=== PATIENT | female | born 1940 | race Caucasian/White ===

== ENCOUNTER 2019-09-20 17:46 | Inpatient (IN) | payer MEDICARE ==
[2019-09-20] MEDS ORDERED: SODIUM CHLORIDE 0.9% 1,000 ML IV STA ×3 (17:56→18:17)
[2019-09-20] MEDS ORDERED: SODIUM CHLORIDE 0.9% 500 ML 500 ML IV STA (18:17)
--- NOTE | 2019-09-20 18:18 | ED ---
Recheck HPI - General Chief Complaint: Fall Stated Complaint: Abn labs Time Seen by Provider: 09/20/19 17:49 Source: EMS, RN notes reviewed, old records reviewed Mode of arrival: EMS Limitations: no limitations - History of Present Illness Initial Comments: This is a 79-year-old female here today she presents as transfer, patient is accepted in transfer from outside early for abnormal lab tests elevated calcium weakness and they're concerned for possible metastatic disease or underlying CA undiagnosed. Patient herself is here in the ER with no active complaints. Denying any recent change or new medications patient is relatively poor historian. History obtained from EMS as well as patient's chart, prior hospital record ER visit MD Complaint: abnormal lab (Elevated calcium) -: unknown Returns Today for: Called Because of Abnormal Lab/Test (Sent ER for evaluation secondary to higher level of care) Symptoms Since Prior Visit: no new symptoms Associated Symptoms: none - Related Data Home Medications Medication Instructions Recorded Confirmed Calcium Carbonate/Vitamin D3 1 tab PO DAILY 09/20/19 09/20/19 [Calcium 600-Vit D3 200 Tablet] Cholecalciferol [Vitamin D3 (25 2,000 unit PO DAILY 09/20/19 09/20/19 Mcg = 1000 Iu)] Cyclobenzaprine [Flexeril] 10 mg PO DAILY PRN 09/20/19 09/20/19 Fluticasone Propion/Salmeterol 1 - 2 inhalation PO RT-DAILY 09/20/19 09/20/19 [Wixela 250-50 Inhub] Hydrochlorothiazide 25 mg PO DAILY 09/20/19 09/20/19 Lidocaine 5% Patch [Lidoderm] 1 patch TOPICAL DAILY PRN 09/20/19 09/20/19 Magnesium Oxide [[place]] 500 mg PO DAILY 09/20/19 09/20/19 Potassium Chloride ER [K-Dur 20] 20 meq PO DAILY 09/20/19 09/20/19 Sennosides [Senna] 8.6 mg PO HS PRN 09/20/19 09/20/19 Tiotropium [place] [Spiriva] 1 cap INHALATION RT-DAILY 09/20/19 09/20/19 amLODIPine [Norvasc] 10 mg PO DAILY 09/20/19 09/20/19 Allergies Allergy/AdvReac Type Severity Reaction Status Date / Time latex Allergy Rash/Hives Verified 09/20/19 19:02 morphine Allergy Rash/Hives Verified 09/20/19 19:02 Review of Systems ROS Statement: Those systems with pertinent positive or pertinent negative responses have been documented in the HPI. ROS Other: All systems not noted in ROS Statement are negative. Past Medical History Past Medical History: Asthma, COPD Additional Past Medical History / Comment(s): both ankles fractured Smoking Status: Never smoker Past Alcohol Use History: None Reported Past Drug Use History: None Reported General Exam Limitations: no limitations General appearance: alert, in no apparent distress Head exam: Present: atraumatic, normocephalic, normal inspection Eye exam: Present: normal appearance, PERRL, EOMI. Absent: scleral icterus, conjunctival injection, periorbital swelling ENT exam: Present: normal exam, mucous membranes moist Neck exam: Present: normal inspection. Absent: tenderness, meningismus, lymphadenopathy Respiratory exam: Present: normal lung sounds bilaterally. Absent: respiratory distress, wheezes, rales, rhonchi, stridor Cardiovascular Exam: Present: regular rate, normal rhythm, normal heart sounds. Absent: systolic murmur, diastolic murmur, rubs, gallop, clicks GI/Abdominal exam: Present: soft, normal bowel sounds. Absent: distended, tenderness, guarding, rebound, rigid Extremities exam: Present: normal inspection, full ROM, normal capillary refill. Absent: tenderness, pedal edema, joint swelling, calf tenderness Back exam: Present: normal inspection Neurological exam: Present: alert, oriented X3, CN II-XII intact Psychiatric exam: Present: normal affect, normal mood Skin exam: Present: warm, dry, intact, normal color. Absent: rash Course Vital Signs 09/20/19 17:57 Temperature 97.9 F Pulse Rate 71 Respiratory 20 Rate Blood Pressure 184/91 O2 Sat by Pulse 95 Oximetry - Reevaluation(s) Reevaluation #1: 09/20/19 19:58 Transfer paperwork is reviewed does show calcium of 13 Reevaluation #2: 09/20/19 19:58 Patient is feeling better with hydration here in the ER - Consultations Consultation #1: spoke w [facility] Dr [place]osa ok for admission Medical Decision Making - Medical Decision Making 79 female ER accepted in transfer for elevated calcium level likely dehydration related, patient given adequate fluid boluses here in the ER will admit for monitoring of electrolytes, further symptom management - EKG Data -: EKG Interpreted by Me (EKG shows sinus rhythm of 82, SC 140, QRS 78, QTC 436) Disposition Clinical Impression: Hypercalcemia Disposition: ADMITTED IP TO THIS HOSP Condition: Good Is patient prescribed a controlled substance at d/c from ED?: No Referrals: Nonstaff,Physician [Primary Care Provider] - 1-2 days
--- NOTE | 2019-09-20 22:08 | P.HPIM ---
History of Present Illness H&P Date: 09/20/19 Chief Complaint: Weakness fall hypercalcemia The patient is a 78 year old female with a past medical history of essential hypertension, COPD, former smoker 4 weeks in remission, osteoporosis who presents to the ER after being transferred here from [place]. The patient reports that she fell late last night around midnight after attempted to get up out of bed, she reports a slip and fall and was unable to get up. The patient reported that a neighbor found her at approximately 10:30 this morning and called EMS. The patient denied any head trauma and denies any significant pain at this time, she does report some bruising on her chest. She reports a intimately productive cough since yesterday, but denies any fevers or chills, she reports occasional wheezes. The patient reports that baseline she is able to ambulate with a walker and is able to get up and transfer but has been unable to do so, the patient reports a unintentional weight loss of approximately 30 pounds in the last 6 months. At [facility] EKG showed normal sinus rhythm . CBC was normal. Serum sodium was 138, potassium 2.9, serum calcium 13, , albumin 3.5 and magnesium 1.7. CPK 430, on chest x-ray the patient has had noted to have of increased density is in the left mid lung field posterolaterally similar to the CT representing old healed fractures, small areas of pleural calcifications in the lung apices old rib fractures seen on the right, noted compression fractures nothing acute, 40 meq potassium and 20 mg of IV Lasix Review of Systems (Positive as per HPI all other review of systems otherwise negative Past Medical History Past Medical History: Asthma, COPD Additional Past Medical History / Comment(s): both ankles fractured Smoking Status: Never smoker Past Alcohol Use History: None Reported Past Drug Use History: None Reported - Past Family History Mother Family Medical History: CVA/TIA Father Family Medical History: CVA/TIA Medications and Allergies Home Medications Medication Instructions Recorded Confirmed Type Calcium Carbonate/Vitamin D3 1 tab PO DAILY 09/20/19 09/20/19 History [Calcium 600-Vit D3 200 Tablet] Cholecalciferol [Vitamin D3 (25 2,000 unit PO DAILY 09/20/19 09/20/19 History Mcg = 1000 Iu)] Cyclobenzaprine [Flexeril] 10 mg PO DAILY PRN 09/20/19 09/20/19 History Fluticasone Propion/Salmeterol 1 - 2 inhalation PO RT-DAILY 09/20/19 09/20/19 History [Wixela 250-50 Inhub] Hydrochlorothiazide 25 mg PO DAILY 09/20/19 09/20/19 History Lidocaine 5% Patch [Lidoderm] 1 patch TOPICAL DAILY PRN 09/20/19 09/20/19 History Magnesium Oxide [[place]] 500 mg PO DAILY 09/20/19 09/20/19 History Potassium Chloride ER [K-Dur 20] 20 meq PO DAILY 09/20/19 09/20/19 History Sennosides [Senna] 8.6 mg PO HS PRN 09/20/19 09/20/19 History Tiotropium [place] [Spiriva] 1 cap INHALATION RT-DAILY 09/20/19 09/20/19 History amLODIPine [Norvasc] 10 mg PO DAILY 09/20/19 09/20/19 History Allergies Allergy/AdvReac Type Severity Reaction Status Date / Time latex Allergy Rash/Hives Verified 09/20/19 19:02 morphine Allergy Rash/Hives Verified 09/20/19 19:02 Physical Exam Vitals: Vital Signs Temp Pulse Resp BP Pulse Ox 09/20/19 17:57 97.9 F 71 20 184/91 95 Intake and Output 09/20/19 09/20/19 09/20/19 06:59 14:59 22:59 Other: Weight 43.545 kg Constitutional: No acute distress, conversant, pleasant Eyes: Anicteric sclerae, moist conjunctiva, no lid-lag, PERRLA ENMT: NC/AT,Oropharynx clear, no erythema, exudates Neck:Supple, FROM, no masses, or JVD, No carotid bruits; No thyromegaly Lungs: Clear to auscultation, Clear to percussion, Normal respiratory effort, no accessory muscle use, barrel chest Cardiovascular: Heart regular in rate and rhythm, No murmurs, gallops, or rubs no peripheral edema Abdominal: Soft Nontender, nom distended, no guarding, no rebound or rigidity, Normoactive bowel sounds No hepatomegaly, No splenomegaly, No palpable mass No abdominal wall hernia noted Skin: Normal temperature, tone, texture, turgor, No induration No subcutaneous nodules, No rash, lesions, No ulcers Extremities:No digital cyanosis No clubbing, Pedal pulses intact and symmetrical Radial pulses intact and symmetrical, No calf tenderness Psychiatric: Alert and oriented to person, place and time, Appropriate affect Intact judgement Neuro: Muscles Strength 5/5 in all 4 extremities, Sensation to light touch grossly present throughout, Cranial nerves II-XII grossly intact. No focal sensory deficits Assessment and Plan Assessment: Fall Weakness Dehydration Hypercalcemia Hypokalemia Acute bronchitis Essential hypertension COPD Plan: The patient is admitted anticipated greater than 2 midnight stay with fall and inability to get up due to weakness. Patient found to have hypecalcemia with serum calcium of 13, the patient was given Lasix, continue workup with checking ionized calcium, PTH and vitamin D level. Continue treatment with IV fluids patient was given a couple liters continue on an as the 100 mL an hour. We'll plan to hold her HCTZ as this can precipitate or worsen hypercalcemia. We'll resume her other home medications, initiate Z-Desmond for acute bronchitis. Continue to follow her clinical course/ also consult PTOT CODE STATUS: DO NOT RESUSCITATE Discussed plan of care with: Patient son and [id number] Anticipated discharge place: Home
[2019-09-21] MEDS ORDERED: CYCLOBENZAPRINE 10 MG TAB PO PRN (00:19)
[2019-09-21] MEDS ORDERED: SENNOSIDES 8.6 MG TAB PO PRN (00:19)
[2019-09-21] MEDS ORDERED: AZITHROMYCIN 500 MG TAB PO STA (00:24)
[2019-09-21] MEDS ORDERED: POTASSIUM CHLORIDE ER 20 MEQ TAB.ER PO STA (01:01)
[2019-09-21] MEDS: IPRATROPIUM 0.5 MG/2.5 ML NEBU INHALATION SCH ×4 (07:08→20:10)
[2019-09-21] MEDS: SYMBICORT 80-4.5 MCG INHALER INHALATION SCH ×2 (07:08→20:10)
[2019-09-21] MEDS: MAGNESIUM OXIDE 400 MG TAB PO SCH ×2 (07:55→07:56)
[2019-09-21] MEDS: POTASSIUM CHLORIDE ER 20 MEQ TAB.ER PO SCH (07:55)
[2019-09-21] MEDS: AZITHROMYCIN 250 MG TAB PO SCH (07:56)
[2019-09-21 08:00] LABS: Basophils # (A) 0.1 k/uL (0-0.2); Basophils % (A) 1 %; Calcium 10.9 mg/dL (8.4-10.2); Eosinophils # (A) 0.6 k/uL (0-0.7); Eosinophils % (A) 8 %; HCT 38.3 % (34.0-46.0); HGB 11.7 gm/dL (11.4-16.0); Hypochromasia Moderate; Lymphocytes % (A) 13 %; MCH 28.3 pg (25.0-35.0); MCHC 30.6 g/dL (31.0-37.0); MCV 92.6 fL (80.0-100.0); Mean Platelet Volume 8.7; Monocytes # (A) 0.4 k/uL (0-1.0); Monocytes % (A) 6 %; Neutrophils # (A) 5.6 k/uL (1.3-7.7); Neutrophils % (A) 71 %; Platelet Count 293 k/uL (150-450); Potassium 2.9 mmol/L (3.5-5.1); RBC 4.14 m/uL (3.80-5.40); RDW 13.5 % (11.5-15.5); Total Bilirubin 0.7 mg/dL (0.2-1.3); Total Protein 5.9 g/dL (6.3-8.2); WBC 7.8 k/uL (3.8-10.6)
[2019-09-21 08:42] LABS: Ionized Calcium 6.1 mg/dL (4.5-5.3)
--- NOTE | 2019-09-21 09:58 | XR ---
EXAMINATION TYPE: XR chest 1V DATE OF EXAM: 09/21/2019 HISTORY: hypercalcemia. REFERENCE: NONE. FINDINGS: There is bibasilar airspace disease. I suspect small effusions. The heart is mildly enlarge d. Metallic density projects over the right chest. IMPRESSION: 1. BIBASILAR AIRSPACE DISEASE. 2. MILD CARDIOMEGALY. 3. SMALL, BILATERAL EFFUSIONS.
[2019-09-21] MEDS: amLODIPine 10 MG TAB PO SCH (10:44)
[2019-09-21] MEDS: IPRATROPIUM-ALBUTEROL 3 ML NEB INHALATION PRN (11:33)
[2019-09-21] MEDS: POTASSIUM CHLORIDE 10 MEQ in WATER FOR INJECTION 1 100ML.BAG IVPB SCH ×4 (11:41→18:05)
--- NOTE | 2019-09-21 12:27 | P.PN ---
Subjective Progress Note Date: 09/21/19 Principal diagnosis: follow up for electrolyte abnormalities, recent fall. patient seen and examined, she reports walking with assistance to the bathroom, no associated SOB. denies fever, chills, or hemoptysis . she reports chronic cough. and quitting smoking 5 weeks ago . poor appetite , no nausea or vomiting. denies GI bleeding patient lives alone, and her sister brings her food Objective - Vital Signs Vital signs: Vital Signs Temp 98.8 F 09/21/19 05:44 Pulse 76 09/21/19 07:22 Resp 20 09/21/19 05:44 BP 155/75 09/21/19 05:44 Pulse Ox 95 09/20/19 20:07 Intake & Output 09/20/19 09/21/19 09/21/19 18:59 06:59 18:59 Intake Total 590 Balance 590 Weight 43.545 kg 43.545 kg Intake: Oral 590 Other: Voiding Method Bedside Commode # Voids 3 # Bowel Movements 2 - Exam Constitutional: vital signs stable, Not in acute distress, pleasant, conversant Lungs: decrease breath sounds throughout , prolonge expiratory phase, no wheezing , normal respiratory effort no use of accessory muscles Cardiovascular: Regular rate and rhythm, mild systolic murmurs, no gallops, no rubs, no peripheral edema Gastrointestinal: Soft, no tenderness to palpation, no palpable hepatosplenomegally, bowel sounds positive, no abdominal wall hernias Extremities: No digital cyanosis or clubbing, peripheral pulses palpable and equal over bilateral radial arteries and dorsalis pedis artery, no calf muscle tenderness Psych: Alert, oriented to place, person , appropriate affect, intact judgment Neuro: Cranial nerves II-XII grossly intact, no focal sensory deficits to touch bruising over anterior mid chest and left anterior chest - Labs CBC & Chem 7: 09/21/19 07:16 09/21/19 07:16 Labs: Abnormal Lab Results - Last 24 Hours (Table) 09/21/19 09/21/19 09/21/19 Range/Units 07:16 07:16 07:16 MCHC 30.6 L (31.0-37.0) g/dL Potassium 2.9 L (3.5-5.1) mmol/L Carbon Dioxide 32 H (22-30) mmol/L BUN 22 H (7-17) mg/dL Calcium 10.9 H (8.4-10.2) mg/dL Ionized Calcium Danna 6.1 H* (4.5-5.3) mg/dL Magnesium 1.5 L (1.6-2.3) mg/dL AST 43 H (14-36) U/L Total Protein 5.9 L (6.3-8.2) g/dL Albumin 3.0 L (3.5-5.0) g/dL Assessment and Plan Assessment: The patient reports that she fell late last night around midnight after attemp filiberto to get up out of bed, she reports a slip and fall and was unable to get up. The patient reported that a neighbor found her at approximately 10:30 this morning and called EMS. The patient reports that baseline she is able to ambulate with a walker and is able to get up and transfer but has been unable to do so, the patient reports a unintentional weight loss of approximately 30 pounds in the last 6 months. At [facility] EKG showed normal sinus rhythm . she was found to have hypercalcemia and was transferred to our facility , on chest x-ray the patient has had noted to have of increased density is in the left mid lung field posterolaterally similar to the CT representing old healed fractures, small areas of pleural calcifications in the lung apices old rib fractures seen on the right, noted compression fractures nothing acute 09/21 patient still having generalized weakness, along with electrolytes imbalance, today plan to correct Mg and K IV route, and follow up levels closely PT /OT fall risk Plan: Fall, with bruising over anterior chest generalized Weakness electroyltes imbalance, with hypercalcemia, hypokalemia and hypomagnesemia, this could be in part due to poor nutrition and HCTZ side effect, I also have unde rlying cancer in the differential significant weight loss, poor PO intake , can not rule out underlying cancer dehydration severe protein calorie malnutrition plan PT/OT eval fall precautions replace electrolytes as needed, K and Mg Ca level trending down CXR negative for lung mass. , no acute fractures identified add ensure with meals reassess over all condition and ambulation after correction of electrolytes PTH low normal Vit D hydroxy , pending chronic conditions Essential hypertension, controlled COPD, continue home inhalers tobacco smoking abuse, quit 5 weeks ago DVT PPX, heparin sc tid discharge planning pending PT evaluation , patient is weak with risk of falling
[2019-09-21] MEDS: MAGNESIUM SULFATE-D5W PMX 1 GM in DEXTROSE/WATER 1 100ML.BAG IVPB SCH ×2 (14:38→15:48)
[2019-09-21] MEDS: SODIUM CHLORIDE 0.9% 1,000 ML IV SCH ×2 (17:05→23:53)
[2019-09-21] MEDS: HEPARIN SODIUM,PORCINE 5,000 UNIT/ML 1 ML VIAL SQ SCH ×2 (17:20→23:52)
[2019-09-22] MEDS: IPRATROPIUM 0.5 MG/2.5 ML NEBU INHALATION SCH ×4 (07:25→19:01)
[2019-09-22] MEDS: SYMBICORT 80-4.5 MCG INHALER INHALATION SCH ×2 (07:25→19:01)
[2019-09-22 07:38] LABS: Basophils # (A) 0.1 k/uL (0-0.2); Basophils % (A) 2 %; Eosinophils # (A) 0.8 k/uL (0-0.7); Eosinophils % (A) 11 %; HCT 35.4 % (34.0-46.0); Hypochromasia Slight; Lymphocytes % (A) 14 %; MCH 28.5 pg (25.0-35.0); MCHC 31.2 g/dL (31.0-37.0); MCV 91.3 fL (80.0-100.0); Mean Platelet Volume 8.9; Monocytes # (A) 0.5 k/uL (0-1.0); Monocytes % (A) 7 %; Neutrophils # (A) 4.6 k/uL (1.3-7.7); Neutrophils % (A) 65 %; Platelet Count 233 k/uL (150-450); RBC 3.87 m/uL (3.80-5.40); RDW 13.7 % (11.5-15.5); WBC 7.2 k/uL (3.8-10.6)
[2019-09-22] MEDS: HEPARIN SODIUM,PORCINE 5,000 UNIT/ML 1 ML VIAL SQ SCH ×3 (07:41→23:28)
[2019-09-22] MEDS: AZITHROMYCIN 250 MG TAB PO SCH (07:41)
[2019-09-22] MEDS: POTASSIUM CHLORIDE ER 20 MEQ TAB.ER PO SCH (07:41)
[2019-09-22] MEDS: amLODIPine 10 MG TAB PO SCH (07:41)
[2019-09-22 08:26] LABS: Albumin 2.5 g/dL (3.5-5.0); Calcium 9.5 mg/dL (8.4-10.2); Magnesium 1.7 mg/dL (1.6-2.3); Total Bilirubin 0.5 mg/dL (0.2-1.3); Total Protein 5.1 g/dL (6.3-8.2)
--- NOTE | 2019-09-22 11:49 | P.PN ---
Subjective Progress Note Date: 09/22/19 Principal diagnosis: follow up for electrolyte abnormalities, recent fall. patient seen and examined, she reports walking with assistance to the bathroom twice today and tolerated well, no associated SOB. denies fever, chills, or hemoptysis . she feels better compared to since admission , she is hoping for placement at [facility] [place] , patient lives alone tolerating PO intake, tolerated ensure. no nausea or vomiting. denies GI bleeding Objective - Vital Signs Vital signs: Vital Signs Temp 98.2 F 09/22/19 05:00 Pulse 74 09/22/19 07:46 Resp 16 09/22/19 07:46 BP 138/74 09/22/19 05:00 Pulse Ox 96 09/22/19 05:00 Intake & Output 09/21/19 09/22/19 09/22/19 18:59 06:59 18:59 Intake Total 600 1470 Output Total 800 Balance -200 1470 Weight 43.545 kg Intake: Intake, IV Titration 880 Amount Sodium Chloride 0.9% 1, 880 000 ml @ 80 mls/hr IV . [id number] [facility] Rx#:[id number] Oral 600 590 Output: Urine 800 Other: Voiding Method Bedside Commode Bedside Commode Bedside Commode # Voids 4 1 - Exam Constitutional: vital signs stable, Not in acute distress, pleasant, conversant Lungs: breath sounds better( in sitting position today )compared to yesterday still overall diminished , no wheezing , normal respiratory effort no use of accessory muscles Cardiovascular: Regular rate and rhythm, mild systolic murmurs, no gallops, no rubs, no peripheral edema Gastrointestinal: Soft, no tenderness to palpation, no palpable hepatosplenomegally, bowel sounds positive, no abdominal wall hernias Extremities: No digital cyanosis or clubbing, peripheral pulses palpable and equal over bilateral radial arteries and dorsalis pedis artery, no calf muscle tenderness Psych: Alert, oriented to place, person , appropriate affect, intact judgment bruising over anterior mid chest and left anterior chest unchanged - Labs CBC & Chem 7: 09/22/19 07:02 09/22/19 07:02 Labs: Abnormal Lab Results - Last 24 Hours (Table) 09/22/19 09/22/19 Range/Units 07:02 07:02 Hgb 11.0 L (11.4-16.0) gm/dL Eosinophils # 0.8 H (0-0.7) k/uL Potassium 3.0 L (3.5-5.1) mmol/L Carbon Dioxide 33 H (22-30) mmol/L BUN 19 H (7-17) mg/dL Total Protein 5.1 L (6.3-8.2) g/dL Albumin 2.5 L (3.5-5.0) g/dL Assessment and Plan Assessment: The patient reports that she fell late last night around midnight after attempted to get up out of bed, she reports a slip and fall and was unable to get up. The patient reported that a neighbor found her at approximately 10:30 this morning and called EMS. The patient reports that baseline she is able to ambulate with a walker and is able to get up and transfer but has been unable to do so, the patient reports a unintentional weight loss of approximately 30 pounds in the last 6 months. At [facility] EKG showed normal sinus rhythm . she was found to have hypercalcemia and was transferred to our facility , on chest x-ray the patient has had noted to have of increased density is in the left mid lung field posterolaterally similar to the CT representing old healed fractures, small areas of pleural calcifications in the lung apices old rib fractures seen on the right, noted compression fractures nothing acute 09/21 patient still having generalized weakness, along with electrolytes imbalance, today plan to correct Mg and K IV route, and follow up levels closely PT /OT fall risk 09/22 she feels better still overall weak, but she is willing to participate with PT and walk around to get stronger, she lives alone and hopes for [facility] placement upon discharge. electrolyte imbalance improving , continue to hold HCTZ. i think her electrolyte abnormality were due to HCTZ and Poor PO intake consider OP follow up with PCP for age appropriate cancer screening replace K today and Mg and follow up levels Plan: electroyltes imbalance, with hypercalcemia, hypokalemia and hypomagnesemia, this could be in part due to poor nutrition and HCTZ side effect, I also have underlying cancer in the differential Fall, with bruising over anterior chest generalized Weakness significant weight loss, poor PO intake , can not rule out underlying cancer dehydration severe protein calorie malnutrition plan replace K and Mg again today and closely follow up levels hold HCTZ and discontinue HCTZ upon discharge PT/OT fall precautions Ca level normalizdd CXR negative for lung mass. , no acute fractures identified tolerating ensure with meals weakness improving with PT and replacing electrolytes chronic conditions Essential hypertension, controlled COPD, continue home inhalers tobacco smoking abuse, quit 5 weeks ago DVT PPX, heparin sc tid discharge planning [facility] 09/23 patient is weak with risk of falling , lives alone
[2019-09-22] MEDS: POTASSIUM CHLORIDE 10 MEQ in WATER FOR INJECTION 1 100ML.BAG IVPB SCH ×4 (12:18→16:39)
[2019-09-22] MEDS: SODIUM CHLORIDE 0.9% 1,000 ML IV SCH (12:22)
[2019-09-22] MEDS: MAGNESIUM SULFATE-D5W PMX 1 GM in DEXTROSE/WATER 1 100ML.BAG IVPB SCH ×2 (16:40→18:01)
[2019-09-22] MEDS: IPRATROPIUM-ALBUTEROL 3 ML NEB INHALATION PRN (19:01)
[2019-09-23] MEDS: SODIUM CHLORIDE 0.9% 1,000 ML IV SCH ×2 (05:31→14:13)
[2019-09-23] MEDS: SYMBICORT 80-4.5 MCG INHALER INHALATION SCH ×2 (07:29→21:33)
[2019-09-23] MEDS: IPRATROPIUM 0.5 MG/2.5 ML NEBU INHALATION SCH ×4 (07:29→21:25)
[2019-09-23 07:53] LABS: African American GFR (CKD) >90 (>60 ml/min/1.73 sqM); Anion Gap 3 mmol/L; Blood Urea Nitrogen 15 mg/dL (7-17); Calcium 8.7 mg/dL (8.4-10.2); Carbon Dioxide 31 mmol/L (22-30); Chloride 101 mmol/L (98-107); Glucose 86 mg/dL (74-99); Magnesium 1.5 mg/dL (1.6-2.3); Non-African American GFR(CKD) 84 (>60 ml/min/1.73 sqM); Potassium 3.2 mmol/L (3.5-5.1); Sodium 135 mmol/L (137-145)
[2019-09-23] MEDS: HEPARIN SODIUM,PORCINE 5,000 UNIT/ML 1 ML VIAL SQ SCH ×2 (08:17→16:10)
[2019-09-23] MEDS: POTASSIUM CHLORIDE ER 20 MEQ TAB.ER PO SCH (08:17)
[2019-09-23] MEDS: amLODIPine 10 MG TAB PO SCH (08:17)
[2019-09-23] MEDS: AZITHROMYCIN 250 MG TAB PO SCH (08:17)
--- NOTE | 2019-09-23 08:56 | P.PN ---
Subjective Progress Note Date: 09/23/19 Principal diagnosis: follow up for electrolyte abnormalities, recent fall. patient seen and examined, patient feel stronger with better apetite now she reports walking with assistance to the bathroom twice today and tolerated well, no associated SOB. denies fever, chills, or hemoptysis . she feels better compared to since admission , she is hoping for placement at [facility] in [place] , patient lives alone, alternatives to that she would like to go home with home care she refuses to go to any assisted living facility or long-term facility tolerating PO intake, tolerated ensure. no nausea or vomiting. denies GI bleeding Objective - Vital Signs Vital signs: Vital Signs Temp 96.3 F L 09/23/19 04:52 Pulse 76 09/23/19 07:50 Resp 20 09/23/19 04:52 BP 158/73 09/23/19 04:52 Pulse Ox 94 L 09/23/19 04:52 Intake & Output 09/22/19 09/23/19 09/23/19 18:59 06:59 18:59 Intake Total 240 590 Output Total 800 Balance -560 590 Intake: Oral 240 590 Output: Urine 800 Other: Voiding Method Bedside Commode Bedside Commode # Voids 3 5 - Exam Constitutional: vital signs stable, Not in acute distress, pleasant, conversant Lungs: Breathing sounds better today in the mid and upper portions of the lungs slightly diminished over the lung bases due to poor effort , no wheezing , normal respiratory effort no use of accessory muscles Cardiovascular: Regular rate and rhythm, mild systolic murmurs, no gallops, no rubs, no peripheral edema Gastrointestinal: Soft, no tenderness to palpation, bowel sounds positive Extremities: No digital cyanosis peripheral pulses palpable and equal no calf muscle tenderness Psych: Alert, oriented to place, person , appropriate affect, intact judgment bruising over anterior mid chest and left anterior chest unchanged - Labs CBC & Chem 7: 09/22/19 07:02 09/23/19 07:06 Labs: Abnormal Lab Results - Last 24 Hours (Table) 09/23/19 Range/Units 07:06 Sodium 135 L (137-145) mmol/L Potassium 3.2 L (3.5-5.1) mmol/L Carbon Dioxide 31 H (22-30) mmol/L Magnesium 1.5 L (1.6-2.3) mg/dL Assessment and Plan Assessment: The patient reports that she fell late last night around midnight after attempted to get up out of bed, she reports a slip and fall and was unable to get up. The patient reported that a neighbor found her at approximately 10:30 this morning and called EMS. The patient reports that baseline she is able to ambulate with a walker and is able to get up and transfer but has been unable to do so, the patient reports a unintentional weight loss of approximately 30 pounds in the last 6 months. At [facility] EKG showed normal sinus rhythm . she was found to have hypercalcemia and was transferred to our facility , on chest x-ray the patient has had noted to have of increased density is in the left mid lung field posterolaterally similar to the CT representing old healed fractures, small areas of pleural calcifications in the lung apices old rib fractures seen on the right, noted compression fractures nothing acute 09/21 patient still having generalized weakness, along with electrolytes imbalance, today plan to correct Mg and K IV route, and follow up levels closely PT /OT fall risk 09/22 she feels better still overall weak, but she is willing to participate with PT and walk around to get stronger, she lives alone and hopes for [facility] placement upon discharge. electrolyte imbalance improving , continue to hold HCTZ. i think her electrolyte abnormality were due to HCTZ and Poor PO intake consider OP follow up with PCP for age appropriate cancer screening replace K today and Mg and follow up levels 08/2016 Patient overall still showing signs of improvement she is participating with physical therapy. Working on discharge planning, insurance denied subacute rehab placement due to her functional status level. Patient refuses long-term facility care or assisted living and she prefers to go home with home care that her only option due to insurance denial I continue to replace potassium and magnesium as needed today encouraged patient to increase by mouth intake Plan: electroyltes imbalance, with hypercalcemia, hypokalemia and hypomagnesemia, this could be in part due to poor nutrition and HCTZ side effect, I also have underlying cancer in the differential Fall, with bruising over anterior chest generalized Weakness significant weight loss, poor PO intake , can not rule out underlying cancer dehydration severe protein calorie malnutrition plan Continue to follow-up electrolytes level and replace as needed hold HCTZ and discontinue HCTZ upon discharge Continue to work with PT/OT fall precautions Upper calcium and resolved CXR negative for lung mass. , no acute fractures identified tolerating ensure with meals weakness improving with PT and replacing electrolytes chronic conditions Essential hypertension, controlled COPD, continue home inhalers tobacco smoking abuse, quit 5 weeks ago DVT PPX, heparin sc tid discharge planning [facility] 09/24 home with home care due to insurance denial of subacute rehab placement I did [id number] review and explained patient is weak with risk of falling , lives alone however physical therapy notes showed that she required supervision and some areas and most of the other areas required only minimal assistance for which she did not qualify for subacute skilled rehab facility placement
[2019-09-23] MEDS: POTASSIUM CHLORIDE 10 MEQ in WATER FOR INJECTION 1 100ML.BAG IVPB SCH ×4 (10:48→14:10)
[2019-09-24] MEDS: HEPARIN SODIUM,PORCINE 5,000 UNIT/ML 1 ML VIAL SQ SCH ×2 (00:03→09:17)
[2019-09-24] MEDS: SODIUM CHLORIDE 0.9% 1,000 ML IV SCH (00:04)
[2019-09-24 05:25] VITALS: RESP 16
[2019-09-24] MEDS: SYMBICORT 80-4.5 MCG INHALER INHALATION SCH (08:06)
[2019-09-24] MEDS: IPRATROPIUM 0.5 MG/2.5 ML NEBU INHALATION SCH ×2 (08:06→12:52)
[2019-09-24] MEDS: AZITHROMYCIN 250 MG TAB PO SCH (09:17)
[2019-09-24] MEDS: amLODIPine 10 MG TAB PO SCH (09:17)
[2019-09-24] MEDS: POTASSIUM CHLORIDE ER 20 MEQ TAB.ER PO SCH (09:17)
[2019-09-24 09:44] LABS: Basophils # (A) 0.1 k/uL (0-0.2); Basophils % (A) 1 %; Eosinophils # (A) 0.5 k/uL (0-0.7); Eosinophils % (A) 6 %; HCT 35.6 % (34.0-46.0); HGB 10.9 gm/dL (11.4-16.0); Hypochromasia Slight; Lymphocytes % (A) 12 %; MCHC 30.6 g/dL (31.0-37.0); MCV 91.4 fL (80.0-100.0); Mean Platelet Volume 8.6; Monocytes # (A) 0.5 k/uL (0-1.0); Monocytes % (A) 6 %; Neutrophils # (A) 5.9 k/uL (1.3-7.7); Neutrophils % (A) 73 %; Platelet Count 270 k/uL (150-450); RBC 3.89 m/uL (3.80-5.40); RDW 13.8 % (11.5-15.5); WBC 8.2 k/uL (3.8-10.6)
[2019-09-24 09:58] LABS: African American GFR (CKD) >90 (>60 ml/min/1.73 sqM); Anion Gap 5 mmol/L; Blood Urea Nitrogen 12 mg/dL (7-17); Calcium 8.8 mg/dL (8.4-10.2); Carbon Dioxide 31 mmol/L (22-30); Chloride 99 mmol/L (98-107); Glucose 83 mg/dL (74-99); Magnesium 1.2 mg/dL (1.6-2.3); Non-African American GFR(CKD) 85 (>60 ml/min/1.73 sqM); Potassium 3.4 mmol/L (3.5-5.1); Sodium 135 mmol/L (137-145)
[2019-09-24 11:48] VITALS: BP 141/65; TEMP 98.5
[2019-09-24] MEDS: MAGNESIUM SULFATE-D5W PMX 1 GM in DEXTROSE/WATER 1 100ML.BAG IVPB SCH ×2 (11:56→13:25)
[2019-09-24 12:15] VITALS: BMI 23.1
--- NOTE | 2019-09-24 12:20 | P.DS ---
Providers Date of admission: 09/20/19 19:57 Attending physician: Maurice Mendosa MD Primary care physician: Physician Nonstaff Hospital Course: Final diagnosis upon discharge Electrolyte imbalance with hypercalcemia, hypokalemia hypomagnesemia. Most likely secondary to hydrochlorothiazide side effect. Currently resolved with replacement Generalized weakness with frequent falls at home. Anterior chest wall ecchymosis secondary to fall, no acute fractures Dehydration Severe protein calorie malnutrition Chronic conditions Hypertension COPD Hospital course 79-year-old female presents to the hospital reporting that she fell late last night around midnight after attempted to get up out of bed, she reports a slip and fall and was unable to get up. The patient reported that a neighbor found her at approximately 10:30 this morning and called EMS. The patient reports that baseline she is able to ambulate with a walker and is able to get up and transfer but has been unable to do so, the patient reports a unintentional weight loss of approximately 30 pounds in the last 6 months. At [facility] EKG showed normal sinus rhythm . she was found to have hypercalcemia and was transferred to our facility , on chest x-ray (no masses ) the patient has had noted to have of increased density is in the left mid lung field posterolaterally similar to the CT representing old healed fractures, small areas of pleural calcifications in the lung apices old rib fractures seen on the right, noted compression fractures nothing acute 09/21 patient still having generalized weakness, along with electrolytes imbalance, today plan to correct Mg and K IV route, and follow up levels closely PT /OT fall risk 09/22 she feels better still overall weak, but she is willing to participate with PT and walk around to get stronger, she lives alone and hopes for [facility] placement upon discharge. electrolyte imbalance improving , continue to hold HCTZ. i think her electrolyte abnormality were due to HCTZ and Poor PO intake consider OP follow up with PCP for age appropriate cancer screening replace K today and Mg and follow up levels 09/23 Patient overall still showing signs of improvement she is participating with physical therapy. Working on discharge planning, insurance denied subacute rehab placement due to her functional status level. I did [id number] review and explained patient is weak with risk of falling , lives alone however physical therapy notes showed that she required supervision and some areas and most of the other areas required only minimal assistance for which she did not qualify for subacute skilled rehab facility placement Patient refuses long-term facility care or assisted living and she prefers to go home with home care that her only option due to insurance denial I continue to replace potassium and magnesium as needed today encouraged patient to increase by mouth intake Patient was seen and examined on day of discharge doing well tolerating by mouth intake., Her electrolytes are at better control now. Continue to hold hydrochlorothiazide. Her blood pressure in the range of 150s to 160s. Denies any chest pain trouble breathing nausea or vomiting Constitutional: vital signs stable, Not in acute distress, pleasant, conversant Lungs: Good breath sounds bilaterally, decreased breath sounds at lung basis due to patient for effort, ecchymosis on anterior chest clearing up, no wheezing , normal respiratory effort Cardiovascular: Regular rate and rhythm, mild systolic murmurs, no gallops, no rubs, no peripheral edema Gastrointestinal: Soft, no tenderness to palpation, bowel sounds positive Extremities: No digital cyanosis peripheral pulses palpable and equal no calf muscle tenderness Psych: Alert, oriented to place, person , appropriate affect, intact judgment Discharge home with home care patient declined long-term assisted living facility Follow up with PCP In 3 days follow-up on basic metabolic panel and magnesium level Continue daily magnesium by mouth and potassium by mouth Continue to hold hydrochlorothiazide follow up with PCP Continue with amlodipine for blood pressure Continue ensure 2-3 times a day as tolerated Patient will be discharged home with home care in stable clinical condition 35 minutes were spent discharging this patient, and more than 50% of the time was spent in counseling the patient and family and in coordinating care. Patient Condition at Discharge: Good Plan - Discharge Summary Discharge Rx Participant: Yes New Discharge Prescriptions: New Ipratropium-Albuterol Nebulize [Duoneb 0.5 mg-3 mg/3 ml Soln] 3 ml INHALATION RT-QID #100 ml Continue Calcium Carbonate/Vitamin D3 [Calcium 600-Vit D3 200 Tablet] 1 tab PO DAILY Cholecalciferol [Vitamin D3 (25 Mcg = 1000 Iu)] 2,000 unit PO DAILY Cyclobenzaprine [Flexeril] 10 mg PO DAILY PRN PRN Reason: Muscle Spasm Lidocaine 5% Patch [Lidoderm 5% Patch] 1 patch TOPICAL DAILY PRN PRN Reason: Pain Magnesium Oxide [[place]] 500 mg PO DAILY Sennosides [Senna] 8.6 mg PO HS PRN PRN Reason: Constipation amLODIPine [Norvasc] 10 mg PO DAILY #30 tab Tiotropium [place] [Spiriva] 1 cap INHALATION RT-DAILY #1 inh Changed Potassium Chloride ER [K-Dur 20] 40 meq PO DAILY #30 tab Fluticasone Propion/Salmeterol [Wixela 250-50 Inhub] 2 inhalation PO RT-DAILY #1 device Discontinued Hydrochlorothiazide 25 mg PO DAILY Discharge Medication List Calcium Carbonate/Vitamin D3 [Calcium 600-Vit D3 200 Tablet] 1 tab PO DAILY 09/20/19 [History] Cholecalciferol [Vitamin D3 (25 Mcg = 1000 Iu)] 2,000 unit PO DAILY 09/20/19 [History] Cyclobenzaprine [Flexeril] 10 mg PO DAILY PRN 09/20/19 [History] Lidocaine 5% Patch [Lidoderm 5% Patch] 1 patch TOPICAL DAILY PRN 09/20/19 [History] Magnesium Oxide [[place]] 500 mg PO DAILY 09/20/19 [History] Sennosides [Senna] 8.6 mg PO HS PRN 09/20/19 [History] Fluticasone Propion/Salmeterol [Wixela 250-50 Inhub] 2 inhalation PO RT-DAILY #1 device 09/24/19 [Rx] Ipratropium-Albuterol Nebulize [Duoneb 0.5 mg-3 mg/3 ml Soln] 3 ml INHALATION RT-QID #100 ml 09/24/19 [Rx] Potassium Chloride ER [K-Dur 20] 40 meq PO DAILY #30 tab 09/24/19 [Rx] Tiotropium [place] [Spiriva] 1 cap INHALATION RT-DAILY #1 inh 09/24/19 [Rx] amLODIPine [Norvasc] 10 mg PO DAILY #30 tab 09/24/19 [Rx] Follow up Appointment(s)/Referral(s): [facility], [NON-STAFF] - 1 Week Nonstaff,Physician [Primary Care Provider] - 1-2 days Lazara Hughes MD [STAFF PHYSICIAN] - 1 Week Ambulatory/Diagnostic Orders: Basic Metabolic Panel [LAB.AMB] Time Frame: 3 Days, Location: None Selected Magnesium [LAB.AMB] Time Frame: 3 Days, Location: None Selected Activity/Diet/Wound Care/Special Instructions: continue with ensure as tolerated 2-3 times a day Discharge Disposition: HOME WITH HOME HEALTH SERVICES Plan of Treatment: continue to hold HCTZ, it is most likely the cause of your hypercalcemia and other electrolyte abnormalities. that has now resolved
[2019-09-24 13:14] VITALS: PULSE 76
== END 2019-09-24 14:55 | disposition home health service (06) | DRG 640 ==
LOC: EC 17:46 → 5NMEDONC 19:57
PROVIDERS: ADMIT Family Medicine; ATTEND Family Medicine
DX: E83.52 Hypercalcemia (principal); E43 Unspecified severe protein-calorie malnutrition; E87.6 Hypokalemia; E83.42 Hypomagnesemia; J44.9 Chronic obstructive pulmonary disease, unspecified; E86.0 Dehydration; Z66 Do not resuscitate; I10 Essential (primary) hypertension; S20.219A Contusion of unspecified front wall of thorax, initial encounter; W06.XXXA Fall from bed, initial encounter; T50.2X5A Adverse effect of carbonic-anhydrase inhibitors, benzothiadiazides and other diuretics, initial encounter; Y92.013 Bedroom of single-family (private) house as the place of occurrence of the external cause; J20.9 Acute bronchitis, unspecified; M81.0 Age-related osteoporosis without current pathological fracture; Z68.23 Body mass index [BMI] 23.0-23.9, adult; Z60.2 Problems related to living alone; Z88.5 Allergy status to narcotic agent; Z91.040 Latex allergy status; Z79.899 Other long term (current) drug therapy; Z87.81 Personal history of (healed) traumatic fracture; Z87.891 Personal history of nicotine dependence; Z82.3 Family history of stroke
CPT/HCPCS: 71045; 80048; 80053; 82306; 82330; 83735; 83970; 84100; 84132; 85025; 93005; 94640; 94760; 96360; 96361; 99285

== ENCOUNTER 2020-06-23 19:35 | Inpatient (IN) | payer MEDICARE ==
[2020-06-23] MEDS ORDERED: NALOXONE 0.4 MG/ML 1 ML VIAL IV PRN (19:57)
--- NOTE | 2020-06-23 19:57 | ED ---
Back Pain HPI - General Chief Complaint: Back Pain/Injury Stated Complaint: Possible Pneumonia Time Seen by Provider: 06/23/20 19:40 Source: patient, RN/MD, EMS, RN notes reviewed Limitations: physical limitation - History of Present Illness Initial Comments: Patient is a 79-year-old female with past medical history of asthma and COPD who presents emergency department with reported back pain. Patient has had back pain and 4-5 days. She saw her primary care physician who did an x-ray. Was reported that she had a compression fracture. She has been on steroids and muscle relaxers without improvement. Pain is worse when she ambulates. Denies any recent trauma. Denies saddle anesthesia. No bowel or bladder incontinence or retention. No weakness in her lower extremities. She denies history of drug use. No fevers. Her pain persisted and therefore she went into [facility]. They performed CT which demonstrated a L1 compression fracture approximately 50% with retropulsion of a 6 mm fragment into the spinal column. He recommended the patient be transferred to our facility for orthospine evaluation for which the patient did agree to. The patient continues to deny any weakness or lower extremities. No numbness, tingling. No other alleviating, precipitating or modifying factors Review the patient's chart demonstrates a L1 compression fracture with retropulsion of 6 mm of the fragment - Related Data Home Medications Medication Instructions Recorded Confirmed Cholecalciferol [Vitamin D3 (25 3,000 unit PO DAILY 09/20/19 06/23/20 Mcg = 1000 Iu)] Albuterol Inhaler [Ventolin Hfa 2 puff INHALATION RT-Q4H PRN 06/23/20 06/23/20 Inhaler] Cyclobenzaprine [Flexeril] 10 mg PO Q8H PRN 06/23/20 06/23/20 Fluticasone Propion/Salmeterol 1 puff INHALATION RT-DAILY 06/23/20 06/23/20 [Wixela 250-50 Inhub] Ipratropium-Albuterol Nebulize 3 ml INHALATION RT-QID PRN 06/23/20 06/23/20 [Duoneb 0.5 mg-3 mg/3 ml Soln] Latanoprost/Pf [Latanoprost 0.005% 1 drop BOTH EYES HS 06/23/20 06/23/20 Eye Drop] Magnesium Oxide 400 mg PO DAILY 06/23/20 06/23/20 Multivitamins, Thera [Multivitamin 1 tab PO DAILY 06/23/20 06/23/20 (formulary)] Potassium Chloride ER [K-Dur 20] 20 meq PO DAILY 06/23/20 06/23/20 Tiotropium [place] [Spiriva] 1 cap INHALATION RT-HS 06/23/20 06/23/20 Vitamin C(Unknown Dose) 1 tab PO DAILY 06/23/20 06/23/20 Vitamin E 400 unit PO DAILY 06/23/20 06/23/20 Previous Rx's Medication Instructions Recorded amLODIPine [Norvasc] 10 mg PO DAILY #30 tab 09/24/19 Allergies Allergy/AdvReac Type Severity Reaction Status Date / Time latex Allergy Rash/Hives Verified 06/23/20 20:36 morphine Allergy Rash/Hives Verified 06/23/20 20:36 Review of Systems ROS Statement: Those systems with pertinent positive or pertinent negative responses have been documented in the HPI. ROS Other: All systems not noted in ROS Statement are negative. Past Medical History Past Medical History: Asthma, COPD Additional Past Medical History / Comment(s): both ankles fractured History of Any Multi-Drug Resistant Organisms: None Reported Past Surgical History: Orthopedic Surgery Past Anesthesia/Blood Transfusion Reactions: No Reported Reaction Past Psychological History: No Psychological Hx Reported Smoking Status: Current every day smoker Past Alcohol Use History: None Reported Past Drug Use History: None Reported - Past Family History Mother Family Medical History: CVA/TIA Father Family Medical History: CVA/TIA General Exam Limitations: no limitations General appearance: alert, in no apparent distress Head exam: Present: atraumatic, normocephalic, normal inspection Eye exam: Present: normal appearance, PERRL, EOMI. Absent: scleral icterus, conjunctival injection, periorbital swelling ENT exam: Present: normal exam, mucous membranes moist Neck exam: Present: normal inspection. Absent: tenderness, meningismus, lymphadenopathy Respiratory exam: Present: normal lung sounds bilaterally. Absent: respiratory distress, wheezes, rales, rhonchi, stridor Cardiovascular Exam: Present: regular rate, normal rhythm, normal heart sounds. Absent: systolic murmur, diastolic murmur, rubs, gallop, clicks GI/Abdominal exam: Present: soft, normal bowel sounds. Absent: distended, tenderness, guarding, rebound, rigid Extremities exam: Present: normal inspection, full ROM, normal capillary refill. Absent: tenderness, pedal edema, joint swelling, calf tenderness Back exam: Present: normal inspection Neurological exam: Present: alert, oriented X3, CN II-XII intact Psychiatric exam: Present: normal affect, normal mood Skin exam: Present: warm, dry, intact, normal color. Absent: rash Course Vital Signs 06/23/20 06/23/20 06/23/20 19:38 20:32 20:46 Temperature 98.2 F 98.0 F 98.2 F Pulse Rate 110 H 103 H Pulse Rate [ 108 H Pulse Oximetery ] Respiratory 18 18 18 Rate Blood Pressure 168/88 174/92 Blood Pressure 146/89 [Right Arm] O2 Sat by Pulse 90 L 95 92 L Oximetry 06/23/20 21:00 Temperature 98.2 F Pulse Rate Pulse Rate [ 108 H Pulse Oximetery ] Respiratory 18 Rate Blood Pressure Blood Pressure 146/89 [Right Arm] O2 Sat by Pulse 92 L Oximetry Medical Decision Making - Medical Decision Making Upon arrival the patient was placed into room 15. A thorough history and physical exam was performed. I did review the [facility] I called and discussed case with Dr. Chew. MRI of the patient's thoracic and lumbar spine will be performed. I ordered a TLSO brace. Spine precautions and Jeffers placed. I also spoke with Dr. Torres who will be on consult for medicine. Repeat labs were performed as the patient did have le ukemia. It did improve to 3.8. The patient remained in stable condition awaiting transport to the floor - Lab Data Result diagrams: 06/28/20 08:48 06/29/20 07:32 Lab Results 06/23/20 06/23/20 06/24/20 Range/Units 20:13 20:13 04:28 WBC 10.5 12.0 H (3.8-10.6) k/uL RBC 5.03 4.93 (3.80-5.40) m/uL Hgb 15.2 15.0 (11.4-16.0) gm/dL Hct 46.7 H 46.4 H (34.0-46.0) % MCV 92.9 94.1 (80.0-100.0) fL MCH 30.2 30.3 (25.0-35.0) pg MCHC 32.5 32.2 (31.0-37.0) g/dL RDW 13.0 13.0 (11.5-15.5) % Plt Count 237 225 (150-450) k/uL Neutrophils % 89 83 % Lymphocytes % 5 10 % Monocytes % 4 5 % Eosinophils % 1 1 % Basophils % 0 0 % Neutrophils # 9.4 H 10.0 H (1.3-7.7) k/uL Lymphocytes # 0.6 L 1.2 (1.0-4.8) k/uL Monocytes # 0.5 0.6 (0-1.0) k/uL Eosinophils # 0.1 0.2 (0-0.7) k/uL Basophils # 0.0 0.0 (0-0.2) k/uL Hypochromasia Sample Site ABG pH (7.35-7.45) ABG pCO2 (35-45) mmHg ABG pO2 (83-108) mmHg ABG HCO3 (21-25) mmol/L ABG Total CO2 (19-24) mmol/L ABG O2 Saturation (94-97) % ABG Base Excess mmol/L Ariel Test FiO2 % Sodium 131 L (137-145) mmol/L Potassium 3.8 (3.5-5.1) mmol/L Chloride 91 L (98-107) mmol/L Carbon Dioxide 38 H (22-30) mmol/L Anion Gap 2 mmol/L BUN 20 H (7-17) mg/dL Creatinine 0.48 L (0.52-1.04) mg/dL Est GFR (CKD-EPI)AfAm >90 (>60 ml/min/1.73 sqM) Est GFR (CKD-EPI)NonAf >90 (>60 ml/min/1.73 sqM) Glucose 127 H (74-99) mg/dL Osmolality (280-301) mosm/kg Calcium 8.8 (8.4-10.2) mg/dL Total Bilirubin 0.5 (0.2-1.3) mg/dL AST 21 (14-36) U/L ALT 10 (4-34) U/L Alkaline Phosphatase 64 (38-126) U/L Total Protein 6.0 L (6.3-8.2) g/dL Albumin 3.3 L (3.5-5.0) g/dL Urine Osmolality (50-1400) mosm/kg Ur Random Sodium mmol/L Coronavirus (PCR) (Not Detected) 06/24/20 06/24/20 06/24/20 Range/Units 04:28 04:28 04:29 WBC (3.8-10.6) k/uL RBC (3.80-5.40) m/uL Hgb (11.4-16.0) gm/dL Hct (34.0-46.0) % MCV (80.0-100.0) fL MCH (25.0-35.0) pg MCHC (31.0-37.0) g/dL RDW (11.5-15.5) % Plt Count (150-450) k/uL Neutrophils % % Lymphocytes % % Monocytes % % Eosinophils % % Basophils % % Neutrophils # (1.3-7.7) k/uL Lymphocytes # (1.0-4.8) k/uL Monocytes # (0-1.0) k/uL Eosinophils # (0-0.7) k/uL Basophils # (0-0.2) k/uL Hypochromasia Sample Site rrad ABG pH 7.45 (7.35-7.45) ABG pCO2 58 H (35-45) mmHg ABG pO2 73 L (83-108) mmHg ABG HCO3 40 H* (21-25) mmol/L ABG Total CO2 42 H (19-24) mmol/L ABG O2 Saturation 95.7 (94-97) % ABG Base Excess 16.1 mmol/L Ariel Test Yes FiO2 28 % Sodium 131 L (137-145) mmol/L Potassium 3.6 (3.5-5.1) mmol/L Chloride 93 L (98-107) mmol/L Carbon Dioxide 36 H (22-30) mmol/L Anion Gap 2 mmol/L BUN 22 H (7-17) mg/dL Creatinine 0.48 L (0.52-1.04) mg/dL Est GFR (CKD-EPI)AfAm >90 (>60 ml/min/1.73 sqM) Est GFR (CKD-EPI)NonAf >90 (>60 ml/min/1.73 sqM) Glucose 97 (74-99) mg/dL Osmolality 280 (280-301) mosm/kg Calcium 8.6 (8.4-10.2) mg/dL Total Bilirubin (0.2-1.3) mg/dL AST (14-36) U/L ALT (4-34) U/L Alkaline Phosphatase (38-126) U/L Total Protein (6.3-8.2) g/dL Albumin (3.5-5.0) g/dL Urine Osmolality (50-1400) mosm/kg Ur Random Sodium mmol/L Coronavirus (PCR) (Not Detected) 06/24/20 06/24/20 06/24/20 Range/Units 11:50 11:50 11:50 WBC (3.8-10.6) k/uL RBC (3.80-5.40) m/uL Hgb (11.4-16.0) gm/dL Hct (34.0-46.0) % MCV (80.0-100.0) fL MCH (25.0-35.0) pg MCHC (31.0-37.0) g/dL RDW (11.5-15.5) % Plt Count (150-450) k/uL Neutrophils % % Lymphocytes % % Monocytes % % Eosinophils % % Basophils % % Neutrophils # (1.3-7.7) k/uL Lymphocytes # (1.0-4.8) k/uL Monocytes # (0-1.0) k/uL Eosinophils # (0-0.7) k/uL Basophils # (0-0.2) k/uL Hypochromasia Sample Site ABG pH (7.35-7.45) ABG pCO2 (35-45) mmHg ABG pO2 (83-108) mmHg ABG HCO3 (21-25) mmol/L ABG Total CO2 (19-24) mmol/L ABG O2 Saturation (94-97) % ABG Base Excess mmol/L Ariel Test FiO2 % Sodium (137-145) mmol/L Potassium (3.5-5.1) mmol/L Chloride (98-107) mmol/L Carbon Dioxide (22-30) mmol/L Anion Gap mmol/L BUN (7-17) mg/dL Creatinine (0.52-1.04) mg/dL Est GFR (CKD-EPI)AfAm (>60 ml/min/1.73 sqM) Est GFR (CKD-EPI)NonAf (>60 ml/min/1.73 sqM) Glucose (74-99) mg/dL Osmolality (280-301) mosm/kg Calcium (8.4-10.2) mg/dL Total Bilirubin (0.2-1.3) mg/dL AST (14-36) U/L ALT (4-34) U/L Alkaline Phosphatase (38-126) U/L Total Protein (6.3-8.2) g/dL Albumin (3.5-5.0) g/dL Urine Osmolality 511 (50-1400) mosm/kg Ur Random Sodium 68 mmol/L Coronavirus (PCR) Not Detected (Not Detected) 06/24/20 06/25/20 06/25/20 Range/Units 18:04 07:46 07:46 WBC 16.9 H (3.8-10.6) k/uL RBC 4.62 (3.80-5.40) m/uL Hgb 14.2 (11.4-16.0) gm/dL Hct 45.0 (34.0-46.0) % MCV 97.3 (80.0-100.0) fL MCH 30.7 (25.0-35.0) pg MCHC 31.5 (31.0-37.0) g/dL RDW 12.9 (11.5-15.5) % Plt Count 220 (150-450) k/uL Neutrophils % % Lymphocytes % % Monocytes % % Eosinophils % % Basophils % % Neutrophils # (1.3-7.7) k/uL Lymphocytes # (1.0-4.8) k/uL Monocytes # (0-1.0) k/uL Eosinophils # (0-0.7) k/uL Basophils # (0-0.2) k/uL Hypochromasia Slight Sample Site left radial ABG pH 7.44 (7.35-7.45) ABG pCO2 53 H (35-45) mmHg ABG pO2 49 L* (83-108) mmHg ABG HCO3 37 H (21-25) mmol/L ABG Total CO2 38 H (19-24) mmol/L ABG O2 Saturation 86.5 L (94-97) % ABG Base Excess 12.4 mmol/L Ariel Test Yes FiO2 28 % Sodium 130 L (137-145) mmol/L Potassium 3.5 (3.5-5.1) mmol/L Chloride 95 L (98-107) mmol/L Carbon Dioxide 33 H (22-30) mmol/L Anion Gap 2 mmol/L BUN 21 H (7-17) mg/dL Creatinine 0.39 L (0.52-1.04) mg/dL Est GFR (CKD-EPI)AfAm >90 (>60 ml/min/1.73 sqM) Est GFR (CKD-EPI)NonAf >90 (>60 ml/min/1.73 sqM) Glucose 139 H (74-99) mg/dL Osmolality (280-301) mosm/kg Calcium 7.6 L (8.4-10.2) mg/dL Total Bilirubin (0.2-1.3) mg/dL AST (14-36) U/L ALT (4-34) U/L Alkaline Phosphatase (38-126) U/L Total Protein (6.3-8.2) g/dL Albumin (3.5-5.0) g/dL Urine Osmolality (50-1400) mosm/kg Ur Random Sodium mmol/L Coronavirus (PCR) (Not Detected) Disposition Clinical Impression: Mechanical back pain, Compression fracture Disposition: ADMITTED IP TO THIS [facility] Condition: Stable Is patient prescribed a controlled substance at d/c from ED?: No Decision to Admit Reason: Admit from EC Decision Date: 06/23/20 Decision Time: 19:57
[2020-06-23 20:24] LABS: Basophils % (A) 0 %; Eosinophils # (A) 0.1 k/uL (0-0.7); Eosinophils % (A) 1 %; HCT 46.7 % (34.0-46.0); HGB 15.2 gm/dL (11.4-16.0); Lymphocytes # (A) 0.6 k/uL (1.0-4.8); Lymphocytes % (A) 5 %; MCH 30.2 pg (25.0-35.0); MCHC 32.5 g/dL (31.0-37.0); MCV 92.9 fL (80.0-100.0); Mean Platelet Volume 8.5; Monocytes # (A) 0.5 k/uL (0-1.0); Monocytes % (A) 4 %; Neutrophils # (A) 9.4 k/uL (1.3-7.7); Neutrophils % (A) 89 %; Platelet Count 237 k/uL (150-450); RBC 5.03 m/uL (3.80-5.40); WBC 10.5 k/uL (3.8-10.6)
[2020-06-23 20:33] LABS: ALT 10 U/L (4-34); AST 21 U/L (14-36); African American GFR (CKD) >90 (>60 ml/min/1.73 sqM); Albumin 3.3 g/dL (3.5-5.0); Alkaline Phosphatase 64 U/L (38-126); Anion Gap 2 mmol/L; Blood Urea Nitrogen 20 mg/dL (7-17); Calcium 8.8 mg/dL (8.4-10.2); Carbon Dioxide 38 mmol/L (22-30); Chloride 91 mmol/L (98-107); Glucose 127 mg/dL (74-99); Non-African American GFR(CKD) >90 (>60 ml/min/1.73 sqM); Potassium 3.8 mmol/L (3.5-5.1); Sodium 131 mmol/L (137-145); Total Bilirubin 0.5 mg/dL (0.2-1.3)
[2020-06-23] MEDS ORDERED: ALBUTEROL NEBULIZED 2.5 MG/3 ML INHALATION PRN (21:26)
[2020-06-23] MEDS ORDERED: IPRATROPIUM-ALBUTEROL 3 ML NEB INHALATION PRN (21:26)
[2020-06-23] MEDS: HYDROmorphone 0.5 MG/0.5 ML SYRINGE IVP SCH (23:09)
[2020-06-24] MEDS: HYDROmorphone 0.5 MG/0.5 ML SYRINGE IVP SCH ×3 (02:45→09:14)
--- NOTE | 2020-06-24 03:29 | P.CONS ---
History of Present Illness - Reason for Consult Consult date: 06/23/20 - History of Present Illness Patient is a 79-year-old female with a PMH of COPD, tobacco abuse, and hypertension who presented to the emergency room as a transfer from [facility] with complaints of lower back pain. The patient reports that her pain started roughly a week ago, located in the lower back, brought on only with activity (walking or any mobilization of her spine), nonradiating, with no associated features. Patient denied lower extremity weakness, numbness, tingling. She also denied urinary incontinence or bowel incontinence. The patient notes that she was seen by her PMD for her pain who had prescribed her oral steroids which she has been compliant with. The patient undergone extensive evaluation at [facility] which was all reviewed. A CT of lumbar spine had revealed mild to moderate compression fracture of L1 vertebrae with a 6 mm retropulsion of bone causing central canal stenosis. There was also severe central canal stenosis at the level of the L4/L5 vertebra. Laboratory evaluation had revealed a WBC count of 11.9, hemoglobin 16.6, sodium 135, potassium 2.7, BUN 19, creatinine 0.6, chloride 91, AST 12, ALT 8, troponin 0.04, and BNP 320. EKG had revealed sinus tachycardia at 1 10 bpm with APCs without ST/T-wave changes noted as reviewed by me. Review of Systems Pertinent positives and negatives as discussed in HPI, a complete review of systems was performed and all other systems are negative. Past Medical History Past Medical History: Asthma, COPD Additional Past Medical History / Comment(s): both ankles fractured History of Any Multi-Drug Resistant Organisms: None Reported Past Surgical History: Orthopedic Surgery Past Anesthesia/Blood Transfusion Reactions: No Reported Reaction Past Psychological History: No Psychological Hx Reported Smoking Status: Current every day smoker Past Alcohol Use History: None Reported Past Drug Use History: None Reported - Past Family History Mother Family Medical History: CVA/TIA Father Family Medical History: CVA/TIA Medications and Allergies Home Medications Medication Instructions Recorded Confirmed Type Cholecalciferol [Vitamin D3 (25 3,000 unit PO DAILY 09/20/19 06/23/20 History Mcg = 1000 Iu)] amLODIPine [Norvasc] 10 mg PO DAILY #30 tab 09/24/19 06/23/20 Rx Albuterol Inhaler [Ventolin Hfa 2 puff INHALATION RT-Q4H PRN 10/27/20 10/27/20 History Inhaler] Cyclobenzaprine [Flexeril] 10 mg PO Q8H PRN 06/23/20 06/23/20 History Fluticasone Propion/Salmeterol 1 puff INHALATION RT-DAILY 06/23/20 06/23/20 History [Wixela 250-50 Inhub] Ipratropium-Albuterol Nebulize 3 ml INHALATION RT-QID PRN 06/23/20 06/23/20 History [Duoneb 0.5 mg-3 mg/3 ml Soln] Latanoprost/Pf [Latanoprost 0.005% 1 drop BOTH EYES HS 06/23/20 06/23/20 History Eye Drop] Magnesium Oxide 400 mg PO DAILY 06/23/20 06/23/20 History Multivitamins, Thera [Multivitamin 1 tab PO DAILY 06/23/20 06/23/20 History (formulary)] Potassium Chloride ER [K-Dur 20] 20 meq PO DAILY 06/23/20 06/23/20 History Tiotropium [place] [Spiriva] 1 cap INHALATION RT-HS 06/23/20 06/23/20 History Vitamin C(Unknown Dose) 1 tab PO DAILY 06/23/20 06/23/20 History Vitamin E 400 unit PO DAILY 06/23/20 06/23/20 History Allergies Allergy/AdvReac Type Severity Reaction Status Date / Time latex Allergy Rash/Hives Verified 06/23/20 20:36 morphine Allergy Rash/Hives Verified 06/23/20 20:36 Physical Exam Vitals: Vital Signs Temp Pulse Pulse Resp BP BP Pulse Ox 06/23/20 21:00 98.2 F 108 H 18 146/89 92 L 06/23/20 20:46 98.2 F 108 H 18 146/89 92 L 06/23/20 20:32 98.0 F 103 H 18 174/92 95 06/23/20 19:38 98.2 F 110 H 18 168/88 90 L Intake and Output 06/23/20 06/23/20 06/24/20 14:59 22:59 06:59 Intake Total 240 Output Total 1000 Balance -760 Intake: Oral 240 Output: Urine 1000 Other: Voiding Method Indwelling Catheter Weight 47.627 kg General: non toxic, no distress, appears at stated age, normal weight Derm: no unusual rashes/lesions no unusual ecchymoses, warm, dry Head: atraumatic, normocephalic, symmetric Eyes: EOMI, no lid lag, anicteric sclera, pupils equal round reactive to light ENT: Nose and ears atraumatic, no thrush, no pharyngeal erythema Neck: No thyromegaly, no cervical lymphadenopathy, trachea midline, supple Mouth: no lip lesion, mucus membranes moist Cardiovascular: S1S2 reg, no murmur, positive posterior tibial pulse bilateral, no edema, capillary refill less than 2 seconds Lungs: CTA bilateral, no rhonchi, no rales , no accessory muscle use Abdominal: soft, nontender to palpation, no guarding, no appreciable organomegaly, normal bowel sounds Ext: no gross muscle atrophy, muscle strength 5 out of 5 in all 4 extremities grossly, babinski downwards, no contractures, avoided movement at this level of the spine throughout this examination Neuro: CN II-XI grossly intact, light touch intact all 4 extremities, finger to nose within normal limits, Psych: Alert, oriented, appropriate affect Results CBC & Chem 7: 06/23/20 20:13 06/23/20 20:13 Labs: Abnormal Lab Results - Last 24 Hours (Table) 06/23/20 06/23/20 Range/Units 20:13 20:13 Hct 46.7 H (34.0-46.0) % Neutrophils # 9.4 H (1.3-7.7) k/uL Lymphocytes # 0.6 L (1.0-4.8) k/uL Sodium 131 L (137-145) mmol/L Chloride 91 L (98-107) mmol/L Carbon Dioxide 38 H (22-30) mmol/L BUN 20 H (7-17) mg/dL Creatinine 0.48 L (0.52-1.04) mg/dL Glucose 127 H (74-99) mg/dL Total Protein 6.0 L (6.3-8.2) g/dL Albumin 3.3 L (3.5-5.0) g/dL Assessment and Plan Plan: Compression fracture of L1 vertebrae with retropulsion causing severe canal stenosis -Will defer management to admitting spinal surgery service -Spine precautions for now -Neurochecks -MRI ordered Hyponatremia -Monitor BMP for now Alkalosis, possibly compensatory in setting of history of COPD -Obtain ABG -Monitor for now Prerenal azotemia -Monitor BMP Chronic conditions: COPD, hypertension -Continue with home meds
[2020-06-24 04:35] LABS: ABG Base Excess 16.1 mmol/L; ABG Oxygen Saturation 95.7 % (94-97); ABG PCO2 58 mmHg (35-45); ABG PH 7.45 (7.35-7.45); ABG PO2 73 mmHg (83-108); ABG TCO2 42 mmol/L (19-24); Allen Test Performed? Yes
[2020-06-24 04:41] LABS: ABG HCO3 40 mmol/L (21-25)
[2020-06-24 04:45] LABS: Basophils % (A) 0 %; Eosinophils # (A) 0.2 k/uL (0-0.7); Eosinophils % (A) 1 %; HCT 46.4 % (34.0-46.0); Lymphocytes # (A) 1.2 k/uL (1.0-4.8); Lymphocytes % (A) 10 %; MCH 30.3 pg (25.0-35.0); MCHC 32.2 g/dL (31.0-37.0); MCV 94.1 fL (80.0-100.0); Mean Platelet Volume 8.6; Monocytes # (A) 0.6 k/uL (0-1.0); Monocytes % (A) 5 %; Neutrophils % (A) 83 %; Platelet Count 225 k/uL (150-450); RBC 4.93 m/uL (3.80-5.40)
[2020-06-24 04:58] LABS: African American GFR (CKD) >90 (>60 ml/min/1.73 sqM); Anion Gap 2 mmol/L; Blood Urea Nitrogen 22 mg/dL (7-17); Calcium 8.6 mg/dL (8.4-10.2); Carbon Dioxide 36 mmol/L (22-30); Chloride 93 mmol/L (98-107); Glucose 97 mg/dL (74-99); Non-African American GFR(CKD) >90 (>60 ml/min/1.73 sqM); Potassium 3.6 mmol/L (3.5-5.1); Sodium 131 mmol/L (137-145)
--- NOTE | 2020-06-24 08:06 | P.CNOR ---
History of Present Illness - HPI Consult date: 06/24/20 Consult reason: fracture, low back pain History of present illness: HISTORY: Patient is a 79-year-old female with a PMH of COPD, tobacco abuse, and hypertension who presented to the emergency room as a transfer from [facility] with complaints of lower back pain. The patient reports that her pain started roughly a week ago, located in the lower back, brought on only with activity (walking or any mobilization of her spine), nonradiating, with no associated features. Patient denied lower extremity weakness, numbness, tingling. She also denied urinary incontinence or bowel incontinence. The joseline rodríguez notes that she was seen by her PMD for her pain who had prescribed her oral steroids which she has been compliant with. The patient undergone extensive evaluation at [facility] which was all reviewed. A CT of lumbar spine had revealed mild to moderate compression fracture of L1 vertebrae with a 6 mm retropulsion of bone causing central canal stenosis. There was also severe central canal stenosis at the level of the L4/L5 vertebra. Laboratory evaluation had revealed a WBC count of 11.9, hemoglobin 16.6, sodium 135, potassium 2.7, BUN 19, creatinine 0.6, chloride 91, AST 12, ALT 8, troponin 0.04, and BNP 320. EKG had revealed sinus tachycardia at 1 10 bpm with APCs without ST/T-wave changes noted as reviewed by me. HPI: Patient was seen and examined this morning. She does complain of back pain. She states that it is been getting worse over the past few days. She denies any recent falls however she has had several falls in the past. She states she is able to ambulate but with increasing amounts of pain. She has previous history of left hip fracture which was fixed. She has never had back surgery but she has had a lot of back pain as of recently. The patient has a significant history of COPD she currently smokes is on oxygen. She states that her back s omewhat hurts her all the time however it has been getting worse. She denies any perineal numbness or tingling. She denies any numbness or tingling in her lower extremities. She denies any pain in her lower extremities or radiating pain. She states she is able to lift her legs and move her legs without any issues it is only when she is up and about that it causes pain with motion. Review of Systems 14 points review of systems completed and as stated in HPI or otherwise negative. Past Medical History Past Medical History: Asthma, COPD Additional Past Medical History / Comment(s): both ankles fractured, left hip fracture status post sliding hip screw, osteoporosis History of Any Multi-Drug Resistant Organisms: None Reported Past Surgical History: Orthopedic Surgery Past Anesthesia/Blood Transfusion Reactions: No Reported Reaction Past Psychological History: No Psychological Hx Reported Smoking Status: Current every day smoker Past Alcohol Use History: None Reported Past Drug Use History: None Reported - Past Family History Mother Family Medical History: CVA/TIA Father Family Medical History: CVA/TIA Medications and Allergies Home Medications Medication Instructions Recorded Confirmed Type Cholecalciferol [Vitamin D3 (25 3,000 unit PO DAILY 09/20/19 06/23/20 History Mcg = 1000 Iu)] amLODIPine [Norvasc] 10 mg PO DAILY #30 tab 09/24/19 06/23/20 Rx Albuterol Inhaler [Ventolin Hfa 2 puff INHALATION RT-Q4H PRN 06/23/20 06/23/20 History Inhaler] Cyclobenzaprine [Flexeril] 10 mg PO Q8H PRN 06/23/20 06/23/20 History Fluticasone Propion/Salmeterol 1 puff INHALATION RT-DAILY 06/23/20 06/23/20 History [Wixela 250-50 Inhub] Ipratropium-Albuterol Nebulize 3 ml INHALATION RT-QID PRN 06/23/20 06/23/20 History [Duoneb 0.5 mg-3 mg/3 ml Soln] Latanoprost/Pf [Latanoprost 0.005% 1 drop BOTH EYES HS 06/23/20 06/23/20 History Eye Drop] Magnesium Oxide 400 mg PO DAILY 06/23/20 06/23/20 History Multivitamins, Thera [Multivitamin 1 tab PO DAILY 06/23/20 06/23/20 History (formulary)] Potassium Chloride ER [K-Dur 20] 20 meq PO DAILY 06/23/20 06/23/20 History Tiotropium [place] [Spiriva] 1 cap INHALATION RT-HS 06/23/20 06/23/20 History Vitamin C(Unknown Dose) 1 tab PO DAILY 06/23/20 06/23/20 History Vitamin E 400 unit PO DAILY 06/23/20 06/23/20 History Allergies Allergy/AdvReac Type Severity Reaction Status Date / Time latex Allergy Rash/Hives Verified 06/23/20 20:36 morphine Allergy Rash/Hives Verified 06/23/20 20:36 Physical Examination Osteopathic Statement: *. No significant issues noted on an osteopathic structural exam other than those noted in the History and Physical/Consult. GEN: AOX3, NAD VSS Inspection: On inspection the patient has a noticeable kyphosis and curved were thoracic and lumbar spine. She has increasing redness over her spinous processes in these areas secondary to pressure. No open wounds however. She has no sacral decubitus. She is somewhat unkempt. With long toenails and fingernails. She does live alone and states she takes care of herself. Palpation: She has mild tenderness to palpation of the paraspinal musculature of the thoracic and lumbar spine. She has negative ballottement at this time. She has some pain but is able to log roll herself to the side under her own strength. Motor: 5/5 shoulder abd/EF/EE/WF/intrinsics 5/5 DF/PF/EHL/FHL/HF/KE/KF Reflexes: 2/4 DTR all upper and LE Sensation intact to light touch in C5-T1 as well as L2-S1 distribution Deleon's: Negative bilaterally Clonus: None Babinski: Negative bilaterally She is unable lay flat secondary to kyphosis and pain. She has a positive sagittal balance. She normally ambulates with a walker. Cranial nerves II through XII are intact grossly Negative straight leg raise bilaterally Results Her her outside CT lumbar spine is reviewed. This is a poor study as it does not include the sacrum and so level count is difficult. It appears that she has L4 compression fracture which appears chronic in nature she has an L1 burst fracture which appears potentially acute in nature she has a T10 vertebral plana which is noted at the top of the study however it is difficult to determine if this is the correct level as this is a poor study. CT of the thoracic spine is also reviewed this demonstrates the previously mentioned vertebral plana with severe kyphotic deformity which is noted in this area. This measures approximately 59. There is severe spondylosis noted throughout the thoracic and lumbar spine. There is also another severe compression deformity noted at the level of T2 or T3. This is another vertebral plana. - Labs Labs: Abnormal Lab Results - Last 24 Hours (Table) 06/23/20 06/23/20 06/24/20 Range/Units 20:13 20:13 04:28 WBC 12.0 H (3.8-10.6) k/uL Hct 46.7 H 46.4 H (34.0-46.0) % Neutrophils # 9.4 H 10.0 H (1.3-7.7) k/uL Lymphocytes # 0.6 L (1.0-4.8) k/uL ABG pCO2 (35-45) mmHg ABG pO2 (83-108) mmHg ABG HCO3 (21-25) mmol/L ABG Total CO2 (19-24) mmol/L Sodium 131 L (137-145) mmol/L Chloride 91 L (98-107) mmol/L Carbon Dioxide 38 H (22-30) mmol/L BUN 20 H (7-17) mg/dL Creatinine 0.48 L (0.52-1.04) mg/dL Glucose 127 H (74-99) mg/dL Total Protein 6.0 L (6.3-8.2) g/dL Albumin 3.3 L (3.5-5.0) g/dL 06/24/20 06/24/20 Range/Units 04:28 04:29 WBC (3.8-10.6) k/uL Hct (34.0-46.0) % Neutrophils # (1.3-7.7) k/uL Lymphocytes # (1.0-4.8) k/uL ABG pCO2 58 H (35-45) mmHg ABG pO2 73 L (83-108) mmHg ABG HCO3 40 H* (21-25) mmol/L ABG Total CO2 42 H (19-24) mmol/L Sodium 131 L (137-145) mmol/L Chloride 93 L (98-107) mmol/L Carbon Dioxide 36 H (22-30) mmol/L BUN 22 H (7-17) mg/dL Creatinine 0.48 L (0.52-1.04) mg/dL Glucose (74-99) mg/dL Total Protein (6.3-8.2) g/dL Albumin (3.5-5.0) g/dL H & H 06/23/20 06/24/20 Range/Units 20:13 04:28 Hgb 15.2 15.0 (11.4-16.0) gm/dL Hct 46.7 H 46.4 H (34.0-46.0) % Result Diagrams: 06/24/20 04:28 06/24/20 04:28 Assessment and Plan Assessment: 79-year-old female 1. Acute on chronic thoracic and lumbar spine pain 2. Severe osteoporosis 3. COPD 4. T3, T9, T11, L1, L4 severe compression deformities with local kyphotic deformity 5. [place] Plan: 1. MR of T and L spine pending 2. Medical management 3. Pain control 4. Can trial TLSO brace, but pt likely will not tolerate due to her deformity 5. Extremely poor surgical candidate, could consider kyphoplasty if MR shows acute fracture. Otherwise a T1 to pelvis fusion is not in her best interest. 6. Likely to need rehab
[2020-06-24] MEDS: SYMBICORT 80-4.5 MCG INHALER INHALATION SCH ×2 (08:19→19:26)
[2020-06-24] MEDS: IPRATROPIUM 0.5 MG/2.5 ML NEBU INHALATION SCH ×4 (08:20→19:26)
[2020-06-24] MEDS ORDERED: VITAMIN C PO SCH (09:00)
[2020-06-24] MEDS: CHOLECALCIFEROL 1,000 UNIT TAB PO SCH (09:20)
[2020-06-24] MEDS: MAGNESIUM OXIDE 400 MG TAB PO SCH (09:20)
[2020-06-24] MEDS: POTASSIUM CHLORIDE ER 20 MEQ TAB.ER PO SCH (09:20)
[2020-06-24] MEDS: amLODIPine 10 MG TAB PO SCH (09:20)
[2020-06-24] MEDS: VITAMIN E (DL,TOCOPHERYL ACET) 400 UNIT CAP PO SCH (09:20)
[2020-06-24] MEDS: SODIUM CHLORIDE 0.9% 1,000 ML IV SCH ×2 (09:21→21:26)
--- NOTE | 2020-06-24 09:34 | CT ---
EXAMINATION TYPE: CT thoracic spine wo con DATE OF EXAM: 06/24/2020 COMPARISON: Outside CT thoracic spine from yesterday HISTORY: Back Pain CT DLP: 620.6 mGycm Automated exposure control for dose reduction was used. FINDINGS: Osseous structures are demineralized. Exaggerated thoracic curvature kyphosis. There is mild to moderate age-indeterminate compression type fracture at L1 level, interval resolutio n of some lucent aspects from one day earlier. Slight posterior retropulsion of superior L1 vertebra into anterior spinal canal sagittal image 18 redemonstrated measuring up to 5 to 6 mm. There is severe compression type fracture at T11 level redemonstrated that is sclerotic with slight p osterior retropulsion of the posterior vertebral body margin into the anterior spinal canal measuring 4 mm. Mild height loss or compression type fracture involving the T9 vertebra and to lesser degree involvin g the T7 vertebra suspected chronic. There is severe chronic compression type fracture of T3 vertebra. Moderate multilevel anterior spurring. Spinal canal otherwise grossly preserved. There are old posterior bilateral rib fractures. There is background moderate underlying emphysematou s change with small bilateral pleural effusions and associated compressive atelectasis. There is mode rate coronary artery calcification. IMPRESSION: Demineralization with multilevel compression type fracture deformities. Some posterior re tropulsion noted at the T11 and L1 levels. Majority suspected chronic. L1 fracture may be acute/subac [place] as linear lucency on prior study one day earlier noted, not as well-seen on today's study.
[2020-06-24] MEDS ORDERED: ONDANSETRON 4 MG/2 ML VIAL IVP PRN (10:02)
[2020-06-24] MEDS ORDERED: methylPREDNISolone SOD SUCCI 125 MG/2 ML VIAL IV STA (10:04)
[2020-06-24] MEDS: HYDROcodone/APAP 5-325MG 1 EACH TAB PO PRN ×2 (11:38→21:29)
[2020-06-24] MEDS: predniSONE 20 MG TAB PO SCH (11:40)
[2020-06-24] MEDS: MULTIVITAMINS, THERA 1 EACH TAB PO SCH (11:44)
[2020-06-24] MEDS: LORATADINE 10 MG TAB PO SCH (11:44)
[2020-06-24] MEDS ORDERED: LORazepam 2 MG/ML INJ IV STA (12:02)
--- NOTE | 2020-06-24 13:50 | P.PN ---
Subjective Progress Note Date: 06/24/20 Principal diagnosis: back pain Patient is a 79-year-old female with known COPD, tobacco abuse, and hypertension who presented as a transfer from [facility] secondary to low back pain with abnormal computed tomography scan findings. On arrival she was tachycardic at 110 with a blood pressure 168/88 was satting 90% on 2 L nasal cannula. Laboratory analysis showed hyponatremia, elevated BUN, and the remainder of labs were unremarkable. She had a CT Thorasic, Lumbar, and Pelvis which showed a L1 compression fracture with retropulsion and central canal stenosis. She was admitted for pain control and orthopedic spine consultation. She has been seen by orthopedic spine and is currently awaiting thoracic and lumbar MRI. seen and examined at bedside. She complains of continued back pain. Every time she is getting Dilaudid she is feeling nauseous and has been vomiting. She denies any unusual chest pain or shortness of breath. She tells me she does not wear oxygen at home. She is willing to go to rehab. Objective - Vital Signs Vital signs: Vital Signs Temp 98.0 F 06/24/20 03:00 Pulse 96 06/24/20 03:00 Resp 16 06/24/20 03:00 BP 155/104 06/24/20 03:00 Pulse Ox 94 L 06/24/20 03:00 Intake & Output 06/23/20 06/24/20 06/24/20 18:59 06:59 18:59 Intake Total 360 Output Total 1300 Balance -940 Weight 47.627 kg Intake: Oral 360 Output: Urine 1300 Other: Voiding Method Indwelling Catheter - Exam General: non toxic, mild distress due to pain, frail, temporal wasting, loss of buccal fat Derm: warm, dry Head: atraumatic, normocephalic, symmetric Eyes: EOMI, no lid lag, anicteric sclera Mouth: no lip lesion, mucus membranes moist Cardiovascular: S1S2 reg, no murmur, positive posterior tibial pulse bilateral, Lungs: Decreased breath sounds bilateral, no rhonchi, no rales , no accessory muscle use Abdominal: soft, nontender to palpation, no guarding, no appreciable organomegaly Ext: no gross muscle atrophy, no edema, no contractures, severe kyphosis Neuro: CN II-XI grossly intact, no focal neuro deficits Psych: Alert, oriented, appropriate affect - Labs CBC & Chem 7: 06/24/20 04:28 06/24/20 04:28 Labs: Abnormal Lab Results - Last 24 Hours (Table) 06/23/20 06/23/20 06/24/20 Range/Units 20:13 20:13 04:28 WBC 12.0 H (3.8-10.6) k/uL Hct 46.7 H 46.4 H (34.0-46.0) % Neutrophils # 9.4 H 10.0 H (1.3-7.7) k/uL Lymphocytes # 0.6 L (1.0-4.8) k/uL ABG pCO2 (35-45) mmHg ABG pO2 (83-108) mmHg ABG HCO3 (21-25) mmol/L ABG Total CO2 (19-24) mmol/L Sodium 131 L (137-145) mmol/L Chloride 91 L (98-107) mmol/L Carbon Dioxide 38 H (22-30) mmol/L BUN 20 H (7-17) mg/dL Creatinine 0.48 L (0.52-1.04) mg/dL Glucose 127 H (74-99) mg/dL Total Protein 6.0 L (6.3-8.2) g/dL Albumin 3.3 L (3.5-5.0) g/dL 06/24/20 06/24/20 Range/Units 04:28 04:29 WBC (3.8-10.6) k/uL Hct (34.0-46.0) % Neutrophils # (1.3-7.7) k/uL Lymphocytes # (1.0-4.8) k/uL ABG pCO2 58 H (35-45) mmHg ABG pO2 73 L (83-108) mmHg ABG HCO3 40 H* (21-25) mmol/L ABG Total CO2 42 H (19-24) mmol/L Sodium 131 L (137-145) mmol/L Chloride 93 L (98-107) mmol/L Carbon Dioxide 36 H (22-30) mmol/L BUN 22 H (7-17) mg/dL Creatinine 0.48 L (0.52-1.04) mg/dL Glucose (74-99) mg/dL Total Protein (6.3-8.2) g/dL Albumin (3.5-5.0) g/dL Assessment and Plan Assessment: Intractable back pain secondary to compression fracture of the L1 vertebra with retropulsion and severe canal stenosis -Orthopedic spine recommendations-await MRI, LTSO brace -Continue with Dilaudid as patient has a morphine ALLERGY with rash -Start Bessie -Start steroids -Add Zofran to help with nausea and vomiting Hyponatremia likely secondary to decreased oral intake -IV fluids -Repeat basic metabolic profile in a.m. -Check serum osmole, urine osmole, and urine sodium COPD without acute exacerbation with hypercapnia -Symbicort, Spiriva change Atrovent due to formulary -When necessary bronchodilators Leukocytosis -Suspect reactive to stress -Repeat CBC -Monitor fever profile -No signs or symptoms of infection at this time Osteoporosis DVT prophylaxis: SCDs Discussed with: Patient, nursing, case management Anticipated discharge: in AM Anticipated discharge place: [facility] A total of 35 minutes was spent on the care of this complex patient more than 50% of the time was spent in counseling and care coordination.
--- NOTE | 2020-06-24 14:05 | MR ---
EXAMINATION TYPE: MR tspine/lspine wo/w con DATE OF EXAM: 06/24/2020 COMPARISON: CT thoracic spine earlier today. HISTORY: Compression fracture, retropulsion TECHNIQUE: Multiplanar, multisequence imaging of thoracic and lumbar spine are performed without and with IV contrast. Patient injected with 4.5 cc of gadolinium this. FINDINGS: T-spine: Exaggerated thoracic kyphosis. Mild height loss at T9 and T7 vertebra. Advanced height loss T3 verteb ra. Low T1 and T2 signal involving the T3 vertebra. Posterior retropulsion effaces the anterior theca l sac. No suspicious postcontrast enhancement. Mild/moderate multilevel anterior spurring. Axial images show small left greater than right pleural effusions and associated bibasilar compressiv e atelectasis. Lumbar spine: FINDINGS: There is advanced compression type fracture L4 level with slight posterior retropulsion gre atest along inferior margin effacing the anterior thecal sac. There is diminished T1 and T2 signal in the L1 vertebra with moderate compression type fracture and posterior bulging of the superior L1 jason tebra effacing the anterior thecal sac. Advanced compression fracture T11 level with low T1 and T2 si gnal is present with some posterior retropulsion effacing the anterior thecal sac. Some heterogeneous enhancement of the anterior elements T11 and L1 level are present. There is slight grade 1 retrolist hesis L4 on L5. Multilevel disc desiccation. Axial images at L3-L4 level shows moderate broad-based disc bulge effacing the anterior thecal sac wi th mild facet arthropathy bilaterally causing mild and moderate right-sided neural foraminal narrowin g. Axial images at L4-L5 level show advanced broad disc bulge and spurring with moderate to advanced fac et arthropathy causing most prominent spinal canal stenosis axial image 9, there is moderate left and severe right-sided neural foraminal narrowing. Axial images at L5-S1 levels show mild/moderate facet arthropathy bilaterally. There is distended gallbladder with dependent large gallstones. There is asymmetric moderate iliopsoa s muscular atrophy. IMPRESSION: Multiple compression type fracture deformity is redemonstrated effacing anterior thecal s ac of variable degree and age as detailed above. Areas of low T1 signal and enhancement could reflect acute/subacute and/or pathologic fractures. Correlate clinically.
[2020-06-24 18:19] LABS: ABG Base Excess 12.4 mmol/L; ABG HCO3 37 mmol/L (21-25); ABG Oxygen Saturation 86.5 % (94-97); ABG PCO2 53 mmHg (35-45); ABG PH 7.44 (7.35-7.45); ABG TCO2 38 mmol/L (19-24); Allen Test Performed? Yes
[2020-06-24 18:24] LABS: ABG PO2 49 mmHg (83-108)
--- NOTE | 2020-06-24 18:56 | XR ---
EXAMINATION TYPE: XR chest 1V DATE OF EXAM: 06/24/2020 COMPARISON: 09/21/2019 HISTORY: Short of breath TECHNIQUE: FINDINGS: There is some patchy infiltrate at the left lung base. There is some coarsening of intersti tial markings. There is no gross heart failure. Thoracic aorta is atheromatous. There is some artifac t over the mediastinum. IMPRESSION: Pulmonary fibrotic changes. There is improved aeration right lung base compared to old ex am. There is persistent infiltrate and atelectasis left lower lobe compared to old exam.
[2020-06-24] MEDS ORDERED: NON FORMULARY DRUG (Tiotropium Bromide [Spiriva] 18 MCG Cap.W.Dev) INHALATION SCH (20:00)
[2020-06-24] MEDS: LATANOPROST 0.005% OPHTH DROPS 2.5 ML BTL BOTH EYES SCH (22:05)
[2020-06-25] MEDS: SODIUM CHLORIDE 0.9% 1,000 ML IV SCH ×3 (00:57→10:18)
[2020-06-25] MEDS: HYDROcodone/APAP 5-325MG 1 EACH TAB PO PRN ×4 (04:05→21:16)
[2020-06-25] MEDS: PANTOPRAZOLE 40 MG TABLET PO SCH (07:02)
[2020-06-25 08:11] LABS: African American GFR (CKD) >90 (>60 ml/min/1.73 sqM); Anion Gap 2 mmol/L; Blood Urea Nitrogen 21 mg/dL (7-17); Calcium 7.6 mg/dL (8.4-10.2); Carbon Dioxide 33 mmol/L (22-30); Chloride 95 mmol/L (98-107); Glucose 139 mg/dL (74-99); Non-African American GFR(CKD) >90 (>60 ml/min/1.73 sqM); Sodium 130 mmol/L (137-145)
[2020-06-25 08:13] LABS: Potassium 3.5 mmol/L (3.5-5.1)
[2020-06-25 08:14] LABS: HGB 14.2 gm/dL (11.4-16.0); Hypochromasia Slight; MCH 30.7 pg (25.0-35.0); MCHC 31.5 g/dL (31.0-37.0); MCV 97.3 fL (80.0-100.0); Mean Platelet Volume 8.7; Platelet Count 220 k/uL (150-450); RBC 4.62 m/uL (3.80-5.40); RDW 12.9 % (11.5-15.5); WBC 16.9 k/uL (3.8-10.6)
[2020-06-25] MEDS: predniSONE 20 MG TAB PO SCH (08:50)
[2020-06-25] MEDS: amLODIPine 10 MG TAB PO SCH (08:51)
[2020-06-25] MEDS: CHOLECALCIFEROL 1,000 UNIT TAB PO SCH (08:51)
[2020-06-25] MEDS: LORATADINE 10 MG TAB PO SCH (08:51)
[2020-06-25] MEDS: MAGNESIUM OXIDE 400 MG TAB PO SCH (08:51)
[2020-06-25] MEDS: MULTIVITAMINS, THERA 1 EACH TAB PO SCH (08:51)
[2020-06-25] MEDS: POTASSIUM CHLORIDE ER 20 MEQ TAB.ER PO SCH (08:51)
[2020-06-25] MEDS: VITAMIN E (DL,TOCOPHERYL ACET) 400 UNIT CAP PO SCH (08:53)
--- NOTE | 2020-06-25 08:57 | P.PN ---
Progress Note - Text Progress Note Date: 06/25/20 [facility] Sp[facility] Progress Note SUBJECTIVE: Patient seen and examined this morning. Slightly frustrated. Pain is controlled however. She would like to get out of the hospital and does not want to be here she states. Denies any new symptoms in numbness or tingling or weakness. OBJECTIVE: Vital signs stable at this time. Labs reviewed and stated in chart. 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 She is unkempt. Reflexes: 2/4 in UE and LE b/l SILT C5-T1 and L2-S1 Dermatomal deficit: None +distal pulses palpable Negative hoffmans b/l Negative babinski b/l No clonus ASSESSMENT: 79-year-old female 1. Acute on chronic thoracic and lumbar spine pain 2. Severe osteoporosis 3. COPD 4. T3, T9, T11, L1, L4 severe compression deformities with local kyphotic deformity 5. [place] Plan: 1. MR of T and L spine pending 2. Medical management 3. Pain control 4. Can trial TLSO brace, but pt likely will not tolerate due to her deformity 5. Extremely poor surgical candidate, could consider kyphoplasty if MR shows acute fracture. Otherwise a T1 to pelvis fusion is not in her best interest. 6. Stable for Rehab
[2020-06-25] MEDS ORDERED: LACTULOSE 20 GM/30 ML CUP PO ONE (10:00)
[2020-06-25] MEDS: IPRATROPIUM 0.5 MG/2.5 ML NEBU INHALATION SCH ×4 (10:25→21:03)
[2020-06-25] MEDS: SYMBICORT 80-4.5 MCG INHALER INHALATION SCH ×2 (11:00→21:03)
--- NOTE | 2020-06-25 13:23 | CT ---
EXAMINATION TYPE: CT angio chest DATE OF EXAM: 06/25/2020 COMPARISON: Radiograph 06/24/2020 HISTORY: 79-year-old female Short of breath, left lung mass TECHNIQUE: Contiguous axial scanning of the chest performed with IV Contrast, patient injected with 1 00, 44 wasted mL of Isovue 370. Coronal/sagittal MIP reconstructions performed. CT DLP: 180.3 mGycm Automated exposure control for dose reduction was used. FINDINGS: Heart normal size without pericardial effusion. LAD coronary artery calcifications. Aorta normal caliber with moderate atherosclerotic arch calcifications and conventional branching jose keo. No thoracic lymphadenopathy by CT size criteria. Satisfactory opacification of the pulmonary arterial system. Breathing motion artifacts. Many of the segmental and more distal arterial branches are nondiagnostic due to the breathing motion. No large c entral lobar branch pulmonary embolus. There is large caliber to the main right and left pulmonary ar teries measuring up to 2.6 cm which may reflect underlying pulmonary hypertension. Small to moderate left and small right pleural effusions. There is some layering debris within the right bronchus intermedius and within right lower lobe branc hes. This combination of atelectasis and consolidation of the entire superior segment right lower lob e and posterior basilar segments. Some mild adjacent atelectasis at the posterior left base. There is some distortion and spiculated soft tissue thickening extending along the right upper lobe b ronchovascular bundles measuring up to 1.5 x 0.6 cm but spending up to 2.7 cm craniocaudal. Follow-up is recommended. Abnormal lobulated nodularity measuring up to 1.4 x 0.6 cm at the medial left apex, axial image 19. Moderate atherosclerotic narrowing at the origin of the celiac axis and mild at the SMA origin. Bones: Multiple bilateral old rib fracture deformities. There is degenerative change at the right gl enohumeral joint. This is to be old healed fracture deformity at the medial left clavicular head. Kno wn multiple thoracic and lumbar vertebral compression fractures described separately on recent exams. IMPRESSION: 1. BREATHING MOTION ARTIFACT LIMITS ASSESSMENT. NO LARGE CENTRAL OR LOBAR LARGE PULMONARY EMBOLUS. [place] OF THE SEGMENTAL AND MORE DISTAL ARTERIAL BRANCHES ARE VERY LIMITED TO NONDIAGNOSTIC. 2. SMALL TO MODERATE RIGHT AND SMALL LEFT PLEURAL EFFUSIONS. THERE IS LAYERING DEBRIS WITHIN THE RIGH T BRONCHUS INTERMEDIUS AND A COMBINATION OF COLLAPSE AND CONSOLIDATION OF MOST OF THE RIGHT LOWER LOB E. 3. SOME DISTORTION AND SPICULATED SOFT TISSUE THICKENING EXTENDING ALONG THE RIGHT UPPER LOBE BRONCHO VASCULAR BUNDLE MEASURING 2.7 X 1.5 X 0.6 CM, POSSIBLE SCARRING. TWO-MONTH FOLLOW-UP CT RECOMMENDED T O REASSESS. 4. MEDIAL LEFT APICAL NODULARITY MEASURING 1.4 X 0.6 CM SHOULD ALSO BE REASSESSED AT THE TWO-MONTH FO LLOW-UP TO EXCLUDE EARLY NEOPLASM.
[2020-06-25] MEDS ORDERED: FUROSEMIDE 10 MG/ML 2 ML VIAL IV ONE (13:37)
[2020-06-25] MEDS: AMOXIC-POT CLAV 875-125MG 1 EACH TAB PO SCH ×2 (15:50→21:18)
--- NOTE | 2020-06-25 16:36 | P.PN ---
Subjective Progress Note Date: 06/25/20 (delayed charting seen at 1030) Principal diagnosis: back pain Patient is a 79-year-old female with known COPD, tobacco abuse, and hypertension who presented as a transfer from [facility] secondary to low back pain with abnormal computed tomography scan findings. On arrival she was tachycardic at 110 with a blood pressure 168/88 was satting 90% on 2 L nasal cannula. Laboratory analysis showed hyponatremia, elevated BUN, and the remainder of labs were unremarkable. She had a CT Thorasic, Lumbar, and Pelvis which showed a L1 compression fracture with retropulsion and central canal stenosis. She was admitted for pain control and orthopedic spine consultation. She has been seen by orthopedic spine and is currently awaiting thoracic and lumbar MRI. Patient seen and examined at bedside. Back pain is slightly better today than yesterday. No chest pain, shortness of breath, nausea. We discussed that the likely cause of her multiple compression fractures with osteoporosis however there could be an underlying malignancy. I have started just a CTA of the chest which she is willing to complete. I also suggested age-related cancer screening. Mammogram and colonoscopy. However she adamantly denies this though we discussed that she may have an underlying tumor somewhere that needs to be discovered. She adamantly does not want to undergo extensive cancer screening but is willing to undergo a CT of the chest with her smoking history. Objective - Vital Signs Vital signs: Vital Signs Temp 98.2 F 06/25/20 09:00 Pulse 96 06/25/20 11:15 Resp 18 06/25/20 09:00 BP 166/81 06/25/20 09:00 Pulse Ox 95 06/25/20 09:00 Intake & Output 06/24/20 06/25/20 06/25/20 18:59 06:59 18:59 Intake Total 700 1025 120 Output Total 200 275 Balance 500 750 120 Weight 47.627 kg Intake: Intake, IV Titration 700 750 Amount Sodium Chloride 0.9% 1, 700 750 000 ml @ 125 mls/hr IV . Q8H [facility] Rx#:[id number] Oral 275 120 Output: Urine 200 275 Other: Voiding Method Indwelling Catheter Indwelling Catheter Indwelling Catheter - Exam General: non toxic, no distress, frail, temporal wasting, loss of buccal fat Derm: warm, dry Head: atraumatic, normocephalic, symmetric Eyes: EOMI, no lid lag, anicteric sclera Mouth: no lip lesion, mucus membranes moist Cardiovascular: S1S2 reg, no murmur, positive posterior tibial pulse bilateral, Lungs: Rhonchi right base , no accessory muscle use Abdominal: soft, nontender to palpation, no guarding, no appreciable organomegaly Ext: no gross muscle atrophy, 2+ edema, no contractures, severe kyphosis Neuro: CN II-XI grossly intact, no focal neuro deficits Psych: Alert, oriented, appropriate affect - Labs CBC & Chem 7: 06/25/20 07:46 06/25/20 07:46 Labs: Abnormal Lab Results - Last 24 Hours (Table) 06/24/20 06/25/20 06/25/20 Range/Units 18:04 07:46 07:46 WBC 16.9 H (3.8-10.6) k/uL ABG pCO2 53 H (35-45) mmHg ABG pO2 49 L* (83-108) mmHg ABG HCO3 37 H (21-25) mmol/L ABG Total CO2 38 H (19-24) mmol/L ABG O2 Saturation 86.5 L (94-97) % Sodium 130 L (137-145) mmol/L Chloride 95 L (98-107) mmol/L Carbon Dioxide 33 H (22-30) mmol/L BUN 21 H (7-17) mg/dL Creatinine 0.39 L (0.52-1.04) mg/dL Glucose 139 H (74-99) mg/dL Calcium 7.6 L (8.4-10.2) mg/dL Assessment and Plan Assessment: Intractable back pain secondary to multiple compression fractures: L4 with slight posterior retropulsion, L1 with moderate posterior disc bulge effacing the anterior thecal sac, T11 exam compression fracture with some posterior retr opulsion facing the anterior thecal sac -Orthopedic spine recommendations-discussed with Dr. Lau. No surgery planned at this point. TLSO brace when up and ambulating and pain control. - Patient refuses age-related cancer testing such as mammogram or colonoscopy. We discussed benefits and risks including undefined occult malignancy and patient accepts the risk of this. She asked me to contact her sister will inform her of her progress. I did contact at 4:20 PM and states that this has been ongoing request of the patient for quite some time. - norco, steroids, zofran. Acute hypoxic respiratory failure, aspiration pneumonia- possible gram negative, nodular thickening -Check CT of the chest which was completed and shows no signs of large pulmonary embolism but does demonstrate debris in the right mainstem bronchus with collapse of the lower lobe consolidation, spiculated soft tissue thickening along the right upper lobe and left apical nodularity. -Repeat CT chest in [address] De Luna. Case discussed with Dr. De Luna who agrees to following the patient. Patient informs -Start Augmentin -Stop IV fluids, start low-dose Lasix -Repeat chest x-ray in a.m. Hyponatremia likely secondary to decreased oral intake and fluid overload -Lasix -Repeat basic metabolic profile in a.m. -Check serum osmole, urine osmole, and urine sodium COPD without acute exacerbation with hypercapnia -Symbicort, Spiriva change Atrovent due to formulary -When necessary bronchodilators Moderate protein calorie malnutrition - dietitian recs - supplements Osteoporosis DVT prophylaxis: SCDs Discussed with: Patient, nursing, case management Anticipated discharge: in AM Anticipated discharge place: SNF A total of 35 minutes was spent on the care of this complex patient more than 50% of the time was spent in counseling and care coordination.
[2020-06-25] MEDS: LATANOPROST 0.005% OPHTH DROPS 2.5 ML BTL BOTH EYES SCH (21:18)
[2020-06-26] MEDS: HYDROcodone/APAP 5-325MG 1 EACH TAB PO PRN ×3 (03:31→16:48)
[2020-06-26 05:16] LABS: HCT 42.7 % (34.0-46.0); HGB 13.9 gm/dL (11.4-16.0); MCH 30.7 pg (25.0-35.0); MCHC 32.6 g/dL (31.0-37.0); MCV 94.5 fL (80.0-100.0); Platelet Count 222 k/uL (150-450); RBC 4.53 m/uL (3.80-5.40); RDW 12.9 % (11.5-15.5); WBC 13.7 k/uL (3.8-10.6)
[2020-06-26 05:44] LABS: African American GFR (CKD) >90 (>60 ml/min/1.73 sqM); Anion Gap 3 mmol/L; Blood Urea Nitrogen 16 mg/dL (7-17); Calcium 7.8 mg/dL (8.4-10.2); Carbon Dioxide 34 mmol/L (22-30); Chloride 91 mmol/L (98-107); Glucose 125 mg/dL (74-99); Magnesium 1.2 mg/dL (1.6-2.3); Non-African American GFR(CKD) >90 (>60 ml/min/1.73 sqM); Sodium 128 mmol/L (137-145)
[2020-06-26] MEDS: PANTOPRAZOLE 40 MG TABLET PO SCH (06:34)
--- NOTE | 2020-06-26 07:35 | XR ---
EXAMINATION TYPE: XR chest 1V portable DATE OF EXAM: 06/26/2020 CLINICAL HISTORY: Difficulty breathing progress study. TECHNIQUE: Single AP portable upright view of the chest is obtained. COMPARISON: Chest x-ray from 2 days earlier. CTA chest yesterday FINDINGS: Cardiac silhouette size is stable and within normal limits with atherosclerotic and ectati c thoracic aorta. Background chronic parenchymal change with bibasilar opacities remains present. Oss eous structures remain demineralized. IMPRESSION: Chronic parenchymal changes with small bilateral pleural effusions and right basilar acut e infiltrate and/or atelectasis are redemonstrated. No significant change from recent CT.
[2020-06-26] MEDS: IPRATROPIUM 0.5 MG/2.5 ML NEBU INHALATION SCH ×4 (07:54→20:42)
[2020-06-26] MEDS: SYMBICORT 80-4.5 MCG INHALER INHALATION SCH ×2 (07:54→20:44)
[2020-06-26] MEDS ORDERED: POTASSIUM CHLORIDE ER 20 MEQ TAB.ER PO STA (08:39)
[2020-06-26] MEDS ORDERED: METOPROLOL TARTRATE 25 MG TAB PO SCH (09:45)
[2020-06-26] MEDS: MAGNESIUM SULFATE-D5W PMX 1 GM in DEXTROSE/WATER 1 100ML.BAG IVPB SCH ×4 (10:29→14:20)
--- NOTE | 2020-06-26 10:29 | ECHOF ---
Referral Reason:a fib MEASUREMENTS -------- HEIGHT: 127.0 cm WEIGHT: 68.0 kg BP: IVSd: 1.3 cm (0.6 - 1.1) LVIDd: 1.4 cm (3.9 - 5.3) LVPWd: 1.1 cm (0.6 - 1.1) IVSs: 1.2 cm LVIDs: 0.9 cm LVPWs: 1.1 cm RAP: 5.00 mmHg RVSP: 12.13 mmHg FINDINGS -------- Atrial fibrillation. This was a technically adequate study. The left ventricular size is normal. There is borderline concentric left ventricular hypertrophy. Overall left ventricular systolic function is normal with, an EF between 55 - 60 %. The RV was not well visualized. The left atrial size is normal. The right atrial size is normal. Aortic valve is trileaflet and is mildly thickened. The mitral valve is normal. Mild mitral regurgitation is present. The tricuspid valve appears structurally normal. Mild tricuspid regurgitation present. Right vent ricular systolic pressure is normal at < 35 mmHg. The pulmonic valve was not well visualized. The aortic root size is normal. Normal inferior vena cava with normal inspiratory collapse consistent with estimated right atrial pre ssure of 5 mmHg. There is no pericardial effusion. CONCLUSIONS -------- 1. The left ventricular size is normal. 2. There is borderline concentric left ventricular hypertrophy. 3. Overall left ventricular systolic function is normal with, an EF between 55 - 60 %. 4. Aortic valve is trileaflet and is mildly thickened. 5. Mild mitral regurgitation is present. 6. Mild tricuspid regurgitation present. 7. There is no pericardial effusion. PLATE AND WELD INSPECTOR: Jazmine Allen [facility]
[2020-06-26] MEDS: POTASSIUM CHLORIDE 10 MEQ in WATER FOR INJECTION 1 100ML.BAG IVPB SCH ×4 (10:33→14:19)
[2020-06-26] MEDS ORDERED: HEPARIN SODIUM,PORCINE 5,000 UNIT/ML 1 ML VIAL IV PRN (10:34)
[2020-06-26] MEDS: amLODIPine 10 MG TAB PO SCH (10:38)
[2020-06-26] MEDS: MULTIVITAMINS, THERA 1 EACH TAB PO SCH (10:39)
[2020-06-26] MEDS: MAGNESIUM OXIDE 400 MG TAB PO SCH (10:39)
[2020-06-26] MEDS: VITAMIN E (DL,TOCOPHERYL ACET) 400 UNIT CAP PO SCH (10:39)
[2020-06-26] MEDS: AMOXIC-POT CLAV 875-125MG 1 EACH TAB PO SCH ×2 (10:39→21:36)
[2020-06-26] MEDS: predniSONE 20 MG TAB PO SCH (10:39)
[2020-06-26] MEDS: POTASSIUM CHLORIDE ER 20 MEQ TAB.ER PO SCH (10:40)
[2020-06-26] MEDS: CHOLECALCIFEROL 1,000 UNIT TAB PO SCH (10:40)
[2020-06-26] MEDS: LORATADINE 10 MG TAB PO SCH (10:40)
[2020-06-26] MEDS ORDERED: HEPARIN SOD,PORK IN 0.45% NACL 25,000 UNIT in 0.45% NACL 1 250ML.BAG IV SCH (10:45)
[2020-06-26 12:20] LABS: Basophils # (A) 0.1 k/uL (0-0.2); Basophils % (A) 0 %; Eosinophils # (A) 0.1 k/uL (0-0.7); Eosinophils % (A) 1 %; HCT 47.3 % (34.0-46.0); Hypochromasia Slight; Lymphocytes # (A) 0.5 k/uL (1.0-4.8); Lymphocytes % (A) 4 %; MCH 30.4 pg (25.0-35.0); MCHC 31.7 g/dL (31.0-37.0); MCV 95.9 fL (80.0-100.0); Mean Platelet Volume 8.7; Monocytes # (A) 0.3 k/uL (0-1.0); Monocytes % (A) 2 %; Neutrophils # (A) 11.1 k/uL (1.3-7.7); Neutrophils % (A) 92 %; Platelet Count 218 k/uL (150-450); RBC 4.93 m/uL (3.80-5.40); WBC 12.1 k/uL (3.8-10.6)
[2020-06-26 12:41] LABS: INR 0.9 (<1.2); Prothrombin Time 9.4 sec (9.0-12.0)
[2020-06-26 12:50] LABS: Partial Thromboplastin Time 21.6 sec (22.0-30.0)
--- NOTE | 2020-06-26 13:12 | CONS ---
CONSULTATION REASON FOR CONSULT: Hyponatremia. HISTORY OF PRESENT ILLNESS: Patient is a 79-year-old female who was admitted to the hospital on 06/23/2020 with complaints of back pain. Patient was transferred from [facility]. She denied use of any new medications recently prior to admission. The patient stated that she has not had low sodium levels before. However, she has had low potassium and low magnesium levels previously. Serum sodium was 131 on initial admission. Patient has been maintained on IV fluids at 125 mL an hour and this morning serum sodium was 128. Patient developed mild shortness of breath and she did receive a dose of IV Lasix 20 mg yesterday. Blood pressure has not been low systolic around 133-140 mmHg. Patient does not complain of any dizziness or lightheadedness. She was not on any thiazide diuretics at home. Urine osmolality was done on 06/24, which was 511 with random urine sodium of 68. Of note is that patient did get IV Lasix yesterday. Patient states that she has been drinking large amounts of water and coke. She consumes about 4 small cans of Coke per day. Serum creatinine 0.3 mg/dL and potassium is 3.0 and 3.5 mEq/L. PAST MEDICAL HISTORY: Significant for hypertension, COPD, asthma. PAST SURGICAL HISTORY: Surgery of the ankles. SOCIAL HISTORY: Positive for smoking, no history of drug abuse, alcohol abuse. MEDICATIONS PRIOR TO ADMISSION: Included Norvasc Flexeril, potassium, Spiriva, vitamin D. ALLERGIES: Include LATEX and MORPHINE cause rash and hives. REVIEW OF SYSTEMS: As per HPI. Other systems negative. PHYSICAL EXAMINATION: Patient is comfortable, awake. She is not in any acute distress. She appears mildly short of breath. Blood pressure is 133/82, heart rate 87 per minute, she is afebrile. Examination of the heart S1, S2, occasional wheezing is heard. Decreased breath sounds at the bases. Heart sounds are heard. Abdomen is soft, nontender. Examination of the lower extremities shows chronic skin changes. No significant edema noted. 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 LABS: Show sodium 128, potassium 3.0, BUN of 16, creatinine 0.5, CO2 of 34, chloride 91, hemoglobin 15.0 g/dL. ASSESSMENT: 1. Hyponatremia, currently patient appears hypervolemic, status post IV Lasix yesterday. Her urine osmolality is elevated, which can suggest SIADH. However, patient did receive IV Lasix yesterday and she is currently hypervolemic. I will continue off of IV fluids and maintain patient on fluid restriction. She is encouraged to increase oral protein intake as she states that she has does not like to eat much protein. I will repeat a urine osmolality today and serum sodium will also be repeated this afternoon. We can repeat Lasix if her sodium is worse and patient will also benefit from tolvaptan. 2. Hypokalemia associated with decreased oral intake and diuresis. 3. Chronic obstructive pulmonary disease. 4. Intractable back pain secondary to multiple compression fractures. 5. Chronic obstructive pulmonary disease with acute exacerbation. 6. Osteoporosis. PLAN: Maintain patient on fluid restriction, repeat sodium. Repeat urine osmolality, add loop diuretics if sodium is worse. Increase protein intake as well. Consider tolvaptan. Thank you for this consultation. Will continue to follow the patient with you during her hospitalization. MMSOCORROL / LIZETHN: [id number] /
--- NOTE | 2020-06-26 13:30 | P.PN ---
Subjective Progress Note Date: 06/26/20 (delayed charting seen at 1005) Principal diagnosis: back pain Patient is a 79-year-old female with known COPD, tobacco abuse, and hypertension who presented as a transfer from [facility] secondary to low back pain with abnormal computed tomography scan findings. On arrival she was tachycardic at 110 with a blood pressure 168/88 was satting 90% on 2 L nasal cannula. Laboratory analysis showed hyponatremia, elevated BUN, and the remainder of labs were unremarkable. She had a CT Thorasic, Lumbar, and Pelvis which showed a L1 compression fracture with retropulsion and central canal stenosis. She was admitted for pain control and orthopedic spine consultation. MRI showed L4 with slight posterior retropulsion, L1 with moderate posterior disc bulge effacing the anterior thecal sac, T11 exam compression fracture with some posterior retropulsion facing the anterior thecal sac. She developed tahcycardia and increased O2 requirements. CTA chest negative of pulmonary embolism but does demonstrate debris in the right mainstem bronchus with collapse of the lower lobe consolidation, spiculated soft tissue thickening along the right upper lobe and left apical nodularity. On Augmentin and Lasix. Speech therapy consult was placed for possible aspiration pneumonia. She was in A. fib with RVR on 06/26. She underwent an echocardiogram, cardiology consult, was initially placed on metoprolol which was transitioned to Cardizem by cardiology due to her history of COPD. Patient seen and examined at bedside. States that her back pain is tolerable with medications. Denies any chest discomfort or shortness of breath. Continues to have a cough. Had several BMs yesterday. Is very agitated and upset about not leaving the hospital today and does not understand why. General: ill appearing, no distress, appears at stated age Derm: warm, dry Head: atraumatic, normocephalic, symmetric Eyes: EOMI, no lid lag, anicteric sclera Mouth: no lip lesion, mucus membranes moist Cardiovascular: S1S2 irreg, no murmur, positive posterior tibial pulse bilateral, Lungs: Ronchi right base , no accessory muscle use Abdominal: soft, nontender to palpation, no guarding, no appreciable organomegaly Ext: no gross muscle atrophy, 1+ boggy edema, no contractures Neuro: CN II-XI grossly intact, no focal neuro deficits Psych: Alert, oriented, appropriate affect Atrial fibrillation with rapid ventricular response -Initially her metoprolol which is changed to Cardizem by cardiology -Heparin drip -We'll need to have a discussion of risks versus benefits of anticoagulation therapy prior to discharge with history of falls -Cardiology recommended appreciated -Await echocardiogram -Telemetry -Check TSH Hypokalemia and hypomagnesemia -Replacement -Recheck this evening and in a.m. 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 Lau. No surgery planned at this point. TLSO brace when up and ambulating and pain control. - Patient refuses age-related cancer testing such as mammogram or colonoscopy. We discussed benefits and risks including undefined occult malignancy and patient accepts the risk of this. She asked me to contact her sister will inform her of her progress. - norco, steroids, zofran. Acute hypoxic respiratory failure, aspiration pneumonia- possible gram negative, nodular thickening - Check CT of the chest which was completed and shows no signs of large pulmonary embolism but does demonstrate debris in the right mainstem bronchus with collapse of the lower lobe consolidation, spiculated soft tissue thickening along the right upper lobe and left apical nodularity. - Repeat CT chest in [address] De Luna. Case discussed with Dr. De Luna who agrees to following the patient. Patient informed - Augmentin - Continue low-dose Lasix - Repeat chest x-ray in a.m. COPD without acute exacerbation with hypercapnia -Symbicort, Spiriva change Atrovent due to formulary -When necessary bronchodilators Moderate protein calorie malnutrition - dietitian recs - supplements Osteoporosis DVT prophylaxis: SCDs Discussed with: Patient, nursing, case management Anticipated discharge: in AM Anticipated discharge place: SNF A total of 35 minutes was spent on the care of this complex patient more than 50% of the time was spent in counseling and care coordination. Objective - Vital Signs Vital signs: Vital Signs Temp 98.3 F 06/26/20 08:19 Pulse 92 06/26/20 11:35 Resp 14 06/26/20 08:19 BP 133/82 06/26/20 08:19 Pulse Ox 94 L 06/26/20 08:19 Intake & Output 06/25/20 06/26/20 06/26/20 18:59 06:59 18:59 Intake Total 1475 400 Output Total 1350 1000 Balance 125 -600 Weight 47.627 kg Intake: Intake, IV Titration 875 Amount Sodium Chloride 0.9% 1, 875 000 ml @ 125 mls/hr IV . Q8H [facility] Rx#:[id number] Oral 600 400 Output: Urine 1350 1000 Uretheral ([place]) 350 Other: Voiding Method Indwelling Catheter Indwelling Catheter # Bowel Movements 2 - Labs CBC & Chem 7: 06/26/20 11:55 06/26/20 05:01 Labs: Abnormal Lab Results - Last 24 Hours (Table) 06/26/20 06/26/20 06/26/20 Range/Units 05:01 05:01 11:55 WBC 13.7 H 12.1 H (3.8-10.6) k/uL Hct 47.3 H (34.0-46.0) % Neutrophils # 11.1 H (1.3-7.7) k/uL Lymphocytes # 0.5 L (1.0-4.8) k/uL APTT (22.0-30.0) sec Sodium 128 L (137-145) mmol/L Potassium 3.0 L (3.5-5.1) mmol/L Chloride 91 L (98-107) mmol/L Carbon Dioxide 34 H (22-30) mmol/L Glucose 125 H (74-99) mg/dL Calcium 7.8 L (8.4-10.2) mg/dL Magnesium 1.2 L (1.6-2.3) mg/dL 06/26/20 Range/Units 11:55 WBC (3.8-10.6) k/uL Hct (34.0-46.0) % Neutrophils # (1.3-7.7) k/uL Lymphocytes # (1.0-4.8) k/uL APTT 21.6 L (22.0-30.0) sec Sodium (137-145) mmol/L Potassium (3.5-5.1) mmol/L Chloride (98-107) mmol/L Carbon Dioxide (22-30) mmol/L Glucose (74-99) mg/dL Calcium (8.4-10.2) mg/dL Magnesium (1.6-2.3) mg/dL
--- NOTE | 2020-06-26 14:06 | P.CRDCN ---
History of Present Illness Consult date: 06/26/20 History of present illness: CHIEF COMPLAINT: A. fib HISTORY OF PRESENT ILLNESS: This is a 79 -year old female with a past medical history significant for COPD, back pain, and nicotine dependence,. 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 We have been asked to see the patient in consultation for atrial fibrillation. Patient is admitted to the hospital secondary to intractable back pain secondary to multiple compression fractures and acute hypoxic respiratory failure with possible aspiration pneumonia. Patient examined at the bedside with Dr. Agrawal. Patient denies previous history of atrial fibrillation. She denies chest pain or pressure. She reports shortness of breath which she states is chronic for her. She denies dizziness or lightheadedness. Denies palpitations. DIAGNOSTICS: EKG reveals atrial fibrillation with RVR. No signs of acute ischemia Chest xray chronic parenchymal changes with small bilateral pleural effusions and right basilar acute infiltrate and/or atelectasis. Laboratory data: WBC 12.1. Hemoglobin 15.0. Platelet count 218. Sodium 128. Potassium 3.0. BUN 16. Creatinine 0.52. Magnesium 1.2. Current home cardiac medications include Norvasc 10 mg daily REVIEW OF SYSTEMS: At the time of my exam: CONSTITUTIONAL: Denies fever or chills. HEENT: Denies blurred vision, vision changes, or eye pain. Denies hemoptysis CARDIOVASCULAR: Denies chest pain, orthopnea, PND or palpitations RESPIRATORY: Reports shortness of breath. GASTROINTESTINAL: Denies abdominal pain. Denies nausea or vomiting. HEMATOLOGIC: Denies bleeding disorders. GENITOURINARY: Denies any blood in urine. SKIN: Denies pruitis. Denies rash. PHYSICAL EXAM: VITAL SIGNS: Reviewed. GENERAL: Well-developed in no acute distress. HEENT: Head is normocephalic. Pupils are equal, round. Sclerae anicteric. Mucous membranes of the mouth are moist. Neck supple. No JVD or thyromegaly LUNGS: Respirations even and unlabored. Lungs with scattered rhonchi. HEART: Tachycardic. Irregular rate and rhythm. S1 and S2 heard. ABDOMEN: Soft. Nondistended. Nontender. EXTREMITIES: Normal range of motion. No clubbing or cyanosis. Peripheral pulses intact. No lower extremity edema NEUROLOGIC: Awake and alert. Oriented x 3. ASSESSMENT: New-onset atrial fibrillation with RVR Intractable back pain secondary to multiple compression fractures Chronic obstructive pulmonary disease Hypokalemia Hypomagnesemia Hyponatremia Nicotine dependence PLAN: Continue telemetry monitoring Check TSH Obtain 2-D echo to assess cardiac structure and function Replace potassium and magnesium Metoprolol started by internal medicine. Will discontinue metoprolol due to patient's COPD and begin Cardizem 60 mg by mouth 3 times a day. Per Dr. Agrawal, given patient's history of falls, she does not appear to be a good candidate for anticoagulation. Discussed with Dr. Zaidi. Continue heparin infusion for now. Dr. Zaidi will readdress possibility of anticoagulation with patient tomorrow. Will defer final decision on anticoagulation to internal medicine. Further recommendations pending Nurse practitioner note has been reviewed by physician. Signing provider agrees with the documented findings, assessment, and plan of care. Past Medical History Past Medical History: Asthma, COPD Additional Past Medical History / Comment(s): both ankles fractured, left hip fracture status post sliding hip screw, osteoporosis History of Any Multi-Drug Resistant Organisms: None Reported Past Surgical History: Orthopedic Surgery Past Anesthesia/Blood Transfusion Reactions: No Reported Reaction Past Psychological History: No Psychological Hx Reported Smoking Status: Current every day smoker Past Alcohol Use History: None Reported Past Drug Use History: None Reported - Past Family History Mother Family Medical History: CVA/TIA Father Family Medical History: CVA/TIA Medications and Allergies Home Medications Medication Instructions Recorded Confirmed Type Cholecalciferol [Vitamin D3 (25 3,000 unit PO DAILY 09/20/19 06/23/20 History Mcg = 1000 Iu)] amLODIPine [Norvasc] 10 mg PO DAILY #30 tab 09/24/19 06/23/20 Rx Albuterol Inhaler [Ventolin Hfa 2 puff INHALATION RT-Q4H PRN 06/23/20 06/23/20 History Inhaler] Cyclobenzaprine [Flexeril] 10 mg PO Q8H PRN 06/23/20 06/23/20 History Fluticasone Propion/Salmeterol 1 puff INHALATION RT-DAILY 06/23/20 06/23/20 History [Wixela 250-50 Inhub] Ipratropium-Albuterol Nebulize 3 ml INHALATION RT-QID PRN 06/23/20 06/23/20 History [Duoneb 0.5 mg-3 mg/3 ml Soln] Latanoprost/Pf [Latanoprost 0.005% 1 drop BOTH EYES HS 06/23/20 06/23/20 History Eye Drop] Magnesium Oxide 400 mg PO DAILY 06/23/20 06/23/20 History Multivitamins, Thera [Multivitamin 1 tab PO DAILY 06/23/20 06/23/20 History (formulary)] Potassium Chloride ER [K-Dur 20] 20 meq PO DAILY 06/23/20 06/23/20 History Tiotropium [place] [Spiriva] 1 cap INHALATION RT-HS 06/23/20 06/23/20 History Vitamin C(Unknown Dose) 1 tab PO DAILY 06/23/20 06/23/20 History Vitamin E 400 unit PO DAILY 06/23/20 06/23/20 History Allergies Allergy/AdvReac Type Severity Reaction Status Date / Time latex Allergy Rash/Hives Verified 06/23/20 20:36 morphine Allergy Rash/Hives Verified 06/23/20 20:36 Physical Exam Vitals: Vital Signs Temp Pulse Pulse Resp BP Pulse Ox 06/26/20 11:35 92 06/26/20 11:30 96 06/26/20 08:19 98.3 F 87 14 133/82 94 L 06/26/20 08:08 104 H 06/26/20 07:57 112 H 06/26/20 03:00 116 H 06/26/20 02:58 98.0 F 116 H 144/75 92 L 06/25/20 21:17 88 18 06/25/20 21:03 84 18 06/25/20 21:00 98.1 F 96 20 146/73 94 L 06/25/20 16:18 96 06/25/20 16:11 100 06/25/20 15:00 98.1 F 61 20 132/89 91 L Intake and Output 06/25/20 06/26/20 06/26/20 22:59 06:59 14:59 Intake Total 400 Output Total 1250 350 Balance -850 -350 Intake: Oral 400 Output: Urine 1250 350 Uretheral (Jeffers) 350 Other: Voiding Method Indwelling Catheter Indwelling Catheter # Bowel Movements 2 Results 06/26/20 11:55 06/26/20 13:24 Coagulation 06/26/20 Range/Units 11:55 PT 9.4 (9.0-12.0) sec APTT 21.6 L (22.0-30.0) sec CBC 06/26/20 06/26/20 Range/Units 05:01 11:55 WBC 13.7 H 12.1 H (3.8-10.6) k/uL RBC 4.53 4.93 (3.80-5.40) m/uL Hgb 13.9 15.0 (11.4-16.0) gm/dL Hct 42.7 47.3 H (34.0-46.0) % Plt Count 222 218 (150-450) k/uL Comprehensive Metabolic Panel 06/26/20 Range/Units 05:01 Sodium 128 L (137-145) mmol/L Potassium 3.0 L (3.5-5.1) mmol/L Chloride 91 L (98-107) mmol/L Carbon Dioxide 34 H (22-30) mmol/L BUN 16 (7-17) mg/dL Creatinine 0.52 (0.52-1.04) mg/dL Glucose 125 H (74-99) mg/dL Calcium 7.8 L (8.4-10.2) mg/dL Current Medications Generic Name Dose Route Start Last Admin Trade Name Freq PRN Reason Stop Dose Admin Hydrocodone Bitart/Acetaminophen 1 each 06/24/20 10:02 06/26/20 10:13 Hydrocodone/Apap 5-325mg 1 Each Tab PO 1 each Q6HR PRN Administration Pain Albuterol/Ipratropium 3 ml 06/23/20 21:26 Ipratropium-Albuterol 3 Ml Neb INHALATION RT-QID PRN Shortness Of Breath Amlodipine Besylate 10 mg 06/24/20 09:00 06/26/20 10:38 Amlodipine 10 Mg Tab PO 10 mg DAILY ANTWAN Administration Amoxicillin/Clavulanate Potassium 1 each 06/25/20 13:45 06/26/20 10:39 Amoxic-Pot Clav 875-125mg 1 Each Tab PO 1 each Q12HR ANTWAN Administration Budesonide/Formoterol Fumarate 2 puff 06/24/20 08:00 06/26/20 07:54 Symbicort 80-4.5 Mcg Inhaler INHALATION 2 puff RT-BID ANTWAN Administration Cholecalciferol 3,000 unit 06/24/20 09:00 06/26/20 10:40 Cholecalciferol 1,000 Unit Tab PO 3,000 unit DAILY ANTWAN Administration Diltiazem HCl 60 mg 06/26/20 16:00 Diltiazem Oral 60 Mg Tab PO TID ANTWAN Heparin Sodium (Porcine) 0 unit 06/26/20 10:34 Heparin Sodium,Porcine 5,000 Unit/Ml 1 Ml Vial IV PER PROTOCOL PRN Low PTT Protocol Magnesium Sulfate/Dextrose 1 100 mls @ 100 mls/hr 06/26/20 10:00 06/26/20 13:08 gm/ IV Solution IVPB 06/26/20 13:59 100 mls/hr Q1H ANTWAN Administration Heparin Sodium/Sodium Chloride 250 mls @ 5.715 mls/hr 06/26/20 10:45 06/26/20 13:33 25,000 unit/ Sodium Chloride IV 12 units/kg/hr .Q24H ANTWAN 5.715 mls/hr Administration Protocol 12 UNITS/KG/HR Ipratropium [place] 0.5 mg 06/24/20 08:00 06/26/20 11:29 Ipratropium 0.5 Mg/2.5 Ml Nebu INHALATION 0.5 mg RT-QID ANTWAN Administration Latanoprost 1 drops 06/24/20 21:00 06/25/20 21:18 Latanoprost 0.005% Ophth Drops 2.5 Ml Btl BOTH EYES 1 drops HS ANTWAN Administration Loratadine 10 mg 06/24/20 10:15 06/26/20 10:40 Loratadine 10 Mg Tab PO 10 mg DAILY ANTWAN Administration Magnesium Oxide 400 mg 06/24/20 09:00 06/26/20 10:39 Magnesium Oxide 400 Mg Tab PO 400 mg DAILY ANTWAN Administration Multivitamins 1 each 06/24/20 09:00 06/26/20 10:39 Multivitamins, Thera 1 Each Tab PO 1 each DAILY ANTWAN Administration Naloxone HCl 0.2 mg 06/23/20 19:57 Naloxone 0.4 Mg/Ml 1 Ml Vial IV Q2M PRN Opioid Reversal Ondansetron HCl 4 mg 06/24/20 10:02 Ondansetron 4 Mg/2 Ml Vial IVP Q6H PRN Nausea Pantoprazole Sodium 40 mg 06/25/20 07:30 06/26/20 06:34 Pantoprazole 40 Mg Tablet PO 40 mg AC-[id number] ANTWAN Administration Potassium Chloride 20 meq 06/24/20 09:00 06/26/20 10:40 Potassium Chloride Er 20 Meq Tab.Er PO Not Given DAILY ANTWAN Prednisone 60 mg 06/24/20 10:15 06/26/20 10:39 Prednisone 20 Mg Tab PO 60 mg DAILY ANTWAN Administration Vitamin E 400 unit 06/24/20 09:00 06/26/20 10:39 Vitamin E (Dl,Tocopheryl Acet) 400 Unit Cap PO 400 unit DAILY ANTWAN Administration Intake and Output 06/25/20 06/26/20 06/26/20 22:59 06:59 14:59 Intake Total 400 Output Total 1250 350 Balance -850 -350 Intake: Oral 400 Output: Urine 1250 350 Uretheral (Jeffers) 350 Other: Voiding Method Indwelling Catheter Indwelling Catheter # Bowel Movements 2 06/26/20 11:55 06/26/20 05:01
[2020-06-26] MEDS ORDERED: FUROSEMIDE 10 MG/ML 4 ML VIAL IV STA (15:39)
[2020-06-26] MEDS: DILTIAZEM ORAL 60 MG TAB PO SCH ×2 (16:55→22:44)
[2020-06-26 18:44] LABS: HCT 51.7 % (34.0-46.0); HGB 15.7 gm/dL (11.4-16.0); Hypochromasia Slight; MCH 29.5 pg (25.0-35.0); MCHC 30.4 g/dL (31.0-37.0); MCV 97.3 fL (80.0-100.0); Mean Platelet Volume 8.8; Platelet Count 265 k/uL (150-450); RBC 5.31 m/uL (3.80-5.40); RDW 13.2 % (11.5-15.5); WBC 13.9 k/uL (3.8-10.6)
[2020-06-26 18:58] LABS: African American GFR (CKD) >90 (>60 ml/min/1.73 sqM); Anion Gap 6 mmol/L; Blood Urea Nitrogen 16 mg/dL (7-17); Calcium 8.2 mg/dL (8.4-10.2); Carbon Dioxide 28 mmol/L (22-30); Chloride 91 mmol/L (98-107); Glucose 154 mg/dL (74-99); Magnesium 2.6 mg/dL (1.6-2.3); Non-African American GFR(CKD) >90 (>60 ml/min/1.73 sqM); Potassium 5.2 mmol/L (3.5-5.1); Sodium 125 mmol/L (137-145)
[2020-06-26] MEDS: LATANOPROST 0.005% OPHTH DROPS 2.5 ML BTL BOTH EYES SCH (21:36)
[2020-06-27] MEDS: HYDROcodone/APAP 5-325MG 1 EACH TAB PO PRN ×4 (04:38→22:57)
[2020-06-27] MEDS: PANTOPRAZOLE 40 MG TABLET PO SCH (06:30)
[2020-06-27] MEDS: SYMBICORT 80-4.5 MCG INHALER INHALATION SCH ×2 (08:53→20:18)
[2020-06-27] MEDS: IPRATROPIUM 0.5 MG/2.5 ML NEBU INHALATION SCH ×4 (08:53→20:18)
[2020-06-27 09:06] LABS: Basophils % (A) 0 %; Eosinophils % (A) 0 %; HGB 13.6 gm/dL (11.4-16.0); Lymphocytes # (A) 0.6 k/uL (1.0-4.8); Lymphocytes % (A) 6 %; MCH 29.2 pg (25.0-35.0); MCHC 30.9 g/dL (31.0-37.0); MCV 94.3 fL (80.0-100.0); Mean Platelet Volume 8.7; Monocytes # (A) 0.4 k/uL (0-1.0); Monocytes % (A) 4 %; Neutrophils # (A) 8.5 k/uL (1.3-7.7); Neutrophils % (A) 89 %; Platelet Count 243 k/uL (150-450); RBC 4.66 m/uL (3.80-5.40); RDW 13.2 % (11.5-15.5); WBC 9.5 k/uL (3.8-10.6)
[2020-06-27 09:23] LABS: African American GFR (CKD) >90 (>60 ml/min/1.73 sqM); Anion Gap -1 mmol/L; Blood Urea Nitrogen 21 mg/dL (7-17); Calcium 7.8 mg/dL (8.4-10.2); Carbon Dioxide 36 mmol/L (22-30); Chloride 90 mmol/L (98-107); Glucose 94 mg/dL (74-99); Magnesium 1.9 mg/dL (1.6-2.3); Non-African American GFR(CKD) 90 (>60 ml/min/1.73 sqM); Potassium 4.1 mmol/L (3.5-5.1); Sodium 125 mmol/L (137-145)
[2020-06-27] MEDS: predniSONE 20 MG TAB PO SCH (09:59)
[2020-06-27] MEDS: MAGNESIUM OXIDE 400 MG TAB PO SCH (09:59)
[2020-06-27] MEDS: DILTIAZEM ORAL 60 MG TAB PO SCH ×3 (10:00→21:43)
[2020-06-27] MEDS: AMOXIC-POT CLAV 875-125MG 1 EACH TAB PO SCH ×2 (10:00→21:43)
[2020-06-27] MEDS: MULTIVITAMINS, THERA 1 EACH TAB PO SCH (10:00)
[2020-06-27] MEDS: LORATADINE 10 MG TAB PO SCH (10:00)
[2020-06-27] MEDS: CHOLECALCIFEROL 1,000 UNIT TAB PO SCH (10:00)
[2020-06-27] MEDS: VITAMIN E (DL,TOCOPHERYL ACET) 400 UNIT CAP PO SCH ×2 (10:02→11:19)
--- NOTE | 2020-06-27 10:02 | P.PN ---
Subjective Patient is seen in follow-up for hyponatremia. Sodium level stable at 125 this morning. Denies chest pain or shortness of breath. Has been voiding. Jeffers catheter discontinued. Oral intake poor. No vomiting or diarrhea. Vital signs are stable. General: The patient appeared well nourished and normally developed. HEENT: Head exam is unremarkable. Neck is without jugular venous distension. LUNGS: Breath sounds decreased. HEART: Rate and Rhythm are regular. ABDOMEN: Soft, nontender. EXTREMITITES: Trace edema. Objective - Vital Signs Vital signs: Vital Signs Temp 98.5 F 06/27/20 09:00 Pulse 76 06/27/20 09:00 Resp 20 06/27/20 09:00 BP 120/63 06/27/20 09:00 Pulse Ox 93 L 06/27/20 09:05 Intake & Output 06/26/20 06/27/20 06/27/20 18:59 06:59 18:59 Intake Total 1400 83.894 Output Total 100 400 Balance 1300 83.894 -400 Intake: Intake, IV Titration 800 83.894 Amount Heparin Sod,Pork in 0.45% 83.894 NaCl 25,000 unit In 0.45 % NaCl 1 250ml.bag @ 12 UNITS/KG/HR 5.715 mls/hr IV .Q24H ANTWAN Rx#: [id number] Magnesium Sulfate-D5w Pmx 400 1 gm In Dextrose/Water 1 100ml.bag @ 100 mls/hr IVPB Q1H ANTWAN Rx#: [id number] Potassium Chloride 10 meq 400 In Water For Injection 1 100ml.bag @ 100 mls/hr IVPB Q1HR ANTWAN Rx#: [id number] Oral 600 Output: Urine 50 400 Uretheral (Jeffers) 400 Post Void Residual 50 Other: # Bowel Movements 1 2 - Labs CBC & Chem 7: 06/27/20 08:39 06/27/20 08:39 Labs: Abnormal Lab Results - Last 24 Hours (Table) 06/26/20 06/26/20 06/26/20 Range/Units 11:55 11:55 13:24 WBC 12.1 H (3.8-10.6) k/uL Hct 47.3 H (34.0-46.0) % MCHC (31.0-37.0) g/dL Neutrophils # 11.1 H (1.3-7.7) k/uL Lymphocytes # 0.5 L (1.0-4.8) k/uL APTT 21.6 L (22.0-30.0) sec Sodium 125 L (137-145) mmol/L Potassium (3.5-5.1) mmol/L Chloride (98-107) mmol/L Carbon Dioxide (22-30) mmol/L BUN (7-17) mg/dL Glucose (74-99) mg/dL Calcium (8.4-10.2) mg/dL Magnesium (1.6-2.3) mg/dL 06/26/20 06/26/20 06/26/20 Range/Units 17:56 17:56 17:56 WBC 13.9 H (3.8-10.6) k/uL Hct 51.7 H (34.0-46.0) % MCHC 30.4 L (31.0-37.0) g/dL Neutrophils # (1.3-7.7) k/uL Lymphocytes # (1.0-4.8) k/uL APTT 30.8 H (22.0-30.0) sec Sodium 125 L (137-145) mmol/L Potassium 5.2 H (3.5-5.1) mmol/L Chloride 91 L (98-107) mmol/L Carbon Dioxide (22-30) mmol/L BUN (7-17) mg/dL Glucose 154 H (74-99) mg/dL Calcium 8.2 L (8.4-10.2) mg/dL Magnesium 2.6 H (1.6-2.3) mg/dL 06/27/20 06/27/20 06/27/20 Range/Units 00:46 08:39 08:39 WBC (3.8-10.6) k/uL Hct (34.0-46.0) % MCHC 30.9 L (31.0-37.0) g/dL Neutrophils # 8.5 H (1.3-7.7) k/uL Lymphocytes # 0.6 L (1.0-4.8) k/uL APTT 95.6 H (22.0-30.0) sec Sodium 125 L (137-145) mmol/L Potassium (3.5-5.1) mmol/L Chloride 90 L (98-107) mmol/L Carbon Dioxide 36 H (22-30) mmol/L BUN 21 H (7-17) mg/dL Glucose (74-99) mg/dL Calcium 7.8 L (8.4-10.2) mg/dL Magnesium (1.6-2.3) mg/dL Assessment and Plan Plan: Assessment: 1. Hypervolemic hyponatremia. Sodium level stable at 125 this morning. Status post IV Lasix yesterday. TSH normal. Urine sodium 68 and urine osmolality 511. 2. A. fib with RVR maintained on Cardizem and heparin drip. 3. Back pain with multiple compression fractures. Orthopedic surgery following. 4. Hypokalemia secondary to diuresis and poor intake status post placement. Better. 5. Hypomagnesemia from poor intake status post placement. Better. Plan: Encouraged oral intake, particularly protein. Samsca 15 mg once today. Repeat sodium level this evening and again in the morning.
[2020-06-27] MEDS ORDERED: TOLVAPTAN 15 MG 1/2 TABLET PO ONE (10:30)
--- NOTE | 2020-06-27 12:35 | P.PN ---
Subjective Progress Note Date: 06/27/20 CHIEF COMPLAINT: A. fib HISTORY OF PRESENT ILLNESS: This is a 79 -year old female with a past medical history significant for COPD, back pain, and nicotine dependence,. 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 We have been asked to see the patient in consultation for atrial fibrillation. Patient is admitted to the hospital secondary to intractable back pain secondary to multiple compression fractures and acute hypoxic respiratory failure with possible aspiration pneumonia. Patient examined at the bedside with Dr. Agrawal. Patient nliay es previous history of atrial fibrillation. She denies chest pain or pressure. She reports shortness of breath which she states is chronic for her. She denies dizziness or lightheadedness. Denies palpitations. 06/26: Patient denies having any shortness of breath, chest pain. She converted to a sinus rhythm in the 60s-70s. Blood pressure is 120/63. TSH 1.590. Sodium is 125, potassium 5.2. Potassium supplementation will be discontinued until seen by nephrology. Echocardiogram reveals EF of 55-60% with borderline concentric left ventricular hypertrophy, aortic valve is trileaflet. Mild mitral regurgitation, mild tricuspid regurgitation. PHYSICAL EXAM: GENERAL: Well-developed in no acute distress. HEENT: Head is normocephalic. Pupils are equal, round. Sclerae anicteric. Mucous membranes of the mouth are moist. Neck supple. No JVD or thyromegaly LUNGS: Respirations even and unlabored. Lungs with scattered rhonchi. HEART: Tachycardic. Irregular rate and rhythm. S1 and S2 heard. ABDOMEN: Soft. Nondistended. Nontender. EXTREMITIES: Normal range of motion. No clubbing or cyanosis. Peripheral pulses intact. No lower extremity edema NEUROLOGIC: Awake and alert. Oriented x 3. ASSESSMENT: New-onset atrial fibrillation with RVR Intractable back pain secondary to multiple compression fractures Chronic obstructive pulmonary disease Hypokalemia Hypomagnesemia Hyponatremia Nicotine dependence PLAN: Continue telemetry monitoring Continue Cardizem 60 mg 3 times daily. Discontinue heparin drip. No plan for anticoagulation due to frequent falls. Nurse practitioner note has been reviewed by physician. Signing provider agrees with the documented findings, assessment, and plan of care. Objective - Vital Signs Vital signs: Vital Signs Temp 97.9 F 06/27/20 03:00 Pulse 60 06/27/20 03:00 Resp 18 10/31/20 03:00 BP 115/64 06/27/20 03:00 Pulse Ox 94 L 06/27/20 03:00 Intake & Output 06/26/20 06/27/20 06/27/20 18:59 06:59 18:59 Intake Total 1400 83.894 Output Total 100 Balance 1300 83.894 Intake: Intake, IV Titration 800 83.894 Amount Heparin Sod,Pork in 0.45% 83.894 NaCl 25,000 unit In 0.45 % NaCl 1 250ml.bag @ 12 UNITS/KG/HR 5.715 mls/hr IV .Q24H ANTWAN Rx#: [id number] Magnesium Sulfate-D5w Pmx 400 1 gm In Dextrose/Water 1 100ml.bag @ 100 mls/hr IVPB Q1H ANTWAN Rx#: [id number] Potassium Chloride 10 meq 400 In Water For Injection 1 100ml.bag @ 100 mls/hr IVPB Q1HR ANTWAN Rx#: [id number] Oral 600 Output: Urine 50 Post Void Residual 50 Other: # Bowel Movements 1 2 - Labs CBC & Chem 7: 06/27/20 08:39 06/27/20 08:39 Labs: Abnormal Lab Results - Last 24 Hours (Table) 06/26/20 06/26/20 06/26/20 Range/Units 11:55 11:55 13:24 WBC 12.1 H (3.8-10.6) k/uL Hct 47.3 H (34.0-46.0) % MCHC (31.0-37.0) g/dL Neutrophils # 11.1 H (1.3-7.7) k/uL Lymphocytes # 0.5 L (1.0-4.8) k/uL APTT 21.6 L (22.0-30.0) sec Sodium 125 L (137-145) mmol/L Potassium (3.5-5.1) mmol/L Chloride (98-107) mmol/L Glucose (74-99) mg/dL Calcium (8.4-10.2) mg/dL Magnesium (1.6-2.3) mg/dL 06/26/20 06/26/20 06/26/20 Range/Units 17:56 17:56 17:56 WBC 13.9 H (3.8-10.6) k/uL Hct 51.7 H (34.0-46.0) % MCHC 30.4 L (31.0-37.0) g/dL Neutrophils # (1.3-7.7) k/uL Lymphocytes # (1.0-4.8) k/uL APTT 30.8 H (22.0-30.0) sec Sodium 125 L (137-145) mmol/L Potassium 5.2 H (3.5-5.1) mmol/L Chloride 91 L (98-107) mmol/L Glucose 154 H (74-99) mg/dL Calcium 8.2 L (8.4-10.2) mg/dL Magnesium 2.6 H (1.6-2.3) mg/dL 06/27/20 Range/Units 00:46 WBC (3.8-10.6) k/uL Hct (34.0-46.0) % MCHC (31.0-37.0) g/dL Neutrophils # (1.3-7.7) k/uL Lymphocytes # (1.0-4.8) k/uL APTT 95.6 H (22.0-30.0) sec Sodium (137-145) mmol/L Potassium (3.5-5.1) mmol/L Chloride (98-107) mmol/L Glucose (74-99) mg/dL Calcium (8.4-10.2) mg/dL Magnesium (1.6-2.3) mg/dL
--- NOTE | 2020-06-27 12:53 | P.PN ---
Subjective Progress Note Date: 06/27/20 Principal diagnosis: back pain Patient is a 79-year-old female with known COPD, tobacco abuse, and hypertension who presented as a transfer from [facility] secondary to low back pain with abnormal computed tomography scan findings. On arrival she was tachycardic at 110 with a blood pressure 168/88 was satting 90% on 2 L nasal cannula. Laboratory analysis showed hyponatremia, elevated BUN, and the remainder of labs were unremarkable. She had a CT Thorasic, Lumbar, and Pelvis which showed a L1 compression fracture with retropulsion and central canal stenosis. She was admitted for pain control and orthopedic spine consultation. MRI showed L4 with slight posterior retropulsion, L1 with moderate posterior disc bulge effacing the anterior thecal sac, T11 exam compression fracture with some posterior retropulsion facing the anterior thecal sac. She developed t ahcycardia and increased O2 requirements. CTA chest negative of pulmonary embolism but does demonstrate debris in the right mainstem bronchus with collapse of the lower lobe consolidation, spiculated soft tissue thickening along the right upper lobe and left apical nodularity. On Augmentin and Lasix. Speech therapy consult was placed for possible aspiration pneumonia. She was in A. fib with RVR on 06/26. She underwent an echocardiogram [facility] showed an EF 55-60%, cardiology was consulted and placed her on cardizem. After electrolyte replcment and cardizem she converted to NSR. Nephro was consulted due to hyponatremia and she was continued on lasix and then given a dose a samsca. Due to her high fall risk and return to normal sinus with electrolyte replacement she was determined not to be a candidate for anticoagulation. Patient seen and examined at bedside. She states that her back is hurting she is angry about wanting pill cut, crushed is not okay, she wants them cut into arline le slices. We discussed her return to NSR and no anticoagulation due to falls, she agreed. She states breathing is better than yesterday and she feels fine other than her back pain. General: non toxic no distress, appears at stated age Derm: warm, dry Head: atraumatic, normocephalic, symmetric Eyes: EOMI, no lid lag, anicteric sclera Mouth: no lip lesion, mucus membranes moist Cardiovascular: S1S2 reg, no murmur, positive posterior tibial pulse bilateral, Lungs: decreased bs bilateral , no accessory muscle use Abdominal: soft, nontender to palpation, no guarding, no appreciable organomegaly Ext: no gross muscle atrophy, trace edema, no contractures Neuro: CN II-XI grossly intact, no focal neuro deficits Psych: Alert, oriented, upset and angry Paroxysmal Atrial fibrillation with rapid ventricular response, now in NSR -cardizem -Heparin drip discontinued patient is a high fall risk and is back in NSR after electrolytes improved. Risks and benefits d/w pt. -Cardiology recommended appreciated - echocardiogram ef 55-60% no significant valvular dysfunction -Telemetry -TSH normal Hypokalemia and hypomagnesemia, improves -Recheck in a.m. Hyponatremia with probable SIADH -nephrology recommendations, fluid status improved, samsca X 1 - ? Component of SIADH from severe pain on admission -Repeat BMP Intractable back pain secondary to multiple compression fractures: L4 with s light posterior retropulsion, L1 with moderate posterior disc bulge effacing the anterior thecal sac, T11 exam compression fracture with some posterior retropulsion facing the anterior thecal sac -Orthopedic spine recommendations-discussed with Dr. Lau. No surgery planned at this point. TLSO brace when up and ambulating and pain control. - Patient refuses age-related cancer testing such as mammogram or colonoscopy. We discussed benefits and risks including undefined occult benito gnancy and patient accepts the risk of this. - norco, steroids, zofran. Acute hypoxic respiratory failure, Pneumonia- possible gram negative, nodular thickening - Augmentin - Repeat chest x-ray in a.m. - pulm hygeine, wean O2 as able - Check CT of the chest which was completed and shows no signs of large pulmonary embolism but does demonstrate debris in the right mainstem bronchus with collapse of the lower lobe consolidation, spiculated soft tissue thickening along the right upper lobe and left apical nodularity. - Repeat CT chest in [address] De Luna. Case discussed with Dr. Sally huggins who agrees to following the patient. Patient informed COPD without acute exacerbation with hypercapnia -Symbicort, Spiriva change Atrovent due to formulary -When necessary bronchodilators Moderate protein calorie malnutrition - dietitian recs - supplements Osteoporosis DVT prophylaxis: SCDs Discussed with: Patient, nursing, case management Anticipated discharge: in 1-[address]: SNF A total of 35 minutes was spent on the care of this complex patient more than 50% of the time was spent in counseling and care coordination. Objective - Vital Signs Vital signs: Vital Signs Temp 98.5 F 06/27/20 09:00 Pulse 74 06/27/20 11:57 Resp 20 06/27/20 09:00 BP 120/63 06/27/20 09:00 Pulse Ox 93 L 06/27/20 09:05 Intake & Output 06/26/20 06/27/20 06/27/20 18:59 06:59 18:59 Intake Total 1400 83.894 Output Total 100 400 Balance 1300 83.894 -400 Intake: Intake, IV Titration 800 83.894 Amount Heparin Sod,Pork in 0.45% 83.894 NaCl 25,000 unit In 0.45 % NaCl 1 250ml.bag @ 12 UNITS/KG/HR 5.715 mls/hr IV .Q24H [facility] Rx#: [id number] Magnesium Sulfate-D5w Pmx 400 1 gm In Dextrose/Water 1 100ml.bag @ 100 mls/hr IVPB Q1H [facility] Rx#: [id number] Potassium Chloride 10 meq 400 In Water For Injection 1 100ml.bag @ 100 mls/hr IVPB Q1HR [facility] Rx#: [id number] Oral 600 Output: Urine 50 400 Uretheral (Jeffers) 400 Post Void Residual 50 Other: # Bowel Movements 1 2 - Labs CBC & Chem 7: 06/27/20 08:39 06/27/20 08:39 Labs: Abnormal Lab Results - Last 24 Hours (Table) 06/26/20 06/26/20 06/26/20 Range/Units 11:55 13:24 17:56 WBC (3.8-10.6) k/uL Hct (34.0-46.0) % MCHC (31.0-37.0) g/dL Neutrophils # (1.3-7.7) k/uL Lymphocytes # (1.0-4.8) k/uL APTT 21.6 L 30.8 H (22.0-30.0) sec Sodium 125 L (137-145) mmol/L Potassium (3.5-5.1) mmol/L Chloride (98-107) mmol/L Carbon Dioxide (22-30) mmol/L BUN (7-17) mg/dL Glucose (74-99) mg/dL Calcium (8.4-10.2) mg/dL Magnesium (1.6-2.3) mg/dL Stool Occult Blood (Negative) 06/26/20 06/26/20 06/27/20 Range/Units 17:56 17:56 00:46 WBC 13.9 H (3.8-10.6) k/uL Hct 51.7 H (34.0-46.0) % MCHC 30.4 L (31.0-37.0) g/dL Neutrophils # (1.3-7.7) k/uL Lymphocytes # (1.0-4.8) k/uL APTT 95.6 H (22.0-30.0) sec Sodium 125 L (137-145) mmol/L Potassium 5.2 H (3.5-5.1) mmol/L Chloride 91 L (98-107) mmol/L Carbon Dioxide (22-30) mmol/L BUN (7-17) mg/dL Glucose 154 H (74-99) mg/dL Calcium 8.2 L (8.4-10.2) mg/dL Magnesium 2.6 H (1.6-2.3) mg/dL Stool Occult Blood (Negative) 06/27/20 06/27/20 06/27/20 Range/Units 08:39 08:39 10:15 WBC (3.8-10.6) k/uL Hct (34.0-46.0) % MCHC 30.9 L (31.0-37.0) g/dL Neutrophils # 8.5 H (1.3-7.7) k/uL Lymphocytes # 0.6 L (1.0-4.8) k/uL APTT (22.0-30.0) sec Sodium 125 L (137-145) mmol/L Potassium (3.5-5.1) mmol/L Chloride 90 L (98-107) mmol/L Carbon Dioxide 36 H (22-30) mmol/L BUN 21 H (7-17) mg/dL Glucose (74-99) mg/dL Calcium 7.8 L (8.4-10.2) mg/dL Magnesium (1.6-2.3) mg/dL Stool Occult Blood Positive H (Negative)
[2020-06-27] MEDS: amLODIPine 10 MG TAB PO SCH (15:57)
[2020-06-27] MEDS: LATANOPROST 0.005% OPHTH DROPS 2.5 ML BTL BOTH EYES SCH (21:42)
[2020-06-28] MEDS: HYDROcodone/APAP 5-325MG 1 EACH TAB PO PRN ×3 (05:45→20:48)
[2020-06-28] MEDS: PANTOPRAZOLE 40 MG TABLET PO SCH (06:34)
[2020-06-28] MEDS: LORATADINE 10 MG TAB PO SCH (08:44)
[2020-06-28] MEDS: MULTIVITAMINS, THERA 1 EACH TAB PO SCH (08:44)
[2020-06-28] MEDS: MAGNESIUM OXIDE 400 MG TAB PO SCH (08:44)
[2020-06-28] MEDS: predniSONE 20 MG TAB PO SCH (08:44)
[2020-06-28] MEDS: CHOLECALCIFEROL 1,000 UNIT TAB PO SCH (08:44)
[2020-06-28] MEDS: AMOXIC-POT CLAV 875-125MG 1 EACH TAB PO SCH ×2 (08:44→20:48)
[2020-06-28] MEDS: VITAMIN E (DL,TOCOPHERYL ACET) 400 UNIT CAP PO SCH (08:45)
[2020-06-28] MEDS: IPRATROPIUM 0.5 MG/2.5 ML NEBU INHALATION SCH ×4 (08:45→20:39)
[2020-06-28] MEDS: SYMBICORT 80-4.5 MCG INHALER INHALATION SCH ×2 (08:45→20:40)
[2020-06-28] MEDS: DILTIAZEM ORAL 60 MG TAB PO SCH ×3 (08:45→20:48)
[2020-06-28 09:28] LABS: African American GFR (CKD) >90 (>60 ml/min/1.73 sqM); Anion Gap 2 mmol/L; Blood Urea Nitrogen 17 mg/dL (7-17); Calcium 8.6 mg/dL (8.4-10.2); Carbon Dioxide 35 mmol/L (22-30); Chloride 92 mmol/L (98-107); Glucose 81 mg/dL (74-99); Magnesium 1.7 mg/dL (1.6-2.3); Non-African American GFR(CKD) >90 (>60 ml/min/1.73 sqM); Potassium 3.9 mmol/L (3.5-5.1); Sodium 129 mmol/L (137-145)
[2020-06-28 09:41] LABS: Hypochromasia Slight; MCH 29.8 pg (25.0-35.0); MCHC 31.1 g/dL (31.0-37.0); MCV 95.9 fL (80.0-100.0); Mean Platelet Volume 9.1; Platelet Count 271 k/uL (150-450); RBC 4.69 m/uL (3.80-5.40); RDW 13.3 % (11.5-15.5); WBC 12.4 k/uL (3.8-10.6)
[2020-06-28] MEDS: amLODIPine 10 MG TAB PO SCH (10:08)
--- NOTE | 2020-06-28 10:44 | P.PN ---
Subjective Patient is seen in follow-up for hyponatremia. Sodium level stable at 129 this morning. Denies chest pain or shortness of breath. Jeffers catheter inserted due to urinary retention on June 27. Oral intake poor. No vomiting or diarrhea. Complains of abdominal discomfort. Vital signs are stable. General: The patient appeared well nourished and normally developed. HEENT: Head exam is unremarkable. Neck is without jugular venous distension. LUNGS: Breath sounds decreased. HEART: Rate and Rhythm are regular. ABDOMEN: Soft, nontender. EXTREMITITES: Trace edema. Objective - Vital Signs Vital signs: Vital Signs Temp 97.9 F 06/28/20 08:22 Pulse 72 06/28/20 08:55 Resp 20 06/28/20 08:56 BP 139/67 06/28/20 08:22 Pulse Ox 94 L 06/28/20 08:22 Intake & Output 06/27/20 06/28/20 06/28/20 19:59 06:59 18:59 Intake Total 170 Output Total Balance 170 Intake: IV Heparin Sod,Pork in 0.45% NaCl 25,000 unit In 0.45 % NaCl 1 250ml.bag @ 12 UNITS/KG/HR 5.715 mls/hr IV .Q24H [facility] Rx#: [id number] Oral 170 Output: Urine Uretheral (Jeffers) Other: Voiding Method Indwelling Catheter # Bowel Movements - Labs CBC & Chem 7: 06/28/20 08:48 06/28/20 08:48 Labs: Abnormal Lab Results - Last 24 Hours (Table) 06/27/20 06/27/20 06/28/20 Range/Units 10:15 18:10 08:48 WBC (3.8-10.6) k/uL Sodium 125 L 129 L (137-145) mmol/L Chloride 92 L (98-107) mmol/L Carbon Dioxide 35 H (22-30) mmol/L Stool Occult Blood Positive H (Negative) 06/28/20 Range/Units 08:48 WBC 12.4 H (3.8-10.6) k/uL Sodium (137-145) mmol/L Chloride (98-107) mmol/L Carbon Dioxide (22-30) mmol/L Stool Occult Blood (Negative) Assessment and Plan Plan: Assessment: 1. Hypervolemic hyponatremia. Sodium level stable at 129 this morning. Status post [facility] 06/27/20. TSH normal. Urine sodium 68 and urine osmolality 511 - repeat 311. 2. A. fib with RVR maintained on Cardizem. s/p heparin drip. 3. Back pain with multiple compression fractures. Orthopedic surgery followin g. 4. Hypokalemia secondary to diuresis and poor intake status post placement. Better. 5. Hypomagnesemia from poor intake status post placement. Better. Plan: Encouraged oral intake, particularly protein. Maintain fluid restriction. Check AXR for abdominal discomfort - discussed with primary attending.
--- NOTE | 2020-06-28 10:59 | XR ---
EXAMINATION TYPE: XR abdomen 2V DATE OF EXAM: 06/28/2020 COMPARISON: None INDICATION: Abdomen pain TECHNIQUE: Single view abdomen upright view FINDINGS: There are dilated loops of colon. Some small bowel loops containing air are also evident. Suspicious differential air-fluid levels are not identified. No free air is identified. Small bilateral pleural effusions are likely present. Organomegaly is not evident. IMPRESSION: 1. Nonspecific abdomen. The air within the colon is somewhat prominent. Consider ileus and colonic il eus. Follow-up is recommended
--- NOTE | 2020-06-28 11:44 | P.PN ---
Subjective Progress Note Date: 06/28/20 Principal diagnosis: back pain Patient is a 79-year-old female with known COPD, tobacco abuse, and hypertension who presented as a transfer from [facility] secondary to low back pain with abnormal computed tomography scan findings. On arrival she was tachycardic at 110 with a blood pressure 168/88 was satting 90% on 2 L nasal cannula. Laboratory analysis showed hyponatremia, elevated BUN, and the remainder of labs were unremarkable. She had a CT Thorasic, Lumbar, and Pelvis which showed a L1 compression fracture with retropulsion and central canal stenosis. She was admitted for pain control and orthopedic spine consultation. MRI showed L4 with slight posterior retropulsion, L1 with moderate posterior disc bulge effacing the anterior thecal sac, T11 exam compression fracture with some posterior retropulsion facing the anterior thecal sac. She developed t ahcycardia and increased O2 requirements. CTA chest negative of pulmonary embolism but does demonstrate debris in the right mainstem bronchus with collapse of the lower lobe consolidation, spiculated soft tissue thickening along the right upper lobe and left apical nodularity. On Augmentin and Lasix. Speech therapy consult was placed for possible aspiration pneumonia. She was in A. fib with RVR on 06/26. She underwent an echocardi[facility] showed an EF 55-60%, cardiology was consulted and placed her on cardizem. After electrolyte replcment and cardizem she converted to NSR. Nephro was consulted due to hyponatremia and she was continued on lasix and then given a dose a samsca. Due to her high fall risk and return to normal sinus with electrolyte replacement she was determined not to be a candidate for anticoagulation. Her sodium improved. She continued to complain of abdominal pain and some distention. She had been having daily bowel movements. Abdominal x-ray completed which did show ileus. Patient seen and examined at bedside. Patient states that she vomited 1 today. She continues to have some outward abdominal pressure but is not as severely painful as her back. We discussed risks and benefits of placing an NG tube. At this point in time patient does not want nasogastric tube. We discussed that should she continue to vomit we'll place a nasogastric tube and check a CT abdomen and pelvis. She states her breathing feels better and denies any significant chest pain. General: non toxic no distress, appears at stated age Derm: warm, dry Head: atraumatic, normocephalic, symmetric Eyes: EOMI, no lid lag, anicteric sclera Mouth: no lip lesion, mucus membranes moist Cardiovascular: S1S2 reg, no murmur, positive posterior tibial pulse bilateral, Lungs: decreased bs bilateral , no accessory muscle use Abdominal: soft, tympanic throughout abdomen, nontender to palpation, hyperactive bowel sounds, no guarding, no appreciable organomegaly Ext: no gross muscle atrophy, trace edema, no contractures Neuro: CN II-XI grossly intact, no focal neuro deficits Psych: Alert, oriented, upset and angry Ileus -MiraLAX daily -Place NG tube if additional episodes of vomiting -Patient has had multiple CT/MRI at this hospital stay, however she has another episode of vomiting will repeat CT abdomen and pelvis -CT pelvis from outside hospital reviewed which showed a large volume of stool throughout the colon Paroxysmal Atrial fibrillation with rapid ventricular response, now in NSR -Transition Cardizem to long-acting in the morning -Cardiology recommended appreciated - echocardiogram ef 55-60% no significant valvular dysfunction -Telemetry -TSH normal-not a candidate for anticoagulation secondary to falls and is currently maintaining normal sinus rhythm Hyponatremia with probable SIADH -nephrology recommendations, fluid status improved, [facility] 06[facility]27 -Improving - ? Component of SIADH from severe pain on admission -Repeat BMP Intractable back pain secondary to multiple compression fractures: L4 with slight posterior retropulsion, L1 with moderate posterior disc bulge effacing the anterior thecal sac, T11 exam compression fracture with some posterior retropulsion facing the anterior thecal sac -Orthopedic spine recommendations-discussed with Dr. Lau. No surgery planned at this point. TLSO brace when up and ambulating and pain control. - Patient refuses age-related cancer testing such as mammogram or colonoscopy. We discussed benefits and risks including undefined occult malignancy and patient accepts the risk of this. - norco, steroids (last weaned 06/28), zofran. Acute hypoxic respiratory failure, Pneumonia- possible gram negative, nodular thickening - Augmentin day #4/5 - Repeat chest x-ray in a.m. - pulm hygeine, wean O2 as able - Check CT of the chest which was completed and shows no signs of large pul monary embolism but does demonstrate debris in the right mainstem bronchus with collapse of the lower lobe consolidation, spiculated soft tissue thickening along the right upper lobe and left apical nodularity. - Repeat CT chest in [address] De Luna. Case discussed with Dr. De Luna who agrees to following the patient. Patient informed Hypokalemia and hypomagnesemia, improving -Recheck in a.m. COPD without acute exacerbation with hypercapnia -Symbicort, Spiriva change Atrovent due to formulary -When necessary bronchodilators Moderate protein calorie malnutrition - dietitian recs - supplements Osteoporosis DVT prophylaxis: SCDs Discussed with: Patient, nursing, case management Anticipated discharge: In a.m. Anticipated discharge place: SNF A total of 35 minutes was spent on the care of this complex patient more than 50% of the time was spent in counseling and care coordination. Objective - Vital Signs Vital signs: Vital Signs Temp 97.9 F 06/28/20 08:22 Pulse 72 06/28/20 08:55 Resp 20 06/28/20 08:56 BP 139/67 06/28/20 08:22 Pulse Ox 94 L 06/28/20 08:22 Intake & Output 06/27/20 06/28/20 06/28/20 19:59 06:59 18:59 Intake Total 170 Output Total Balance 170 Intake: IV Heparin Sod,Pork in 0.45% NaCl 25,000 unit In 0.45 % NaCl 1 250ml.bag @ 12 UNITS/KG/HR 5.715 mls/hr IV .Q24H [facility] Rx#: [id number] Oral 170 Output: Urine Uretheral (Jeffers) Other: Voiding Method Indwelling Catheter # Bowel Movements - Labs CBC & Chem 7: 06/28/20 08:48 06/28/20 08:48 Labs: Abnormal Lab Results - Last 24 Hours (Table) 06/27/20 06/28/20 06/28/20 Range/Units 18:10 08:48 08:48 WBC 12.4 H (3.8-10.6) k/uL Sodium 125 L 129 L (137-145) mmol/L Chloride 92 L (98-107) mmol/L Carbon Dioxide 35 H (22-30) mmol/L
--- NOTE | 2020-06-28 13:05 | P.PN ---
Progress Note - Text Progress Note Date: 06/28/20 Attempted to see patient on the cardiac observation unit the patient was then transferred to cardiac stepdown unit. Attempted to see patient for cardiac stepdown unit and she was gone from the room for imaging. No reported issues overnight. Plan is to continue current dose of Cardizem at 60 mg 3 times daily, no anticoagulation due to frequent falls. Cardiology will sign off and follow on an as-needed basis. Please reconsult if any new concerns.
[2020-06-28] MEDS: LATANOPROST 0.005% OPHTH DROPS 2.5 ML BTL BOTH EYES SCH (20:49)
[2020-06-29] MEDS: PANTOPRAZOLE 40 MG TABLET PO SCH (06:29)
[2020-06-29] MEDS: HYDROcodone/APAP 5-325MG 1 EACH TAB PO PRN ×3 (06:29→23:09)
[2020-06-29] MEDS: SYMBICORT 80-4.5 MCG INHALER INHALATION SCH ×3 (08:01→22:05)
[2020-06-29] MEDS: IPRATROPIUM 0.5 MG/2.5 ML NEBU INHALATION SCH ×4 (08:01→20:33)
[2020-06-29 08:30] LABS: African American GFR (CKD) >90 (>60 ml/min/1.73 sqM); Anion Gap 2 mmol/L; Blood Urea Nitrogen 14 mg/dL (7-17); Calcium 8.3 mg/dL (8.4-10.2); Carbon Dioxide 36 mmol/L (22-30); Chloride 91 mmol/L (98-107); Glucose 87 mg/dL (74-99); Magnesium 1.4 mg/dL (1.6-2.3); Non-African American GFR(CKD) >90 (>60 ml/min/1.73 sqM); Potassium 3.7 mmol/L (3.5-5.1); Sodium 129 mmol/L (137-145)
[2020-06-29] MEDS: IPRATROPIUM-ALBUTEROL 3 ML NEB INHALATION SCH (08:30)
[2020-06-29] MEDS: DILTIAZEM ORAL 60 MG TAB PO SCH ×3 (08:53→21:09)
[2020-06-29] MEDS: LORATADINE 10 MG TAB PO SCH (08:53)
[2020-06-29] MEDS: MAGNESIUM OXIDE 400 MG TAB PO SCH (08:53)
[2020-06-29] MEDS: AMOXIC-POT CLAV 875-125MG 1 EACH TAB PO SCH ×2 (08:53→21:09)
[2020-06-29] MEDS: amLODIPine 10 MG TAB PO SCH (08:53)
[2020-06-29] MEDS: predniSONE 20 MG TAB PO SCH (08:53)
[2020-06-29] MEDS: MULTIVITAMINS, THERA 1 EACH TAB PO SCH (08:53)
[2020-06-29] MEDS: CHOLECALCIFEROL 1,000 UNIT TAB PO SCH (08:54)
[2020-06-29] MEDS: VITAMIN E (DL,TOCOPHERYL ACET) 400 UNIT CAP PO SCH (09:00)
[2020-06-29] MEDS ORDERED: FUROSEMIDE 10 MG/ML 2 ML VIAL IV ONE (09:49)
--- NOTE | 2020-06-29 09:49 | P.PN ---
Subjective Patient is seen in follow-up for hyponatremia. Sodium level stable at 129 this morning. Denies chest pain or shortness of breath. Jeffers catheter inserted due to urinary retention on June 27. Oral intake poor. No vomiting or diarrhea. Vital signs are stable. General: The patient appeared well nourished and normally developed. HEENT: Head exam is unremarkable. Neck is without jugular venous distension. LUNGS: Breath sounds decreased. HEART: Rate and Rhythm are regular. ABDOMEN: Soft, nontender. EXTREMITITES: Trace edema. Objective - Vital Signs Vital signs: Vital Signs Temp 98 F 06/28/20 20:00 Pulse 80 06/29/20 08:15 Resp 20 06/29/20 04:00 BP 148/67 06/29/20 04:00 Pulse Ox 95 06/29/20 04:00 Intake & Output 06/28/20 06/29/20 06/29/20 18:59 06:59 18:59 Intake Total 220 Output Total 650 940 Balance -430 -940 Weight 47.8 kg Intake: Oral 220 Output: Urine 650 940 Uretheral (Jeffers) 650 Other: Voiding Method Indwelling Catheter Indwelling Catheter # Voids 0 - Labs CBC & Chem 7: 06/28/20 08:48 06/29/20 07:32 Labs: Abnormal Lab Results - Last 24 Hours (Table) 06/29/20 Range/Units 07:32 Sodium 129 L (137-145) mmol/L Chloride 91 L (98-107) mmol/L Carbon Dioxide 36 H (22-30) mmol/L Calcium 8.3 L (8.4-10.2) mg/dL Magnesium 1.4 L (1.6-2.3) mg/dL Assessment and Plan Plan: Assessment: 1. Hypervolemic hyponatremia. Sodium level stable at 129 this morning. Status post [facility] 06/27/20. TSH normal. Urine sodium 68 and urine osmolality 511 - repeat 311. 2. A. fib with RVR maintained on Cardizem. s/p heparin drip. 3. Back pain with multiple compression fractures. Orthopedic surgery following. 4. Hypokalemia secondary to diuresis and poor intake status post placement. Better. 5. Hypomagnesemia from poor intake. 6. Ileus. Plan: Encouraged oral intake, particularly protein. Maintain fluid restriction. Replace magnesium. 2 g IV today. Lasix 20 mg IV once today. Repeat electrolytes in the morning.
[2020-06-29] MEDS ORDERED: bisacodyL 5 MG TABLET.DR PO STA (10:00)
--- NOTE | 2020-06-29 10:02 | P.PN ---
Subjective Progress Note Date: 06/29/20 Patient is complaining of abdominal pain today. Pain is all over the abdomen. She denies any nausea and was able to tolerate liquid diet this morning with no difficulty. Her abdomen is significantly distended. She is passing gas. No bowel movement Patient is still on 5 L of oxygen satting 93%. She said that she's not on oxygen at home. She has an extensive tobacco use history and quit a year ago. She denies any shortness of breath at this time. Objective - Vital Signs Vital signs: Vital Signs Temp 98 F 06/28/20 20:00 Pulse 80 06/29/20 08:15 Resp 20 06/29/20 04:00 BP 148/67 06/29/20 04:00 Pulse Ox 95 06/29/20 04:00 Intake & Output 06/28/20 06/29/20 06/29/20 18:59 06:59 18:59 Intake Total 220 Output Total 650 940 Balance -430 -940 Weight 47.8 kg Intake: Oral 220 Output: Urine 650 940 Uretheral (Jeffers) 650 Other: Voiding Method Indwelling Catheter Indwelling Catheter # Voids 0 - Exam General: The patient is awake and alert, in no distress Eye: there is normal conjunctiva bilaterally. Neck: The neck is supple, there is no JVD. Cardiovascular: Normal S1-S2, no S3-S4, no murmurs. Respiratory: Lungs with diminished air movement bilaterally but no wheezing Gastrointestinal: Abdomen is significantly distended and tympanic Musculoskeletal: There is no pedal edema. Neurological:. Speech is normal. Skin: Skin is warm and dry - Labs CBC & Chem 7: 06/28/20 08:48 06/29/20 07:32 Labs: Abnormal Lab Results - Last 24 Hours (Table) 06/29/20 Range/Units 07:32 Sodium 129 L (137-145) mmol/L Chloride 91 L (98-107) mmol/L Carbon Dioxide 36 H (22-30) mmol/L Calcium 8.3 L (8.4-10.2) mg/dL Magnesium 1.4 L (1.6-2.3) mg/dL Assessment and Plan Assessment: Patient is a 79-year-old female with known COPD, tobacco abuse (quit 1 year ago), and hypertension who presented as a transfer from [facility] se condary to low back pain with abnormal computed tomography scan findings. She had a CT Thorasic, Lumbar, and Pelvis which showed a L1 compression fracture with retropulsion and central canal stenosis. She was admitted for pain control and orthopedic spine consultation. MRI showed L4 with slight posterior retropulsion, L1 with moderate posterior disc bulge effacing the anterior thecal sac, T11 exam compression fracture with some posterior retropulsion facing the anterior thecal sac. She developed tahcycardia and increased O2 requirements. CTA chest negative of pulmonary embolism but does demonstrate debris in the right mainstem bronchus with collapse of the lower lobe consolidation, spiculated soft tissue thickening along the right upper lobe and left apical nodularity. On Augmentin and Lasix. Speech therapy consult was placed for possible aspiration pneumonia. She was in A. fib with RVR on 06/26. She underwent an echocardiogram whcih showed an EF 55-60%, cardiology was consulted and placed her on cardizem. After electrolyte replcment and cardizem she converted to NSR. Nephro was consulted due to hyponatremia and she was continued on lasix and then given a dose a samsca. Ileus -With worsening abdominal distention. I would obtain computed tomography scan of the abdomen and pelvis for further evaluation -MiraLAX daily -CT pelvis from outside hospital reviewed which showed a large volume of stool throughout the colon, I would adjust her bowel regimen. Paroxysmal Atrial fibrillation with rapid ventricular response, now in NSR -Transition Cardizem to long-acting in the morning -Cardiology recommended appreciated - echocardiogram ef 55-60% no significant valvular dysfunction -Telemetry -TSH normal-not a candidate for anticoagulation secondary to falls and is c urrently maintaining normal sinus rhythm Hyponatremia with probable SIADH -nephrology recommendations, fluid status improved, samsca X 1 06/27 -Improving - ? Component of SIADH from severe pain on admission -Repeat BMP Intractable back pain secondary to multiple compression fractures: L4 with sli ght posterior retropulsion, L1 with moderate posterior disc bulge effacing the anterior thecal sac, T11 exam compression fracture with some posterior retropulsion facing the anterior thecal sac -Orthopedic spine recommendations- No surgery planned at this point. TLSO brace when up and ambulating and pain control. - Patient refuses age-related cancer testing such as mammogram or colonoscopy. - norco, steroids (last weaned 11/1), zofran. Acute hypoxic respiratory failure, Pneumonia- possible gram negative, nodular thickening - Augmentin day #5/5 - Repeat chest x-ray in a.m. - pulm hygeine, wean O2 as able - CT chest shows no signs of large pulmonary embolism but does demonstrate debris in the right mainstem bronchus with collapse of the lower lobe consolidation, spiculated soft tissue thickening along the right upper lobe and left apical nodularity. - Repeat CT chest in [address] De Luna. Case discussed with Dr. De Luna who agrees to following the patient. Patient informed Hypokalemia and hypomagnesemia, improving -Recheck in a.m. COPD without acute exacerbation with hypercapnia -Symbicort, Spiriva change Atrovent due to formulary -When necessary bronchodilators Moderate protein calorie malnutrition - dietitian recs - supplements Osteoporosis
[2020-06-29] MEDS: MAGNESIUM SULFATE-D5W PMX 1 GM in DEXTROSE/WATER 1 100ML.BAG IVPB SCH ×2 (11:22→12:40)
[2020-06-29] MEDS: IOPAMIDOL CONTRAST (ORAL USE) VIAL PO PRN ×2 (11:26→12:01)
--- NOTE | 2020-06-29 13:42 | CT ---
EXAMINATION TYPE: CT abdomen pelvis w con DATE OF EXAM: 06/29/2020 COMPARISON: Abdominal radiograph 06/28/2020. CTA chest 06/25/2020. Outside institution CT lumbar spine and thoracic spine 06/23/2020. HISTORY: generalized pain CT DLP: 880.9 mGycm Automated exposure control for dose reduction was used. TECHNIQUE: Helical acquisition of images was performed from the lung bases through the pelvis. CONTRAST: Performed with Oral Contrast and with IV Contrast, patient injected with 100 mL of Isovue 300. FINDINGS: LUNG BASES: Large bilateral pleural effusions, increased from 06/25/2020 CT comparison. 1.3 x 0.7 cm left upper lobe pulmonary nodule is redemonstrated from 06/25/2020 CT comparison. LIVER: Normal. BILIARY SYSTEM: Cholelithiasis. No intrahepatic or extrahepatic biliary ductal dilatation. PANCREAS: Normal. SPLEEN: Normal. ADRENALS: Normal. KIDNEYS: Normal. BOWEL: There is diffuse colonic gaseous dilatation to the level of the mid sigmoid colon where there is abrupt transition to decompressed colon. Severe distal sigmoid colon diverticulosis. The mid osorio sverse colon measures up to 8.0 cm. PERITONEUM: There is trace perihepatic and pelvic free fluid, as well as trace fluid within the bila teral paracolic gutters. There is oral contrast seen within the mid and distal esophagus. Small bowel is normal. LYMPH NODES: No lymphadenopathy. PELVIS: Urinary bladder decompressed with Jeffers catheter. VASCULATURE: No abdominal aortic aneurysm. Marked calcified atherosclerotic disease. MUSCULOSKELETAL: Diffuse anasarca. Incompletely visualized left hip postsurgical change. Degenerativ e changes of the spine. Old bilateral rib fracture deformities. Compression deformities of L4, L1, T1 1, and T3 are redemonstrated from 06/23/2020 CT comparisons, with vertebra plana at T11 and T3. IMPRESSION: 1. Diffuse colonic gaseous dilatation with abrupt transition point in the mid sigmoid colon. There i s severe sigmoid colonic diverticulosis. Findings may represent colonic obstruction versus ileus. Mid transverse colon measures up to 8.0 cm. 2. Contrast within the mid and distal esophagus. Findings may represent gastroesophageal reflux. 3. Cholelithiasis. 4. Large bilateral pleural effusions are increased from 06/25/2020 CT comparison. 5. Left apical pulmonary nodularity measuring up to 1.3 cm. Again recommend short-term two-month CT follow-up.
[2020-06-29] MEDS: LATANOPROST 0.005% OPHTH DROPS 2.5 ML BTL BOTH EYES SCH (21:08)
[2020-06-29] MEDS: polyethylene glycoL 3350 17 GM POWD.PACK PO SCH (21:09)
--- NOTE | 2020-06-30 01:29 | P.PN ---
Progress Note - Text Progress Note Date: 06/30/20 notified by RN regarding increase oxygen requirement after evaluating patient and reviewing medical records, along with CT imaging patient is having megacolon, non toxic at this time surgery consultation has been ordered today patient will be made NPO increase supplemental oxygen for goal >90% patient with COPD with chronic hypoxic and hypercapnic resp failure patient declined NG tube for decompression Mg was replaced earlier today patient on lasix for pleural effusion finished PO antibiotics for penumonia patient also has low back pain, she was evaluated by spine surgery , not a candidate for surgical intervention , recommended conservative medical therapy close monitoring of vital signs
[2020-06-30] MEDS: PANTOPRAZOLE 40 MG TABLET PO SCH (06:23)
[2020-06-30 08:20] LABS: Basophils % (A) 0 %; Eosinophils # (A) 0.1 k/uL (0-0.7); Eosinophils % (A) 1 %; HCT 48.7 % (34.0-46.0); HGB 15.2 gm/dL (11.4-16.0); Lymphocytes # (A) 0.6 k/uL (1.0-4.8); Lymphocytes % (A) 4 %; MCH 29.6 pg (25.0-35.0); MCHC 31.2 g/dL (31.0-37.0); MCV 94.9 fL (80.0-100.0); Mean Platelet Volume 7.9; Monocytes # (A) 0.4 k/uL (0-1.0); Monocytes % (A) 3 %; Neutrophils # (A) 12.1 k/uL (1.3-7.7); Neutrophils % (A) 91 %; Platelet Count 269 k/uL (150-450); RBC 5.12 m/uL (3.80-5.40); RDW 13.1 % (11.5-15.5); WBC 13.3 k/uL (3.8-10.6)
[2020-06-30] MEDS: IPRATROPIUM 0.5 MG/2.5 ML NEBU INHALATION SCH ×2 (08:30→11:27)
[2020-06-30] MEDS: SYMBICORT 80-4.5 MCG INHALER INHALATION SCH ×2 (08:30→20:34)
[2020-06-30 08:48] LABS: African American GFR (CKD) >90 (>60 ml/min/1.73 sqM); Anion Gap 5 mmol/L; Blood Urea Nitrogen 21 mg/dL (7-17); Calcium 8.7 mg/dL (8.4-10.2); Carbon Dioxide 34 mmol/L (22-30); Chloride 86 mmol/L (98-107); Glucose 93 mg/dL (74-99); Magnesium 1.7 mg/dL (1.6-2.3); Non-African American GFR(CKD) 89 (>60 ml/min/1.73 sqM); Sodium 125 mmol/L (137-145)
[2020-06-30] MEDS ORDERED: MORPHINE SULFATE 2 MG/ML SYRINGE IVP PRN (09:29)
[2020-06-30] MEDS: MULTIVITAMINS, THERA 1 EACH TAB PO SCH (09:34)
[2020-06-30] MEDS: predniSONE 20 MG TAB PO SCH (09:34)
[2020-06-30] MEDS: LORATADINE 10 MG TAB PO SCH (09:34)
[2020-06-30] MEDS: AMOXIC-POT CLAV 875-125MG 1 EACH TAB PO SCH (09:34)
[2020-06-30] MEDS: DILTIAZEM ORAL 60 MG TAB PO SCH ×3 (09:34→22:34)
[2020-06-30] MEDS: amLODIPine 10 MG TAB PO SCH (09:34)
[2020-06-30] MEDS: MAGNESIUM OXIDE 400 MG TAB PO SCH (09:34)
[2020-06-30] MEDS: CHOLECALCIFEROL 1,000 UNIT TAB PO SCH (09:34)
[2020-06-30] MEDS: VITAMIN E (DL,TOCOPHERYL ACET) 400 UNIT CAP PO SCH (09:36)
--- NOTE | 2020-06-30 09:57 | XR ---
EXAMINATION TYPE: XR abdomen acute w cxr DATE OF EXAM: 06/30/2020 COMPARISON: 06/28/2020 HISTORY: 79-year-old female follow-up of abdominal pain and distention TECHNIQUE: Supine, upright, and left side down lateral decubitus views of the abdomen are obtained. FINDINGS: Heart normal size. Continued small left pleural effusions with adjacent opacity. No evidence for free intraperitoneal air. Severe gaseous distention throughout the colon dilated up to nearly 9 cm. There seems to be some oral contrast material within the right-sided colon. No dilated small bowel or differential air fluid lev els seen. IMPRESSION: 1. Slight progressive diffuse colonic distention now nearly up to 9 cm. Marked colonic ileus or dista l colonic obstruction are both in the differential. 2. Continued small effusions with adjacent atelectasis and/or consolidation.
[2020-06-30] MEDS: IPRATROPIUM-ALBUTEROL 3 ML NEB INHALATION SCH ×4 (11:27→23:56)
[2020-06-30] MEDS ORDERED: FUROSEMIDE 10 MG/ML 4 ML VIAL IV SCH (11:45)
--- NOTE | 2020-06-30 12:30 | P.PN ---
Subjective Patient is seen in follow-up for hyponatremia. Sodium level down to 125 this morning. Patient is quite lethargic. Abdomen distended. Noted to have bowel obstruction. Oral intake poor. Patient resisting and G-tube placement. Vital signs are stable. General: The patient appeared well nourished and normally developed. HEENT: Head exam is unremarkable. Neck is without jugular venous distension. LUNGS: Breath sounds decreased. HEART: Rate and Rhythm are regular. ABDOMEN: Abdominal distention noted. EXTREMITITES: Trace edema. Objective - Vital Signs Vital signs: Vital Signs Temp 97.7 F 06/30/20 03:54 Pulse 92 06/30/20 11:37 Resp 16 06/30/20 11:15 BP 137/75 06/30/20 08:00 Pulse Ox 95 06/30/20 11:31 Intake & Output 06/29/20 06/30/20 06/30/20 18:59 06:59 18:59 Intake Total 500 0 Output Total 300 160 Balance 200 -160 Weight 47.8 kg 47.5 kg Intake: Intake, IV Titration 200 Amount Magnesium Sulfate-D5w Pmx 200 1 gm In Dextrose/Water 1 100ml.bag @ 100 mls/hr IVPB Q1H [facility] Rx#: [id number] Oral 300 0 Output: Urine 300 160 Other: Voiding Method Indwelling Catheter Indwelling Catheter Indwelling Catheter # Voids 0 - Labs CBC & Chem 7: 06/30/20 07:54 06/30/20 07:54 Labs: Abnormal Lab Results - Last 24 Hours (Table) 06/30/20 06/30/20 Range/Units 07:54 07:54 WBC 13.3 H (3.8-10.6) k/uL Hct 48.7 H (34.0-46.0) % Neutrophils # 12.1 H (1.3-7.7) k/uL Lymphocytes # 0.6 L (1.0-4.8) k/uL Sodium 125 L (137-145) mmol/L Chloride 86 L (98-107) mmol/L Carbon Dioxide 34 H (22-30) mmol/L BUN 21 H (7-17) mg/dL Assessment and Plan Plan: Assessment: 1. Hypervolemic hyponatremia. Sodium level down to 125 this morning. Status post [facility] 06/27/20. TSH normal. Urine sodium 68 and urine osmolality 511 - repeat 337. 2. A. fib with RVR maintained on Cardizem. s/p heparin drip. 3. Back pain with multiple compression fractures. Orthopedic surgery following. 4. Hypokalemia secondary to diuresis and poor intake status post placement. Better. 5. Hypomagnesemia from poor intake. Status post placement. 6. Small bowel obstruction. Patient resisting NG tube insertion. Surgery following. 7. Volume overload with large bilateral pleural effusions. ?thoracentesis. Plan: Start Lasix 40 mg IV twice daily. Strict I's and O's. Repeat sodium level this evening. Will repeat a dose of Samsca tomorrow if sodium level not improving.
--- NOTE | 2020-06-30 12:55 | P.PN ---
Subjective Progress Note Date: 06/30/20 Patient is complaining of abdominal distention today. She denies nausea or vomiting. She is passing gas but no bowel movement. She denies being shortness of breath that she is currently on 6 L high flow nasal cannula. Chest x-ray this morning showed bilateral small pleural effusion. Patient is frustrated and wanted to be discharged. Objective - Vital Signs Vital signs: Vital Signs Temp 97.7 F 06/30/20 03:54 Pulse 92 06/30/20 11:37 Resp 16 06/30/20 11:15 BP 137/75 06/30/20 08:00 Pulse Ox 95 06/30/20 11:31 Intake & Output 06/29/20 06/30/20 06/30/20 18:59 06:59 18:59 Intake Total 500 0 Output Total 300 160 Balance 200 -160 Weight 47.8 kg 47.5 kg Intake: Intake, IV Titration 200 Amount Magnesium Sulfate-D5w Pmx 200 1 gm In Dextrose/Water 1 100ml.bag @ 100 mls/hr IVPB Q1H [facility] Rx#: [id number] Oral 300 0 Output: Urine 300 160 Other: Voiding Method Indwelling Catheter Indwelling Catheter Indwelling Catheter # Voids 0 - Exam General: The patient is awake and alert, in no distress Eye: there is normal conjunctiva bilaterally. Neck: The neck is supple, there is no JVD. Cardiovascular: Normal S1-S2, no S3-S4, no murmurs. Respiratory: Lungs with diminished air movement bilaterally but no wheezing Gastrointestinal: Abdomen is significantly distended and tympanic Musculoskeletal: There is no pedal edema. Neurological:. Speech is normal. Skin: Skin is warm and dry - Labs CBC & Chem 7: 06/30/20 07:54 06/30/20 07:54 Labs: Abnormal Lab Results - Last 24 Hours (Table) 06/30/20 06/30/20 Range/Units 07:54 07:54 WBC 13.3 H (3.8-10.6) k/uL Hct 48.7 H (34.0-46.0) % Neutrophils # 12.1 H (1.3-7.7) k/uL Lymphocytes # 0.6 L (1.0-4.8) k/uL Sodium 125 L (137-145) mmol/L Chloride 86 L (98-107) mmol/L Carbon Dioxide 34 H (22-30) mmol/L BUN 21 H (7-17) mg/dL Assessment and Plan Assessment: Patient is a 79-year-old female with known COPD, tobacco abuse (quit 1 year ago), and hypertension who presented as a transfer from [facility] secondary to low back pain with abnormal computed tomography scan findings. She had a CT Thorasic, Lumbar, and Pelvis which showed a L1 compression fracture with retropulsion and central canal stenosis. She was admitted for pain control and orthopedic spine consultation. MRI showed L4 with slight posterior retropulsion, L1 with moderate posterior disc bulge effacing the anterior thecal sac, T11 exam compression fracture with some posterior retropulsion facing the anterior thecal sac. She developed tahcycardia and increased O2 requirements. CTA chest negative of pulmonary embolism but does demonstrate debris in the right mainstem bronchus with collapse of the lower lobe consolidation, spiculated soft tissue thickening along the right upper lobe and left apical nodularity. On Augmentin and Lasix. Speech therapy consult was placed for possible aspiration pneumonia. She was in A. fib with RVR on 06/26. She underwent an echocardiogram whcih showed an EF 55-60%, cardiology was consulted and placed her on cardizem. After electrolyte replcment and cardizem she converted to NSR. Nephro was consulted due to hyponatremia and she was continued on lasix and then given a dose a samsca. Ileus with findings on CT suggestive for diffuse colonic dilatation up to 9 cm concerning for obstruction -Seen and evaluated by general surgery. Plan for or heart tomorrow Acute hypoxic respiratory failure, Pneumonia- possible gram negative, nodular thickening, underlying COPD/emphysema - Finished Augmentin course day #5/5 - Repeat chest x-ray on 06/29 showed bilateral small pleural effusion - pulm hygeine, wean O2 as able - DuoNeb scheduled every 4 hours - CT chest shows no signs of large pulmonary embolism but does demonstrate debris in the right mainstem bronchus with collapse of the lower lobe consolidation, spiculated soft tissue thickening along the right upper lobe and left apical nodularity. -Consult pulmonology for further evaluation - Repeat CT chest in [address] De Luna. Case discussed by Dr. Sheehan with Dr. De Luna who agrees to following the patient. Patient informed Paroxysmal Atrial fibrillation with rapid ventricular response, now in NSR -Transition Cardizem to long-acting prior to discharge -Cardiology recommended appreciated - echocardiogram ef 55-60% no significant valvular dysfunction -Telemetry -TSH normal -not a candidate for anticoagulation secondary to falls and is currently maintaining normal sinus rhythm Hyponatremia with probable SIADH -nephrology recommendations, fluid status improved, samsca X 1 06/27 possibly another dose tomorrow -Improving - ? Component of SIADH from severe pain on admission -Repeat BMP Intractable back pain secondary to multiple compression fractures: L4 with slight posterior retropulsion, L1 with moderate posterior disc bulge effacing the anterior thecal sac, T11 exam compression fracture with some posterior retropulsion facing the anterior thecal sac -Orthopedic spine recommendations- No surgery planned at this point. TLSO brace when up and ambulating and pain control. - Patient refuses age-related cancer testing such as mammogram or colonoscopy. - norco, steroids (last weaned 06/28), zofran. Hypokalemia and hypomagnesemia, improving -Recheck in a.m. COPD -SymbicortKoffi's Moderate protein calorie malnutrition - dietitian recs - supplements Osteoporosis Today, I discussed CODE STATUS with patient. I explained to her meaning of resuscitation. She would like to be DO NOT RESUSCITATE/DO NOT INTUBATE
[2020-06-30 13:25] LABS: ABG Base Excess 13.9 mmol/L; ABG HCO3 37 mmol/L (21-25); ABG Oxygen Saturation 91.2 % (94-97); ABG PCO2 49 mmHg (35-45); ABG PH 7.49 (7.35-7.45); ABG TCO2 39 mmol/L (19-24); Allen Test Performed? Yes
--- NOTE | 2020-06-30 13:25 | P.GSCN ---
History of Present Illness Consult date: 06/30/20 History of present illness: CHIEF COMPLAINT: Abdominal pain HISTORY OF PRESENT ILLNESS: This is a 79-year-old female with a known past medical history of COPD, nicotine dependence and hypertension. She reports having umbilical hernia surgery in the past. Apparently she was a transfer from [facility] with complaints of lower back pain. She was found to have an L1 compression fracture on computed tomography scan. And she was seen by orthopedics. During this admission she also was found to have A. fib with RVR and was evaluated by cardiology who placed on Cardizem. During this admission patient developed abdominal pain and abdominal distention. She had an abdominal x-ray on 06/28/2020 which showed nonspecific abdomen. The air within the colon is somewhat prominent. Consider ileus. Computed tomography scan of abdomen and pelvis shows colonic gaseous dilatation with abrupt transition point in the mid sigmoid colon. There is severe sigmoid colonic diverticulosis. Findings may represent colonic obstruction versus ileus. Surgical consult was placed for bowel obstruction. She did have vomiting. The patient did not tolerate NG tube to be placed and was fighting nursing staff. PAST MEDICAL HISTORY: See list. PAST SURGICAL HISTORY: See list. MEDICATIONS: See list. ALLERGIES: See list. SOCIAL HISTORY: No illicit drug use. REVIEW OF SYSTEMS: CONSTITUTIONAL: Denies fever or chills. HEENT: Denies blurred vision, vision changes, or eye pain. Denies hemoptysis CARDIOVASCULAR: Denies chest pain or pressure. RESPIRATORY: No shortness of breath. GASTROINTESTINAL: See HPI for pertinent findings HEMATOLOGIC: Denies bleeding disorders. GENITOURINARY: Denies any blood in urine or increased urinary frequency. SKIN: Denies pruitis. Denies rash. PHYSICAL EXAM: VITAL SIGNS: Reviewed GENERAL: Well-developed in no acute distress. HEENT: No sclera icterus. Extraocular movements grossly intact. Moist buccal mucosa. Head is atraumatic, normocephalic. No nasal drainage. ABDOMEN: Firm and distended NEUROLOGIC: Alert and oriented. Cranial nerves II through XII grossly intact. LABORATORY DATA: WBC 13.3 hemoglobin 15.2 sodium 125 potassium 4.0 creatinine 0.59 magnesium 1.7 Stool for occult blood positive IMAGING: Computed tomography scan of abdomen and pelvis shows colonic gaseous dilatation with abrupt transition point in the mid sigmoid colon. There is severe sigmoid colonic diverticulosis. Findings may represent colonic obstruction versus ileus. Mid transverse colon measuring up to 8.0 cm. Cholelithiasis. Large bilateral pleural effusions. Left apical pulmonary nodularity Abdominal x-ray from 06/30/2020 slowly progressive diffuse colonic distention now nearly up to 9 cm. Marked colonic ileus or distal colonic obstruction ASSESSMENT: 1. Colonic obstruction PLAN: -Patient scheduled for Diverting colostomy with possible sigmoid resection tomorrow with Dr. Vázquez -Patient refused NG tube to be placed -large bilateral pleural effusions being evaluated by pulmonary service Physician Supervisor [employer] note has been reviewed by physician. Signing provider agrees with the documented findings, assessment, and plan of care. Past Medical History Past Medical History: Asthma, COPD Additional Past Medical History / Comment(s): both ankles fractured History of Any Multi-Drug Resistant Organisms: None Reported Past Surgical History: Orthopedic Surgery Past Anesthesia/Blood Transfusion Reactions: No Reported Reaction Past Psychological History: No Psychological Hx Reported Smoking Status: Current every day smoker Past Alcohol Use History: None Reported Past Drug Use History: None Reported - Past Family History Mother Family Medical History: CVA/TIA Father Family Medical History: CVA/TIA Medications and Allergies Home Medications Medication Instructions Recorded Confirmed Type Cholecalciferol [Vitamin D3 (25 3,000 unit PO DAILY 09/20/19 06/23/20 History Mcg = 1000 Iu)] amLODIPine [Norvasc] 10 mg PO DAILY #30 tab 09/24/19 06/23/20 Rx Albuterol Inhaler [Ventolin Hfa 2 puff INHALATION RT-Q4H PRN 06/23/20 06/23/20 History Inhaler] Cyclobenzaprine [Flexeril] 10 mg PO Q8H PRN 06/23/20 06/23/20 History Fluticasone Propion/Salmeterol 1 puff INHALATION RT-DAILY 06/23/20 06/23/20 History [Wixela 250-50 Inhub] Ipratropium-Albuterol Nebulize 3 ml INHALATION RT-QID PRN 06/23/20 06/23/20 History [Duoneb 0.5 mg-3 mg/3 ml Soln] Latanoprost/Pf [Latanoprost 0.005% 1 drop BOTH EYES HS 06/23/20 06/23/20 History Eye Drop] Magnesium Oxide 400 mg PO DAILY 06/23/20 06/23/20 History Multivitamins, Thera [Multivitamin 1 tab PO DAILY 06/23/20 06/23/20 History (formulary)] Potassium Chloride ER [K-Dur 20] 20 meq PO DAILY 06/23/20 06/23/20 History Tiotropium [place] [Spiriva] 1 cap INHALATION RT-HS 06/23/20 06/23/20 History Vitamin C(Unknown Dose) 1 tab PO DAILY 06/23/20 06/23/20 History Vitamin E 400 unit PO DAILY 06/23/20 06/23/20 History Allergies Allergy/AdvReac Type Severity Reaction Status Date / Time latex Allergy Rash/Hives Verified 06/23/20 20:36 morphine Allergy Rash/Hives Verified 06/23/20 20:36 Surgical - Exam Vital Signs Temp Pulse Resp BP Pulse Ox 98.2 F 110 H 18 168/88 90 L 06/23/20 19:38 06/23/20 19:38 06/23/20 19:38 06/23/20 19:38 06/23/20 19:38 Results - Labs 06/30/20 07:54 06/30/20 07:54 Abnormal Lab Results - Last 24 Hours (Table) 06/30/20 06/30/20 Range/Units 07:54 07:54 WBC 13.3 H (3.8-10.6) k/uL Hct 48.7 H (34.0-46.0) % Neutrophils # 12.1 H (1.3-7.7) k/uL Lymphocytes # 0.6 L (1.0-4.8) k/uL Sodium 125 L (137-145) mmol/L Chloride 86 L (98-107) mmol/L Carbon Dioxide 34 H (22-30) mmol/L BUN 21 H (7-17) mg/dL Diabetes panel 06/30/20 Range/Units 07:54 Sodium 125 L (137-145) mmol/L Potassium 4.0 (3.5-5.1) mmol/L Chloride 86 L (98-107) mmol/L Carbon Dioxide 34 H (22-30) mmol/L BUN 21 H (7-17) mg/dL Creatinine 0.59 (0.52-1.04) mg/dL Glucose 93 (74-99) mg/dL Calcium 8.7 (8.4-10.2) mg/dL Calcium panel 06/30/20 Range/Units 07:54 Calcium 8.7 (8.4-10.2) mg/dL Pituitary panel 06/30/20 Range/Units 07:54 Sodium 125 L (137-145) mmol/L Potassium 4.0 (3.5-5.1) mmol/L Chloride 86 L (98-107) mmol/L Carbon Dioxide 34 H (22-30) mmol/L BUN 21 H (7-17) mg/dL Creatinine 0.59 (0.52-1.04) mg/dL Glucose 93 (74-99) mg/dL Calcium 8.7 (8.4-10.2) mg/dL Adrenal panel 06/30/20 Range/Units 07:54 Sodium 125 L (137-145) mmol/L Potassium 4.0 (3.5-5.1) mmol/L Chloride 86 L (98-107) mmol/L Carbon Dioxide 34 H (22-30) mmol/L BUN 21 H (7-17) mg/dL Creatinine 0.59 (0.52-1.04) mg/dL Glucose 93 (74-99) mg/dL Calcium 8.7 (8.4-10.2) mg/dL
[2020-06-30 13:28] LABS: ABG PO2 58 mmHg (83-108)
[2020-06-30] MEDS ORDERED: MAGNESIUM SULFATE-D5W PMX 1 GM in DEXTROSE/WATER 1 100ML.BAG IVPB ONE (15:36)
--- NOTE | 2020-06-30 16:08 | P.PN ---
Progress Note - Text Progress Note Date: 06/30/20 Today, I had a meeting with the patient and her sister Jamee at bedside. We discussed the patient's current condition. I explained to the patient and her sister her current clinical condition and her guarded prognosis. We also discussed goals of care and CODE STATUS. Patient states clearly that she wants to be DO NOT RESUSCITATE/DO NOT INTUBATE. I also explained to the patient and her sister the possibility of having surgery tomorrow for which we have to reverse her DO NOT RESUSCITATE status which she is agreeable to. I answered all of their questions to their satisfaction. Time spent in the meeting approximately 20 minutes.
[2020-06-30] MEDS: FUROSEMIDE 10 MG/ML 4 ML VIAL IV SCH ×2 (16:37→22:06)
--- NOTE | 2020-06-30 18:39 | P.CNPUL ---
History of Present Illness Consult date: 06/30/20 Requesting physician: Radha Zaidi Reason for consult: dyspnea Chief complaint: Megacolon, acute hypoxic respiratory failure, abdominal distention History of present illness: 79-year-old white female patient with past medical history of recurring bronchial asthma/COPD who came into the hospital per EMS on 06/23/2020 with the reported back pain of 4-5 day history. Outpatient x-ray by her PCP showed compression fractures. CT of the lumbar spine completed that the [facility] showed L1 compression fracture with 50% retropulsion of a 6 mm fragment into the spinal column, patient was transferred to [facility] for orthopedic evaluation. Further workup by orthopedic surgery revealed multiple compression fractures likely related to osteoporosis, although underlying malignancy could not be entirely excluded. Chest x-ray showed a chronic parenchymal changes with small bilateral pleural effusions and a right basilar acute infiltrate and/or atelectasis. On admission patient had a low sodium levels, of 131, she was given IV fluids, and afterward she developed some worsening shortness of breath, and received 20 mg of Lasix. Possibility of SIADH versus hypervolemic hyponatremia were considered, nephrology is following. Patient developed abdominal discomfort on 06/28/2020, abdominal x-ray showed nonspecific abdomen, air within the colon was somewhat prominent, consideration for ileus and colonic ileus was advised. Patient also developed A. fib with RVR. CT of the abdomen and pelvis was completed on 06/29/2020 showing diffuse colonic get his dilatation with abrupt transition point in the mid sigmoid colon. There was severe sigmoid colonic diverticulosis, findings were thought to represent colonic obstruction versus ileus, cholelithiasis, and large bilateral pleural effusions increased from prior CT on 06/25/2020. There was a left apical nodularity measuring up to 1.3 cm. Surgical consultation was requested, patient is having abdominal distention, discomfort, she refused NG tube placement. Her oxygen requirement increased from 2 L on admission, to 12 of oxygen today. She is afebrile, she is short of breath, we were asked to see the patient in evaluation for acute hypoxic respiratory failure. Acute abdominal series were completed this morning showing slight progressive diffuse colonic distention and marked colonic ileus or distal colonic obstruction, and continued small pleural effusion with adjacent atelectasis and/or consolidation. Today's blood gas was reviewed, showing pO2 of 58, pCO2 49, and pH of 7.49 this was done on FiO2 of 80%. Patient is on IV Lasix at 40 mg every 12 hours, however clinically she looks dry, after reviewing her CT of the abdomen and pelvis, and chest x-rays the appearance of pleural effusions are small, and patient has bibasilar atelectasis and small pleural effusions likely related to abdominal distention. She's been afebrile, she is on oral prednisone, she is on oral bronchodilators. Review of Systems All systems: negative Constitutional: Denies chills, Denies fever Eyes: denies blurred vision, denies pain Ears, nose, mouth and throat: Denies headache, Denies sore throat Cardiovascular: Denies chest pain, Denies shortness of breath Respiratory: Reports dyspnea, Denies cough Gastrointestinal: Reports bloating, Reports change in bowel habits, Denies abdominal pain, Denies diarrhea, Denies nausea, Denies vomiting Genitourinary: Denies dysuria, Denies hematuria Musculoskeletal: Denies myalgias Integumentary: Denies pruritus, Denies rash Neurological: Denies numbness, Denies weakness Psychiatric: Denies anxiety, Denies depression Endocrine: Denies fatigue, Denies weight change Past Medical History Past Medical History: Asthma, COPD Additional Past Medical History / Comment(s): both ankles fractured History of Any Multi-Drug Resistant Organisms: None Reported Past Surgical History: Orthopedic Surgery Past Anesthesia/Blood Transfusion Reactions: No Reported Reaction Past Psychological History: No Psychological Hx Reported Smoking Status: Current every day smoker Past Alcohol Use History: None Reported Past Drug Use History: None Reported - Past Family History Mother Family Medical History: CVA/TIA Father Family Medical History: CVA/TIA Medications and Allergies Home Medications Medication Instructions Recorded Confirmed Type Cholecalciferol [Vitamin D3 (25 3,000 unit PO DAILY 09/20/19 06/23/20 History Mcg = 1000 Iu)] amLODIPine [Norvasc] 10 mg PO DAILY #30 tab 09/24/19 06/23/20 Rx Albuterol Inhaler [Ventolin Hfa 2 puff INHALATION RT-Q4H PRN 06/23/20 06/23/20 History Inhaler] Cyclobenzaprine [Flexeril] 10 mg PO Q8H PRN 06/23/20 06/23/20 History Fluticasone Propion/Salmeterol 1 puff INHALATION RT-DAILY 06/23/20 06/23/20 History [Wixela 250-50 Inhub] Ipratropium-Albuterol Nebulize 3 ml INHALATION RT-QID PRN 06/23/20 06/23/20 History [Duoneb 0.5 mg-3 mg/3 ml Soln] Latanoprost/Pf [Latanoprost 0.005% 1 drop BOTH EYES HS 06/23/20 06/23/20 History Eye Drop] Magnesium Oxide 400 mg PO DAILY 06/23/20 06/23/20 History Multivitamins, Thera [Multivitamin 1 tab PO DAILY 06/23/20 06/23/20 History (formulary)] Potassium Chloride ER [K-Dur ] 20 meq PO DAILY 06/23/20 06/23/20 History Tiotropium Wilmore [Spiriva] 1 cap INHALATION RT-HS 06/23/20 06/23/20 History Vitamin C(Unknown Dose) 1 tab PO DAILY 06/23/20 06/23/20 History Vitamin E 400 unit PO DAILY 06/23/20 06/23/20 History Allergies Allergy/AdvReac Type Severity Reaction Status Date / Time latex Allergy Rash/Hives Verified 06/23/20 20:36 morphine Allergy Rash/Hives Verified 06/23/20 20:36 Physical Exam Vitals: Vital Signs Temp Pulse Pulse Resp BP Pulse Ox 06/30/20 17:20 98.7 F 92 20 120/76 92 L 06/30/20 16:59 90 06/30/20 16:51 95 06/30/20 16:50 87 06/30/20 15:08 18 06/30/20 12:00 96 18 120/63 97 06/30/20 11:37 92 06/30/20 11:31 95 95 06/30/20 11:15 16 06/30/20 08:00 118 H 16 137/75 94 L 06/30/20 05:36 99 06/30/20 03:54 97.7 F 82 18 140/67 91 L 06/30/20 00:44 90 L 06/30/20 00:00 98.1 F 78 18 154/65 92 L 06/29/20 20:41 88 11/02/20 20:36 88 06/29/20 20:00 97.6 F 52 L 18 132/87 94 L Intake and Output 06/30/20 06/30/20 06/30/20 06:59 14:59 22:59 Intake Total 0 Output Total 160 400 Balance -160 -400 Intake: Oral 0 Output: Urine 160 400 Other: Voiding Method Indwelling Catheter Indwelling Catheter Indwelling Catheter Weight 47.5 kg GENERAL EXAM: Alert, 59-year-old white female, on 12 L of oxygen, per high flow nasal cannula, with a pulse ox of 92% dyspneic, tachypneic, slightly uncomfortable from abdominal distention HEAD: Normocephalic/atraumatic. EYES: Normal reaction of pupils, equal size. Conjunctiva pink, sclera white. NOSE: Clear with pink turbinates. THROAT: No erythema or exudates. NECK: No masses, no JVD, no thyroid enlargement, no adenopathy. CHEST: No chest wall deformity. Symmetrical expansion. LUNGS: Equal air entry with no crackles, wheeze, rhonchi or dullness. CVS: Irregular rate and rhythm, normal S1 and S2, no gallops, no murmurs, no rubs ABDOMEN: Soft, nontender. No hepatosplenomegaly, normal bowel sounds, no guarding or rigidity. EXTREMITIES: No clubbing, no edema, no cyanosis, 2+ pulses and upper and lower extremities. MUSCULOSKELETAL: Muscle strength and tone normal. SPINE: No scoliosis or deformity SKIN: No rashes CENTRAL NERVOUS SYSTEM: Alert and oriented -3. No focal deficits, tone is normal in all 4 extremities. PSYCHIATRIC: Alert and oriented -3. Appropriate affect. Intact judgment and insight. Results - Laboratory Findings CBC and BMP: 06/30/20 07:54 06/30/20 07:54 ABG ABG pH 7.49 (7.35-7.45) H 06/30/20 13:22 ABG pCO2 49 mmHg (35-45) H 06/30/20 13:22 ABG pO2 58 mmHg (83-108) L* 06/30/20 13:22 ABG O2 Saturation 91.2 % (94-97) L 06/30/20 13:22 PT/INR, D-dimer PT 9.4 sec (9.0-12.0) 06/26/20 11:55 INR 0.9 (<1.2) 06/26/20 11:55 Abnormal lab findings: Abnormal Labs 06/23/20 06/23/20 06/24/20 20:13 20:13 04:28 WBC 12.0 H Hct 46.7 H 46.4 H MCHC Neutrophils # 9.4 H 10.0 H Lymphocytes # 0.6 L APTT ABG pH ABG pCO2 ABG pO2 ABG HCO3 ABG Total CO2 ABG O2 Saturation Sodium 131 L Potassium Chloride 91 L Carbon Dioxide 38 H BUN 20 H Creatinine 0.48 L Glucose 127 H Calcium Magnesium Total Protein 6.0 L Albumin 3.3 L Stool Occult Blood 06/24/20 06/24/20 06/24/20 04:28 04:29 18:04 WBC Hct MCHC Neutrophils # Lymphocytes # APTT ABG pH ABG pCO2 58 H 53 H ABG pO2 73 L 49 L* ABG HCO3 40 H* 37 H ABG Total CO2 42 H 38 H ABG O2 Saturation 86.5 L Sodium 131 L Potassium Chloride 93 L Carbon Dioxide 36 H BUN 22 H Creatinine 0.48 L Glucose Calcium Magnesium Total Protein Albumin Stool Occult Blood 06/25/20 06/25/20 06/26/20 07:46 07:46 05:01 WBC 16.9 H 13.7 H Hct MCHC Neutrophils # Lymphocytes # APTT ABG pH ABG pCO2 ABG pO2 ABG HCO3 ABG Total CO2 ABG O2 Saturation Sodium 130 L Potassium Chloride 95 L Carbon Dioxide 33 H BUN 21 H Creatinine 0.39 L Glucose 139 H Calcium 7.6 L Magnesium Total Protein Albumin Stool Occult Blood 06/26/20 06/26/20 06/26/20 05:01 11:55 11:55 WBC 12.1 H Hct 47.3 H MCHC Neutrophils # 11.1 H Lymphocytes # 0.5 L APTT 21.6 L ABG pH ABG pCO2 ABG pO2 ABG HCO3 ABG Total CO2 ABG O2 Saturation Sodium 128 L Potassium 3.0 L Chloride 91 L Carbon Dioxide 34 H BUN Creatinine Glucose 125 H Calcium 7.8 L Magnesium 1.2 L Total Protein Albumin Stool Occult Blood 06/26/20 06/26/20 06/26/20 13:24 17:56 17:56 WBC 13.9 H Hct 51.7 H MCHC 30.4 L Neutrophils # Lymphocytes # APTT 30.8 H ABG pH ABG pCO2 ABG pO2 ABG HCO3 ABG Total CO2 ABG O2 Saturation Sodium 125 L Potassium Chloride Carbon Dioxide BUN Creatinine Glucose Calcium Magnesium Total Protein Albumin Stool Occult Blood 06/26/20 06/27/20 06/27/20 17:56 00:46 08:39 WBC Hct MCHC 30.9 L Neutrophils # 8.5 H Lymphocytes # 0.6 L APTT 95.6 H ABG pH ABG pCO2 ABG pO2 ABG HCO3 ABG Total CO2 ABG O2 Saturation Sodium 125 L Potassium 5.2 H Chloride 91 L Carbon Dioxide BUN Creatinine Glucose 154 H Calcium 8.2 L Magnesium 2.6 H Total Protein Albumin Stool Occult Blood 06/27/20 06/27/20 06/27/20 08:39 10:15 18:10 WBC Hct MCHC Neutrophils # Lymphocytes # APTT ABG pH ABG pCO2 ABG pO2 ABG HCO3 ABG Total CO2 ABG O2 Saturation Sodium 125 L 125 L Potassium Chloride 90 L Carbon Dioxide 36 H BUN 21 H Creatinine Glucose Calcium 7.8 L Magnesium Total Protein Albumin Stool Occult Blood Positive H 06/28/20 06/28/20 06/29/20 08:48 08:48 07:32 WBC 12.4 H Hct MCHC Neutrophils # Lymphocytes # APTT ABG pH ABG pCO2 ABG pO2 ABG HCO3 ABG Total CO2 ABG O2 Saturation Sodium 129 L 129 L Potassium Chloride 92 L 91 L Carbon Dioxide 35 H 36 H BUN Creatinine Glucose Calcium 8.3 L Magnesium 1.4 L Total Protein Albumin Stool Occult Blood 06/30/20 06/30/20 06/30/20 07:54 07:54 13:22 WBC 13.3 H Hct 48.7 H MCHC Neutrophils # 12.1 H Lymphocytes # 0.6 L APTT ABG pH 7.49 H ABG pCO2 49 H ABG pO2 58 L* ABG HCO3 37 H ABG Total CO2 39 H ABG O2 Saturation 91.2 L Sodium 125 L Potassium Chloride 86 L Carbon Dioxide 34 H BUN 21 H Creatinine Glucose Calcium Magnesium Total Protein Albumin Stool Occult Blood - Diagnostic Findings Chest x-ray: report reviewed CT scan - chest: report reviewed Assessment and Plan Plan: Assessment: #1. Acute hypoxic respiratory failure related to intra-abdominal distention, possibility of colonic obstruction, pulmonary embolism was ruled out, chest x- ray and CTA chest showed bibasilar atelectasis and small pleural effusions. #2. Colonic obstruction with secondary colonic gaseous dilatation, and abdominal pain #3. Left apical pulmonary nodularity noted on the CTA chest will need outpatient follow-up with repeat CT chest #4. 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 Chronic history of smoking #6. Intractable back pain with multiple compression fractures seen on the CT tomography scan of the thoracic, lumbar spine #7. Hyponatremia, possibly hypervolemic, SIADH not excluded #8. A. fib with RVR Plan: CTA chest, chest x-rays have been reviewed, showing bibasilar atelectasis, and small pleural effusions, clinically patient appeared dry, we stopped the IV diuretics. Patient may need IV fluids. Today's labs have been reviewed, blood gases have been reviewed. Patient would be considered a poor surgical risk. Her CODE STATUS is DO NOT RESUSCITATE, recommend for surgery to discuss her surgical risk with family before proceeding with surgery. I performed a history & physical examination of the patient and discussed their management with my nurse practitioner, Veronica Luis. I reviewed the nurse practitioner's note and agree with the documented findings and plan of care. Lung sounds are positive for diminished breath sounds. The findings and the impression was discussed with the patient. I attest to the documentation by the nurse practitioner. Time with Patient: Greater than 30
[2020-06-30] MEDS: LATANOPROST 0.005% OPHTH DROPS 2.5 ML BTL BOTH EYES SCH (22:06)
[2020-06-30] MEDS: polyethylene glycoL 3350 17 GM POWD.PACK PO SCH (22:34)
[2020-06-30] MEDS: HYDROmorphone 0.5 MG/0.5 ML SYRINGE IVP PRN (23:17)
[2020-07-01] MEDS: IPRATROPIUM-ALBUTEROL 3 ML NEB INHALATION SCH ×6 (04:05→23:56)
[2020-07-01 07:54] LABS: Basophils % (A) 0 %; Eosinophils % (A) 0 %; HCT 47.3 % (34.0-46.0); HGB 14.8 gm/dL (11.4-16.0); Lymphocytes # (A) 0.5 k/uL (1.0-4.8); Lymphocytes % (A) 4 %; MCH 29.8 pg (25.0-35.0); MCHC 31.3 g/dL (31.0-37.0); MCV 95.3 fL (80.0-100.0); Mean Platelet Volume 8.2; Monocytes # (A) 0.5 k/uL (0-1.0); Monocytes % (A) 3 %; Neutrophils # (A) 13.2 k/uL (1.3-7.7); Neutrophils % (A) 92 %; Platelet Count 319 k/uL (150-450); RBC 4.96 m/uL (3.80-5.40); RDW 13.1 % (11.5-15.5); WBC 14.3 k/uL (3.8-10.6)
[2020-07-01 08:02] LABS: Potassium 3.8 mmol/L (3.5-5.1)
[2020-07-01 08:03] LABS: African American GFR (CKD) >90 (>60 ml/min/1.73 sqM); Anion Gap 10 mmol/L; Blood Urea Nitrogen 25 mg/dL (7-17); Calcium 8.4 mg/dL (8.4-10.2); Carbon Dioxide 33 mmol/L (22-30); Chloride 84 mmol/L (98-107); Glucose 65 mg/dL (74-99); Magnesium 1.7 mg/dL (1.6-2.3); Non-African American GFR(CKD) 85 (>60 ml/min/1.73 sqM); Sodium 127 mmol/L (137-145)
[2020-07-01] MEDS: SYMBICORT 80-4.5 MCG INHALER INHALATION SCH ×2 (08:15→20:31)
[2020-07-01] MEDS: amLODIPine 10 MG TAB PO SCH (08:26)
[2020-07-01] MEDS: CHOLECALCIFEROL 1,000 UNIT TAB PO SCH (08:26)
[2020-07-01] MEDS: LORATADINE 10 MG TAB PO SCH (08:27)
[2020-07-01] MEDS: DILTIAZEM ORAL 60 MG TAB PO SCH ×3 (08:27→21:47)
[2020-07-01] MEDS: MAGNESIUM OXIDE 400 MG TAB PO SCH (08:27)
[2020-07-01] MEDS: VITAMIN E (DL,TOCOPHERYL ACET) 400 UNIT CAP PO SCH (08:27)
[2020-07-01] MEDS: predniSONE 20 MG TAB PO SCH (08:27)
[2020-07-01] MEDS: PANTOPRAZOLE 40 MG/10 ML VIAL IVP SCH (10:06)
--- NOTE | 2020-07-01 10:23 | P.PN ---
Subjective Progress Note Date: 07/01/20 Patient is awake and alert. She appears dry today. She has been nothing by mouth since the day before yesterday. She denies significant abdominal pain. Her abdomen remained distended with no significant change since yesterday. No bowel movement. Passing some gas. Still on high flow oxygen via nasal cannula at 15 L. Objective - Vital Signs Vital signs: Vital Signs Temp 98.1 F 07/01/20 07:45 Pulse 105 H 07/01/20 09:24 Resp 20 07/01/20 07:45 BP 106/60 07/01/20 07:45 Pulse Ox 93 L 07/01/20 07:45 Intake & Output 06/30/20 07/01/20 07/01/20 18:59 06:59 18:59 Output Total 400 900 Balance -400 -900 Weight 46.8 kg Output: Urine 400 900 Other: Voiding Method Indwelling Catheter Indwelling Catheter - Exam General: The patient is awake and alert, in no distress Eye: there is normal conjunctiva bilaterally. Neck: The neck is supple, there is no JVD. Cardiovascular: Normal S1-S2, no S3-S4, no murmurs. Respiratory: Lungs with diminished air movement bilaterally but no wheezing Gastrointestinal: Abdomen is significantly distended and tympanic Musculoskeletal: There is no pedal edema. Neurological:. Speech is normal. Skin: Skin is warm and dry - Labs CBC & Chem 7: 07/01/20 07:03 07/01/20 07:03 Labs: Abnormal Lab Results - Last 24 Hours (Table) 06/30/20 06/30/20 07/01/20 Range/Units 13:22 18:21 07:03 WBC 14.3 H (3.8-10.6) k/uL Hct 47.3 H (34.0-46.0) % Neutrophils # 13.2 H (1.3-7.7) k/uL Lymphocytes # 0.5 L (1.0-4.8) k/uL ABG pH 7.49 H (7.35-7.45) ABG pCO2 49 H (35-45) mmHg ABG pO2 58 L* (83-108) mmHg ABG HCO3 37 H (21-25) mmol/L ABG Total CO2 39 H (19-24) mmol/L ABG O2 Saturation 91.2 L (94-97) % Sodium 125 L (137-145) mmol/L Chloride (98-107) mmol/L Carbon Dioxide (22-30) mmol/L BUN (7-17) mg/dL Glucose (74-99) mg/dL 07/01/20 Range/Units 07:03 WBC (3.8-10.6) k/uL Hct (34.0-46.0) % Neutrophils # (1.3-7.7) k/uL Lymphocytes # (1.0-4.8) k/uL ABG pH (7.35-7.45) ABG pCO2 (35-45) mmHg ABG pO2 (83-108) mmHg ABG HCO3 (21-25) mmol/L ABG Total CO2 (19-24) mmol/L ABG O2 Saturation (94-97) % Sodium 127 L (137-145) mmol/L Chloride 84 L (98-107) mmol/L Carbon Dioxide 33 H (22-30) mmol/L BUN 25 H (7-17) mg/dL Glucose 65 L (74-99) mg/dL Assessment and Plan Assessment: Patient is a 79-year-old female with known COPD, tobacco abuse (quit 1 year ago), and hypertension who presented as a transfer from [facility] secondary to low back pain with abnormal computed tomography scan findings. She had a CT Thorasic, Lumbar, and Pelvis which showed a L1 compression fracture with retropulsion and central canal stenosis. She was admitted for pain control and orthopedic spine consultation. MRI showed L4 with slight posterior retropulsion, L1 with moderate posterior disc bulge effacing the anterior thecal sac, T11 exam compression fracture with some posterior retropulsion facing the anterior thecal sac. She developed tahcycardia and increased O2 requirements. CTA chest negative of pulmonary embolism but does demonstrate debris in the right mainstem bronchus with collapse of the lower lobe consolidation, spiculated soft tissue thickening along the right upper lobe and left apical nodularity. On Augmentin and Lasix. Speech therapy consult was placed for possible aspiration pneumonia. She was in A. fib with RVR on 06/26. She underwent an echocardiogram [facility] showed an EF 55-60%, cardiology was consulted and placed her on cardizem. After electrolyte replcment and cardizem she converted to NSR. Nephro was consulted due to hyponatremia and she was continued on lasix and then given a dose a samsca. Ileus with findings on CT suggestive for diffuse colonic dilatation up to 9 cm concerning for obstruction -Seen and evaluated by general surgery. Given her current clinical status she is a very poor candidate for surgical intervention given very high risk/mortality. May attempt NG tube insertion again. Versus lower decompressi on would discuss further with general surgery. Acute hypoxic respiratory failure, Pneumonia- possible gram negative, nodular thickening, underlying COPD/emphysema - Finished Augmentin course day #5/ - Repeat chest x-ray on 06/29 showed bilateral small pleural effusion - pulm hygeine, wean O2 as able - DuoNeb scheduled every 4 hours - CT chest shows no signs of large pulmonary embolism but does demonstrate debris in the right mainstem bronchus with collapse of the lower lobe consol idation, spiculated soft tissue thickening along the right upper lobe and left apical nodularity. Repeat CT chest in 2 months. Paroxysmal Atrial fibrillation with rapid ventricular response, now in NSR -Transition Cardizem to long-acting prior to discharge -Cardiology recommended appreciated - echocardiogram ef 55-60% no significant valvular dysfunction -Telemetry -TSH normal -not a candidate for anticoagulation secondary to falls and is currently maintaining normal sinus rhythm Hyponatremia with probable SIADH, improving -nephrology recommendations, fluid status improved, samsca X 1 06/27 possibly another dose tomorrow -Improving - ? Component of SIADH from severe pain on admission Intractable back pain secondary to multiple compression fractures: L4 with slight posterior retropulsion, L1 with moderate posterior disc bulge effacing the anterior thecal sac, T11 exam compression fracture with some posterior retropulsion facing the anterior thecal sac -Orthopedic spine recommendations- No surgery planned at this point. TLSO brace when up and ambulating and pain control. - Patient refuses age-related cancer testing such as mammogram or colonoscopy. - norco, steroids (last weaned 06/28), zofran. Hypokalemia and hypomagnesemia, replaced -Recheck in a.m. COPD -Symbicort, DuoNeb's Moderate protein calorie malnutrition - dietitian recs - supplements Osteoporosis CODE STATUS Patient is DNR/DNI-
--- NOTE | 2020-07-01 12:08 | PN ---
PROGRESS NOTE Patient is seen for followup for hyponatremia. She did receive a dose of tolvaptan yesterday and her sodium is up to 127 today. Patient has significant abdominal distention. She is being followed by Surgery for bowel obstruction. PHYSICAL EXAMINATION: Today, patient is comfortable, awake, she is not in any acute distress. Blood pressure 106/60, heart rate 107 per minute, she is afebrile. Examination of the heart S1, S2. Examination of the lungs, bilateral breath sounds are heard. Abdomen is distended, mild tenderness noted. It is soft. Examination of the lower extremities shows no evidence of edema. GROUP THERAPY COUNSELOR exam shows patient is moving all 4 extremities. No focal deficits noted. LABS: Show sodium 127, potassium 3.8, chloride 84, CO2 is 33, BUN 25, creatinine 0.68, hemoglobin 14.8. ASSESSMENT: 1. Hyponatremia, currently euvolemic. Patient was hypervolemic and is maintained on Lasix. Her urine osmolality has been on the higher side. She has responded well to Samsca. She did get another dose yesterday and I will repeat a dose today. 2. Atrial fibrillation with RVR, status post heparin drip, rate is controlled. 3. Hypokalemia, status post diuresis and decreased oral intake as well as GI fluid loss from the NG tube. 4. Small bowel obstruction. 5. Volume overload with bilateral pleural effusions, currently improved status post IV Lasix. 6. Back pain with multiple compression fractures. PLAN: Repeat tolvaptan today. Repeat labs in a.m. Monitor potassium. MMODL / IJN: [id number] /
[2020-07-01] MEDS: SODIUM CHLORIDE 0.9% 1,000 ML IV SCH ×2 (12:24→15:39)
[2020-07-01] MEDS ORDERED: TOLVAPTAN 15 MG 1/2 TABLET PO ONE (13:00)
[2020-07-01] MEDS ORDERED: IV FLUID CONTINUATION 1,000 ML IV ONE (13:02)
[2020-07-01] MEDS ORDERED: HEPARIN SODIUM,PORCINE 5,000 UNIT/ML 1 ML VIAL ONE (13:32)
[2020-07-01 13:43] LABS: Glucose,Whole Blood 85 mg/dL (75-99)
[2020-07-01] MEDS ORDERED: HEPARIN SODIUM,PORCINE 5,000 UNIT/ML 1 ML VIAL SQ ONE (13:57)
[2020-07-01] MEDS ORDERED: PHENYLEPHRINE-0.9% NACL SYG 1 MG/10 ML SYRINGE ONE (13:58)
[2020-07-01] MEDS ORDERED: PROPOFOL 10 MG/ML 20 ML VIAL IV ONE (13:58)
[2020-07-01] MEDS ORDERED: ePHEDrine SULFATE/0.9% NACL/PF 50 MG/5 ML SYRINGE IV ONE (13:58)
[2020-07-01] MEDS ORDERED: ceFAZolin 1,000 MG VIAL ONE (13:58)
[2020-07-01] MEDS ORDERED: HYDROmorphone (PF) 1 MG/ML ONE (13:58)
[2020-07-01] MEDS ORDERED: ROCURONIUM 10 MG/ML (10 ML VIAL) IV ONE (13:58)
[2020-07-01] MEDS ORDERED: LIDOCAINE 1% INJ 10MG/ML (20 ML MDV) ONE (13:58)
[2020-07-01] MEDS ORDERED: fentaNYL (PF) 50 MCG/ML 2 ML AMP ONE (13:58)
--- NOTE | 2020-07-01 14:05 | P.PN ---
Subjective Progress Note Date: 07/01/20 Principal diagnosis: Abdominal distention, megacolon, acute hypoxic respiratory failure 79-year-old white female patient with past medical history of recurring bronchial asthma/COPD who came into the hospital per EMS on 06/23/2020 with the reported back pain of 4-5 day history. Outpatient x-ray by her PCP showed compression fractures. CT of the lumbar spine completed that the [facility] showed L1 compression fracture with 50% retropulsion of a 6 mm fragment into the spinal column, patient was transferred to the [facility] for orthopedic evaluation. Further workup by orthopedic surgery revealed multiple compression fractures likely related to osteoporosis, although underlying malignancy could not be entirely excluded. Chest x-ray showed a chronic parenchymal changes with small bilateral pleural effusions and a right basilar acute infiltrate and/or atelectasis. On admission patient had a low sodium levels, of 131, she was given IV fluids, and afterward she developed some worsening shortness of breath, and received 20 mg of Lasix. Possibility of SIADH versus hypervolemic hyponatremia were considered, nephrology is following. Patient developed abdominal discomfort on 06/28/2020, abdominal x-ray showed nonspecific abdomen, air within the colon was somewhat prominent, consideration for ileus and colonic ileus was advised. Patient also developed A. fib with RVR. CT of the abdomen and pelvis was completed on 06/29/2020 showing diffuse colonic get his dilatation with abrupt transition point in the mid sigmoid colon. There was severe sigmoid colonic diverticulosis, findings were thought to represent colonic obstruction versus ileus, cholelithiasis, and large bilateral pleural effusions increased from prior CT on 06/25/2020. There was a left apical nodularity measuring up to 1.3 cm. Surgical consultation was requested, patient is having abdominal distention, discomfort, she refused NG tube placement. Her oxygen requirement increased from 2 L on admission, to 12 of oxygen today. She is afebrile, she is short of breath, we were asked to see the patient in evaluation for acute hypoxic respiratory failure. Acute abdominal series were completed this morning showing slight progressive diffuse colonic distention and marked colonic ileus or distal colonic obstruction, and continued small pleural effusion with adjacent atelectasis and/or consolidation. Today's blood gas was reviewed, showing pO2 of 58, pCO2 49, and pH of 7.49 this was done on FiO2 of 80%. Patient is on IV Lasix at 40 mg every 12 hours, [facility] clinically she looks dry, after reviewing her CT of the abdomen and pelvis, and chest x-rays the appearance of pleural effusions are small, and patient has bibasilar atelectasis and small pleural effusions likely related to abdominal distention. She's been afebrile, she is on oral prednisone, she is on oral bronchodilators. The patient is seen today 07/01/2020 in follow-up on the selective care unit. She is currently resting fairly comfortably in bed. Awake and alert in no acute distress. Maintaining O2 saturations on 15 L high flow nasal cannula. She's afebrile. Slightly tachycardic. Still with significant abdominal distention. White count 14.3. Hemoglobin 14.8. Sodium 127. Potassium 3.8. Creatinine 0.68. She remains on Symbicort and DuoNeb inhalations. Plan is for diverting colostomy with possible sigmoid resection today. Objective - Vital Signs Vital signs: Vital Signs Temp 98.9 F 07/01/20 13:03 Pulse 105 H 07/01/20 13:03 Resp 24 07/01/20 13:03 BP 124/66 07/01/20 13:03 Pulse Ox 96 07/01/20 13:03 Intake & Output 06/30/20 07/01/20 07/01/20 18:59 06:59 18:59 Output Total 400 900 Balance -400 -900 Weight 46.8 kg Output: Urine 400 900 Other: Voiding Method Indwelling Catheter Indwelling Catheter Indwelling Catheter - Exam GENERAL EXAM: Alert, 79-year-old female patient, on 15 L of oxygen, per high fl ow nasal cannula, with a pulse ox of 95% dyspneic, tachypneic, slightly uncomfortable from abdominal distention HEAD: Normocephalic/atraumatic. EYES: Normal reaction of pupils, equal size. Conjunctiva pink, sclera white. NOSE: Clear with pink turbinates. THROAT: No erythema or exudates. NECK: No masses, no JVD, no thyroid enlargement, no adenopathy. CHEST: No chest wall deformity. Symmetrical expansion. LUNGS: Equal air entry with basilar crackles right greater than left. CVS: Irregular rate and rhythm, normal S1 and S2, no gallops, no murmurs, no rubs ABDOMEN: Distended. No hepatosplenomegaly, hypoactive bowel sounds. EXTREMITIES: No clubbing, no edema, no cyanosis, 2+ pulses and upper and lower extremities. MUSCULOSKELETAL: Muscle strength and tone normal. SPINE: No scoliosis or deformity SKIN: No rashes CENTRAL NERVOUS SYSTEM: No focal deficits, tone is normal in all 4 extremities. PSYCHIATRIC: Alert and oriented -3. Appropriate affect. Intact judgment and insight. - Labs CBC & Chem 7: 07/01/20 07:03 07/01/20 07:03 Labs: Abnormal Lab Results - Last 24 Hours (Table) 06/30/20 07/01/20 07/01/20 Range/Units 18:21 07:03 07:03 WBC 14.3 H (3.8-10.6) k/uL Hct 47.3 H (34.0-46.0) % Neutrophils # 13.2 H (1.3-7.7) k/uL Lymphocytes # 0.5 L (1.0-4.8) k/uL Sodium 125 L 127 L (137-145) mmol/L Chloride 84 L (98-107) mmol/L Carbon Dioxide 33 H (22-30) mmol/L BUN 25 H (7-17) mg/dL Glucose 65 L (74-99) mg/dL Assessment and Plan Assessment: 1 Acute hypoxic respiratory failure related to intra-abdominal distention, possibility of colonic obstruction, pulmonary embolism was ruled out, chest x- ray and CTA chest showed bibasilar atelectasis and small pleural effusions. 2 Colonic obstruction with secondary colonic gaseous dilatation, and abdominal pain 3 Left apical pulmonary nodularity noted on the CTA chest will need outpatient follow-up with repeat CT chest 4 COPD, likely advanced, with chronic hypercapnic respiratory failure 5 Chronic history of smoking 6 Intractable back pain with multiple compression fractures seen on the CT tomography scan of the thoracic, lumbar spine 7 Hyponatremia, possibly hypervolemic, SIADH not excluded 8 A. fib with RVR Plan: The patient was seen and evaluated by Dr. Retana Currently on 15 L high flow nasal cannula Plan is for surgical intervention for the megacolon today We will follow in the postoperative period Prognosis remains quite guarded I, the cosigning physician, performed a history & physical examination of the patient. Lungs sounds with crackles in the bilateral posterior bases right greater than left. Maintaining good O2 saturations in the 90s on 15 L high flow nasal cannula. I discussed the assessment and plan of care with my nurse practitioner, Jessica Duran. I attest to the above note as dictated by her.
[2020-07-01] MEDS ORDERED: SODIUM CHLORIDE 0.9% 50 ML with ceFAZolin 1,000 MG IV ONE ×2 (14:11)
[2020-07-01] MEDS ORDERED: LACTATED RINGERS 1,000 ML IV ONE (14:46)
--- NOTE | 2020-07-01 14:54 | P.OP ---
Date of Procedure: 07/01/20 Preoperative Diagnosis: Colonic obstruction Postoperative Diagnosis: Colonic obstruction Procedure(s) Performed: Diverting loop transverse colostomy Anesthesia: LINO Surgeon: Primitivo Vázquez Estimated Blood Loss (ml): 20 Pathology: none sent Condition: critical Disposition: PACU Description of Procedure: Patient's placed on the operative table in the supine position. She received general anesthesia. Her abdomen was prepped and draped usual sterile fashion. The abdomen was entered through a midline incision. The colon was massively dilated. The enterotomy is made in the transverse colon decompressed the colon. This was oversewn with 3-0 GI silk suture. Once the bowel was decompressed. There appeared to be a mass at the rectosigmoid. It was unclear if this was cancer or a diverticular mass. At this point was a diverting loop transverse colostomy was brought out. A. The colostomy was chosen in the left upper quadrant. The skin was incised the abdominal wall was incised and then the colon was brought up through the abdominal wall. A red rubber catheter was used to bridge for the colon. The fascia was then closed with #1 at Epic suture. Skin was closed marla. The colostomy then matured with 3-0 Vicryl suture. Patient was left intubated and sent to the ICU in critical condition.
[2020-07-01 15:14] LABS: Glucose,Whole Blood 87 mg/dL (75-99)
--- NOTE | 2020-07-01 16:16 | XR ---
EXAMINATION TYPE: XR chest 1V portable DATE OF EXAM: 07/01/2020 CLINICAL HISTORY: Difficulty breathing at to be intubated. TECHNIQUE: Single AP portable supine view of the chest is obtained. COMPARISON: Chest x-ray from one day earlier FINDINGS: New Endotracheal tube with tip at aortic knob level approximately 3 to 4 cm above the lisy na. New orogastric tube projecting just below diaphragm. Recommend advancing it side port is above th e diaphragm Cardiac silhouette size upper limits of normal currently without obstructive thoracic aorta. Osseous structures are demineralized. Mid to lower lung bilateral opacities on current study. IMPRESSION: 1. New endotracheal and orogastric tubes. Advise advancing orogastric tube about 6 cm. 2. [id number] sized bilateral pleural effusions with mild central vascular congestion and asso ciated bibasilar atelectasis and/or infiltrate. Correlate for fluid overload state.
[2020-07-01 17:12] LABS: ABG HCO3 29 mmol/L (21-25); ABG Oxygen Saturation 93.2 % (94-97); ABG PCO2 41 mmHg (35-45); ABG PH 7.46 (7.35-7.45); ABG PO2 63 mmHg (83-108); ABG TCO2 30 mmol/L (19-24); Allen Test Performed? Yes
--- NOTE | 2020-07-01 17:31 | P.PN ---
Subjective Progress Note Date: 07/01/20 Principal diagnosis: Colonic obstruction, status post diverting loop transverse colostomy postoperative day #0 79-year-old white female patient with past medical history of recurring bronchial asthma/COPD who came into the hospital per EMS on 06/23/2020 with the reported back pain of 4-5 day history. Outpatient x-ray by her PCP showed compression fractures. CT of the lumbar spine completed that the [facility] showed L1 compression fracture with 50% retropulsion of a 6 mm fragment into the spinal column, patient was transferred to the [facility] for orthopedic evaluation. Further workup by orthopedic surgery revealed multiple compression fractures likely related to osteoporosis, although underlying malignancy could not be entirely excluded. Chest x-ray showed a chronic parenchymal changes with small bilateral pleural effusions and a right basilar acute infiltrate and/or atelectasis. On admission patient had a low sodium levels, of 131, she was given IV fluids, and afterward she developed some worsening shortness of breath, and received 20 mg of Lasix. Possibility of SIADH versus hypervolemic hyponatremia were considered, nephrology is following. Patient developed abdominal discomfort on 06/28/2020, abdominal x-ray showed nonspecific abdomen, air within the colon was somewhat prominent, consideration for ileus and colonic ileus was advised. Patient also developed A. fib with RVR. CT of the abdomen and pelvis was completed on 06/29/2020 showing diffuse colonic get his dilatation with abrupt transition point in the mid sigmoid colon. There was severe sigmoid colonic diverticulosis, findings were thought to represent colonic obstruction versus ileus, cholelithiasis, and large bilateral pleural effusions increased from prior CT on 06/25/2020. There was a left apical nodularity measuring up to 1.3 cm. Surgical consultation was requested, patient is having abdominal distention, discomfort, she refused NG tube placement. Her oxygen requirement increased from 2 L on admission, to 12 of oxygen today. She is afebrile, she is short of breath, we were asked to see the patient in evaluation for acute hypoxic respiratory failure. Acute abdominal series were completed this morning showing slight progressive diffuse colonic distention and marked colonic ileus or distal colonic obstruction, and continued small pleural effusion with adjacent atelectasis and/or consolidation. Today's blood gas was reviewed, showing pO2 of 58, pCO2 49, and pH of 7.49 this was done on FiO2 of 80%. Patient is on IV Lasix at 40 mg every 12 hours, however clinically she looks dry, after reviewing her CT of the abdomen and pelvis, and chest x-rays the appearance of pleural effusions are small, and patient has bibasilar atelectasis and small pleural effusions likely related to abdominal distention. She's been afebrile, she is on oral prednisone, she is on oral bronchodilators. The patient is seen today 07/01/2020 in follow-up on the selective care unit. She is currently resting fairly comfortably in bed. Awake and alert in no acute distress. Maintaining O2 saturations on 15 L high flow nasal cannula. She's afebrile. Slightly tachycardic. Still with significant abdominal distention. White count 14.3. Hemoglobin 14.8. Sodium 127. Potassium 3.8. Creatinine 0.68. She remains on Symbicort and DuoNeb inhalations. Plan is for diverting colostomy with possible sigmoid resection today. Patient was reevaluated again today in the recovery room, she is status post bifurcating colostomy, patient was found to have megacolon and bowel obstruction. She was considered high surgical risk, nonetheless, patient u nderwent surgery uneventfully, and transferred to the recovery room, and I was asked to see her again while in recovery. She is now on mechanical ventilation, she is on tidal volume is 400 assist control rate of 16, FiO2 is 40%, and PEEP is at 5. ABG is presently pending. Postoperative chest x-ray showed small to moderate-sized bilateral pleural effusions with mild vascular congestion, and by basilar atelectasis. Patient has marginal urine output, she is hemodynamically stable, not requiring any pressors. Preoperative labs were reviewed, patient had low sodium 127 and normal renal profile. Preoperative ABG showed a pO2 of 58 pCO2 of 49 pH of 7.49 and this was on a high flow nasal cannula with 80% FiO2. Objective - Vital Signs Vital signs: Vital Signs Temp 97.9 F 07/01/20 15:07 Pulse 103 H 07/01/20 17:00 Resp 16 07/01/20 17:00 BP 99/55 07/01/20 17:00 Pulse Ox 97 07/01/20 17:00 Intake & Output 06/30/20 07/01/20 07/01/20 18:59 06:59 18:59 Intake Total 1200 Output Total 400 900 160 Balance -400 -900 1040 Weight 46.8 kg Intake: IV 1200 Output: Urine 400 900 150 Estimated Blood Loss 10 Other: Voiding Method Indwelling Catheter Indwelling Catheter Indwelling Catheter # Voids 0 - Exam Physical Exam: Revealed 79-year-old female cachectic looking, frail chronically ill, on mechanical ventilation, sedated. Head: Atraumatic, normocephalic. Orogastric tube and nasogastric tube are intact. HEENT:: [No neck masses.] [No thyromegaly.] [No JVD.] Chest: [Diminished breath sounds and crackles at the bases. Cardiac Exam: [Normal S1 and S2, no S3 gallop, 2/6 systolic murmur thought the precordium. Abdomen: [Postsurgical.] Colostomy is intact. Extremities: [No clubbing, no edema, no cyanosis.] Neurological Exam: Could not be assessed, patient is sedated just came up from the OR. Psychiatric: Could not be assessed. - Labs CBC & Chem 7: 07/01/20 07:03 07/01/20 07:03 Labs: Abnormal Lab Results - Last 24 Hours (Table) 06/30/20 07/01/20 07/01/20 Range/Units 18:21 07:03 07:03 WBC 14.3 H (3.8-10.6) k/uL Hct 47.3 H (34.0-46.0) % Neutrophils # 13.2 H (1.3-7.7) k/uL Lymphocytes # 0.5 L (1.0-4.8) k/uL Sodium 125 L 127 L (137-145) mmol/L Chloride 84 L (98-107) mmol/L Carbon Dioxide 33 H (22-30) mmol/L BUN 25 H (7-17) mg/dL Glucose 65 L (74-99) mg/dL Assessment and Plan Assessment: Impression: Status post diverting colostomy for severe bowel obstruction/megacolon. Postoperative day #0. Chronic hypoxic (failure, multifactorial mostly secondary to intra-abdominal distention, and underlying diastolic congestive heart failure with bilateral pleural effusions. And suspect underlying COPD. History of COPD with chronic hypercapnic respiratory failure Chronic abdominal pain with multiple compression fractures of thoracolumbar spine. HypERVOLEMIC hyponatremia Recommendation: Continue present ventilatory support. Resume previous course of treatment including bronchodilators. Monitor fluid status closely as the patient could easily develop worsening diastolic congestive heart failure. And worsening pleural effusions. Diurese as needed. GI and DVT prophylaxis. No plans to consider weaning or extubation today, We will address weaning and extubation in the next 24 hours. Prognosis is extremely poor and guarded, patient was extremely high surgical risk to begin with. Critical care time is 34 minutes Time with Patient: Greater than 30
[2020-07-01 18:01] LABS: Glucose,Whole Blood 74 mg/dL (75-99)
[2020-07-01] MEDS: LATANOPROST 0.005% OPHTH DROPS 2.5 ML BTL BOTH EYES SCH (21:40)
[2020-07-01] MEDS: HYDROmorphone 0.5 MG/0.5 ML SYRINGE IVP PRN (21:43)
[2020-07-01] MEDS: polyethylene glycoL 3350 17 GM POWD.PACK PO SCH (21:46)
[2020-07-02 04:05] LABS: Basophils % (A) 0 %; Eosinophils % (A) 0 %; HCT 43.2 % (34.0-46.0); HGB 13.3 gm/dL (11.4-16.0); Lymphocytes # (A) 0.4 k/uL (1.0-4.8); Lymphocytes % (A) 3 %; MCH 29.7 pg (25.0-35.0); MCHC 30.9 g/dL (31.0-37.0); MCV 96.2 fL (80.0-100.0); Mean Platelet Volume 8.1; Monocytes # (A) 0.3 k/uL (0-1.0); Monocytes % (A) 3 %; Neutrophils # (A) 11.7 k/uL (1.3-7.7); Neutrophils % (A) 94 %; Platelet Count 287 k/uL (150-450); RBC 4.49 m/uL (3.80-5.40); RDW 13.2 % (11.5-15.5); WBC 12.4 k/uL (3.8-10.6)
[2020-07-02] MEDS: IPRATROPIUM-ALBUTEROL 3 ML NEB INHALATION SCH ×6 (04:13→23:36)
[2020-07-02 04:17] LABS: ALT 9 U/L (4-34); AST 22 U/L (14-36); African American GFR (CKD) >90 (>60 ml/min/1.73 sqM); Alkaline Phosphatase 69 U/L (38-126); Anion Gap 9 mmol/L; Blood Urea Nitrogen 25 mg/dL (7-17); Calcium 7.2 mg/dL (8.4-10.2); Carbon Dioxide 24 mmol/L (22-30); Chloride 97 mmol/L (98-107); Glucose 87 mg/dL (74-99); Magnesium 1.7 mg/dL (1.6-2.3); Non-African American GFR(CKD) 88 (>60 ml/min/1.73 sqM); Phosphorus 3.2 mg/dL (2.5-4.5); Potassium 3.5 mmol/L (3.5-5.1); Sodium 130 mmol/L (137-145); Total Bilirubin 0.5 mg/dL (0.2-1.3); Total Protein 4.1 g/dL (6.3-8.2)
[2020-07-02] MEDS ORDERED: Potassium Replacement Protocol 1 EACH MISC MISCELLANE PRN (05:01)
[2020-07-02] MEDS ORDERED: Magnesium Replacement Protocol 1 EACH MISC MISCELLANE PRN (05:03)
[2020-07-02] MEDS: MAGNESIUM SULFATE-D5W PMX 1 GM in DEXTROSE/WATER 1 100ML.BAG IVPB SCH ×2 (05:32→11:14)
[2020-07-02] MEDS: POTASSIUM CHLORIDE 10 MEQ in WATER FOR INJECTION 1 100ML.BAG IVPB SCH ×4 (05:35→09:53)
[2020-07-02] MEDS ORDERED: LACTATED RINGERS 1,000 ML IV ONE (07:15)
[2020-07-02] MEDS ORDERED: MAGNESIUM SULFATE-D5W PMX 1 GM in DEXTROSE/WATER 1 100ML.BAG IVPB ONE (07:43)
[2020-07-02] MEDS: MAGNESIUM OXIDE 400 MG TAB PO SCH (07:50)
[2020-07-02] MEDS: VITAMIN E (DL,TOCOPHERYL ACET) 400 UNIT CAP PO SCH (07:50)
[2020-07-02] MEDS: DILTIAZEM ORAL 60 MG TAB PO SCH ×3 (07:50→21:19)
[2020-07-02] MEDS: CHOLECALCIFEROL 1,000 UNIT TAB PO SCH (07:50)
--- NOTE | 2020-07-02 07:53 | XR ---
EXAMINATION TYPE: XR chest 1V portable DATE OF EXAM: 07/02/2020 COMPARISON: Prior chest x-ray dated 07/01/2020, CT 06/29/2020 HISTORY: Intubated TECHNIQUE: Single frontal view of the chest is obtained. FINDINGS: Patient is rotated, apical nodularity seen on prior CT is obscured Endotracheal tube and N G tube are overlying appropriate positions. Aorta is dense. Heart is stable. Bibasilar increased atte nuation persists. No evident pneumothorax. Prominent lung volume may be indicative of underlying COPD . IMPRESSION: Findings are similar, there are likely basilar effusions and associated atelectasis, cor relate to exclude pneumonia
[2020-07-02] MEDS: HYDROmorphone 0.5 MG/0.5 ML SYRINGE IVP PRN ×4 (08:06→23:25)
[2020-07-02] MEDS: ENOXAPARIN 40 MG/0.4 ML SYRINGE SQ SCH (08:07)
[2020-07-02] MEDS: PANTOPRAZOLE 40 MG/10 ML VIAL IVP SCH (08:07)
[2020-07-02] MEDS: CHLORHEXIDINE GLUCONATE 15 ML CUP MUCOUS MEM SCH ×2 (08:07→19:56)
[2020-07-02 08:22] LABS: ABG HCO3 25 mmol/L (21-25); ABG Oxygen Saturation 94.7 % (94-97); ABG PCO2 40 mmHg (35-45); ABG PO2 71 mmHg (83-108); ABG TCO2 26 mmol/L (19-24); Allen Test Performed? Yes
--- NOTE | 2020-07-02 08:52 | US ---
EXAMINATION TYPE: US chest DATE OF EXAM: 07/02/2020 COMPARISON: Chest x-ray same date CLINICAL HISTORY: Markings for thoracentesis by pulmonary staff. Difficult exam- ICU patient on a john t. TECHNIQUE: Targeted ultrasound of the posterior lower bilateral hemithoraces EXAM MEASUREMENTS: Right Pleural Effusion pocket size: 5.2 cm Right skin surface to fluid distance: 2.3 cm Left Pleural Effusion pocket size: 6.8 cm Left skin surface to fluid distance: 1.9 cm Right side marked for possible thoracentesis outside the dept. Left side marked for possible thoracentesis outside the dept. Pulmonologists are able to review the images in the patient?s EMR. IMPRESSIONS: Bilateral pleural effusions
[2020-07-02] MEDS: SYMBICORT 80-4.5 MCG INHALER INHALATION SCH ×2 (09:19→19:51)
[2020-07-02] MEDS ORDERED: CISATRACURIUM 2 MG/ML 5 ML VIAL IV ONE ×2 (10:25→10:30)
[2020-07-02] MEDS: FUROSEMIDE 10 MG/ML 4 ML VIAL IV SCH ×2 (11:14→19:56)
[2020-07-02] MEDS: PIPERACILLIN-TAZOBACTAM 3.375 GM in SODIUM CHLORIDE 0.9% 100 ML IVPB SCH ×3 (11:14→23:58)
--- NOTE | 2020-07-02 11:16 | P.PN ---
Subjective Progress Note Date: 07/02/20 CHIEF COMPLAINT: Abdominal pain HISTORY OF PRESENT ILLNESS: Patient is status post diverting loop transverse colostomy for Colonic obstruction. Patient is currently in the ICU and intubated. There are plans to try to wean patient off the vent today. Patient did have some low urine output and she was given a fluid bolus. She had a temp of 100.3 this morning. WBC 12.4 sodium 130 PHYSICAL EXAM: VITAL SIGNS: Reviewed. GENERAL: Well-developed in no acute distress. HEENT: No sclera icterus. Extraocular movements grossly intact. Moist buccal mucosa. Head is atraumatic, normocephalic. ABDOMEN: Soft. Mildly distended incisional dressing is minimal areas of bleeding. Colostomy with brownish liquid NEUROLOGIC: Patient is intubated. Cranial nerves II through XII grossly intact. ASSESSMENT: 1. Colonic obstruction status post Diverting loop transverse colostomy postop day #1 2. Chronic hypoxic respiratory failure PLAN: -Patient given fluid bolus for low urine output -Vent management per critical care service -Continue antibiotics -Continue GI and DVT prophylaxis Physician Rate Examiner note has been reviewed by physician. Signing provider agrees with the documented findings, assessment, and plan of care. Objective - Vital Signs Vital signs: Vital Signs Temp 99.8 F H 07/02/20 08:00 Pulse 100 07/02/20 10:00 Resp 16 07/02/20 10:00 BP 111/54 07/02/20 10:00 Pulse Ox 96 07/02/20 10:00 Intake & Output 07/01/20 07/02/20 07/02/20 18:59 06:59 18:59 Intake Total 1530 2418.327 1150 Output Total 220 325 110 Balance 1310 2093.327 1040 Weight 49.2 kg 49.2 kg Intake: IV 1530 2320 1150 Bolus 1500 1000 Sodium Chloride 0.9% 1, 820 150 000 ml @ 75 mls/hr IV . [id number] ANTWAN Rx#:[id number] Intake, IV Titration 98.327 Amount propofoL 1,000 mg In 98.327 Empty Bag 1 bag @ Titrate IV .Q0M ANTWAN Rx#: [id number] Output: Urine 210 325 110 Estimated Blood Loss 10 Other: Voiding Method Indwelling Catheter Indwelling Catheter Indwelling Catheter # Voids 0 - Labs CBC & Chem 7: 07/02/20 03:41 07/02/20 03:41 Labs: Abnormal Lab Results - Last 24 Hours (Table) 07/01/20 07/01/20 07/02/20 Range/Units 17:05 17:59 03:41 WBC 12.4 H (3.8-10.6) k/uL MCHC 30.9 L (31.0-37.0) g/dL Neutrophils # 11.7 H (1.3-7.7) k/uL Lymphocytes # 0.4 L (1.0-4.8) k/uL ABG pH 7.46 H (7.35-7.45) ABG pO2 63 L (83-108) mmHg ABG HCO3 29 H (21-25) mmol/L ABG Total CO2 30 H (19-24) mmol/L ABG O2 Saturation 93.2 L (94-97) % Sodium (137-145) mmol/L Chloride (98-107) mmol/L BUN (7-17) mg/dL POC Glucose (mg/dL) 74 L (75-99) mg/dL Calcium (8.4-10.2) mg/dL Total Protein (6.3-8.2) g/dL Albumin (3.5-5.0) g/dL 07/02/20 07/02/20 Range/Units 03:41 08:20 WBC (3.8-10.6) k/uL MCHC (31.0-37.0) g/dL Neutrophils # (1.3-7.7) k/uL Lymphocytes # (1.0-4.8) k/uL ABG pH (7.35-7.45) ABG pO2 71 L (83-108) mmHg ABG HCO3 (21-25) mmol/L ABG Total CO2 26 H (19-24) mmol/L ABG O2 Saturation (94-97) % Sodium 130 L (137-145) mmol/L Chloride 97 L (98-107) mmol/L BUN 25 H (7-17) mg/dL POC Glucose (mg/dL) (75-99) mg/dL Calcium 7.2 L (8.4-10.2) mg/dL Total Protein 4.1 L (6.3-8.2) g/dL Albumin 2.0 L (3.5-5.0) g/dL
--- NOTE | 2020-07-02 13:14 | P.PN ---
Subjective Progress Note Date: 07/02/20 Patient is sedated and intubated. No acute events overnight reported by nursing staff. Objective - Vital Signs Vital signs: Vital Signs Temp 99.1 F 07/02/20 12:00 Pulse 96 07/02/20 12:00 Resp 13 07/02/20 12:00 BP 103/55 07/02/20 12:00 Pulse Ox 95 07/02/20 12:00 Intake & Output 07/01/20 07/02/20 07/02/20 18:59 06:59 18:59 Intake Total 1530 2418.327 1318.648 Output Total 220 325 765 Balance 1310 2093.327 553.648 Weight 49.2 kg 49.2 kg Intake: IV 1530 2320 1180 Bolus 1500 1000 Sodium Chloride 0.9% 1, 820 180 000 ml @ 75 mls/hr IV . [id number] ANTWAN Rx#:[id number] Intake, IV Titration 98.327 138.648 Amount Piperacillin-Tazobactam 3 75 .375 gm In Sodium Chloride 0.9% 100 ml @ 25 mls/hr IVPB Q8HR ANTWAN Rx# :[id number] propofoL 1,000 mg In 98.327 63.648 Empty Bag 1 bag @ Titrate IV .Q0M ANTWAN Rx#: [id number] Output: Urine 210 325 765 Estimated Blood Loss 10 Other: Voiding Method Indwelling Catheter Indwelling Catheter Indwelling Catheter # Voids 0 ABP, PAP, CO, CI - Last Documented Arterial Blood Pressure 92/60 - Exam General: The patient is sedated and intubated Eye: there is normal conjunctiva bilaterally. Neck: The neck is supple, there is no JVD. Cardiovascular: Normal S1-S2, no S3-S4, no murmurs. Respiratory: Lungs with mechanical ventilator sounds Gastrointestinal: Abdomen is soft, colostomy with brownish liquid. There is moderate to severe tenderness to palpation all over the abdomen Musculoskeletal: There is no pedal edema. Skin: Skin is warm and dry - Labs CBC & Chem 7: 07/02/20 03:41 07/02/20 03:41 Labs: Abnormal Lab Results - Last 24 Hours (Table) 07/01/20 07/01/20 07/02/20 Range/Units 17:05 17:59 03:41 WBC 12.4 H (3.8-10.6) k/uL MCHC 30.9 L (31.0-37.0) g/dL Neutrophils # 11.7 H (1.3-7.7) k/uL Lymphocytes # 0.4 L (1.0-4.8) k/uL ABG pH 7.46 H (7.35-7.45) ABG pO2 63 L (83-108) mmHg ABG HCO3 29 H (21-25) mmol/L ABG Total CO2 30 H (19-24) mmol/L ABG O2 Saturation 93.2 L (94-97) % Sodium (137-145) mmol/L Chloride (98-107) mmol/L BUN (7-17) mg/dL POC Glucose (mg/dL) 74 L (75-99) mg/dL Calcium (8.4-10.2) mg/dL Total Protein (6.3-8.2) g/dL Albumin (3.5-5.0) g/dL 07/02/20 07/02/20 Range/Units 03:41 08:20 WBC (3.8-10.6) k/uL MCHC (31.0-37.0) g/dL Neutrophils # (1.3-7.7) k/uL Lymphocytes # (1.0-4.8) k/uL ABG pH (7.35-7.45) ABG pO2 71 L (83-108) mmHg ABG HCO3 (21-25) mmol/L ABG Total CO2 26 H (19-24) mmol/L ABG O2 Saturation (94-97) % Sodium 130 L (137-145) mmol/L Chloride 97 L (98-107) mmol/L BUN 25 H (7-17) mg/dL POC Glucose (mg/dL) (75-99) mg/dL Calcium 7.2 L (8.4-10.2) mg/dL Total Protein 4.1 L (6.3-8.2) g/dL Albumin 2.0 L (3.5-5.0) g/dL Assessment and Plan Assessment: Patient is a 79-year-old female with known COPD, tobacco abuse (quit 1 year ago), and hypertension who presented as a transfer from [facility] secondary to low back pain with abnormal computed tomography scan findings. She had a CT Thorasic, Lumbar, and Pelvis which showed a L1 compression fracture with retropulsion and central canal stenosis. She was admitted for pain control and orthopedic spine consultation. She subsequently developed worsening distention of her abdomen and was noted to have evidence of colonic obstruction on computed tomography scan. She is currently admitted to the hospital for further management of her medical problems noted below. 1. Colonic obstruction postoperative day #1 status post diverting loop transverse colostomy. Postoperative care per surgery. 2. Acute hypoxic respiratory failure, patient was kept on mechanical ventilation post surgery. She is currently in the ICU. The management per ICU team. 3. Acute hypoxic respiratory failure, with bilateral pleural effusion. Now marked for possible thoracentesis. Seen and evaluated by pulmonology. CTA chest negative of pulmonary embolism 4. Suspected community-acquired pneumonia on presentation, finished 5 days of oral Augmentin. Started on IV Zosyn after abdominal surgery. We will continue antibiotic coverage for now. 5. Intractable back pain secondary to multiple compression fractures: Seen and evaluated by orthopedic surgery. TLSO BRACE WHEN UP AND AMBULATING. PAIN CONTROL. NO SURGICAL INTERVENTION RECOMMENDED. MRI showed L4 with slight posterior retropulsion, L1 with moderate posterior disc bulge effacing the anterior thecal sac, T11 exam compression fracture with some posterior retropulsion facing the anterior thecal sac. 6. 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 nephrology recommendations, fluid status improved, samsca X 2 7. Paroxysmal Atrial fibrillation with rapid ventricular response, now in NSR. Transition Cardizem to long-acting prior to discharge. Cardiology recommended a ppreciated. Echocardiogram ef 55-60% no significant valvular dysfunction. TSH normal. Not a candidate for anticoagulation secondary to falls and is currently maintaining normal sinus rhythm 8. Abnormal computed tomography scan of the chest. Plan to follow up with pulmonology outpatient for repeat imaging. CT chest shows no signs of large pulmonary embolism but does demonstrate debris in the right mainstem bronchus with collapse of the lower lobe consolidation, spiculated soft tissue thickening along the right upper lobe and left apical nodularity. Repeat CT chest in 2 months. 9. Hypokalemia and hypomagnesemia 10. Underlying COPD/emphysema, continue DuoNeb schedule 11. Moderate protein/calorie malnutrition, seen and evaluated by dietitian 12. CODE STATUS: Patient is DO NOT RESUSCITATE/DO NOT INTUBATE per her wishes 13. GI and DVT prophylaxis with IV Protonix and subcu Lovenox
--- NOTE | 2020-07-02 13:31 | CDI ---
Documentation Clarification Form Date: 07/02/2020 12:59:35 PM From: Brenda Muro CCS, CCDS Admit Date: 06/25/2020 01:39:00 PM Patient Name: Lyndsey Card Visit Number: [id number] Discharge Date: ATTENTION: The Clinical Documentation Specialists (CDI) and [facility] Coding Staff appreciate your assistance in clarifying documentation. Please respond to the clarification below the line at the bottom and electronically sign. The CDI & [facility] Coding staff will review the response and follow-up if needed. Please note: Queries are made part of the Legal Health Record. If you have any questions, please contact the author of this message via ITS. Dr. Radha Zaidi OR Dr. Gabriel Sherman: The patient is being treated for Aspiration Pneumonia and Acute Bowel Obstruction requiring diverting Colostomy. Per the 06/25 Attending Physician: Acute Hypoxic Respiratory Failure, Aspiration Pneumonia - possible gram negative & Nodular thickening. On 06/30 the patient was noted to have a SBO, refused NGT. On 07/01 the patient had a diverting loop transverse colostomy for bowel obstruction, returned to ICU postop on vent. History/Risk Factors: COPD, Asthma, Hypertension, O2 dep, Smoker. Falls. Left Hip Fracture with repair. Clinical Indicators: Presented to the ED on 06/23 via EMS as a transfer from [facility] with back pain & possible pneumonia. Diagnosed with a compression fracture per XR per PCP. Follow up CT: L1 compression fracture with retropulsion. Transferred for Orthopedic/Spine evaluation. Admitted to Observation Status with Compression Fractures: T3, T9, T11, L1 & L4; Severe Osteoporosis, Hyponatremia & Alkalosis. Per Ortho/Spine: Poor surgical candidate, consider Kyphoplasy if acute fracture. VS 06/25: T 97.5*, P 103^ (cough, SOB), BP 163/65, PO 95 5Lnc. VS 06/26: HR up to 112^, PO 92 2Lnc. VS: 07/01: T 100^, R 22, BP 124/76, PO 92 on vent. LAB 06/25: WBC 16.9^, ABG: pCO2 53^, pO2 49, HCO3 37^, Total CO2 38^, O2 Sat 86.5^; Na 130*, BUN 21^, Cr 0.39*. LAB 07/01: WBC 14.3^, Neut 13.2^, Na 127*, BUN 26^. Treatment 06/25: IV Lasix, IV Amoxicillin. 06/26: IV Kcl, IV MagSulf, IV Haparin, IV Lasix. 06/29: IV Mag Sulf. 06/30: IV Ms, INH Albuterol, IV Lasix, IV Mag Sulf, IV Dilaudid, IV fluid 1,000 mls @ 10 mls/hr. 07/01: Heparin sq, IV Lactated Ringers, IV Dilaudid, IV Propofol, Return to ICU from surgery on vent. In your professional opinion, please clarify if these findings signify one of the following conditions, whether the condition is POA, and cause, if known: Sepsis ruled out Sepsis ruled in: o Severe Sepsis o Septic Shock Other, please specify Unable to determine Present on Admission: Yes or No Link or clarify if there is associated (due to/with): o Organ failure o Shock (Last Revision: November 2017) MTDD
--- NOTE | 2020-07-02 13:51 | P.PN ---
Subjective Patient is seen in follow-up for hyponatremia. Sodium level 130 today. Currently intubated. She is on 40% FiO2. Maintained on IV Lasix. She is status post diverting loop transverse colostomy due to colonic obstruction on 07/01/2020. Vital signs are stable. General: Intubated. HEENT: Head exam is unremarkable. LUNGS: Breath sounds decreased. HEART: Rate and Rhythm are regular. ABDOMEN: Soft. EXTREMITITES: Trace edema. Objective - Vital Signs Vital signs: Vital Signs Temp 99.1 F 07/02/20 12:00 Pulse 97 07/02/20 13:00 Resp 16 07/02/20 13:00 BP 114/60 07/02/20 13:00 Pulse Ox 92 L 07/02/20 13:00 Intake & Output 07/01/20 07/02/20 07/02/20 18:59 06:59 18:59 Intake Total 1530 2418.327 1318.648 Output Total 220 325 765 Balance 1310 2093.327 553.648 Weight 49.2 kg 49.2 kg Intake: IV 1530 2320 1180 Bolus 1500 1000 Sodium Chloride 0.9% 1, 820 180 000 ml @ 75 mls/hr IV . [id number] ANTWAN Rx#:[id number] Intake, IV Titration 98.327 138.648 Amount Piperacillin-Tazobactam 3 75 .375 gm In Sodium Chloride 0.9% 100 ml @ 25 mls/hr IVPB Q8HR ANTWAN Rx# :[id number] propofoL 1,000 mg In 98.327 63.648 Empty Bag 1 bag @ Titrate IV .Q0M ANTWAN Rx#: [id number] Output: Urine 210 325 765 Estimated Blood Loss 10 Other: Voiding Method Indwelling Catheter Indwelling Catheter Indwelling Catheter # Voids 0 ABP, PAP, CO, CI - Last Documented Arterial Blood Pressure 80/42 - Labs CBC & Chem 7: 07/02/20 03:41 07/02/20 03:41 Labs: Abnormal Lab Results - Last 24 Hours (Table) 07/01/20 07/01/20 07/02/20 Range/Units 17:05 17:59 03:41 WBC 12.4 H (3.8-10.6) k/uL MCHC 30.9 L (31.0-37.0) g/dL Neutrophils # 11.7 H (1.3-7.7) k/uL Lymphocytes # 0.4 L (1.0-4.8) k/uL ABG pH 7.46 H (7.35-7.45) ABG pO2 63 L (83-108) mmHg ABG HCO3 29 H (21-25) mmol/L ABG Total CO2 30 H (19-24) mmol/L ABG O2 Saturation 93.2 L (94-97) % Sodium (137-145) mmol/L Chloride (98-107) mmol/L BUN (7-17) mg/dL POC Glucose (mg/dL) 74 L (75-99) mg/dL Calcium (8.4-10.2) mg/dL Total Protein (6.3-8.2) g/dL Albumin (3.5-5.0) g/dL 07/02/20 07/02/20 Range/Units 03:41 08:20 WBC (3.8-10.6) k/uL MCHC (31.0-37.0) g/dL Neutrophils # (1.3-7.7) k/uL Lymphocytes # (1.0-4.8) k/uL ABG pH (7.35-7.45) ABG pO2 71 L (83-108) mmHg ABG HCO3 (21-25) mmol/L ABG Total CO2 26 H (19-24) mmol/L ABG O2 Saturation (94-97) % Sodium 130 L (137-145) mmol/L Chloride 97 L (98-107) mmol/L BUN 25 H (7-17) mg/dL POC Glucose (mg/dL) (75-99) mg/dL Calcium 7.2 L (8.4-10.2) mg/dL Total Protein 4.1 L (6.3-8.2) g/dL Albumin 2.0 L (3.5-5.0) g/dL Assessment and Plan Plan: Assessment: 1. Hypervolemic hyponatremia. Sodium level 130mthis morning. Status post Samsca this admission. TSH normal. Urine sodium 68 and urine osmolality 511 - repeat 337. 2. A. fib with RVR maintained on Cardizem. s/p heparin drip. 3. Back pain with multiple compression fractures. Orthopedic surgery following. 4. Hypokalemia secondary to diuresis and poor intake status post replacement. 5. Hypomagnesemia from poor intake. Status post placement. 6. Small bowel obstruction status post diverting loop transverse colostomy on 07/01/2020. 7. Volume overload with bilateral pleural effusions. Maintained on IV Lasix. Plan: Continue Lasix 40 mg IV twice daily. Strict I's and O's. Phosphorus and magnesium replaced. Wean FiO2.
--- NOTE | 2020-07-02 15:51 | P.PN ---
Subjective Progress Note Date: 07/02/20 Principal diagnosis: Colonic obstruction, status post diverting loop transverse colostomy postoperative day #1 79-year-old white female patient with past medical history of recurring bronchial asthma/COPD who came into the hospital per EMS on 06/23/2020 with the reported back pain of 4-5 day history. Outpatient x-ray by her PCP showed compression fractures. CT of the lumbar spine completed that the [facility] showed L1 compression fracture with 50% retropulsion of a 6 mm fragment into the spinal column, patient was [facility] for orthopedic evaluation. Further workup by orthopedic surgery revealed multiple compression fractures likely related to osteoporosis, although underlying malignancy could not be entirely excluded. Chest x-ray showed a chronic parenchymal changes with small bilateral pleural effusions and a right basilar acute infiltrate and/or atelectasis. On admission patient had a low sodium levels, of 131, she was given IV fluids, and afterward she developed some worsening shortness of breath, and received 20 mg of Lasix. Possibility of SIADH versus hypervolemic hyponatremia were considered, nephrology is following. Patient developed abdominal discomfort on 06/28/2020, abdominal x-ray showed nonspecific abdomen, air within the colon was somewhat prominent, consideration for ileus and colonic ileus was advised. Patient also developed A. fib with RVR. CT of the abdomen and pelvis was completed on 06/29/2020 showing diffuse colonic get his dilatation with abrupt transition point in the mid sigmoid colon. There was severe sigmoid colonic diverticulosis, findings were thought to represent colonic obstruction versus ileus, cholelithiasis, and large bilateral pleural effusions increased from prior CT on 06/25/2020. There was a left apical nodularity measuring up to 1.3 cm. Surgical consultation was requested, patient is having abdominal distention, discomfort, she refused NG tube placement. Her oxygen requirement increased from 2 L on admission, to 12 of oxygen today. She is afebrile, she is short of breath, we were asked to see the patient in evaluation for acute hypoxic respiratory failure. Acute abdominal series were completed this morning showing slight progressive diffuse colonic distention and marked colonic ileus or distal colonic obstruction, and continued small pleural effusion with adjacent atelectasis and/or consolidation. Today's blood gas was reviewed, showing pO2 of 58, pCO2 49, and pH of 7.49 this was done on FiO2 of 80%. Patient is on IV Lasix at 40 mg every 12 hours, however clinically she looks dry, after reviewing her CT of the abdomen and pelvis, and chest x-rays the appearance of pleural effusions are small, and patient has bibasilar atelectasis and small pleural effusions likely related to abdominal distention. She's been afebrile, she is on oral prednisone, she is on oral bronchodilators. The patient is seen today 07/01/2020 in follow-up on the selective care unit. She is currently resting fairly comfortably in bed. Awake and alert in no acute distress. Maintaining O2 saturations on 15 L high flow nasal cannula. She's afebrile. Slightly tachycardic. Still with significant abdominal distention. White count 14.3. Hemoglobin 14.8. Sodium 127. Potassium 3.8. Creatinine 0.68. She remains on Symbicort and DuoNeb inhalations. Plan is for diverting colostomy with possible sigmoid resection today. Patient was reevaluated again today on 07/01/20 in the recovery room, she is status post bifurcating colostomy, patient was found to have megacolon and bowel obstruction. She was considered high surgical risk, nonetheless, patient underwent surgery uneventfully, and transferred to the recovery room, and I was asked to see her again while in recovery. She is now on mechanical ventilation, she is on tidal volume is 400 assist control rate of 16, FiO2 is 40%, and PEEP is at 5. ABG is presently pending. Postoperative chest x-ray showed small to moderate-sized bilateral pleural effusions with mild vascular congestion, and by basilar atelectasis. Patient has marginal urine output, she is hemodynamically stable, not requiring any pressors. Preoperative labs were reviewed, patient had low sodium 127 and normal renal profile. Preoperative ABG showed a pO2 of 58 pCO2 of 49 pH of 7.49 and this was on a high flow nasal cannula with 80% FiO2. Patient was reevaluated on 07/02/20, patient remains in the ICU, she is intubated, on mechanical ventilation. Her ventilator settings are assist control rate of 16, volume is 400 FiO2 is 40% PEEP of 5 her ABG showed a pO2 of 71 pCO2 of 39 pH of 7.40. Chest x-ray clearly shows evidence of bilateral pleural effusions documented on ultrasound, but difficult to position the patient to safely perform thoracentesis at this point, hence we'll try diuretics instead of actually performing thoracentesis and the patient now. I have started Lasix at 40 mg IV push every 12 hours. Patient seems to be in quite a bit of pain when she is down on a lower dose or off propofol, I don't think the patient is quite ready to be weaned and extubated. Patient received significant amount of fluids over the last 24 hours, and I will work on diuresing the patient over the next 24 hours and possibly address weaning and extubation in the next 24 hours. CBC is relatively normal today. Electrolytes are relatively normal except for low sodium of 130. Low potassium of 3.5. Renal profile is normal Objective - Vital Signs Vital signs: Vital Signs Temp 99.1 F 07/02/20 12:00 Pulse 95 07/02/20 14:00 Resp 16 07/02/20 14:00 BP 114/60 07/02/20 14:00 Pulse Ox 95 07/02/20 14:00 Intake & Output 07/01/20 07/02/20 07/02/20 18:59 06:59 18:59 Intake Total 1530 2418.327 1338.648 Output Total 220 325 965 Balance 1310 2093.327 373.648 Weight 49.2 kg 49.2 kg Intake: IV 1530 2320 1200 Bolus 1500 1000 Sodium Chloride 0.9% 1, 820 200 000 ml @ 10 mls/hr IV . Q24H ANTWAN Rx#:[id number] Intake, IV Titration 98.327 138.648 Amount Piperacillin-Tazobactam 3 75 .375 gm In Sodium Chloride 0.9% 100 ml @ 25 mls/hr IVPB Q8HR ANTWAN Rx# :[id number] propofoL 1,000 mg In 98.327 63.648 Empty Bag 1 bag @ Titrate IV .Q0M ANTWAN Rx#: [id number] Output: Urine 210 325 965 Estimated Blood Loss 10 Other: Voiding Method Indwelling Catheter Indwelling Catheter Indwelling Catheter # Voids 0 ABP, PAP, CO, CI - Last Documented Arterial Blood Pressure 78/39 - Exam Physical Exam: Revealed 79-year-old female cachectic looking, frail chronically ill, on mechanical ventilation, sedated. Head: Atraumatic, normocephalic. Orogastric tube and nasogastric tube are intact. HEENT:: [No neck masses.] [No thyromegaly.] [No JVD.] Chest: [Diminished breath sounds and crackles at the bases. Cardiac Exam: [Normal S1 and S2, no S3 gallop, 2/6 systolic murmur thought the precordium. Abdomen: [Postsurgical.] Colostomy is intact. Extremities: [No clubbing, no edema, no cyanosis.] Neurological Exam: Could not be assessed on propofol. Psychiatric: Could not be assessed. Skin: No rashes. However the patient does have a sacral decubitus ulcer. - Labs CBC & Chem 7: 07/02/20 03:41 07/02/20 03:41 Labs: Abnormal Lab Results - Last 24 Hours (Table) 07/01/20 07/01/20 07/02/20 Range/Units 17:05 17:59 03:41 WBC 12.4 H (3.8-10.6) k/uL MCHC 30.9 L (31.0-37.0) g/dL Neutrophils # 11.7 H (1.3-7.7) k/uL Lymphocytes # 0.4 L (1.0-4.8) k/uL ABG pH 7.46 H (7.35-7.45) ABG pO2 63 L (83-108) mmHg ABG HCO3 29 H (21-25) mmol/L ABG Total CO2 30 H (19-24) mmol/L ABG O2 Saturation 93.2 L (94-97) % Sodium (137-145) mmol/L Chloride (98-107) mmol/L BUN (7-17) mg/dL POC Glucose (mg/dL) 74 L (75-99) mg/dL Calcium (8.4-10.2) mg/dL Total Protein (6.3-8.2) g/dL Albumin (3.5-5.0) g/dL 07/02/20 07/02/20 Range/Units 03:41 08:20 WBC (3.8-10.6) k/uL MCHC (31.0-37.0) g/dL Neutrophils # (1.3-7.7) k/uL Lymphocytes # (1.0-4.8) k/uL ABG pH (7.35-7.45) ABG pO2 71 L (83-108) mmHg ABG HCO3 (21-25) mmol/L ABG Total CO2 26 H (19-24) mmol/L ABG O2 Saturation (94-97) % Sodium 130 L (137-145) mmol/L Chloride 97 L (98-107) mmol/L BUN 25 H (7-17) mg/dL POC Glucose (mg/dL) (75-99) mg/dL Calcium 7.2 L (8.4-10.2) mg/dL Total Protein 4.1 L (6.3-8.2) g/dL Albumin 2.0 L (3.5-5.0) g/dL Assessment and Plan Assessment: Impression: Status post diverting colostomy for severe bowel obstruction/megacolon. Postoperative day #1 Acute on Chronic hypoxic (failure, multifactorial mostly secondary to intra- abdominal distention, and underlying diastolic congestive heart failure with bilateral pleural effusions. And suspect underlying COPD. History of COPD with chronic hypercapnic respiratory failure Chronic diastolic congestive heart failure and bilateral pleural effusion Chronic abdominal pain with multiple compression fractures of thoracolumbar spine. Hypervolemic hyponatremia, resolved Recommendation: Continue present ventilatory support. Continue bronchodilators. Continue antibiotics.. Increase Lasix to 40 mg IV push every 12 hours. GI and DVT prophylaxis. Address the issue of weaning and possibly extubation in the next 24 hours. Prognosis is extremely poor and guarded, patient was extremely high surgical risk to begin with. Critical care time is 33 minutes, not including the time spent on procedures Time with Patient: Greater than 30
[2020-07-02] MEDS: SODIUM CHLORIDE 0.9% 1,000 ML IV SCH (16:34)
[2020-07-02 17:51] LABS: Glucose,Whole Blood 100 mg/dL (75-99)
[2020-07-02] MEDS: LATANOPROST 0.005% OPHTH DROPS 2.5 ML BTL BOTH EYES SCH (19:56)
--- NOTE | 2020-07-02 22:17 | OP ---
OPERATIVE REPORT OPERATIVE REPORT: Placement of a right femoral triple-lumen catheter. PREOPERATIVE DIAGNOSIS: Status post colostomy, bowel obstruction. POSTOPERATIVE DIAGNOSIS: Status post colostomy, bowel obstruction. ANESTHESIA USED: Lidocaine 1%, 2 mL. PROCEDURE DESCRIPTION: Patient was placed in supine position. The area of the right groin was prepared in a sterile fashion and drapes were applied. The area was locally anesthetized with lidocaine. Then the right femoral vein was cannulated, a guidewire was placed, and the area around the guidewire was dilated with a dilator. Then a triple-lumen catheter was inserted over the guidewire, and the guidewire was removed. Good blood flow was noted in the 3 different ports. The line was secured using 3.0 silk sutures. No evidence of any immediate complications. MMODL / IJN: [id number] /
--- NOTE | 2020-07-02 22:26 | OP ---
OPERATIVE REPORT OPERATIVE REPORT: Placement of a right brachial arterial line. PREOPERATIVE DIAGNOSIS: Bowel obstruction. POSTOPERATIVE DIAGNOSIS: Bowel obstruction. ANESTHESIA USED: None deployed. PROCEDURE DESCRIPTION: The patient was draped in a supine position. The area of the right brachial region was prepared in a sterile fashion and drapes were applied. The right brachial artery was palpated and cannulated. A guidewire was placed. Then a Cook's catheter was inserted over the guidewire, and the guidewire was removed. Good blood flow, good waveform noted. No evidence of any immediate complications. Line was secured using 3.0 silk suture. MMODL / IJN: [id number] /
[2020-07-02 23:30] LABS: Glucose,Whole Blood 103 mg/dL (75-99)
[2020-07-02] MEDS: NOREPINEPHRINE 32 MG in SODIUM CHLORIDE 0.9% 218 ML IV SCH (23:58)
[2020-07-03 00:36] LABS: Magnesium 1.8 mg/dL (1.6-2.3)
[2020-07-03] MEDS: POTASSIUM CHLORIDE 20 MEQ in WATER FOR INJECTION 1 100ML.BAG IVPB SCH ×2 (01:22→03:21)
[2020-07-03] MEDS: MAGNESIUM SULFATE-D5W PMX 1 GM in DEXTROSE/WATER 1 100ML.BAG IVPB SCH ×2 (01:23→02:13)
[2020-07-03] MEDS: IPRATROPIUM-ALBUTEROL 3 ML NEB INHALATION SCH ×5 (03:46→21:17)
[2020-07-03 06:11] LABS: Glucose,Whole Blood 122 mg/dL (75-99)
[2020-07-03] MEDS: HYDROmorphone 0.5 MG/0.5 ML SYRINGE IVP PRN (07:14)
[2020-07-03 07:31] LABS: ABG Base Excess 5.9 mmol/L; ABG HCO3 29 mmol/L (21-25); ABG Oxygen Saturation 95.2 % (94-97); ABG PCO2 39 mmHg (35-45); ABG PH 7.49 (7.35-7.45); ABG PO2 76 mmHg (83-108); ABG TCO2 31 mmol/L (19-24)
[2020-07-03 07:32] LABS: Allen Test Performed? no
--- NOTE | 2020-07-03 07:54 | XR ---
EXAMINATION TYPE: XR chest 1V portable DATE OF EXAM: 07/03/2020 COMPARISON: 07/02/2020 INDICATION: Tube placement TECHNIQUE: Single frontal view of the chest is obtained. FINDINGS: The heart size is normal. The pulmonary vasculature is normal. Small left and [id number] right pleural effusions may be present. Patient is rotated to the left. The endotracheal tube tip is above the jose. Nasogastric tube trans verses the thorax. IMPRESSION: 1. Small left and moderate right pleural effusions. 2. Lines and catheters discussed above.
[2020-07-03] MEDS: SYMBICORT 80-4.5 MCG INHALER INHALATION SCH (08:44)
[2020-07-03 09:02] LABS: Basophils % (A) 0 %; Eosinophils # (A) 0.1 k/uL (0-0.7); Eosinophils % (A) 1 %; HCT 39.6 % (34.0-46.0); HGB 12.8 gm/dL (11.4-16.0); Lymphocytes # (A) 0.4 k/uL (1.0-4.8); Lymphocytes % (A) 3 %; MCH 30.3 pg (25.0-35.0); MCHC 32.3 g/dL (31.0-37.0); MCV 93.7 fL (80.0-100.0); Monocytes # (A) 0.3 k/uL (0-1.0); Monocytes % (A) 2 %; Neutrophils # (A) 12.9 k/uL (1.3-7.7); Neutrophils % (A) 94 %; Platelet Count 296 k/uL (150-450); RBC 4.22 m/uL (3.80-5.40); RDW 13.4 % (11.5-15.5); WBC 13.7 k/uL (3.8-10.6)
[2020-07-03 09:14] LABS: ALT 9 U/L (4-34); AST 23 U/L (14-36); African American GFR (CKD) >90 (>60 ml/min/1.73 sqM); Alkaline Phosphatase 81 U/L (38-126); Anion Gap 4 mmol/L; Blood Urea Nitrogen 19 mg/dL (7-17); Calcium 6.8 mg/dL (8.4-10.2); Carbon Dioxide 30 mmol/L (22-30); Chloride 98 mmol/L (98-107); Glucose 111 mg/dL (74-99); Non-African American GFR(CKD) 88 (>60 ml/min/1.73 sqM); Potassium 3.6 mmol/L (3.5-5.1); Sodium 132 mmol/L (137-145); Total Bilirubin 0.5 mg/dL (0.2-1.3); Total Protein 4.2 g/dL (6.3-8.2)
[2020-07-03] MEDS: PIPERACILLIN-TAZOBACTAM 3.375 GM in SODIUM CHLORIDE 0.9% 100 ML IVPB SCH ×3 (09:29→23:29)
[2020-07-03] MEDS: ENOXAPARIN 40 MG/0.4 ML SYRINGE SQ SCH (09:30)
[2020-07-03] MEDS: PANTOPRAZOLE 40 MG/10 ML VIAL IVP SCH (09:30)
[2020-07-03] MEDS: CHLORHEXIDINE GLUCONATE 15 ML CUP MUCOUS MEM SCH ×2 (09:30→20:03)
[2020-07-03] MEDS: FUROSEMIDE 10 MG/ML 4 ML VIAL IV SCH ×2 (09:49→20:04)
[2020-07-03] MEDS ORDERED: Potassium Replacement Protocol 1 EACH MISC MISCELLANE PRN ×2 (10:04→19:18)
--- NOTE | 2020-07-03 10:08 | P.PN ---
Subjective Patient is seen in follow-up for hyponatremia. Sodium level 132 today. Currently intubated. She is on 40% FiO2. Maintained on IV Lasix. She is status post diverting loop transverse colostomy due to colonic obstruction on 07/01/2020. Nonoliguric. Off vasopressors. Vital signs are stable. General: Intubated. HEENT: Head exam is unremarkable. LUNGS: Breath sounds decreased. HEART: Rate and Rhythm are regular. ABDOMEN: Soft. EXTREMITITES: Trace edema. Objective - Vital Signs Vital signs: Vital Signs Temp 99 F 07/03/20 08:00 Pulse 88 07/03/20 09:00 Resp 16 07/03/20 09:00 BP 119/82 07/03/20 08:00 Pulse Ox 97 07/03/20 09:00 Intake & Output 07/02/20 07/03/20 07/03/20 18:59 06:59 18:59 Intake Total 1388.648 421.807 153.399 Output Total 2065 1570 100 Balance -676.352 -1148.193 53.399 Weight 49.2 kg 49.5 kg Intake: IV 1250 256 46 Bolus 1000 Piperacillin-Tazobactam 3 100 .375 gm In Sodium Chloride 0.9% 100 ml @ 25 mls/hr IVPB Q8HR [facility] Rx# :[id number] Sodium Chloride 0.9% 1, 250 120 40 000 ml @ 10 mls/hr IV . Q24H [facility] Rx#:[id number] pressure bag 36 6 Intake, IV Titration 138.648 165.807 107.399 Amount Norepinephrine 32 mg In 2.195 26.578 Sodium Chloride 0.9% 218 ml @ 0.05 MCG/KG/MIN 1. 153 mls/hr IV .Q24H [facility] Rx#:[id number] Piperacillin-Tazobactam 3 75 .375 gm In Sodium Chloride 0.9% 100 ml @ 25 mls/hr IVPB Q8HR [facility] Rx# :[id number] propofoL 1,000 mg In 63.648 163.612 80.821 Empty Bag 1 bag @ Titrate IV .Q0M [facility] Rx#: [id number] Output: Gastric Drainage 250 Urine 1865 1320 100 Stool 200 Other: Voiding Method Indwelling Catheter Indwelling Catheter ABP, PAP, CO, CI - Last Documented Arterial Blood Pressure 139/49 - Labs CBC & Chem 7: 07/03/20 08:50 07/03/20 08:50 Labs: Abnormal Lab Results - Last 24 Hours (Table) 07/02/20 07/02/20 07/03/20 Range/Units 17:51 23:28 00:20 WBC (3.8-10.6) k/uL Neutrophils # (1.3-7.7) k/uL Lymphocytes # (1.0-4.8) k/uL ABG pH (7.35-7.45) ABG pO2 (83-108) mmHg ABG HCO3 (21-25) mmol/L ABG Total CO2 (19-24) mmol/L Sodium (137-145) mmol/L Potassium 3.0 L (3.5-5.1) mmol/L BUN (7-17) mg/dL Glucose (74-99) mg/dL POC Glucose (mg/dL) 100 H 103 H (75-99) mg/dL Calcium (8.4-10.2) mg/dL Total Protein (6.3-8.2) g/dL Albumin (3.5-5.0) g/dL 07/03/20 07/03/20 07/03/20 Range/Units 06:09 07:29 08:50 WBC 13.7 H (3.8-10.6) k/uL Neutrophils # 12.9 H (1.3-7.7) k/uL Lymphocytes # 0.4 L (1.0-4.8) k/uL ABG pH 7.49 H (7.35-7.45) ABG pO2 76 L (83-108) mmHg ABG HCO3 29 H (21-25) mmol/L ABG Total CO2 31 H (19-24) mmol/L Sodium (137-145) mmol/L Potassium (3.5-5.1) mmol/L BUN (7-17) mg/dL Glucose (74-99) mg/dL POC Glucose (mg/dL) 122 H (75-99) mg/dL Calcium (8.4-10.2) mg/dL Total Protein (6.3-8.2) g/dL Albumin (3.5-5.0) g/dL 07/03/20 Range/Units 08:50 WBC (3.8-10.6) k/uL Neutrophils # (1.3-7.7) k/uL Lymphocytes # (1.0-4.8) k/uL ABG pH (7.35-7.45) ABG pO2 (83-108) mmHg ABG HCO3 (21-25) mmol/L ABG Total CO2 (19-24) mmol/L Sodium 132 L (137-145) mmol/L Potassium (3.5-5.1) mmol/L BUN 19 H (7-17) mg/dL Glucose 111 H (74-99) mg/dL POC Glucose (mg/dL) (75-99) mg/dL Calcium 6.8 L (8.4-10.2) mg/dL Total Protein 4.2 L (6.3-8.2) g/dL Albumin 2.0 L (3.5-5.0) g/dL Assessment and Plan Plan: Assessment: 1. Hypervolemic hyponatremia. Sodium level 132 this morning. Status post [facility] this admission. TSH normal. Urine sodium 68 and urine osmolality 511 - repeat 337. 2. A. fib with RVR maintained on Cardizem. s/p heparin drip. 3. Back pain with multiple compression fractures. Orthopedic surgery following. 4. Hypokalemia secondary to diuresis and poor intake, being replaced. 5. Hypomagnesemia from poor intake. Status post placement. 6. Small bowel obstruction status post diverting loop transverse colostomy on 07/01/2020. 7. Volume overload with bilateral pleural effusions. Maintained on IV Lasix. Plan: Continue Lasix 40 mg IV twice daily. Strict I's and O's. Phosphorus and magnesium replaced. Wean FiO2.
[2020-07-03] MEDS ORDERED: DILTIAZEM 5 MG/ML 5 ML VIAL IVP STA (10:31)
[2020-07-03] MEDS ORDERED: DILTIAZEM DRIP BOLUS FROM BAG 1 MG SOLN IV STA (10:36)
[2020-07-03] MEDS ORDERED: DILTIAZEM 125 MG in SODIUM CHLORIDE 0.9% 100 ML IV SCH (11:00)
[2020-07-03] MEDS: POTASSIUM CHLORIDE 10 MEQ in WATER FOR INJECTION 1 100ML.BAG IVPB SCH ×2 (11:11→13:36)
[2020-07-03] MEDS: VITAMIN E (DL,TOCOPHERYL ACET) 400 UNIT CAP PO SCH (11:20)
[2020-07-03] MEDS: MAGNESIUM OXIDE 400 MG TAB PO SCH (11:20)
[2020-07-03] MEDS: CHOLECALCIFEROL 1,000 UNIT TAB PO SCH (11:20)
--- NOTE | 2020-07-03 11:34 | P.PN ---
Subjective Progress Note Date: 07/03/20 Patient is sedated and intubated. She was started on a low-dose levo fed overnight for hypotension. Blood pressure improved this morning. Objective - Vital Signs Vital signs: Vital Signs Temp 99 F 07/03/20 08:00 Pulse 116 H 07/03/20 11:00 Resp 21 07/03/20 11:00 BP 100/66 07/03/20 11:00 Pulse Ox 92 L 07/03/20 11:00 Intake & Output 07/02/20 07/03/20 07/03/20 18:59 06:59 18:59 Intake Total 1388.648 421.807 301.738 Output Total 2065 1570 450 Balance -676.352 -1148.193 -148.262 Weight 49.2 kg 49.5 kg 49.5 kg Intake: IV 1250 256 192 Bolus 1000 Piperacillin-Tazobactam 3 100 100 .375 gm In Sodium Chloride 0.9% 100 ml @ 25 mls/hr IVPB Q8HR [facility] Rx# :[id number] Sodium Chloride 0.9% 1, 250 120 80 000 ml @ 10 mls/hr IV . Q24H [facility] Rx#:[id number] pressure bag 36 12 Intake, IV Titration 138.648 165.807 109.738 Amount Diltiazem 125 mg In 1.25 Sodium Chloride 0.9% 100 ml @ 5 MG/HR 5 mls/hr IV .Q24H [facility] Rx#:[id number] Norepinephrine 32 mg In 2.195 26.578 Sodium Chloride 0.9% 218 ml @ 0.05 MCG/KG/MIN 1. 153 mls/hr IV .Q24H [facility] Rx#:[id number] Piperacillin-Tazobactam 3 75 .375 gm In Sodium Chloride 0.9% 100 ml @ 25 mls/hr IVPB Q8HR [facility] Rx# :[id number] propofoL 1,000 mg In 63.648 163.612 81.910 Empty Bag 1 bag @ Titrate IV .Q0M [facility] Rx#: [id number] Output: Gastric Drainage 250 50 Urine 1865 1320 400 Stool 200 Other: Voiding Method Indwelling Catheter Indwelling Catheter Indwelling Catheter ABP, PAP, CO, CI - Last Documented Arterial Blood Pressure 110/47 - Exam General: The patient is sedated and intubated Eye: there is normal conjunctiva bilaterally. Neck: The neck is supple, there is no JVD. Cardiovascular: Normal S1-S2, no S3-S4, no murmurs. Respiratory: Lungs with mechanical ventilator sounds Gastrointestinal: Abdomen is soft, colostomy with brownish liquid. There is moderate to severe tenderness to palpation all over the abdomen Musculoskeletal: There is no pedal edema. Skin: Skin is warm and dry - Labs CBC & Chem 7: 07/03/20 08:50 07/03/20 08:50 Labs: Abnormal Lab Results - Last 24 Hours (Table) 07/02/20 07/02/20 07/03/20 Range/Units 17:51 23:28 00:20 WBC (3.8-10.6) k/uL Neutrophils # (1.3-7.7) k/uL Lymphocytes # (1.0-4.8) k/uL ABG pH (7.35-7.45) ABG pO2 (83-108) mmHg ABG HCO3 (21-25) mmol/L ABG Total CO2 (19-24) mmol/L Sodium (137-145) mmol/L Potassium 3.0 L (3.5-5.1) mmol/L BUN (7-17) mg/dL Glucose (74-99) mg/dL POC Glucose (mg/dL) 100 H 103 H (75-99) mg/dL Calcium (8.4-10.2) mg/dL Total Protein (6.3-8.2) g/dL Albumin (3.5-5.0) g/dL 07/03/20 07/03/20 07/03/20 Range/Units 06:09 07:29 08:50 WBC 13.7 H (3.8-10.6) k/uL Neutrophils # 12.9 H (1.3-7.7) k/uL Lymphocytes # 0.4 L (1.0-4.8) k/uL ABG pH 7.49 H (7.35-7.45) ABG pO2 76 L (83-108) mmHg ABG HCO3 29 H (21-25) mmol/L ABG Total CO2 31 H (19-24) mmol/L Sodium (137-145) mmol/L Potassium (3.5-5.1) mmol/L BUN (7-17) mg/dL Glucose (74-99) mg/dL POC Glucose (mg/dL) 122 H (75-99) mg/dL Calcium (8.4-10.2) mg/dL Total Protein (6.3-8.2) g/dL Albumin (3.5-5.0) g/dL 07/03/20 Range/Units 08:50 WBC (3.8-10.6) k/uL Neutrophils # (1.3-7.7) k/uL Lymphocytes # (1.0-4.8) k/uL ABG pH (7.35-7.45) ABG pO2 (83-108) mmHg ABG HCO3 (21-25) mmol/L ABG Total CO2 (19-24) mmol/L Sodium 132 L (137-145) mmol/L Potassium (3.5-5.1) mmol/L BUN 19 H (7-17) mg/dL Glucose 111 H (74-99) mg/dL POC Glucose (mg/dL) (75-99) mg/dL Calcium 6.8 L (8.4-10.2) mg/dL Total Protein 4.2 L (6.3-8.2) g/dL Albumin 2.0 L (3.5-5.0) g/dL Assessment and Plan Assessment: Patient is a 79-year-old female with known COPD, tobacco abuse (quit 1 year ago), and hypertension who presented as a transfer from [facility] secondary to low back pain with abnormal computed tomography scan findings. She had a CT Thorasic, Lumbar, and Pelvis which showed a L1 compression fracture with retropulsion and central canal stenosis. She was admitted for pain control and orthopedic spine consultation. She subsequently developed worsening distention of her abdomen and was noted to have evidence of colonic obstruction on computed tomography scan. She is currently admitted to the hospital for further management of her medical problems noted below. 1. Colonic obstruction postoperative day #2 status post diverting loop transverse colostomy. Postoperative care per surgery. 2. Acute hypoxic respiratory failure, patient was kept on mechanical ventilation post surgery. She is currently in the ICU. Vent management per ICU team. 3. Acute hypoxic respiratory failure, with bilateral pleural effusion. Now marked for possible thoracentesis. Seen and evaluated by pulmonology. CTA chest negative of pulmonary embolism 4. Suspected community-acquired pneumonia on presentation, finished 5 days of oral Augmentin. Started on IV Zosyn after abdominal surgery. We will continue antibiotic coverage for now. 5. Intractable back pain secondary to multiple compression fractures: Seen and evaluated by orthopedic surgery. TLSO BRACE WHEN UP AND AMBULATING. PAIN CONTROL. NO SURGICAL INTERVENTION RECOMMENDED. MRI showed L4 with slight posterior retropulsion, L1 with moderate posterior disc bulge effacing the anterior thecal sac, T11 exam compression fracture with some posterior retropulsion facing the anterior thecal sac. 6. 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 nephrology recommendations, fluid status improved, samsca X 2 7. Paroxysmal Atrial fibrillation with rapid ventricular response, now in NSR. Transition Cardizem to long-acting prior to discharge. Cardiology recommended appreciated. Echocardiogram ef 55-60% no significant valvular dysfunction. TSH normal. Not a candidate for anticoagulation secondary to falls and is currently maintaining normal sinus rhythm 8. Abnormal computed tomography scan of the chest. Plan to follow up with pulmonology outpatient for repeat imaging. CT chest shows no signs of large pulmonary embolism but does demonstrate debris in the right mainstem bronchus with collapse of the lower lobe consolidation, spiculated soft tissue thickening along the right upper lobe and left apical nodularity. Repeat CT chest in 2 months. 9. Hypokalemia and hypomagnesemia: Replace 10. Underlying COPD/emphysema, continue DuoNeb schedule 11. Moderate protein/calorie malnutrition, seen and evaluated by dietitian 12. CODE STATUS: Patient is DO NOT RESUSCITATE/DO NOT INTUBATE per her wishes 13. GI and DVT prophylaxis with IV Protonix and subcu Lovenox Patient was started on IV Cardizem drip per ICU team. Diuresis with IV Lasix with good urine output. Spontaneous breathing trial as directed by patient care manager. Continue ICU care. I would continue to follow up on the patient closely with you.
[2020-07-03] MEDS: SODIUM CHLORIDE 0.9% 1,000 ML IV SCH (13:33)
--- NOTE | 2020-07-03 15:06 | P.PN ---
Subjective Progress Note Date: 07/03/20 CHIEF COMPLAINT: Abdominal pain HISTORY OF PRESENT ILLNESS: Patient is status post diverting loop transverse colostomy for Colonic obstruction. Patient is currently in the ICU and intubated. Patient was not able to be weaned off of the vent. She went into atrial fibrillation with rapid ventricular response. Her ostomy is functioning. She did have a temp of 100.3 WBC 13.7 PHYSICAL EXAM: VITAL SIGNS: Reviewed. GENERAL: Well-developed in no acute distress. HEENT: No sclera icterus. Extraocular movements grossly intact. Moist buccal mucosa. Head is atraumatic, normocephalic. ABDOMEN: Soft. Mildly distended incisional dressing is minimal areas of bleeding. Colostomy with brown liquidy stool present. Stoma beefy red NEUROLOGIC: Patient is intubated. ASSESSMENT: 1. Colonic obstruction status post Diverting loop transverse colostomy postop day #2 2. Chronic hypoxic respiratory failure PLAN: -Continue supportive care -Okay to start tube feedings -Continue antibiotics -Continue GI and DVT prophylaxis Physician Elevator Erector Helper note has been reviewed by physician. Signing provider agrees with the documented findings, assessment, and plan of care. Objective - Vital Signs Vital signs: Vital Signs Temp 99 F 07/03/20 08:00 Pulse 77 07/03/20 14:15 Resp 16 07/03/20 14:15 BP 89/48 07/03/20 12:30 Pulse Ox 93 L 07/03/20 14:15 Intake & Output 07/02/20 07/03/20 07/03/20 18:59 06:59 18:59 Intake Total 1388.648 421.807 411.318 Output Total 2065 1570 845 Balance -676.352 -1148.193 -433.682 Weight 49.2 kg 49.5 kg 49.5 kg Intake: IV 1250 256 261 Bolus 1000 Piperacillin-Tazobactam 3 100 100 .375 gm In Sodium Chloride 0.9% 100 ml @ 25 mls/hr IVPB Q8HR [facility] Rx# :[id number] Sodium Chloride 0.9% 1, 250 120 140 000 ml @ 20 mls/hr IV . Q24H [facility] Rx#:[id number] pressure bag 36 21 Intake, IV Titration 138.648 165.807 150.318 Amount Diltiazem 125 mg In 22.625 Sodium Chloride 0.9% 100 ml @ 5 MG/HR 5 mls/hr IV .Q24H [facility] Rx#:[id number] Norepinephrine 32 mg In 2.195 27.693 Sodium Chloride 0.9% 218 ml @ 0.05 MCG/KG/MIN 1. 153 mls/hr IV .Q24H [facility] Rx#:[id number] Piperacillin-Tazobactam 3 75 .375 gm In Sodium Chloride 0.9% 100 ml @ 25 mls/hr IVPB Q8HR [facility] Rx# :[id number] propofoL 1,000 mg In 63.648 163.612 100.000 Empty Bag 1 bag @ Titrate IV .Q0M [facility] Rx#: [id number] Output: Gastric Drainage 250 50 Urine 1865 1320 795 Stool 200 Other: Voiding Method Indwelling Catheter Indwelling Catheter Indwelling Catheter ABP, PAP, CO, CI - Last Documented Arterial Blood Pressure 102/37 - Labs CBC & Chem 7: 07/03/20 08:50 07/03/20 08:50 Labs: Abnormal Lab Results - Last 24 Hours (Table) 07/02/20 07/02/20 07/03/20 Range/Units 17:51 23:28 00:20 WBC (3.8-10.6) k/uL Neutrophils # (1.3-7.7) k/uL Lymphocytes # (1.0-4.8) k/uL ABG pH (7.35-7.45) ABG pO2 (83-108) mmHg ABG HCO3 (21-25) mmol/L ABG Total CO2 (19-24) mmol/L Sodium (137-145) mmol/L Potassium 3.0 L (3.5-5.1) mmol/L BUN (7-17) mg/dL Glucose (74-99) mg/dL POC Glucose (mg/dL) 100 H 103 H (75-99) mg/dL Calcium (8.4-10.2) mg/dL Total Protein (6.3-8.2) g/dL Albumin (3.5-5.0) g/dL 07/03/20 07/03/20 07/03/20 Range/Units 06:09 07:29 08:50 WBC 13.7 H (3.8-10.6) k/uL Neutrophils # 12.9 H (1.3-7.7) k/uL Lymphocytes # 0.4 L (1.0-4.8) k/uL ABG pH 7.49 H (7.35-7.45) ABG pO2 76 L (83-108) mmHg ABG HCO3 29 H (21-25) mmol/L ABG Total CO2 31 H (19-24) mmol/L Sodium (137-145) mmol/L Potassium (3.5-5.1) mmol/L BUN (7-17) mg/dL Glucose (74-99) mg/dL POC Glucose (mg/dL) 122 H (75-99) mg/dL Calcium (8.4-10.2) mg/dL Total Protein (6.3-8.2) g/dL Albumin (3.5-5.0) g/dL 07/03/20 Range/Units 08:50 WBC (3.8-10.6) k/uL Neutrophils # (1.3-7.7) k/uL Lymphocytes # (1.0-4.8) k/uL ABG pH (7.35-7.45) ABG pO2 (83-108) mmHg ABG HCO3 (21-25) mmol/L ABG Total CO2 (19-24) mmol/L Sodium 132 L (137-145) mmol/L Potassium (3.5-5.1) mmol/L BUN 19 H (7-17) mg/dL Glucose 111 H (74-99) mg/dL POC Glucose (mg/dL) (75-99) mg/dL Calcium 6.8 L (8.4-10.2) mg/dL Total Protein 4.2 L (6.3-8.2) g/dL Albumin 2.0 L (3.5-5.0) g/dL
--- NOTE | 2020-07-03 15:33 | P.PN ---
Subjective Progress Note Date: 07/03/20 Principal diagnosis: Colonic obstruction, status post diverting loop transverse colostomy postoperative day #2 79-year-old white female patient with past medical history of recurring bronchial asthma/COPD who came into the hospital per EMS on 06/23/2020 with the reported back pain of 4-5 day history. Outpatient x-ray by her PCP showed compression fractures. CT of the lumbar spine completed that the [facility] showed L1 compression fracture with 50% retropulsion of a 6 mm fragment into the spinal column, patient was transferred to the [facility] for orthopedic evaluation. Further workup by orthopedic surgery revealed multiple compression fractures likely related to osteoporosis, although underlying malignancy could not be entirely excluded. Chest x-ray showed a chronic parenchymal changes with small bilateral pleural effusions and a right basilar acute infiltrate and/or atelectasis. On admission patient had a low sodium levels, of 131, she was given IV fluids, and afterward she developed some worsening shortness of breath, and received 20 mg of Lasix. Possibility of SIADH versus hypervolemic hyponatremia were considered, nephrology is following. Patient developed abdominal discomfort on 06/28/2020, abdominal x-ray showed nonspecific abdomen, air within the colon was somewhat prominent, consideration for ileus and colonic ileus was advised. Patient also developed A. fib with RVR. CT of the abdomen and pelvis was completed on 06/29/2020 showing diffuse colonic get his dilatation with abrupt transition point in the mid sigmoid colon. There was severe sigmoid colonic diverticulosis, findings were thought to represent colonic obstruction versus ileus, cholelithiasis, and large bilateral pleural effusions increased from prior CT on 06/25/2020. There was a left apical nodularity measuring up to 1.3 cm. Surgical consultation was requested, patient is having abdominal distention, discomfort, she refused NG tube placement. Her oxygen requirement increased from 2 L on admission, to 12 of oxygen today. She is afebrile, she is short of breath, we were asked to see the patient in evaluation for acute hypoxic respiratory failure. Acute abdominal series were completed this morning showing slight progressive diffuse colonic distention and marked colonic ileus or distal colonic obstruction, and continued small pleural effusion with adjacent atelectasis and/or consolidation. Today's blood gas was reviewed, showing pO2 of 58, pCO2 49, and pH of 7.49 this was done on FiO2 of 80%. Patient is on IV Lasix at 40 mg every 12 hours, however clinically she looks dry, after reviewing her CT of the abdomen and pelvis, and chest x-rays the appearance of pleural effusions are small, and patient has bibasilar atelectasis and small pleural effusions likely related to abdominal distention. She's been afebrile, she is on oral prednisone, she is on oral bronchodilators. The patient is seen today 07/01/2020 in follow-up on the selective care unit. She is currently resting fairly comfortably in bed. Awake and alert in no acute distress. Maintaining O2 saturations on 15 L high flow nasal cannula. She's afebrile. Slightly tachycardic. Still with significant abdominal distention. White count 14.3. Hemoglobin 14.8. Sodium 127. Potassium 3.8. Creatinine 0.68. She remains on Symbicort and DuoNeb inhalations. Plan is for diverting colostomy with possible sigmoid resection today. Patient was reevaluated again today on 07/01/20 in the recovery room, she is status post bifurcating colostomy, patient was found to have megacolon and bowel obstruction. She was considered high surgical risk, nonetheless, patient underwent surgery uneventfully, and transferred to the recovery room, and I was asked to see her again while in recovery. She is now on mechanical ventilation, she is on tidal volume is 400 assist control rate of 16, FiO2 is 40%, and PEEP is at 5. ABG is presently pending. Postoperative chest x-ray showed small to moderate-sized bilateral pleural effusions with mild vascular congestion, and by basilar atelectasis. Patient has marginal urine output, she is hemodynamically stable, not requiring any pressors. Preoperative labs were reviewed, patient had low sodium 127 and normal renal profile. Preoperative ABG showed a pO2 of 58 pCO2 of 49 pH of 7.49 and this was on a high flow nasal cannula with 80% FiO2. Patient was reevaluated on 07/02/20, patient remains in the ICU, she is intubated, on mechanical ventilation. Her ventilator settings are assist control rate of 16, volume is 400 FiO2 is 40% PEEP of 5 her ABG showed a pO2 of 71 pCO2 of 39 pH of 7.40. Chest x-ray clearly shows evidence of bilateral pleural effusions documented on ultrasound, but difficult to position the patient to safely perform thoracentesis at this point, hence we'll try diuretics instead of actually performing thoracentesis and the patient now. I have started Lasix at 40 mg IV push every 12 hours. Patient seems to be in quite a bit of pain when she is down on a lower dose or off propofol, I don't think the patient is quite ready to be weaned and extubated. Patient received significant amount of fluids over the last 24 hours, and I will work on diuresing the patient over the next 24 hours and possibly address weaning and extubation in the next 24 hours. CBC is relatively normal today. Electrolytes are relatively normal except for low sodium of 130. Low potassium of 3.5. Renal profile is normal Reevaluated today on 07/03/20, patient remains in the ICU, intubated and mechanically ventilated. Patient is now on assist control rate of 16, tidal volume is 400 FiO2 is 40% PEEP is 5. ABG showed a pO2 of 75 pCO2 of 38 pH of 7.48. Patient required norepinephrine at 0.02 mcg/kg/m, she has been diuresed overnight with Lasix 40 mg IV push twice a day. Patient was on propofol earlier today, which I placed on hold and recommended at least trying the patient on pressure support and CPAP. Shortly after she went on pressure support and CPAP, patient developed SVT rate as high as 170. Patient was given Cardizem and placed on a Cardizem drip. Hence considering her SVT presentation, I recommended that we stop weaning and place her back on assist control mode of mechanical ventilation, and place her back on propofol, obviously the patient is not ready to be weaned or extubated. Chest x-ray did show evidence in her bilateral pleural effusions. Hence no need for thoracentesis. WBC count today is 13.7 hemoglobin is 12.8 F, normal. Colostomy is functional Objective - Vital Signs Vital signs: Vital Signs Temp 99 F 07/03/20 08:00 Pulse 84 07/03/20 15:00 Resp 16 07/03/20 15:00 BP 89/48 07/03/20 12:30 Pulse Ox 94 L 07/03/20 15:00 Intake & Output 07/02/20 07/03/20 07/03/20 18:59 06:59 18:59 Intake Total 1388.648 421.807 434.318 Output Total 2065 1570 1120 Balance -676.352 -1148.193 -685.682 Weight 49.2 kg 49.5 kg 53.3 kg Intake: IV 1250 256 284 Bolus 1000 Piperacillin-Tazobactam 3 100 100 .375 gm In Sodium Chloride 0.9% 100 ml @ 25 mls/hr IVPB Q8HR ANTW[facility] Rx# :[id number] Sodium Chloride 0.9% 1, 250 120 160 000 ml @ 20 mls/hr IV . Q24H [facility]TW[facility] Rx#:[id number] pressure bag 36 24 Intake, IV Titration 138.648 165.807 150.318 Amount Diltiazem 125 mg In 22.625 Sodium Chloride 0.9% 100 ml @ 5 MG/HR 5 mls/hr IV .Q24H ANTW[facility] Rx#:[id number] Norepinephrine 32 mg In 2.195 27.693 Sodium Chloride 0.9% 218 ml @ 0.05 MCG/KG/MIN 1. 153 mls/hr IV .Q24H ANTW[facility] Rx#:[id number] Piperacillin-Tazobactam 3 75 .375 gm In Sodium Chloride 0.9% 100 ml @ 25 mls/hr IVPB Q8HR ANTW[facility] Rx# :[id number] propofoL 1,000 mg In 63.648 163.612 100.000 Empty Bag 1 bag @ Titrate IV .Q0M ANTWAN Rx#: [id number] Output: Gastric Drainage 250 50 Urine 1865 1320 920 Stool 200 150 Other: Voiding Method Indwelling Catheter Indwelling Catheter Indwelling Catheter ABP, PAP, CO, CI - Last Documented Arterial Blood Pressure 126/44 - Exam Physical Exam: Revealed 79-year-old female cachectic looking, frail chronically ill, on mechanical ventilation, sedated. Head: Atraumatic, normocephalic. Orogastric tube and nasogastric tube are intac t. HEENT:: [No neck masses.] [No thyromegaly.] [No JVD.] Chest: [Diminished breath sounds and crackles at the bases. Cardiac Exam: [Normal S1 and S2, no S3 gallop, 2/6 systolic murmur thought the precordium. Abdomen: [Postsurgical.] Colostomy is intact. Functional. Slightly tender abdomen on palpation Extremities: [No clubbing, no edema, no cyanosis.] Neurological Exam: Could not be assessed on propofol. Psychiatric: Could not be assessed. Skin: No rashes. Stage III sacral decubitus ulcer. - Labs CBC & Chem 7: 07/03/20 08:50 07/03/20 08:50 Labs: Abnormal Lab Results - Last 24 Hours (Table) 07/02/20 07/02/20 07/03/20 Range/Units 17:51 23:28 00:20 WBC (3.8-10.6) k/uL Neutrophils # (1.3-7.7) k/uL Lymphocytes # (1.0-4.8) k/uL ABG pH (7.35-7.45) ABG pO2 (83-108) mmHg ABG HCO3 (21-25) mmol/L ABG Total CO2 (19-24) mmol/L Sodium (137-145) mmol/L Potassium 3.0 L (3.5-5.1) mmol/L BUN (7-17) mg/dL Glucose (74-99) mg/dL POC Glucose (mg/dL) 100 H 103 H (75-99) mg/dL Calcium (8.4-10.2) mg/dL Total Protein (6.3-8.2) g/dL Albumin (3.5-5.0) g/dL 07/03/20 07/03/20 07/03/20 Range/Units 06:09 07:29 08:50 WBC 13.7 H (3.8-10.6) k/uL Neutrophils # 12.9 H (1.3-7.7) k/uL Lymphocytes # 0.4 L (1.0-4.8) k/uL ABG pH 7.49 H (7.35-7.45) ABG pO2 76 L (83-108) mmHg ABG HCO3 29 H (21-25) mmol/L ABG Total CO2 31 H (19-24) mmol/L Sodium (137-145) mmol/L Potassium (3.5-5.1) mmol/L BUN (7-17) mg/dL Glucose (74-99) mg/dL POC Glucose (mg/dL) 122 H (75-99) mg/dL Calcium (8.4-10.2) mg/dL Total Protein (6.3-8.2) g/dL Albumin (3.5-5.0) g/dL 07/03/20 Range/Units 08:50 WBC (3.8-10.6) k/uL Neutrophils # (1.3-7.7) k/uL Lymphocytes # (1.0-4.8) k/uL ABG pH (7.35-7.45) ABG pO2 (83-108) mmHg ABG HCO3 (21-25) mmol/L ABG Total CO2 (19-24) mmol/L Sodium 132 L (137-145) mmol/L Potassium (3.5-5.1) mmol/L BUN 19 H (7-17) mg/dL Glucose 111 H (74-99) mg/dL POC Glucose (mg/dL) (75-99) mg/dL Calcium 6.8 L (8.4-10.2) mg/dL Total Protein 4.2 L (6.3-8.2) g/dL Albumin 2.0 L (3.5-5.0) g/dL Assessment and Plan Assessment: Impression: Status post diverting colostomy for severe bowel obstruction/megacolon. Postoperative day #2 Acute on Chronic hypoxic (failure, multifactorial mostly secondary to intra- abdominal distention, and underlying diastolic congestive heart failure with bilateral pleural effusions. And suspect underlying COPD. History of COPD with chronic hypercapnic respiratory failure Chronic diastolic congestive heart failure and bilateral pleural effusion Chronic abdominal pain with multiple compression fractures of thoracolumbar spine. Hypervolemic hyponatremia, resolved Supraventricular tachycardia while weeding on pressure support and CPAP, hence not quite ready for weaning at this point. And patient was placed on Cardizem drip. Recommendation: Continue present ventilatory support. Not ready for any weaning at this point. Continue bronchodilators. Continue antibiotics.. Continue diuretics. Continue hemodynamic support. Started patient on Cardizem for SVT. GI and DVT prophylaxis. Prognosis is extremely poor and guarded, patient was extremely high surgical risk to begin with. Critical care time is 32 minutes, not including the time spent on procedures Time with Patient: Greater than 30
[2020-07-03 19:56] LABS: Glucose,Whole Blood 85 mg/dL (75-99)
[2020-07-03] MEDS: POTASSIUM BICARBONATE/CIT AC 20 MEQ TABLET.EFF NG-TUBE SCH ×2 (19:59→20:02)
[2020-07-03] MEDS: LATANOPROST 0.005% OPHTH DROPS 2.5 ML BTL BOTH EYES SCH (20:02)
[2020-07-03 23:14] LABS: Glucose,Whole Blood 115 mg/dL (75-99)
[2020-07-03] MEDS: NOREPINEPHRINE 32 MG in SODIUM CHLORIDE 0.9% 218 ML IV SCH (23:29)
[2020-07-04] MEDS: HYDROmorphone 0.5 MG/0.5 ML SYRINGE IVP PRN ×4 (01:43→20:04)
[2020-07-04] MEDS: IPRATROPIUM-ALBUTEROL 3 ML NEB INHALATION SCH ×7 (01:49→21:00)
[2020-07-04 04:47] LABS: Basophils % (A) 0 %; Eosinophils # (A) 0.2 k/uL (0-0.7); Eosinophils % (A) 1 %; HGB 12.7 gm/dL (11.4-16.0); Lymphocytes # (A) 0.6 k/uL (1.0-4.8); Lymphocytes % (A) 4 %; MCHC 31.8 g/dL (31.0-37.0); MCV 94.5 fL (80.0-100.0); Mean Platelet Volume 8.5; Monocytes # (A) 0.3 k/uL (0-1.0); Monocytes % (A) 2 %; Neutrophils # (A) 12.4 k/uL (1.3-7.7); Neutrophils % (A) 91 %; Platelet Count 333 k/uL (150-450); RBC 4.23 m/uL (3.80-5.40); RDW 13.3 % (11.5-15.5); WBC 13.6 k/uL (3.8-10.6)
[2020-07-04 04:56] LABS: African American GFR (CKD) >90 (>60 ml/min/1.73 sqM); Anion Gap 4 mmol/L; Blood Urea Nitrogen 17 mg/dL (7-17); Calcium 7.2 mg/dL (8.4-10.2); Carbon Dioxide 33 mmol/L (22-30); Chloride 97 mmol/L (98-107); Glucose 135 mg/dL (74-99); Non-African American GFR(CKD) 87 (>60 ml/min/1.73 sqM); Potassium 3.4 mmol/L (3.5-5.1); Sodium 134 mmol/L (137-145)
[2020-07-04 06:38] LABS: Glucose,Whole Blood 141 mg/dL (75-99)
[2020-07-04] MEDS: INSULIN ASPART (NovoLOG) 100 UNIT/ML VIAL SQ SCH ×3 (07:03→17:25)
[2020-07-04] MEDS: POTASSIUM BICARBONATE/CIT AC 20 MEQ TABLET.EFF NG-TUBE SCH ×2 (07:11→08:28)
[2020-07-04 08:12] LABS: ABG HCO3 33 mmol/L (21-25); ABG Oxygen Saturation 98.4 % (94-97); ABG PCO2 37 mmHg (35-45); ABG PO2 167 mmHg (83-108); ABG TCO2 34 mmol/L (19-24); Allen Test Performed? Yes
[2020-07-04 08:18] LABS: ABG PH 7.56 (7.35-7.45)
[2020-07-04] MEDS: FUROSEMIDE 10 MG/ML 4 ML VIAL IV SCH ×2 (08:28→20:05)
[2020-07-04] MEDS: CHLORHEXIDINE GLUCONATE 15 ML CUP MUCOUS MEM SCH ×2 (08:28→20:11)
[2020-07-04] MEDS: PIPERACILLIN-TAZOBACTAM 3.375 GM in SODIUM CHLORIDE 0.9% 100 ML IVPB SCH ×3 (08:28→23:28)
[2020-07-04] MEDS: PANTOPRAZOLE 40 MG/10 ML VIAL IVP SCH (08:28)
[2020-07-04] MEDS: ENOXAPARIN 40 MG/0.4 ML SYRINGE SQ SCH (08:28)
[2020-07-04] MEDS: MAGNESIUM OXIDE 400 MG TAB PO SCH (08:50)
[2020-07-04] MEDS: CHOLECALCIFEROL 1,000 UNIT TAB PO SCH (08:50)
[2020-07-04] MEDS: VITAMIN E (DL,TOCOPHERYL ACET) 400 UNIT CAP PO SCH (08:50)
--- NOTE | 2020-07-04 09:44 | XR ---
EXAMINATION TYPE: XR chest 1V portable DATE OF EXAM: 07/04/2020 CLINICAL HISTORY: Tube placement. TECHNIQUE: Portable semiupright view of the chest. COMPARISON: 07/03/2020 chest radiograph FINDINGS: Endotracheal and enteric tube redemonstrated. Lungs are hyperexpanded. The cardiomediastin al silhouette is within normal limits for size. Redemonstrated small bilateral pleural effusions and bibasilar airspace opacities. No pneumothorax seen. IMPRESSION: Small bilateral pleural effusions and bibasilar airspace opacities, similar to 07/03/2020 .
--- NOTE | 2020-07-04 11:40 | P.PN ---
Progress Note - Text Progress Note Date: 07/04/20 Patient remains on the ventilator. She apparently is undergoing CPAP trials today. On exam vital signs appear stable. Abdomen is soft. Incision is clean dry intact. Colostomy has some stool in the appliance. Status post diverting colostomy for complete colon obstruction. Hopefully patient will be extubated today.
[2020-07-04 12:06] LABS: Glucose,Whole Blood 140 mg/dL (75-99)
[2020-07-04 12:12] LABS: ABG Base Excess 15.5 mmol/L; ABG HCO3 39 mmol/L (21-25); ABG PCO2 49 mmHg (35-45); ABG PH 7.51 (7.35-7.45); ABG TCO2 40 mmol/L (19-24); Allen Test Performed? Yes
[2020-07-04 12:16] LABS: ABG PO2 59 mmHg (83-108)
--- NOTE | 2020-07-04 12:39 | P.PN ---
Subjective Progress Note Date: 07/04/20 Patient is sedated and intubated. She was started on a low-dose levo fed overnight for hypotension. This morning was 77 so I directed the nurse to discontinue vasopressors. Patient had an event of SVT yesterday with a heart rate up to 170 over started on IV Cardizem drip. Heart rate this morning in the 70s well-controlled. Objective - Vital Signs Vital signs: Vital Signs Temp 99.1 F 07/04/20 12:00 Pulse 83 07/04/20 12:00 Resp 22 07/04/20 12:00 BP 117/56 07/04/20 06:15 Pulse Ox 91 L 07/04/20 12:00 Intake & Output 07/03/20 07/04/20 07/04/20 18:59 06:59 18:59 Intake Total 645.550 736.795 372.500 Output Total 1345 1320 812 Balance -699.450 -583.205 -439.500 Weight 53.3 kg Intake: IV 403 409 145 Piperacillin-Tazobactam 3 150 100 50 .375 gm In Sodium Chloride 0.9% 100 ml @ 25 mls/hr IVPB Q8HR [facility] Rx# :[id number] Sodium Chloride 0.9% 1, 220 240 80 000 ml @ 20 mls/hr IV . Q24H [facility] Rx#:[id number] pressure bag 33 69 15 Intake, IV Titration 202.550 87.795 117.500 Amount Diltiazem 125 mg In 22.625 Sodium Chloride 0.9% 100 ml @ 5 MG/HR 5 mls/hr IV .Q24H [facility] Rx#:[id number] Norepinephrine 32 mg In 29.831 19.287 18.691 Sodium Chloride 0.9% 218 ml @ 0.05 MCG/KG/MIN 1. 153 mls/hr IV .Q24H [facility] Rx#:[id number] propofoL 1,000 mg In 150.094 68.508 98.809 Empty Bag 1 bag @ Titrate IV .Q0M [facility] Rx#: [id number] Tube Feeding 10 180 80 Other 30 60 30 Output: Gastric Drainage 50 Urine 1145 1320 812 Stool 150 Other: Voiding Method Indwelling Catheter Indwelling Catheter Indwelling Catheter # Voids 0 0 ABP, PAP, CO, CI - Last Documented Arterial Blood Pressure 105/43 - Exam General: The patient is sedated and intubated Eye: there is normal conjunctiva bilaterally. Neck: The neck is supple, there is no JVD. Cardiovascular: Normal S1-S2, no S3-S4, no murmurs. Respiratory: Lungs with mechanical ventilator sounds Gastrointestinal: Abdomen is soft, colostomy with brownish liquid. There is moderate to severe tenderness to palpation all over the abdomen Musculoskeletal: There is no pedal edema. Skin: Skin is warm and dry - Labs CBC & Chem 7: 07/04/20 04:30 07/04/20 04:30 Labs: Abnormal Lab Results - Last 24 Hours (Table) 07/03/20 07/03/20 07/04/20 Range/Units 18:45 23:12 04:30 WBC 13.6 H (3.8-10.6) k/uL Neutrophils # 12.4 H (1.3-7.7) k/uL Lymphocytes # 0.6 L (1.0-4.8) k/uL ABG pH (7.35-7.45) ABG pCO2 (35-45) mmHg ABG pO2 (83-108) mmHg ABG HCO3 (21-25) mmol/L ABG Total CO2 (19-24) mmol/L ABG O2 Saturation (94-97) % Sodium (137-145) mmol/L Potassium 3.2 L (3.5-5.1) mmol/L Chloride (98-107) mmol/L Carbon Dioxide (22-30) mmol/L Glucose (74-99) mg/dL POC Glucose (mg/dL) 115 H (75-99) mg/dL Calcium (8.4-10.2) mg/dL 07/04/20 07/04/20 07/04/20 Range/Units 04:30 06:37 07:57 WBC (3.8-10.6) k/uL Neutrophils # (1.3-7.7) k/uL Lymphocytes # (1.0-4.8) k/uL ABG pH 7.56 H* (7.35-7.45) ABG pCO2 (35-45) mmHg ABG pO2 167 H (83-108) mmHg ABG HCO3 33 H (21-25) mmol/L ABG Total CO2 34 H (19-24) mmol/L ABG O2 Saturation 98.4 H (94-97) % Sodium 134 L (137-145) mmol/L Potassium 3.4 L (3.5-5.1) mmol/L Chloride 97 L (98-107) mmol/L Carbon Dioxide 33 H (22-30) mmol/L Glucose 135 H (74-99) mg/dL POC Glucose (mg/dL) 141 H (75-99) mg/dL Calcium 7.2 L (8.4-10.2) mg/dL 07/04/20 07/04/20 Range/Units 11:54 12:06 WBC (3.8-10.6) k/uL Neutrophils # (1.3-7.7) k/uL Lymphocytes # (1.0-4.8) k/uL ABG pH 7.51 H (7.35-7.45) ABG pCO2 49 H (35-45) mmHg ABG pO2 59 L* (83-108) mmHg ABG HCO3 39 H (21-25) mmol/L ABG Total CO2 40 H (19-24) mmol/L ABG O2 Saturation 92.0 L (94-97) % Sodium (137-145) mmol/L Potassium (3.5-5.1) mmol/L Chloride (98-107) mmol/L Carbon Dioxide (22-30) mmol/L Glucose (74-99) mg/dL POC Glucose (mg/dL) 140 H (75-99) mg/dL Calcium (8.4-10.2) mg/dL Assessment and Plan Assessment: Patient is a 79-year-old female with known COPD, tobacco abuse (quit 1 year ago), and hypertension who presented as a transfer from [facility] secondary to low back pain with abnormal computed tomography scan findings. She had a CT Thorasic, Lumbar, and Pelvis which showed a L1 compression fracture with retropulsion and central canal stenosis. She was admitted for pain control and orthopedic spine consultation. She subsequently developed worsening distention of her abdomen and was noted to have evidence of colonic obstruction on computed tomography scan. She is currently admitted to the hospital for further management of her medical problems noted below. 1. Colonic obstruction postoperative day #3 status post diverting loop transver se colostomy. Postoperative care per surgery. 2. Started with good output through the ostomy 2. Acute hypoxic respiratory failure, patient was kept on mechanical ventilation post surgery. She is currently in the ICU. Vent management per ICU team. 3. Acute hypoxic respiratory failure, with bilateral pleural effusion. Seen and evaluated by pulmonology. CTA chest negative of pulmonary embolism 4. Suspected community-acquired pneumonia on presentation, finished 5 days of oral Augmentin. Started on IV Zosyn day #3 after abdominal surgery. We will continue antibiotic coverage for now. 5. Intractable back pain secondary to multiple compression fractures: Seen and evaluated by orthopedic surgery. TLSO BRACE WHEN UP AND AMBULATING. PAIN CONTROL. NO SURGICAL INTERVENTION RECOMMENDED. MRI showed L4 with slight posterior retropulsion, L1 with moderate posterior disc bulge effacing the anterior thecal sac, T11 exam compression fracture with some posterior retropulsion facing the anterior thecal sac. 6. 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 nephrology recommendations, fluid status improved, samsca X 2 7. Paroxysmal Atrial fibrillation with rapid ventricular response, now in NSR. Transition Cardizem to long-acting prior to discharge. Cardiology recommended appreciated. Echocardiogram ef 55-60% no significant valvular dysfunction. TSH normal. Not a candidate for anticoagulation secondary to falls and is currently maintaining normal sinus rhythm 8. Abnormal computed tomography scan of the chest. Plan to follow up with pulmonology outpatient for repeat imaging. CT chest shows no signs of large pulmonary embolism but does demonstrate debris in the right mainstem bronchus with collapse of the lower lobe consolidation, spiculated soft tissue thickening along the right upper lobe and left apical nodularity. Repeat CT chest in 2 months. 9. Hypokalemia and hypomagnesemia: Replace 10. Underlying COPD/emphysema, continue DuoNeb schedule 11. Moderate protein/calorie malnutrition, seen and evaluated by dietitian 12. CODE STATUS: Patient is DO NOT RESUSCITATE/DO NOT INTUBATE per her wishes 13. GI and DVT prophylaxis with IV Protonix and subcu Lovenox Spontaneous breathing trial as directed by soda drier feeder. Continue ICU care. I would continue to follow up on the patient closely with you.
--- NOTE | 2020-07-04 12:47 | PN ---
PROGRESS NOTE Patient is seen for followup for hyponatremia. Her serum sodium has been staying at about 132-134 mEq/L. Currently patient is on the vent. She is maintained on tube feedings. She is maintained on Lasix as well, 40 mg q.12 hours. No IV fluids. PHYSICAL EXAMINATION: On examination, patient is sedated. She is on small amount of Levophed. Blood pressure about 93/46. She is afebrile. Heart rate 85 per minute. Examination of the heart S1, S2. Examination of the lungs, bilateral breath sounds are heard. Abdomen is soft, nontender. Examination lower extremities shows no evidence of edema. Dressing intact. LABS: Show sodium of 134, potassium 3.4, chloride 97, CO2 is 33, BUN 17, serum creatinine 0.6, hemoglobin 12.7. ASSESSMENT: 1. Hyponatremia which is hypervolemic, currently maintained on Lasix which I will continue for now. 2. Bowel obstruction status post diverting loop transverse colostomy on July 01. 3. Hypokalemia secondary to diuresis, being replaced. 4. Atrial fibrillation with rapid ventricular response, rate is better controlled. 5. Back pain with multiple compression fractures. PLAN: Continue with the current dose of Lasix, repeat labs in a.m., replace potassium. MMODL / IJN: [id number] /
--- NOTE | 2020-07-04 13:16 | P.PN ---
Subjective Progress Note Date: 07/04/20 Principal diagnosis: Colonic obstruction, status post diverting loop transverse colostomy postoperative day #3 79-year-old white female patient with past medical history of recurring bronchial asthma/COPD who came into the hospital per EMS on 06/23/2020 with the reported back pain of 4-5 day history. Outpatient x-ray by her PCP showed compression fractures. CT of the lumbar spine completed that the [facility] showed L1 compression fracture with 50% retropulsion of a 6 mm fragment into the spinal column, patient was transferred to the [facility] for orthopedic evaluation. Further workup by orthopedic surgery revealed multiple compression fractures likely related to osteoporosis, although underlying malignancy could not be entirely excluded. Chest x-ray showed a chronic parenchymal changes with small bilateral pleural effusions and a right basilar acute infiltrate and/or atelectasis. On admission patient had a low sodium levels, of 131, she was given IV fluids, and afterward she developed some worsening shortness of breath, and received 20 mg of Lasix. Possibility of SIADH versus hypervolemic hyponatremia were considered, nephrology is following. Patient developed abdominal discomfort on 06/28/2020, abdominal x-ray showed nonspecific abdomen, air within the colon was somewhat prominent, consideration for ileus and colonic ileus was advised. Patient also developed A. fib with RVR. CT of the abdomen and pelvis was completed on 06/29/2020 showing diffuse colonic get his dilatation with abrupt transition point in the mid sigmoid colon. There was severe sigmoid colonic diverticulosis, findings were thought to represent colonic obstruction versus ileus, cholelithiasis, and large bilateral pleural effusions increased from prior CT on 06/25/2020. There was a left apical nodularity measuring up to 1.3 cm. Surgical consultation was requested, patient is having abdominal distention, discomfort, she refused NG tube placement. Her oxygen requirement increased from 2 L on admission, to 12 of oxygen today. She is afebrile, she is short of breath, we were asked to see the patient in evaluation for acute hypoxic respiratory failure. Acute abdominal series were completed this morning showing slight progressive diffuse colonic distention and marked colonic ileus or distal colonic obstruction, and continued small pleural effusion with adjacent atelectasis and/or consolidation. Today's blood gas was reviewed, showing pO2 of 58, pCO2 49, and pH of 7.49 this was done on FiO2 of 80%. Patient is on IV Lasix at 40 mg every 12 hours, however clinically she looks dry, after reviewing her CT of the abdomen and pelvis, and chest x-rays the appearance of pleural effusions are small, and patient has bibasilar atelectasis and small pleural effusions likely related to abdominal distention. She's been afebrile, she is on oral prednisone, she is on oral bronchodilators. The patient is seen today 07/01/2020 in follow-up on the selective care unit. She is currently resting fairly comfortably in bed. Awake and alert in no acute distress. Maintaining O2 saturations on 15 L high flow nasal cannula. She's afebrile. Slightly tachycardic. Still with significant abdominal distention. White count 14.3. Hemoglobin 14.8. Sodium 127. Potassium 3.8. Creatinine 0.68. She remains on Symbicort and DuoNeb inhalations. Plan is for diverting colostomy with possible sigmoid resection today. Patient was reevaluated again today on 07/01/20 in the recovery room, she is status post bifurcating colostomy, patient was found to have megacolon and bowel obstruction. She was considered high surgical risk, nonetheless, patient underwent surgery uneventfully, and transferred to the recovery room, and I was asked to see her again while in recovery. She is now on mechanical ventilation, she is on tidal volume is 400 assist control rate of 16, FiO2 is 40%, and PEEP is at 5. ABG is presently pending. Postoperative chest x-ray showed small to moderate-sized bilateral pleural effusions with mild vascular congestion, and by basilar atelectasis. Patient has marginal urine output, she is hemodynamically stable, not requiring any pressors. Preoperative labs were reviewed, patient had low sodium 127 and normal renal profile. Preoperative ABG showed a pO2 of 58 pCO2 of 49 pH of 7.49 and this was on a high flow nasal cannula with 80% FiO2. Patient was reevaluated on 07/02/20, patient remains in the ICU, she is intubated, on mechanical ventilation. Her ventilator settings are assist control rate of 16, volume is 400 FiO2 is 40% PEEP of 5 her ABG showed a pO2 of 71 pCO2 of 39 pH of 7.40. Chest x-ray clearly shows evidence of bilateral pleural effusions documented on ultrasound, but difficult to position the patient to safely perform thoracentesis at this point, hence we'll try diuretics instead of actually performing thoracentesis and the patient now. I have started Lasix at 40 mg IV push every 12 hours. Patient seems to be in quite a bit of pain when she is down on a lower dose or off propofol, I don't think the patient is quite ready to be weaned and extubated. Patient received significant amount of fluids over the last 24 hours, and I will work on diuresing the patient over the next 24 hours and possibly address weaning and extubation in the next 24 hours. CBC is relatively normal today. Electrolytes are relatively normal except for low sodium of 130. Low potassium of 3.5. Renal profile is normal Reevaluated today on 07/03/20, patient remains in the ICU, intubated and mechanically ventilated. Patient is now on assist control rate of 16, tidal volume is 400 FiO2 is 40% PEEP is 5. ABG showed a pO2 of 75 pCO2 of 38 pH of 7.48. Patient required norepinephrine at 0.02 mcg/kg/m, she has been diuresed overnight with Lasix 40 mg IV push twice a day. Patient was on propofol earlier today, which I placed on hold and recommended at least trying the patient on pressure support and CPAP. Shortly after she went on pressure support and CPAP, patient developed SVT rate as high as 170. Patient was given Cardizem and placed on a Cardizem drip. Hence considering her SVT presentation, I recommended that we stop weaning and place her back on assist control mode of mechanical ventilation, and place her back on propofol, obviously the patient is not ready to be weaned or extubated. Chest x-ray did show evidence in her bilateral pleural effusions. Hence no need for thoracentesis. WBC count today is 13.7 hemoglobin is 12.8 F, normal. Colostomy is functional Patient was reevaluated today on 07/04/20, remains in the ICU intubated and mechanically ventilated. She is on assist control rate of 16 tidal volume is 400 FiO2 is 40% and PEEP of 5. ABG showed a pO2 of 167 pCO2 of 37 pH of 7.56. Patient is on norepinephrine, roughly 7.5 g. Patient is also on Cardizem at 5 mg per hour for her A. fib/RVR but she is presently in normal sinus rhythm. Patient is on enteral feeding. And she seems to be tolerating that well. Colostomy seems to be functional. Chest x-ray continues to show improvement in her bilateral pleural effusions. And bibasilar opacities. No need for thoracentesis. Patient is arousable, she follows simple instructions, hence I have decided to give the patient a trial of weaning with a pressure support of 8 and CPAP, and if tolerated we'll may proceed to extubating the patient. Although her overall pulmonary status is marginal to begin with. WBC count today is 13.6 hemoglobin is 12.7. Lactulose are normal bicarb is 33. Renal profile is normal. Objective - Vital Signs Vital signs: Vital Signs Temp 99.1 F 07/04/20 12:00 Pulse 83 07/04/20 12:00 Resp 22 07/04/20 12:00 BP 117/56 07/04/20 06:15 Pulse Ox 91 L 07/04/20 12:00 Intake & Output 07/03/20 07/04/20 07/04/20 18:59 06:59 18:59 Intake Total 645.550 736.795 372.500 Output Total 1345 1320 812 Balance -699.450 -583.205 -439.500 Weight 53.3 kg Intake: IV 403 409 145 Piperacillin-Tazobactam 3 150 100 50 .375 gm In Sodium Chloride 0.9% 100 ml @ 25 mls/hr IVPB Q8HR [facility] Rx# :[id number] Sodium Chloride 0.9% 1, 220 240 80 000 ml @ 20 mls/hr IV . Q24H [facility]TW[facility] Rx#:[id number] pressure bag 33 69 15 Intake, IV Titration 202.550 87.795 117.500 Amount Diltiazem 125 mg In 22.625 Sodium Chloride 0.9% 100 ml @ 5 MG/HR 5 mls/hr IV .Q24H [facility]TW[facility] Rx#:[id number] Norepinephrine 32 mg In 29.831 19.287 18.691 Sodium Chloride 0.9% 218 ml @ 0.05 MCG/KG/MIN 1. 153 mls/hr IV .Q24H ANTWAN Rx#:[id number] propofoL 1,000 mg In 150.094 68.508 98.809 Empty Bag 1 bag @ Titrate IV .Q0M ANTWAN Rx#: [id number] Tube Feeding 10 180 80 Other 30 60 30 Output: Gastric Drainage 50 Urine 1145 1320 812 Stool 150 Other: Voiding Method Indwelling Catheter Indwelling Catheter Indwelling Catheter # Voids 0 0 ABP, PAP, CO, CI - Last Documented Arterial Blood Pressure 105/43 - Exam Physical Exam: Revealed 79-year-old female cachectic looking, frail chronically ill, on mechanical ventilation, Head: Atraumatic, normocephalic. Orogastric tube and nasogastric tube are intact. HEENT:: [No neck masses.] [No thyromegaly.] [No JVD.] Chest: [Diminished breath sounds and crackles at the bases. Cardiac Exam: [Normal S1 and S2, no S3 gallop, 2/6 systolic murmur thought the precordium. Abdomen: [Postsurgical.] Colostomy is intact. Functional. Slightly tender abdomen on palpation Extremities: [No clubbing, no edema, no cyanosis.] Neurological Exam: Could not be assessed on propofol. Psychiatric: Could not be assessed. Skin: No rashes. Stage III sacral decubitus ulcer. - Labs CBC & Chem 7: 07/04/20 04:30 07/04/20 04:30 Labs: Abnormal Lab Results - Last 24 Hours (Table) 07/03/20 07/03/20 07/04/20 Range/Units 18:45 23:12 04:30 WBC 13.6 H (3.8-10.6) k/uL Neutrophils # 12.4 H (1.3-7.7) k/uL Lymphocytes # 0.6 L (1.0-4.8) k/uL ABG pH (7.35-7.45) ABG pCO2 (35-45) mmHg ABG pO2 (83-108) mmHg ABG HCO3 (21-25) mmol/L ABG Total CO2 (19-24) mmol/L ABG O2 Saturation (94-97) % Sodium (137-145) mmol/L Potassium 3.2 L (3.5-5.1) mmol/L Chloride (98-107) mmol/L Carbon Dioxide (22-30) mmol/L Glucose (74-99) mg/dL POC Glucose (mg/dL) 115 H (75-99) mg/dL Calcium (8.4-10.2) mg/dL 11/03/1607/04/20 07/04/20 Range/Units 04:30 06:37 07:57 WBC (3.8-10.6) k/uL Neutrophils # (1.3-7.7) k/uL Lymphocytes # (1.0-4.8) k/uL ABG pH 7.56 H* (7.35-7.45) ABG pCO2 (35-45) mmHg ABG pO2 167 H (83-108) mmHg ABG HCO3 33 H (21-25) mmol/L ABG Total CO2 34 H (19-24) mmol/L ABG O2 Saturation 98.4 H (94-97) % Sodium 134 L (137-145) mmol/L Potassium 3.4 L (3.5-5.1) mmol/L Chloride 97 L (98-107) mmol/L Carbon Dioxide 33 H (22-30) mmol/L Glucose 135 H (74-99) mg/dL POC Glucose (mg/dL) 141 H (75-99) mg/dL Calcium 7.2 L (8.4-10.2) mg/dL 07/04/20 07/04/20 Range/Units 11:54 12:06 WBC (3.8-10.6) k/uL Neutrophils # (1.3-7.7) k/uL Lymphocytes # (1.0-4.8) k/uL ABG pH 7.51 H (7.35-7.45) ABG pCO2 49 H (35-45) mmHg ABG pO2 59 L* (83-108) mmHg ABG HCO3 39 H (21-25) mmol/L ABG Total CO2 40 H (19-24) mmol/L ABG O2 Saturation 92.0 L (94-97) % Sodium (137-145) mmol/L Potassium (3.5-5.1) mmol/L Chloride (98-107) mmol/L Carbon Dioxide (22-30) mmol/L Glucose (74-99) mg/dL POC Glucose (mg/dL) 140 H (75-99) mg/dL Calcium (8.4-10.2) mg/dL Assessment and Plan Assessment: Impression: Status post diverting colostomy for severe bowel obstruction/megacolon. Postoperative day #3 Acute on Chronic hypoxic (failure, multifactorial mostly secondary to intra- abdominal distention, and underlying diastolic congestive heart failure with bilateral pleural effusions. And suspect underlying COPD. History of COPD with chronic hypercapnic respiratory failure Chronic diastolic congestive heart failure and bilateral pleural effusion Chronic abdominal pain with multiple compression fractures of thoracolumbar spine. Hypervolemic hyponatremia, resolved Supraventricular tachycardia while weeding on pressure support and CPAP, hence not quite ready for weaning at this point. And patient was placed on Cardizem drip. Recommendation: Continue present ventilatory support. Hold sedation and give the patient a trial of weaning if fully awake. Possibly placed on pressure support and CPAP. Continue bronchodilators. Continue antibiotics.. Continue diuretics. Continue hemodynamic support. Continue Cardizem at 5 mg per hour. GI and DVT prophylaxis. Will possibly consider weaning and extubation today if the patient tolerates pressure support and CPAP. We'll continue to follow, patient remains critically ill, and critical care time is 35 minutes Time with Patient: Greater than 30
[2020-07-04] MEDS: SODIUM CHLORIDE 0.9% 1,000 ML IV SCH (15:49)
[2020-07-04 17:23] LABS: Glucose,Whole Blood 105 mg/dL (75-99)
[2020-07-04] MEDS ORDERED: AMIODARONE 360 MG in DEXTROSE 5% IN WATER 200 ML IV ONE ×2 (18:45)
[2020-07-04] MEDS ORDERED: DEXTROSE 5% IN WATER 100 ML with AMIODARONE 150 MG IV ONE (18:45)
[2020-07-04] MEDS ORDERED: IPRATROPIUM-ALBUTEROL 3 ML NEB INHALATION PRN (19:58)
[2020-07-04] MEDS: LATANOPROST 0.005% OPHTH DROPS 2.5 ML BTL BOTH EYES SCH (20:11)
[2020-07-04] MEDS: HYDROmorphone 1 MG/ML 1 ML SYRINGE IVP PRN (22:48)
[2020-07-04 23:18] LABS: Glucose,Whole Blood 105 mg/dL (75-99)
[2020-07-05] MEDS: AMIODARONE 300 MG in DEXTROSE 5% IN WATER 250 ML IV SCH ×4 (01:00→12:45)
[2020-07-05] MEDS: HYDROmorphone 1 MG/ML 1 ML SYRINGE IVP PRN ×8 (02:32→21:18)
[2020-07-05] MEDS: INSULIN ASPART (NovoLOG) 100 UNIT/ML VIAL SQ SCH ×4 (03:09→18:31)
[2020-07-05 03:51] LABS: Basophils % (A) 0 %; Eosinophils # (A) 0.2 k/uL (0-0.7); Eosinophils % (A) 2 %; HCT 37.7 % (34.0-46.0); HGB 11.9 gm/dL (11.4-16.0); Hypochromasia Slight; Lymphocytes # (A) 0.4 k/uL (1.0-4.8); Lymphocytes % (A) 4 %; MCH 30.1 pg (25.0-35.0); MCHC 31.5 g/dL (31.0-37.0); MCV 95.7 fL (80.0-100.0); Mean Platelet Volume 7.7; Monocytes # (A) 0.2 k/uL (0-1.0); Monocytes % (A) 2 %; Neutrophils # (A) 8.3 k/uL (1.3-7.7); Neutrophils % (A) 91 %; Platelet Count 265 k/uL (150-450); RBC 3.94 m/uL (3.80-5.40); RDW 13.2 % (11.5-15.5); WBC 9.2 k/uL (3.8-10.6)
[2020-07-05 04:00] LABS: African American GFR (CKD) >90 (>60 ml/min/1.73 sqM); Anion Gap 4 mmol/L; Blood Urea Nitrogen 14 mg/dL (7-17); Calcium 7.7 mg/dL (8.4-10.2); Chloride 91 mmol/L (98-107); Glucose 102 mg/dL (74-99); Non-African American GFR(CKD) >90 (>60 ml/min/1.73 sqM); Potassium 3.3 mmol/L (3.5-5.1); Sodium 135 mmol/L (137-145)
[2020-07-05 04:06] LABS: Carbon Dioxide 40 mmol/L (22-30)
[2020-07-05] MEDS: POTASSIUM CHLORIDE 20 MEQ in WATER FOR INJECTION 1 100ML.BAG IVPB SCH ×2 (05:11→08:24)
--- NOTE | 2020-07-05 07:25 | XR ---
EXAMINATION TYPE: XR chest 1V portable DATE OF EXAM: 07/05/2020 HISTORY: Shortness of breath. COMPARISON: 07/04/2020 TECHNIQUE: Single view of the chest is submitted. FINDINGS: Endotracheal and NG tubes have been removed. Persistent basilar infiltrates and/or atelectasis with p leural effusions right greater than left. The heart is stable. Hilar and mediastinal structures are within normal limits. Degenerative changes are seen of the dorsal spine. IMPRESSION: 1. Endotracheal and NG tubes have been removed. Persistent basilar infiltrates and/or atelectasis wi th pleural effusions right greater than left.
[2020-07-05] MEDS: IPRATROPIUM-ALBUTEROL 3 ML NEB INHALATION SCH ×4 (08:12→19:00)
[2020-07-05] MEDS: NOREPINEPHRINE 32 MG in SODIUM CHLORIDE 0.9% 218 ML IV SCH (08:23)
[2020-07-05] MEDS: PIPERACILLIN-TAZOBACTAM 3.375 GM in SODIUM CHLORIDE 0.9% 100 ML IVPB SCH ×2 (08:24→15:09)
[2020-07-05] MEDS: FUROSEMIDE 10 MG/ML 4 ML VIAL IV SCH ×2 (08:26→21:27)
[2020-07-05] MEDS: MAGNESIUM OXIDE 400 MG TAB PO SCH (08:26)
[2020-07-05] MEDS: VITAMIN E (DL,TOCOPHERYL ACET) 400 UNIT CAP PO SCH (08:26)
[2020-07-05] MEDS: PANTOPRAZOLE 40 MG/10 ML VIAL IVP SCH (08:26)
[2020-07-05] MEDS: CHOLECALCIFEROL 1,000 UNIT TAB PO SCH (08:26)
[2020-07-05] MEDS: ENOXAPARIN 40 MG/0.4 ML SYRINGE SQ SCH (08:26)
--- NOTE | 2020-07-05 10:02 | P.PN ---
Progress Note - Text Progress Note Date: 07/05/20 Patient got extubated yesterday. She is resting in her bed. On exam her vital signs are stable. Abdomen soft. Incision is clean and intact. Colostomy has stool within it. Patient was placed on full liquid diet today.
[2020-07-05 11:57] LABS: Glucose,Whole Blood 88 mg/dL (75-99)
[2020-07-05 13:26] LABS: Hemoglobin A1C 5.7 % (4.0-6.0)
--- NOTE | 2020-07-05 13:37 | P.PN ---
Subjective Progress Note Date: 07/05/20 Patient is awake and alert. She is complaining of uncontrolled pain in her abdomen. She told me that she wants to be left alone to . She is still nothing by mouth. Objective - Vital Signs Vital signs: Vital Signs Temp 98.2 F 07/05/20 12:00 Pulse 88 07/05/20 12:08 Resp 18 07/05/20 12:00 BP 122/71 07/05/20 12:00 Pulse Ox 96 07/05/20 12:00 Intake & Output 07/04/20 07/05/20 07/05/20 18:59 06:59 18:59 Intake Total 802.500 305.413 115 Output Total 2787 2275 1150 Balance -1984.500 -1969.587 -1035 Intake: IV 479 299 115 Piperacillin-Tazobactam 3 200 .375 gm In Sodium Chloride 0.9% 100 ml @ 25 mls/hr IVPB Q8HR [facility] Rx# :[id number] Sodium Chloride 0.9% 1, 240 260 100 000 ml @ 20 mls/hr IV . Q24H [facility] Rx#:[id number] pressure bag 39 39 15 Intake, IV Titration 117.500 6.413 Amount Norepinephrine 32 mg In 18.691 6.413 Sodium Chloride 0.9% 218 ml @ 0.05 MCG/KG/MIN 1. 153 mls/hr IV .Q24H [facility] Rx#:[id number] propofoL 1,000 mg In 98.809 Empty Bag 1 bag @ Titrate IV .Q0M [facility] Rx#: [id number] Tube Feeding 146 Other 60 Output: Urine 2587 2175 1150 Stool 200 Urine/Stool Mix 100 Other: Voiding Method Indwelling Catheter Indwelling Catheter Indwelling Catheter ABP, PAP, CO, CI - Last Documented Arterial Blood Pressure 122/99 - Exam General: The patient is awake and alert, in no distress Eye: there is normal conjunctiva bilaterally. Neck: The neck is supple, there is no JVD. Cardiovascular: Normal S1-S2, no S3-S4, no murmurs. Respiratory: Lungs clear to auscultation bilaterally Gastrointestinal: Abdomen is soft, with severe tenderness to light palpation all over the abdomen. Colostomy in place with good output in the bag Musculoskeletal: There is no pedal edema. Neurological:. Speech is normal. Skin: Skin is warm and dry - Labs CBC & Chem 7: 07/05/20 04:00 07/05/20 04:00 Labs: Abnormal Lab Results - Last 24 Hours (Table) 07/04/20 07/04/20 07/05/20 Range/Units 17:22 23:17 04:00 Neutrophils # 8.3 H (1.3-7.7) k/uL Lymphocytes # 0.4 L (1.0-4.8) k/uL Sodium (137-145) mmol/L Potassium (3.5-5.1) mmol/L Chloride (98-107) mmol/L Carbon Dioxide (22-30) mmol/L Creatinine (0.52-1.04) mg/dL Glucose (74-99) mg/dL POC Glucose (mg/dL) 105 H 105 H (75-99) mg/dL Calcium (8.4-10.2) mg/dL 07/05/20 Range/Units 04:00 Neutrophils # (1.3-7.7) k/uL Lymphocytes # (1.0-4.8) k/uL Sodium 135 L (137-145) mmol/L Potassium 3.3 L (3.5-5.1) mmol/L Chloride 91 L (98-107) mmol/L Carbon Dioxide 40 H (22-30) mmol/L Creatinine 0.48 L (0.52-1.04) mg/dL Glucose 102 H (74-99) mg/dL POC Glucose (mg/dL) (75-99) mg/dL Calcium 7.7 L (8.4-10.2) mg/dL Assessment and Plan Assessment: Patient is a 79-year-old female with known COPD, tobacco abuse (quit 1 year ago), and hypertension who presented as a transfer from [facility] secondary to low back pain with abnormal computed tomography scan findings. She had a CT Thorasic, Lumbar, and Pelvis which showed a L1 compression fracture with retropulsion and central canal stenosis. She was admitted for pain control and orthopedic spine consultation. She subsequently developed worsening distention of her abdomen and was noted to have evidence of colonic obstruction on computed tomography scan. She is currently admitted to the hospital for fur ther management of her medical problems noted below. 1. Colonic obstruction status post diverting loop transverse colostomy. Postoperative care per surgery. Started on liquid diet 2. Acute hypoxic respiratory failure, patient was kept on mechanical ventilation post surgery. Successfully extubated on 07/04 3. Acute hypoxic respiratory failure, with bilateral pleural effusion. Seen and evaluated by pulmonology. CTA chest negative of pulmonary embolism. Currently on IV Lasix 4. Suspected community-acquired pneumonia on presentation, finished 5 days of oral Augmentin. Started on IV Zosyn day #4 after abdominal surgery. We will continue antibiotic coverage for now. 5. Intractable back pain secondary to multiple compression fractures: Seen and evaluated by orthopedic surgery. TLSO BRACE WHEN UP AND AMBULATING. PAIN CONTROL. NO SURGICAL INTERVENTION RECOMMENDED. MRI showed L4 with slight posterior retropulsion, L1 with moderate posterior disc bulge effacing the anterior thecal sac, T11 exam compression fracture with some posterior retropulsion facing the anterior thecal sac. 6. 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 nephrology recommendations, fluid status improved, samsca X 2 7. Paroxysmal Atrial fibrillation with rapid ventricular response, now in NSR. Transition Cardizem to long-acting prior to discharge. Cardiology recommended appreciated. Echocardiogram ef 55-60% no significant valvular dysfunction. TSH normal. Not a candidate for anticoagulation secondary to falls and is currently maintaining normal sinus rhythm 8. Abnormal computed tomography scan of the chest. Plan to follow up with pulmonology outpatient for repeat imaging. CT chest shows no signs of large pulmonary embolism but does demonstrate debris in the right mainstem bronchus w ith collapse of the lower lobe consolidation, spiculated soft tissue thickening along the right upper lobe and left apical nodularity. Repeat CT chest in 2 months. 9. Hypokalemia and hypomagnesemia: Replace 10. Underlying COPD/emphysema, continue DuoNeb schedule 11. Moderate protein/calorie malnutrition, seen and evaluated by dietitian 12. CODE STATUS: Patient is DO NOT RESUSCITATE/DO NOT INTUBATE per her wishes 13. GI and DVT prophylaxis with IV Protonix and subcu Lovenox Speech pathology consult.
--- NOTE | 2020-07-05 14:41 | P.PN ---
Subjective Progress Note Date: 07/05/20 Principal diagnosis: Colonic obstruction, status post diverting loop transverse colostomy postoperative day #4 79-year-old white female patient with past medical history of recurring bronchial asthma/COPD who came into the hospital per EMS on 06/23/2020 with the reported back pain of 4-5 day history. Outpatient x-ray by her PCP showed compression fractures. CT of the lumbar spine completed that the [facility] showed L1 compression fracture with 50% retropulsion of a 6 mm fragment into the spinal column, patient was [facility] for [facility]opedic evaluation. Further workup by orthopedic surgery revealed multiple compression fractures likely related to osteoporosis, although underlying malignancy could not be entirely excluded. Chest x-ray showed a chronic parenchymal changes with small bilateral pleural effusions and a right basilar acute infiltrate and/or atelectasis. On admission patient had a low sodium levels, of 131, she was given IV fluids, and afterward she developed some worsening shortness of breath, and received 20 mg of Lasix. Possibility of SIADH versus hypervolemic hyponatremia were considered, nephrology is following. Patient developed abdominal discomfort on 06/28/2020, abdominal x-ray showed nonspecific abdomen, air within the colon was somewhat prominent, consideration for ileus and colonic ileus was advised. Patient also developed A. fib with RVR. CT of the abdomen and pelvis was completed on 06/29/2020 showing diffuse colonic get his dilatation with abrupt transition point in the mid sigmoid colon. There was severe sigmoid colonic diverticulosis, findings were thought to represent colonic obstruction versus ileus, cholelithiasis, and large bilateral pleural effusions increased from prior CT on 06/25/2020. There was a left apical nodularity measuring up to 1.3 cm. Surgical consultation was requested, patient is having abdominal distention, discomfort, she refused NG tube placement. Her oxygen requirement increased from 2 L on admission, to 12 of oxygen today. She is afebrile, she is short of breath, we were asked to see the patient in evaluation for acute hypoxic respiratory failure. Acute abdominal series were completed this morning showing slight progressive diffuse colonic distention and marked colonic ileus or distal colonic obstruction, and continued small pleural effusion with adjacent atelectasis and/or consolidation. Today's blood gas was reviewed, showing pO2 of 58, pCO2 49, and pH of 7.49 this was done on FiO2 of 80%. Patient is on IV Lasix at 40 mg every 12 hours, however clinically she looks dry, after reviewing her CT of the abdomen and pelvis, and chest x-rays the appearance of pleural effusions are small, and patient has bibasilar atelectasis and small pleural effusions likely related to abdominal distention. She's been afebrile, she is on oral prednisone, she is on oral bronchodilators. The patient is seen today 07/01/2020 in follow-up on the selective care unit. She is currently resting fairly comfortably in bed. Awake and alert in no acute distress. Maintaining O2 saturations on 15 L high flow nasal cannula. She's afebrile. Slightly tachycardic. Still with significant abdominal distention. White count 14.3. Hemoglobin 14.8. Sodium 127. Potassium 3.8. Creatinine 0.68. She remains on Symbicort and DuoNeb inhalations. Plan is for diverting colostomy with possible sigmoid resection today. Patient was reevaluated again today on 07/01/20 in the recovery room, she is status post bifurcating colostomy, patient was found to have megacolon and bowel obstruction. She was considered high surgical risk, nonetheless, patient underwent surgery uneventfully, and transferred to the recovery room, and I was asked to see her again while in recovery. She is now on mechanical ventilation, she is on tidal volume is 400 assist control rate of 16, FiO2 is 40%, and PEEP is at 5. ABG is presently pending. Postoperative chest x-ray showed small to moderate-sized bilateral pleural effusions with mild vascular congestion, and by basilar atelectasis. Patient has marginal urine output, she is hemodynamically stable, not requiring any pressors. Preoperative labs were reviewed, patient had low sodium 127 and normal renal profile. Preoperative ABG showed a pO2 of 58 pCO2 of 49 pH of 7.49 and this was on a high flow nasal cannula with 80% FiO2. Patient was reevaluated on 07/02/20, patient remains in the ICU, she is intubated, on mechanical ventilation. Her ventilator settings are assist control rate of 16, volume is 400 FiO2 is 40% PEEP of 5 her ABG showed a pO2 of 71 pCO2 of 39 pH of 7.40. Chest x-ray clearly shows evidence of bilateral pleural effusions documented on ultrasound, but difficult to position the patient to safely perform thoracentesis at this point, hence we'll try diuretics instead of actually performing thoracentesis and the patient now. I have started Lasix at 40 mg IV push every 12 hours. Patient seems to be in quite a bit of pain when she is down on a lower dose or off propofol, I don't think the patient is quite ready to be weaned and extubated. Patient received significant amount of fluids over the last 24 hours, and I will work on diuresing the patient over the next 24 hours and possibly address weaning and extubation in the next 24 hours. CBC is relatively normal today. Electrolytes are relatively normal except for low sodium of 130. Low potassium of 3.5. Renal profile is normal Reevaluated today on 07/03/20, patient remains in the ICU, intubated and mechanically ventilated. Patient is now on assist control rate of 16, tidal volume is 400 FiO2 is 40% PEEP is 5. ABG showed a pO2 of 75 pCO2 of 38 pH of 7.48. Patient required norepinephrine at 0.02 mcg/kg/m, she has been diuresed overnight with Lasix 40 mg IV push twice a day. Patient was on propofol earlier today, which I placed on hold and recommended at least trying the patient on pressure support and CPAP. Shortly after she went on pressure support and CPAP, patient developed SVT rate as high as 170. Patient was given Cardizem and placed on a Cardizem drip. Hence considering her SVT presentation, I recommended that we stop weaning and place her back on assist control mode of mechanical ventilation, and place her back on propofol, obviously the patient is not ready to be weaned or extubated. Chest x-ray did show evidence in her bilateral pleural effusions. Hence no need for thoracentesis. WBC count today is 13.7 hemoglobin is 12.8 F, normal. Colostomy is functional Patient was reevaluated today on 07/04/20, remains in the ICU intubated and mechanically ventilated. She is on assist control rate of 16 tidal volume is 400 FiO2 is 40% and PEEP of 5. ABG showed a pO2 of 167 pCO2 of 37 pH of 7.56. Patient is on norepinephrine, roughly 7.5 g. Patient is also on Cardizem at 5 mg per hour for her A. fib/RVR but she is presently in normal sinus rhythm. Patient is on enteral feeding. And she seems to be tolerating that well. Colostomy seems to be functional. Chest x-ray continues to show improvement in her bilateral pleural effusions. And bibasilar opacities. No need for thoracentesis. Patient is arousable, she follows simple instructions, hence I have decided to give the patient a trial of weaning with a pressure support of 8 and CPAP, and if tolerated we'll may proceed to extubating the patient. Although her overall pulmonary status is marginal to begin with. WBC count today is 13.6 hemoglobin is 12.7. Lactulose are normal bicarb is 33. Renal profile is normal. Reevaluated today on 07/05/20, was extubated yesterday, she seems to be tolerating the extubation quite well, however today the patient is requiring relatively high FiO2 she was placed on airvo with 78% FiO2 and 3 0 L/m flow. Patient is not requiring any pressors, she seems to be fairly comfortable, in no distress. Her ostomy seems to be working well. And the plan is to likely consider feeding the patient/clear liquids. CBC today is relatively normal left lites are normal except for low potassium of 3.3 and her bicarb is 40. Chest x- ray continues to show bilateral pleural effusions, right more so than left. Previous ultrasound showed the amount of pleural effusion was relatively small on both sides Objective - Vital Signs Vital signs: Vital Signs Temp 98.2 F 07/05/20 12:00 Pulse 88 07/05/20 12:08 Resp 18 07/05/20 12:00 BP 122/71 07/05/20 12:00 Pulse Ox 96 07/05/20 12:00 Intake & Output 07/04/20 07/05/20 07/05/20 18:59 06:59 18:59 Intake Total 802.500 305.413 115 Output Total 4629 4089 1150 Balance -1983.500 -1969.587 1035 Intake: IV 479 299 115 Piperacillin-Tazobactam 3 200 .375 gm In Sodium Chloride 0.9% 100 ml @ 25 mls/hr IVPB Q8HR [facility] Rx# :[id number] Sodium Chloride 0.9% 1, 240 260 100 000 ml @ 20 mls/hr IV . Q24H [facility] Rx#:[id number] pressure bag 39 39 15 Intake, IV Titration 117.500 6.413 Amount Norepinephrine 32 mg In 18.691 6.413 Sodium Chloride 0.9% 218 ml @ 0.05 MCG/KG/MIN 1. 153 mls/hr IV .Q24H [facility] Rx#:[id number] propofoL 1,000 mg In 98.809 Empty Bag 1 bag @ Titrate IV .Q0M [facility] Rx#: [id number] Tube Feeding 146 Other 60 Output: Urine 2587 2175 1150 Stool 200 Urine/Stool Mix 100 Other: Voiding Method Indwelling Catheter Indwelling Catheter Indwelling Catheter ABP, PAP, CO, CI - Last Documented Arterial Blood Pressure 122/99 - Exam Physical Exam: Revealed 79-year-old female cachectic looking, frail chronically ill, on high flow airvo Head: Atraumatic, normocephalic. HEENT:: [No neck masses.] [No thyromegaly.] [No JVD.] Chest: [Diminished breath sounds and crackles at the bases. Cardiac Exam: [Normal S1 and S2, no S3 gallop, 2/6 systolic murmur thought the precordium. Abdomen: [Postsurgical.] Colostomy is intact. Functional. Slightly tender abdomen on palpation Extremities: [No clubbing, no edema, no cyanosis.] Neurological Exam: Opens eyes, follows simple instructions. Psychiatric: Blunted affect, mental status is compromised. Except she is able to follow simple instructions Skin: No rashes. Stage III sacral decubitus ulcer. - Labs CBC & Chem 7: 07/05/20 04:00 07/05/20 04:00 Labs: Abnormal Lab Results - Last 24 Hours (Table) 07/04/20 07/04/20 07/05/20 Range/Units 17:22 23:17 04:00 Neutrophils # 8.3 H (1.3-7.7) k/uL Lymphocytes # 0.4 L (1.0-4.8) k/uL Sodium (137-145) mmol/L Potassium (3.5-5.1) mmol/L Chloride (98-107) mmol/L Carbon Dioxide (22-30) mmol/L Creatinine (0.52-1.04) mg/dL Glucose (74-99) mg/dL POC Glucose (mg/dL) 105 H 105 H (75-99) mg/dL Calcium (8.4-10.2) mg/dL 07/05/20 Range/Units 04:00 Neutrophils # (1.3-7.7) k/uL Lymphocytes # (1.0-4.8) k/uL Sodium 135 L (137-145) mmol/L Potassium 3.3 L (3.5-5.1) mmol/L Chloride 91 L (98-107) mmol/L Carbon Dioxide 40 H (22-30) mmol/L Creatinine 0.48 L (0.52-1.04) mg/dL Glucose 102 H (74-99) mg/dL POC Glucose (mg/dL) (75-99) mg/dL Calcium 7.7 L (8.4-10.2) mg/dL Assessment and Plan Assessment: Impression: Status post diverting colostomy for severe bowel obstruction/megacolon. Postoperative day #4 Acute on Chronic hypoxic (failure, multifactorial mostly secondary to intra- abdominal distention, and underlying diastolic congestive heart failure with bilateral pleural effusions. And suspect underlying COPD. History of COPD with chronic hypercapnic respiratory failure Chronic diastolic congestive heart failure and bilateral pleural effusion Chronic abdominal pain with multiple compression fractures of thoracolumbar spine. Hypervolemic hyponatremia, resolved Supraventricular tachycardia while weeding on pressure support and CPAP, hence not quite ready for weaning at this point. And patient was placed on Cardizem drip. Recommendation: Continue to monitor the patient in the ICU. Continue high flow oxygenation. Using airvo Continue bronchodilators. Continue antibiotics.. Continue diuretics. Continue hemodynamic support. Continue Cardizem to control atrial fibrillation with RVR.. GI and DVT prophylaxis. Patient was extubated yesterday, and so far she seems to be tolerating the extubation, patient was on high FiO2 prior to surgery and she is basically back to her baseline. Time with Patient: Less than 30
[2020-07-05] MEDS ORDERED: HYDROmorphone 0.5 MG/0.5 ML SYRINGE IVP PRN (14:57)
[2020-07-05] MEDS: SODIUM CHLORIDE 0.9% 1,000 ML IV SCH (15:04)
[2020-07-05] MEDS ORDERED: FUROSEMIDE 10 MG/ML 4 ML VIAL IV STA (16:16)
[2020-07-05 18:06] LABS: Glucose,Whole Blood 87 mg/dL (75-99)
[2020-07-05] MEDS ORDERED: METOPROLOL TARTRATE 5 MG/5 ML VIAL IVP ONE (19:03)
[2020-07-05] MEDS: POTASSIUM CHLORIDE 10 MEQ in WATER FOR INJECTION 1 100ML.BAG IVPB SCH ×2 (21:27→22:40)
[2020-07-05] MEDS ORDERED: HYDROmorphone 1 MG/ML 1 ML SYRINGE IVP STA (22:40)
[2020-07-05] MEDS: LATANOPROST 0.005% OPHTH DROPS 2.5 ML BTL BOTH EYES SCH (22:40)
[2020-07-05 23:47] LABS: Glucose,Whole Blood 88 mg/dL (75-99)
[2020-07-06] MEDS: NOREPINEPHRINE 32 MG in SODIUM CHLORIDE 0.9% 218 ML IV SCH ×2 (00:26→23:49)
[2020-07-06] MEDS: INSULIN ASPART (NovoLOG) 100 UNIT/ML VIAL SQ SCH ×5 (00:28→21:52)
[2020-07-06] MEDS: PIPERACILLIN-TAZOBACTAM 3.375 GM in SODIUM CHLORIDE 0.9% 100 ML IVPB SCH ×3 (00:55→15:55)
[2020-07-06] MEDS: HYDROmorphone 1 MG/ML 1 ML SYRINGE IVP PRN ×5 (01:37→23:20)
[2020-07-06] MEDS ORDERED: METOPROLOL TARTRATE 5 MG/5 ML VIAL IVP PRN (03:08)
[2020-07-06 04:47] LABS: HCT 38.8 % (34.0-46.0); Hypochromasia Slight; MCH 29.4 pg (25.0-35.0); MCHC 30.9 g/dL (31.0-37.0); MCV 95.2 fL (80.0-100.0); Mean Platelet Volume 7.8; Platelet Count 273 k/uL (150-450); RBC 4.08 m/uL (3.80-5.40); RDW 13.2 % (11.5-15.5); WBC 9.3 k/uL (3.8-10.6)
[2020-07-06 04:54] LABS: ALT 14 U/L (4-34); AST 32 U/L (14-36); African American GFR (CKD) >90 (>60 ml/min/1.73 sqM); Albumin 2.5 g/dL (3.5-5.0); Alkaline Phosphatase 69 U/L (38-126); Blood Urea Nitrogen 14 mg/dL (7-17); Calcium 8.2 mg/dL (8.4-10.2); Chloride 89 mmol/L (98-107); Glucose 72 mg/dL (74-99); Non-African American GFR(CKD) >90 (>60 ml/min/1.73 sqM); Potassium 3.8 mmol/L (3.5-5.1); Sodium 132 mmol/L (137-145); Total Bilirubin 0.6 mg/dL (0.2-1.3); Total Protein 4.9 g/dL (6.3-8.2)
[2020-07-06 05:03] LABS: Anion Gap 7 mmol/L
[2020-07-06 05:05] LABS: Carbon Dioxide 36 mmol/L (22-30)
[2020-07-06 06:39] LABS: Glucose,Whole Blood 72 mg/dL (75-99)
--- NOTE | 2020-07-06 07:22 | XR ---
EXAMINATION TYPE: XR chest 1V portable DATE OF EXAM: 07/06/2020 HISTORY: Shortness of breath. COMPARISON: 07/05/2020 TECHNIQUE: Single view of the chest is submitted. FINDINGS: Demonstrated are scattered senescent parenchymal change. Basilar infiltrates and atelectasis with effusions persist although there is improved aeration at the right lung base. The heart is stable. Hilar and mediastinal structures are within normal limits. Degenerative changes are seen of the dorsal spine. IMPRESSION: 1. Basilar infiltrates and atelectasis with effusions persist although there is improved aeration at the right lung base.
[2020-07-06] MEDS: IBUPROFEN IV 400 MG in SODIUM CHLORIDE 0.9% 100 ML IV PRN (07:56)
[2020-07-06] MEDS: MAGNESIUM OXIDE 400 MG TAB PO SCH (08:03)
[2020-07-06] MEDS: CHOLECALCIFEROL 1,000 UNIT TAB PO SCH (08:03)
[2020-07-06] MEDS: VITAMIN E (DL,TOCOPHERYL ACET) 400 UNIT CAP PO SCH (08:04)
--- NOTE | 2020-07-06 09:16 | P.PN ---
Subjective Progress Note Date: 07/06/20 Principal diagnosis: Paroxysmal atrial fibrillation This is a 79-year-old female patient who was initially admitted to the hospital with fall obstruction and she underwent colostomy and we consulted to see the patient for paroxysmal atrial fibrillation. We signed off on the patient in requested to see the patient again because of A. fib with RVR. The patient was seen this morning. She is converted back to normal sinus mechanism just a short time ago. Hemodynamically she is stable. Her pressure has been marginal. For some reason the patient was started on amiodarone in the past but the amiodarone was stopped for unknown reason. I'm going to start her back on amiodarone was bolus and drip. Also we need to consider anticoagulation on her. She continues to be in heart failure. The chest x-ray today showed right sided pleural effusion. She is on Lasix at this point. An echocardiogram during this admission revealed normal left ventricle systolic function was mild valvular abnormalities. Objective - Vital Signs Vital signs: Vital Signs Temp 99.8 F H 07/06/20 08:00 Pulse 107 H 07/06/20 08:00 Resp 18 07/06/20 08:00 BP 127/65 07/06/20 08:00 Pulse Ox 88 L 07/06/20 08:00 Intake & Output 07/05/20 07/06/20 07/06/20 18:59 06:59 18:59 Intake Total 602 276 243 Output Total 1825 1310 150 Balance -1223 -1034 93 Weight 46.2 kg Intake: IV 352 276 243 Ibuprofen IV 400 mg In 100 Sodium Chloride 0.9% 100 ml @ 200 mls/hr IV Q6HR PRN Rx#:[id number] Piperacillin-Tazobactam 3 100 100 .375 gm In Sodium Chloride 0.9% 100 ml @ 25 mls/hr IVPB Q8HR [facility] Rx# :[id number] Sodium Chloride 0.9% 1, 220 240 40 000 ml @ 20 mls/hr IV . Q24H [facility] Rx#:[id number] pressure bag 32 36 3 Intake, IV Titration 250 Amount Amiodarone 300 mg In 250 Dextrose 5% in Water 250 ml @ 0.5 MG/MIN 25 mls/hr IV .Q10H [facility] Rx#: [id number] Output: Urine 1825 1210 150 Stool 100 Other: Voiding Method Indwelling Catheter Indwelling Catheter Indwelling Catheter ABP, PAP, CO, CI - Last Documented Arterial Blood Pressure 95/49 - Constitutional General appearance: Present: no acute distress - Respiratory Respiratory: bilateral: diminished - Cardiovascular Rhythm: regular Heart sounds: normal: S1, S2 - Labs CBC & Chem 7: 07/06/20 04:27 07/06/20 04:27 Labs: Abnormal Lab Results - Last 24 Hours (Table) 07/06/20 07/06/20 07/06/20 Range/Units 04:27 04:27 06:38 MCHC 30.9 L (31.0-37.0) g/dL Sodium 132 L (137-145) mmol/L Chloride 89 L (98-107) mmol/L Carbon Dioxide 36 H (22-30) mmol/L Glucose 72 L (74-99) mg/dL POC Glucose (mg/dL) 72 L (75-99) mg/dL Calcium 8.2 L (8.4-10.2) mg/dL Total Protein 4.9 L (6.3-8.2) g/dL Albumin 2.5 L (3.5-5.0) g/dL Assessment and Plan Assessment: Assessment #1 paroxysmal atrial fibrillation #2 acute hypoxic respiratory failure #3 congestive heart failure exacerbation secondary to diastole dysfunction #4 multiple comorbid conditions Plan #1 consider restarting back the amiodarone #2 consider anticoagulation #3 continue Lasix IV for additional 24 #4 follow-up with the patient
[2020-07-06] MEDS ORDERED: DEXTROSE 5% IN WATER 100 ML with AMIODARONE 150 MG IV ONE (09:20)
--- NOTE | 2020-07-06 09:22 | CDI ---
Documentation Clarification Form Date: 07/06/2020 09:07:16 AM From: Brenda Muro CCS, CCDS Admit Date: 06/25/2020 01:39:00 PM Patient Name: Lyndsey Card Visit Number: [id number] Discharge Date: ATTENTION: The Clinical Documentation Specialists (CDI) and [facility] Coding Staff appreciate your assistance in clarifying documentation. Please respond to the clarification below the line at the bottom and electronically sign. The CDI & [facility] Coding staff will review the response and follow-up if needed. Please note: Queries are made part of the Legal Health Record. If you have any questions, please contact the author of this message via ITS. Dr. El Retana: CHF is documented in the 07/01 Pulmonary/Critical Care Progress Note: "Chronic hypoxic (failure, multifactorial mostly secondary to intra-abdominal distention, and underlying diastolic congestive heart failure with bilateral pleural effusions." Per the 07/02 Pulmonary Care/Critical Care Progress Note: "Postoperative day #1 Acute on Chronic hypoxic failure, multifactorial mostly secondary to intra- abdominal distention, and underlying diastolic congestive heart failure with bilateral pleural effusions." History/Risk Factors: Asthma, COPD/Emphysema, Chronic Hypoxic & Hypercapnic Respiratory Failure, Chronic Diastolic CHF, Hypertension, Smoker, Compression Fractures. Clinical Indicators: Presented to the ED on 06/23 with Intractable back pain with previously diagnosed compression fracture(s), possible pneumonia & hyponatremia. On 06/25, developed acute hypoxic respiratory failure with aspiration pneumonia & possible gram negative. Developed a transverse bowel obstruction and had a diverting loop transverse colostomy on 07/01, transferred to ICU on vent postoperatively. VS 06/25: T 97.5*, P 103^, BP 163/85, PO 95 5Lnc BNP: Not done Echocardiogram Results 06/26: A fib, Borderline LVH, Left ventricular systolic function normal w/EF 55-60%, Mild MR/TR. Chest X Ray 06/24: Pulmonary fibrotic changes, Persistent infiltrate & atelectasis LLL. 06/25 CT Chest: Small to moderate right & small left pleural effusions. Treatment: 06/25: IV Lasix started, continued. In your professional opinion, can you please clarify the acuity and type of CHF if known? Diastolic Heart Failure: o Acute o Chronic o Acute on Chronic Unable to Determine Other, please specify (Last Revision: November 2017) MTDD
[2020-07-06] MEDS ORDERED: AMIODARONE 360 MG in DEXTROSE 5% IN WATER 200 ML IV ONE ×2 (09:30)
[2020-07-06] MEDS: PANTOPRAZOLE 40 MG/10 ML VIAL IVP SCH (09:47)
[2020-07-06] MEDS: ENOXAPARIN 40 MG/0.4 ML SYRINGE SQ SCH (09:47)
[2020-07-06] MEDS: FUROSEMIDE 10 MG/ML 4 ML VIAL IV SCH ×2 (09:47→21:51)
[2020-07-06] MEDS: IPRATROPIUM-ALBUTEROL 3 ML NEB INHALATION SCH ×4 (09:53→21:27)
--- NOTE | 2020-07-06 10:08 | P.PN ---
Subjective Progress Note Date: 07/06/20 Patient is awake and alert. She is complaining of uncontrolled pain in her abdomen and back. She has been getting IV Dilaudid almost [id number]. She is still nothing by mouth awaiting speech pathology evaluation. Objective - Vital Signs Vital signs: Vital Signs Temp 99.8 F H 07/06/20 08:00 Pulse 110 H 07/06/20 09:30 Resp 21 07/06/20 09:30 BP 99/66 07/06/20 09:30 Pulse Ox 88 L 07/06/20 09:30 Intake & Output 07/05/20 07/06/20 07/06/20 18:59 06:59 18:59 Intake Total 602 276 263 Output Total 1825 1310 165 Balance -1223 -1034 98 Weight 46.2 kg Intake: IV 352 276 263 Ibuprofen IV 400 mg In 100 Sodium Chloride 0.9% 100 ml @ 200 mls/hr IV Q6HR PRN Rx#:[id number] Piperacillin-Tazobactam 3 100 100 .375 gm In Sodium Chloride 0.9% 100 ml @ 25 mls/hr IVPB Q8HR [facility] Rx# :[id number] Sodium Chloride 0.9% 1, 220 240 60 000 ml @ 20 mls/hr IV . Q24H [facility] Rx#:[id number] pressure bag 32 36 3 Intake, IV Titration 250 Amount Amiodarone 300 mg In 250 Dextrose 5% in Water 250 ml @ 0.5 MG/MIN 25 mls/hr IV .Q10H [facility] Rx#: [id number] Output: Urine 1825 1210 165 Stool 100 Other: Voiding Method Indwelling Catheter Indwelling Catheter Indwelling Catheter ABP, PAP, CO, CI - Last Documented Arterial Blood Pressure 95/49 - Exam General: The patient is awake and alert, in no distress Eye: there is normal conjunctiva bilaterally. Neck: The neck is supple, there is no JVD. Cardiovascular: Normal S1-S2, no S3-S4, no murmurs. Respiratory: Lungs clear to auscultation bilaterally Gastrointestinal: Abdomen is soft, with severe tenderness to light palpation all over the abdomen. Colostomy in place with good output in the bag Musculoskeletal: There is no pedal edema. Neurological:. Speech is normal. Skin: Skin is warm and dry - Labs CBC & Chem 7: 07/06/20 04:27 07/06/20 04:27 Labs: Abnormal Lab Results - Last 24 Hours (Table) 07/06/20 07/06/20 07/06/20 Range/Units 04:27 04:27 06:38 MCHC 30.9 L (31.0-37.0) g/dL Sodium 132 L (137-145) mmol/L Chloride 89 L (98-107) mmol/L Carbon Dioxide 36 H (22-30) mmol/L Glucose 72 L (74-99) mg/dL POC Glucose (mg/dL) 72 L (75-99) mg/dL Calcium 8.2 L (8.4-10.2) mg/dL Total Protein 4.9 L (6.3-8.2) g/dL Albumin 2.5 L (3.5-5.0) g/dL Assessment and Plan Assessment: Patient is a 79-year-old female with known COPD, tobacco abuse (quit 1 year ago), and hypertension who presented as a transfer from [facility] secondary to low back pain with abnormal computed tomography scan findings. She had a CT Thorasic, Lumbar, and Pelvis which showed a L1 compression fracture with retropulsion and central canal stenosis. She was admitted for pain control and orthopedic spine consultation. She subsequently developed worsening distent ion of her abdomen and was noted to have evidence of colonic obstruction on computed tomography scan. She is currently admitted to the hospital for further management of her medical problems noted below. 1. Colonic obstruction status post diverting loop transverse colostomy on 07/01. Postoperative care per surgery. Awaiting speech pathology evaluation to start liquid diet today 2. Acute hypoxic respiratory failure, patient was kept on mechanical ventilation post surgery. Successfully extubated on 07/04 3. Acute hypoxic respiratory failure, with bilateral pleural effusion. Seen and evaluated by pulmonology. CTA chest negative of pulmonary embolism. Currently on IV Lasix 4. Suspected community-acquired pneumonia on presentation, finished 5 days of oral Augmentin. Started on IV Zosyn day #5 after abdominal surgery. We will continue antibiotic coverage for now. 5. Intractable back pain secondary to multiple compression fractures: I would start a fentanyl patch at 12 mcg/h today and continue to monitor Seen and evaluated by orthopedic surgery on presentation. TLSO BRACE WHEN UP AND AMBULATING. PAIN CONTROL. NO SURGICAL INTERVENTION RECOMMENDED. MRI showed L4 with slight posterior retropulsion, L1 with moderate posterior disc bulge effacing the anterior thecal sac, T11 exam compression fracture with some posterior retropulsion facing the anterior thecal sac. 6. 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 nephrology recommendations, fluid status improved, samsca X 2 7. Paroxysmal Atrial fibrillation with rapid ventricular response, currently on IV Cardizem drip. Cardiology recommended appreciated. Echocardiogram ef 55-60% no significant valvular dysfunction. TSH normal. Not a candidate for anticoagulation secondary to falls 8. Severe sepsis with septic shock: Probably secondary to pneumonia on presentation and intra-abdominal infection. Required vasopressors for short period of time. Now off of Levophed. 9. Abnormal computed tomography scan of the chest. Plan to follow up with pulmonology outpatient for repeat imaging. CT chest shows no signs of large pulmonary embolism but does demonstrate debris in the right mainstem bronchus with collapse of the lower lobe consolidation, spiculated soft tissue thickening along the right upper lobe and left apical nodularity. Repeat CT chest in 2 months. 10. Hypokalemia and hypomagnesemia: Replaced 11. Underlying COPD/emphysema, continue DuoNeb schedule 12. Moderate to severe protein/calorie malnutrition, seen and evaluated by dietitian 13. CODE STATUS: Patient is DO NOT RESUSCITATE/DO NOT INTUBATE per her wishes 14. GI and DVT prophylaxis with IV Protonix and subcu Lovenox Speech pathology consult. Start liquid diet when possible Consider discontinuation of antibiotic tomorrow Awaiting final recommendation regarding amiodarone from cardiology Overall prognosis is poor
[2020-07-06] MEDS: SODIUM CHLORIDE 0.9% 1,000 ML IV SCH (10:30)
--- NOTE | 2020-07-06 11:26 | P.PN ---
Subjective Progress Note Date: 07/06/20 Principal diagnosis: Colonic obstruction, acute hypoxic respiratory failure 79-year-old white female patient with multiple medical problems who was transferred from [facility] on 06/23/2020 with severe back pain and workup revealed multiple compression fractures with retropulsion of L1, into the spinal column. In the course of her stay patient has developed abdominal pain, and workup showed evidence of colonic obstruction. Nephrology was following in regards to hyponatremia, orthopedic surgery in regards to the multiple compression fractures of the spine. Patient has developed a worsening hypoxic respiratory failure, at the same time she was scheduled for surgery for severe colonic obstruction versus ileus, patient was considered a high surgical risk, she had her surgery on 07/01/2020, that is post bifurcating colostomy, patient was found to have a megacolon and bowel obstruction. She required a few of ventilator days following her surgery, however she was successfully weaned and extubated on 07/04/2020. This morning she is awake and alert, she is sitting up in bed, she is on high flow oxygen at 15 L, her pulse ox is 88-91% on 15 L, appears to be in no acute distress, although she does report some dyspnea with exertion, anginal low-grade fever, for the most part she is been afebrile, hemodynamically she stable, she is on 0.9 normal saline at a rate of 20 ML per hour, today chest x-ray has been reviewed and basilar infiltrates and atelecta sis with effusions although there is been improved aeration of the right lung base. Her colostomy is producing liquid stool, her mid abdominal incision is clean dry and intact, covered with a surgical dressing, abdomen is soft, patient is awake and alert, she is oriented 2, she is cooperative, and she is having evaluation done for swallowing. Objective - Vital Signs Vital signs: Vital Signs Temp 99.8 F H 07/06/20 08:00 Pulse 109 H 07/06/20 11:00 Resp 13 07/06/20 11:00 BP 112/88 07/06/20 11:00 Pulse Ox 88 L 07/06/20 11:00 Intake & Output 07/05/20 07/06/20 07/06/20 18:59 06:59 18:59 Intake Total 602 276 383 Output Total 1828 1310 295 Balance -1223 -1034 88 Weight 46.2 kg Intake: IV 352 276 283 Ibuprofen IV 400 mg In 100 Sodium Chloride 0.9% 100 ml @ 200 mls/hr IV Q6HR PRN Rx#:[id number] Piperacillin-Tazobactam 3 100 100 .375 gm In Sodium Chloride 0.9% 100 ml @ 25 mls/hr IVPB Q8HR [facility] Rx# :[id number] Sodium Chloride 0.9% 1, 220 240 80 000 ml @ 20 mls/hr IV . Q24H [facility] Rx#:[id number] pressure bag 32 36 3 Intake, IV Titration 250 Amount Amiodarone 300 mg In 250 Dextrose 5% in Water 250 ml @ 0.5 MG/MIN 25 mls/hr IV .Q10H [facility] Rx#: [id number] Oral 100 Output: Urine 1825 1210 195 Stool 100 100 Other: Voiding Method Indwelling Catheter Indwelling Catheter Indwelling Catheter ABP, PAP, CO, CI - Last Documented Arterial Blood Pressure 95/49 - Exam GENERAL EXAM: Alert, very pleasant, 79-year-old white female, on 15 L of oxygen with a pulse ox between 80-91% comfortable in no apparent distress. HEAD: Normocephalic/atraumatic. EYES: Normal reaction of pupils, equal size. Conjunctiva pink, sclera white. NOSE: Clear with pink turbinates. THROAT: No erythema or exudates. NECK: No masses, no JVD, no thyroid enlargement, no adenopathy. CHEST: No chest wall deformity. Symmetrical expansion. LUNGS: Equal air entry with minimal basilar crackles, wheeze, rhonchi or dullness. CVS: Regular rate and rhythm, normal S1 and S2, no gallops, no murmurs, no rubs ABDOMEN: Soft, mildly tender following surgery. No hepatosplenomegaly, normal bowel sounds, no guarding or rigidity. Midabdominal incision clean dry and intact, left lower quadrant colostomy producing liquid stool EXTREMITIES: No clubbing, no edema, no cyanosis, 2+ pulses and upper and lower extremities. MUSCULOSKELETAL: Muscle strength and tone normal. SPINE: No scoliosis or deformity SKIN: No rashes CENTRAL NERVOUS SYSTEM: Alert and oriented -3. No focal deficits, tone is normal in all 4 extremities. PSYCHIATRIC: Alert and oriented -3. Appropriate affect. Intact judgment and insight. - Labs CBC & Chem 7: 07/06/20 04:27 07/06/20 04:27 Labs: Abnormal Lab Results - Last 24 Hours (Table) 07/06/20 07/06/20 07/06/20 Range/Units 04:27 04:27 06:38 MCHC 30.9 L (31.0-37.0) g/dL Sodium 132 L (137-145) mmol/L Chloride 89 L (98-107) mmol/L Carbon Dioxide 36 H (22-30) mmol/L Glucose 72 L (74-99) mg/dL POC Glucose (mg/dL) 72 L (75-99) mg/dL Calcium 8.2 L (8.4-10.2) mg/dL Total Protein 4.9 L (6.3-8.2) g/dL Albumin 2.5 L (3.5-5.0) g/dL Assessment and Plan Plan: Assessment: #1. Acute hypoxic respiratory failure multifactorial related to intra-abdominal distention secondary to colonic obstruction, pulmonary embolism was ruled out, chest x-ray and CTA chest showed bibasilar atelectasis and small pleural effusions, related to acute exacerbation of diastolic CHF and acute exacerbation of COPD #2. Colonic obstruction with secondary colonic gaseous dilatation, and abdominal pain, status post diverging colostomy, post-operative day 4 #3. Left apical pulmonary nodularity noted on the CTA chest will need outpatient follow-up with repeat CT chest #4. 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 Chronic history of smoking #6. Intractable back pain with multiple compression fractures seen on the CT tomography scan of the thoracic, lumbar spine #7. Hyponatremia, possibly hypervolemic, SIADH not excluded #8. A. fib with RVR #9. Chronic diastolic congestive heart failure and bilateral pleural effusions #10. SVT Plan: Continue weaning FiO2 to keep pulse ox of 88%, urge deep breathing and coughing, continue breathing treatments, continue diuretics. No sinus stable, patient is afebrile, colostomy is viable and producing stool, no nausea or vomiting, no abdominal distention or pain. Today's labs have been noted, chest x-ray has been reviewed. Speech evaluation for relation for dietary recommendations. We'll continue to closely follow in intensive care unit. I performed a history & physical examination of the patient and discussed their management with my nurse practitioner, Veronica Luis. I reviewed the nurse practitioner's note and agree with the documented findings and plan of care. Lung sounds are positive for diminished breath sounds. The findings and the impression was discussed with the patient. I attest to the documentation by the nurse practitioner. Time with Patient: Greater than 30
[2020-07-06 11:40] LABS: Glucose,Whole Blood 96 mg/dL (75-99)
[2020-07-06 12:39] VITALS: BMI 21.2
--- NOTE | 2020-07-06 13:11 | P.PN ---
Subjective Progress Note Date: 07/06/20 CHIEF COMPLAINT: Abdominal pain HISTORY OF PRESENT ILLNESS: Patient is status post diverting loop transverse colostomy for Colonic obstruction. Patient in the ICU. She has been extubated over the weekend. Her ostomy is functioning. She's currently on a full liquid diet Honey thickened. Afebrile. WBC 9.3 cardiology on consult regarding atrial fibrillation PHYSICAL EXAM: VITAL SIGNS: Reviewed. GENERAL: Well-developed in no acute distress. HEENT: No sclera icterus. Extraocular movements grossly intact. Moist buccal mucosa. Head is atraumatic, normocephalic. ABDOMEN: Soft. Incision clean dry and intact. Colostomy with brown liquidy stool present. Stoma beefy red NEUROLOGIC: Patient is awake and alert and answering questions ASSESSMENT: 1. Colonic obstruction status post Diverting loop transverse colostomy 2. Acute hypoxic respiratory failure PLAN: -Continue supportive care -Continue full liquid diet and advance as tolerated -Continue antibiotics -Continue GI and DVT prophylaxis Physician [employer] note has been reviewed by physician. Signing provider agrees with the documented findings, assessment, and plan of care. Objective - Vital Signs Vital signs: Vital Signs Temp 99.8 F H 07/06/20 08:00 Pulse 111 H 07/06/20 13:00 Resp 15 07/06/20 13:00 BP 122/84 07/06/20 13:00 Pulse Ox 90 L 07/06/20 13:00 Intake & Output 07/05/20 07/06/20 07/06/20 18:59 06:59 18:59 Intake Total 602 276 563 Output Total 1825 1310 635 Balance -1223 -1034 -72 Weight 46.2 kg 46.2 kg Intake: IV 352 276 343 Ibuprofen IV 400 mg In 100 Sodium Chloride 0.9% 100 ml @ 200 mls/hr IV Q6HR PRN Rx#:[id number] Piperacillin-Tazobactam 3 100 100 .375 gm In Sodium Chloride 0.9% 100 ml @ 25 mls/hr IVPB Q8HR [facility] Rx# :[id number] Sodium Chloride 0.9% 1, 220 240 140 000 ml @ 20 mls/hr IV . Q24H [facility] Rx#:[id number] pressure bag 32 36 3 Intake, IV Titration 250 Amount Amiodarone 300 mg In 250 Dextrose 5% in Water 250 ml @ 0.5 MG/MIN 25 mls/hr IV .Q10H [facility] Rx#: [id number] Oral 220 Output: Urine 1825 1210 535 Stool 100 100 Other: Voiding Method Indwelling Catheter Indwelling Catheter Indwelling Catheter ABP, PAP, CO, CI - Last Documented Arterial Blood Pressure 95/49 - Labs CBC & Chem 7: 07/06/20 04:27 07/06/20 04:27 Labs: Abnormal Lab Results - Last 24 Hours (Table) 07/06/20 07/06/20 07/06/20 Range/Units 04:27 04:27 06:38 MCHC 30.9 L (31.0-37.0) g/dL Sodium 132 L (137-145) mmol/L Chloride 89 L (98-107) mmol/L Carbon Dioxide 36 H (22-30) mmol/L Glucose 72 L (74-99) mg/dL POC Glucose (mg/dL) 72 L (75-99) mg/dL Calcium 8.2 L (8.4-10.2) mg/dL Total Protein 4.9 L (6.3-8.2) g/dL Albumin 2.5 L (3.5-5.0) g/dL
[2020-07-06] MEDS: AMIODARONE 300 MG in DEXTROSE 5% IN WATER 250 ML IV SCH ×2 (15:28)
[2020-07-06 17:35] LABS: Glucose,Whole Blood 110 mg/dL (75-99)
[2020-07-06 21:37] LABS: Glucose,Whole Blood 83 mg/dL (75-99)
[2020-07-06] MEDS: LATANOPROST 0.005% OPHTH DROPS 2.5 ML BTL BOTH EYES SCH (21:51)
[2020-07-07] MEDS: PIPERACILLIN-TAZOBACTAM 3.375 GM in SODIUM CHLORIDE 0.9% 100 ML IVPB SCH ×3 (00:20→17:05)
[2020-07-07] MEDS: AMIODARONE 300 MG in DEXTROSE 5% IN WATER 250 ML IV SCH ×2 (01:12)
[2020-07-07 04:07] LABS: HCT 39.5 % (34.0-46.0); HGB 12.8 gm/dL (11.4-16.0); MCH 30.5 pg (25.0-35.0); MCHC 32.4 g/dL (31.0-37.0); MCV 94.1 fL (80.0-100.0); Mean Platelet Volume 7.8; Platelet Count 274 k/uL (150-450); RDW 13.1 % (11.5-15.5); WBC 9.1 k/uL (3.8-10.6)
[2020-07-07 04:14] LABS: ALT 15 U/L (4-34); AST 36 U/L (14-36); African American GFR (CKD) >90 (>60 ml/min/1.73 sqM); Albumin 2.6 g/dL (3.5-5.0); Alkaline Phosphatase 71 U/L (38-126); Anion Gap 6 mmol/L; Blood Urea Nitrogen 13 mg/dL (7-17); Calcium 8.4 mg/dL (8.4-10.2); Chloride 84 mmol/L (98-107); Glucose 102 mg/dL (74-99); Non-African American GFR(CKD) >90 (>60 ml/min/1.73 sqM); Potassium 3.1 mmol/L (3.5-5.1); Sodium 130 mmol/L (137-145); Total Bilirubin 0.6 mg/dL (0.2-1.3); Total Protein 5.2 g/dL (6.3-8.2)
[2020-07-07 04:33] LABS: Magnesium 0.9 mg/dL (1.6-2.3)
[2020-07-07 04:34] LABS: Carbon Dioxide 40 mmol/L (22-30)
[2020-07-07] MEDS: HYDROmorphone 1 MG/ML 1 ML SYRINGE IVP PRN ×5 (06:22→21:29)
[2020-07-07] MEDS: MAGNESIUM SULFATE-D5W PMX 1 GM in DEXTROSE/WATER 1 100ML.BAG IVPB SCH ×4 (06:23→11:11)
--- NOTE | 2020-07-07 07:00 | XR ---
EXAMINATION TYPE: XR chest 1V portable DATE OF EXAM: 07/07/2020 HISTORY: Shortness of breath. COMPARISON: 1120 TECHNIQUE: Single view of the chest is submitted. FINDINGS: Demonstrated are scattered senescent parenchymal change. Persistent but improving basilar pleural effusions. Suspect atelectasis right medial lung base. The heart is stable. Hilar and mediastinal structures are within normal limits. Degenerative changes are seen of the dorsal spine. IMPRESSION: 1. Persistent but improving basilar pleural effusions. Suspect atelectasis right medial lung base.
[2020-07-07 07:50] LABS: Glucose,Whole Blood 117 mg/dL (75-99)
[2020-07-07] MEDS: POTASSIUM CHLORIDE 20 MEQ in WATER FOR INJECTION 1 100ML.BAG IVPB SCH ×2 (08:38→11:12)
[2020-07-07] MEDS: IPRATROPIUM-ALBUTEROL 3 ML NEB INHALATION SCH ×4 (08:39→21:37)
[2020-07-07] MEDS: INSULIN ASPART (NovoLOG) 100 UNIT/ML VIAL SQ SCH ×3 (08:42→17:33)
[2020-07-07] MEDS: MAGNESIUM OXIDE 400 MG TAB PO SCH (08:43)
[2020-07-07] MEDS: CHOLECALCIFEROL 1,000 UNIT TAB PO SCH (08:46)
[2020-07-07] MEDS: ENOXAPARIN 40 MG/0.4 ML SYRINGE SQ SCH (08:57)
[2020-07-07] MEDS: FUROSEMIDE 10 MG/ML 4 ML VIAL IV SCH (09:10)
[2020-07-07] MEDS: VITAMIN E (DL,TOCOPHERYL ACET) 400 UNIT CAP PO SCH (09:11)
[2020-07-07] MEDS: PANTOPRAZOLE 40 MG/10 ML VIAL IVP SCH (09:11)
[2020-07-07] MEDS ORDERED: AMIODARONE 300 MG in DEXTROSE 5% IN WATER 250 ML IV SCH ×2 (10:45)
--- NOTE | 2020-07-07 11:07 | P.PN ---
Subjective Progress Note Date: 07/07/20 Principal diagnosis: Colonic obstruction, acute hypoxic respiratory failure 79-year-old white female patient with multiple medical problems who was transferred from [facility] on 06/23/2020 with severe back pain and workup revealed multiple compression fractures with retropulsion of L1, into the spinal column. In the course of her stay patient has developed abdominal pain, and workup showed evidence of colonic obstruction. Nephrology was following in regards to hyponatremia, orthopedic surgery in regards to the multiple compression fractures of the spine. Patient has developed a worsening hypoxic respiratory failure, at the same time she was scheduled for surgery for severe colonic obstruction versus ileus, patient was considered a high surgical risk, she had her surgery on 07/01/2020, that is post bifurcating colostomy, patient was found to have a megacolon and bowel obstruction. She required a few of ventilator days following her surgery, however she was successfully weaned and extubated on 07/04/2020. This morning she is awake and alert, she is sitting up in bed, she is on high flow oxygen at 15 L, her pulse ox is 88-91% on 15 L, appears to be in no acute distress, although she does report some dyspnea with exertion, anginal low-grade fever, for the most part she is been afebrile, hemodynamically she stable, she is on 0.9 normal saline at a rate of 20 ML per hour, today chest x-ray has been reviewed and basilar infiltrates and atelecta sis with effusions although there is been improved aeration of the right lung base. Her colostomy is producing liquid stool, her mid abdominal incision is clean dry and intact, covered with a surgical dressing, abdomen is soft, patient is awake and alert, she is oriented 2, she is cooperative, and she is having evaluation done for swallowing. On 07/07/2020 patient seen in follow-up in the intensive care unit. She is down to 9 L per high flow nasal cannula, and her pulse ox is 94-97%, dyspneic with exertion, but otherwise seems to be in no acute distress, 0.9 normal saline at a rate of 20 ML per hour, and amiodarone at 0.5 mg/m, she remains in A. fib, with the relatively controlled rate at 100 BPM. Lung sounds reveal diminished breath sounds, with some scattered wheezes, patient remains on breathing treatments, as had no complaints of chest pain or hemoptysis, however she is having some lower abdominal discomfort, and the distal incision of her mid abdominal incision is draining some thin purulent drainage, marla are intact, surgeries following, we'll culture the wound drainage, patient remains on antibiotics Zosyn. Patient is having very poor appetite, she did pass a swallow evaluation however she has no appetite, her oral mucous membranes are extremely dry, she remains on IV Lasix at 40 mg every 12 hours, she has produced 2.5 L in the urine output over last 24 hours and she is in -823 mL over the last 24 hours, his labs have been reviewed, white blood cell count is 9.1, hemoglobin is 12.8, serum sodium is 1:30, potassium is 3.1, chloride is 84, CO2 is up to 40, BUN is 13 creatinine is 0.49, magnesium is 0.9. Objective - Vital Signs Vital signs: Vital Signs Temp 98.4 F 07/07/20 08:30 Pulse 98 07/07/20 10:00 Resp 19 07/07/20 10:00 BP 130/102 07/07/20 10:00 Pulse Ox 94 L 07/07/20 10:00 Intake & Output 07/06/20 07/07/20 07/07/20 18:59 06:59 18:59 Intake Total 953.554 783.333 330 Output Total 915 1645 220 Balance 38.554 -861.667 110 Weight 46.2 kg 47.6 kg Intake: IV 543 440 280 Ibuprofen IV 400 mg In 100 Sodium Chloride 0.9% 100 ml @ 200 mls/hr IV Q6HR PRN Rx#:[id number] Magnesium Sulfate-D5w Pmx 100 200 1 gm In Dextrose/Water 1 100ml.bag @ 100 mls/hr IVPB Q1H [facility] Rx#: [id number] Piperacillin-Tazobactam 3 200 100 .375 gm In Sodium Chloride 0.9% 100 ml @ 25 mls/hr IVPB Q8HR [facility] Rx# :[id number] Sodium Chloride 0.9% 1, 240 240 80 000 ml @ 20 mls/hr IV . Q24H [facility] Rx#:[id number] pressure bag 3 Intake, IV Titration 190.554 243.333 Amount Amiodarone 300 mg In 243.333 Dextrose 5% in Water 250 ml @ 0.5 MG/MIN 25 mls/hr IV .Q10H [facility] Rx#: [id number] Amiodarone 360 mg In 190.554 Dextrose 5% in Water 200 ml @ 1 MG/MIN 33.333 mls/ hr IV .Q6H [facility] Rx#: [id number] Oral 220 100 50 Output: Urine 815 1495 220 Stool 100 150 Other: Voiding Method Indwelling Catheter Indwelling Catheter ABP, PAP, CO, CI - Last Documented Arterial Blood Pressure 95/49 - Exam GENERAL EXAM: Alert, very pleasant, 79-year-old white female, on 9 L of oxygen with a pulse ox between 94% comfortable in no apparent distress. HEAD: Normocephalic/atraumatic. EYES: Normal reaction of pupils, equal size. Conjunctiva pink, sclera white. NOSE: Clear with pink turbinates. THROAT: No erythema or exudates. NECK: No masses, no JVD, no thyroid enlargement, no adenopathy. CHEST: No chest wall deformity. Symmetrical expansion. LUNGS: Equal air entry with minimal basilar crackles, wheeze, rhonchi or dulln ess. CVS: Regular rate and rhythm, normal S1 and S2, no gallops, no murmurs, no rubs ABDOMEN: Soft, mildly tender following surgery. No hepatosplenomegaly, normal bowel sounds, no guarding or rigidity. Midabdominal incision clean dry and intact, left lower quadrant colostomy producing liquid stool EXTREMITIES: No clubbing, no edema, no cyanosis, 2+ pulses and upper and lower extremities. MUSCULOSKELETAL: Muscle strength and tone normal. SPINE: No scoliosis or deformity SKIN: No rashes CENTRAL NERVOUS SYSTEM: Alert and oriented -3. No focal deficits, tone is normal in all 4 extremities. PSYCHIATRIC: Alert and oriented -3. Appropriate affect. Intact judgment and insight. - Labs CBC & Chem 7: 07/07/20 03:06 07/07/20 03:06 Labs: Abnormal Lab Results - Last 24 Hours (Table) 07/06/20 07/07/20 07/07/20 Range/Units 17:34 03:06 07:48 Sodium 130 L (137-145) mmol/L Potassium 3.1 L (3.5-5.1) mmol/L Chloride 84 L (98-107) mmol/L Carbon Dioxide 40 H (22-30) mmol/L Creatinine 0.45 L (0.52-1.04) mg/dL Glucose 102 H (74-99) mg/dL POC Glucose (mg/dL) 110 H 117 H (75-99) mg/dL Magnesium 0.9 L* (1.6-2.3) mg/dL Total Protein 5.2 L (6.3-8.2) g/dL Albumin 2.6 L (3.5-5.0) g/dL Assessment and Plan Plan: Assessment: #1. Acute hypoxic respiratory failure multifactorial related to intra-abdominal distention secondary to colonic obstruction, pulmonary embolism was ruled out, chest x-ray and CTA chest showed bibasilar atelectasis and small pleural effusions, related to acute exacerbation of diastolic CHF and acute exacerbation of COPD #2. Colonic obstruction with secondary colonic gaseous dilatation, and abdominal pain, status post diverging colostomy, post-operative day 5 #3. Left apical pulmonary nodularity noted on the CTA chest will need outpatient follow-up with repeat CT chest #4. 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 Chronic history of smoking #6. Intractable back pain with multiple compression fractures seen on the CT tomography scan of the thoracic, lumbar spine #7. Hyponatremia, possibility of SIADH, and possibility of hypervolemia #8. A. fib with RVR #9. Chronic diastolic congestive heart failure and bilateral pleural effusions #10. SVT #11. Metabolic alkalosis, likely related to IV diuretics, and hypokalemia Plan: Today's chest x-ray has been reviewed, persistent but improving basilar pleural effusions, and atelectasis at the right medial lung base, continue encouraging deep breathing and coughing, aggressive pulmonary toileting, continue weaning FiO2, will cut back Lasix to 40 mg once daily, patient is developing metabolic alkalosis related to diuretic therapy, and hypokalemia. Maintain aspiration precautions, we'll send a culture of the wound drainage from the distal abdominal incision, and we'll consult site for antibiotic management, continue current antibiotic management right now, continue monitoring febrile pattern, labs. I performed a history & physical examination of the patient and discussed their management with my nurse practitioner, Veronica Luis. I reviewed the nurse practitioner's note and agree with the documented findings and plan of care. Lung sounds are positive for diminished breath sounds. The findings and the impression was discussed with the patient. I attest to the documentation by the nurse practitioner. Time with Patient: Greater than 30
--- NOTE | 2020-07-07 11:58 | P.PN ---
Subjective Progress Note Date: 07/07/20 HISTORY OF PRESENT ILLNESS: Patient examined this morning at the bedside. She remains in atrial fibrillation. Heart rate low 100s this morning. She is on 15 L nasal cannula. She reports mild shortness of breath this morning. Denies chest pain or pressure. Potassium 3.1. Magnesium 0.9. Chest x-ray this morning reveals persistent but improving pleural effusions. She remains on IV Lasix 40 mg every 12 hours. Creatinine 0.45 today. Fluid balance over the last 24 hours is -800 mL. PHYSICAL EXAM: VITAL SIGNS: Reviewed. GENERAL: Well-developed in no acute distress. NECK: Supple. No JVD or thyromegaly LUNGS: Respirations even and unlabored. Lungs diminished. HEART: Irregular rate and rhythm. S1 and S2 heard. EXTREMITIES: Normal range of motion. No clubbing or cyanosis. Peripheral pulses intact. No lower extremity edema ASSESSMENT: Colonic obstruction, status post diverting colostomy Acute hypoxic respiratory failure Paroxysmal atrial fibrillation with RVR Acute exacerbation of chronic diastolic congestive heart failure PLAN: Transition patient to oral amiodarone 400 mg twice a day Patient's Lasix has been decreased to 40 mg IV daily per pulmonary Continue to monitor intake and output Daily weights Monitor kidney function Discontinue Lovenox. Begin Eliquis 5 mg twice a day this evening Nurse practitioner note has been reviewed by physician. Signing provider agrees with the documented findings, assessment, and plan of care. Objective - Vital Signs Vital signs: Vital Signs Temp 98.4 F 07/07/20 08:30 Pulse 109 H 07/07/20 11:00 Resp 15 07/07/20 11:00 BP 131/67 07/07/20 11:00 Pulse Ox 91 L 07/07/20 11:00 Intake & Output 07/06/20 07/07/20 07/07/20 18:59 06:59 18:59 Intake Total 953.554 783.333 750 Output Total 915 1645 370 Balance 38.554 -861.667 380 Weight 46.2 kg 47.6 kg Intake: IV 543 440 700 Ibuprofen IV 400 mg In 100 Sodium Chloride 0.9% 100 ml @ 200 mls/hr IV Q6HR [facility] Rx#:[id number] Magnesium Sulfate-D5w Pmx 100 400 1 gm In Dextrose/Water 1 100ml.bag @ 100 mls/hr IVPB Q1H [facility] Rx#: [id number] Piperacillin-Tazobactam 3 200 100 .375 gm In Sodium Chloride 0.9% 100 ml @ 25 mls/hr IVPB Q8HR [facility] Rx# :[id number] Potassium Chloride 20 meq 200 In Water For Injection 1 100ml.bag @ 50 mls/hr IVPB Q2H [facility] Rx#: [id number] Sodium Chloride 0.9% 1, 240 240 100 000 ml @ 20 mls/hr IV . Q24H [facility] Rx#:[id number] pressure bag 3 Intake, IV Titration 190.554 243.333 Amount Amiodarone 300 mg In 243.333 Dextrose 5% in Water 250 ml @ 0.5 MG/MIN 25 mls/hr IV .Q10H [facility] Rx#: [id number] Amiodarone 360 mg In 190.554 Dextrose 5% in Water 200 ml @ 1 MG/MIN 33.333 mls/ hr IV .Q6H [facility] Rx#: [id number] Oral 220 100 50 Output: Urine 815 1495 370 Stool 100 150 Other: Voiding Method Indwelling Catheter Indwelling Catheter Indwelling Catheter ABP, PAP, CO, CI - Last Documented Arterial Blood Pressure 95/49 - Labs CBC & Chem 7: 07/07/20 03:06 07/07/20 03:06 Labs: Abnormal Lab Results - Last 24 Hours (Table) 07/06/20 07/07/20 07/07/20 Range/Units 17:34 03:06 07:48 Sodium 130 L (137-145) mmol/L Potassium 3.1 L (3.5-5.1) mmol/L Chloride 84 L (98-107) mmol/L Carbon Dioxide 40 H (22-30) mmol/L Creatinine 0.45 L (0.52-1.04) mg/dL Glucose 102 H (74-99) mg/dL POC Glucose (mg/dL) 110 H 117 H (75-99) mg/dL Magnesium 0.9 L* (1.6-2.3) mg/dL Total Protein 5.2 L (6.3-8.2) g/dL Albumin 2.6 L (3.5-5.0) g/dL
[2020-07-07] MEDS: AMIODARONE 200 MG TAB PO SCH ×2 (12:56→21:28)
[2020-07-07 13:07] LABS: Glucose,Whole Blood 119 mg/dL (75-99)
--- NOTE | 2020-07-07 14:03 | P.PN ---
Subjective Progress Note Date: 07/07/20 CHIEF COMPLAINT: Abdominal pain HISTORY OF PRESENT ILLNESS: Patient is status post diverting loop transverse colostomy for Colonic obstruction. Patient in the ICU. She has been extubated over the weekend. Her ostomy is functioning. She's currently on a full liquid diet. Patient did pass her swallow evaluation. Patient had purulent drainage at the bottom of her incision. Nursing has collected culture. Infectious disease on consult. Afebrile. WBC 9.1. Patient's magnesium and potassium is being replaced. cardiology on consult regarding atrial fibrillation PHYSICAL EXAM: VITAL SIGNS: Reviewed. GENERAL: Well-developed in no acute distress. HEENT: No sclera icterus. Extraocular movements grossly intact. Moist buccal mucosa. Head is atraumatic, normocephalic. ABDOMEN: Soft. Incision clean dry and intact. Colostomy with brown liquidy stool present. Stoma beefy red NEUROLOGIC: Patient is awake and alert and answering questions ASSESSMENT: 1. Colonic obstruction status post Diverting loop transverse colostomy 2. Acute hypoxic respiratory failure 3. Incisional drainage we'll remove the last 3 marla. PLAN: -Consult infectious disease regarding incisional drainage. Remove last 3 marla of incision. Culture results pending -Continue supportive care -Continue full liquid diet -Continue antibiotics -Continue GI and DVT prophylaxis Physician Laundrette Owner note has been reviewed by physician. Signing provider agrees with the documented findings, assessment, and plan of care. Objective - Vital Signs Vital signs: Vital Signs Temp 98.3 F 07/07/20 12:00 Pulse 99 07/07/20 13:00 Resp 17 07/07/20 13:00 BP 128/86 07/07/20 13:00 Pulse Ox 94 L 07/07/20 13:00 Intake & Output 07/06/20 07/07/20 07/07/20 18:59 06:59 18:59 Intake Total 953.554 783.333 790 Output Total 915 1645 970 Balance 38.554 -861.667 -180 Weight 46.2 kg 47.6 kg Intake: IV 543 440 740 Ibuprofen IV 400 mg In 100 Sodium Chloride 0.9% 100 ml @ 200 mls/hr IV Q6HR [facility] Rx#:[id number] Magnesium Sulfate-D5w Pmx 100 400 1 gm In Dextrose/Water 1 100ml.bag @ 100 mls/hr IVPB Q1H [facility] Rx#: [id number] Piperacillin-Tazobactam 3 200 100 .375 gm In Sodium Chloride 0.9% 100 ml @ 25 mls/hr IVPB Q8HR [facility] Rx# :[id number] Potassium Chloride 20 meq 200 In Water For Injection 1 100ml.bag @ 50 mls/hr IVPB Q2H [facility] Rx#: [id number] Sodium Chloride 0.9% 1, 240 240 140 000 ml @ 20 mls/hr IV . Q24H [facility] Rx#:[id number] pressure bag 3 Intake, IV Titration 190.554 243.333 Amount Amiodarone 300 mg In 243.333 Dextrose 5% in Water 250 ml @ 0.5 MG/MIN 25 mls/hr IV .Q10H [facility] Rx#: [id number] Amiodarone 360 mg In 190.554 Dextrose 5% in Water 200 ml @ 1 MG/MIN 33.333 mls/ hr IV .Q6H [facility] Rx#: [id number] Oral 220 100 50 Output: Urine 815 1495 870 Stool 100 150 100 Other: Voiding Method Indwelling Catheter Indwelling Catheter Indwelling Catheter ABP, PAP, CO, CI - Last Documented Arterial Blood Pressure 95/49 - Labs CBC & Chem 7: 07/07/20 03:06 07/07/20 03:06 Labs: Abnormal Lab Results - Last 24 Hours (Table) 07/06/20 07/07/20 07/07/20 Range/Units 17:34 03:06 07:48 Sodium 130 L (137-145) mmol/L Potassium 3.1 L (3.5-5.1) mmol/L Chloride 84 L (98-107) mmol/L Carbon Dioxide 40 H (22-30) mmol/L Creatinine 0.45 L (0.52-1.04) mg/dL Glucose 102 H (74-99) mg/dL POC Glucose (mg/dL) 110 H 117 H (75-99) mg/dL Magnesium 0.9 L* (1.6-2.3) mg/dL Total Protein 5.2 L (6.3-8.2) g/dL Albumin 2.6 L (3.5-5.0) g/dL 07/07/20 Range/Units 13:05 Sodium (137-145) mmol/L Potassium (3.5-5.1) mmol/L Chloride (98-107) mmol/L Carbon Dioxide (22-30) mmol/L Creatinine (0.52-1.04) mg/dL Glucose (74-99) mg/dL POC Glucose (mg/dL) 119 H (75-99) mg/dL Magnesium (1.6-2.3) mg/dL Total Protein (6.3-8.2) g/dL Albumin (3.5-5.0) g/dL
[2020-07-07] MEDS: guaiFENesin 600 MG TABLET.ER PO SCH (16:37)
[2020-07-07] MEDS: IBUPROFEN IV 400 MG in SODIUM CHLORIDE 0.9% 100 ML IV PRN (17:38)
--- NOTE | 2020-07-07 20:43 | P.PN ---
Subjective Progress Note Date: 07/07/20 Principal diagnosis: back pain Patient is a 79-year-old female with known COPD, tobacco abuse, and hypertension who presented as a transfer from [facility] secondary to low back pain with abnormal computed tomography scan findings. On arrival she was tachycardic at 110 with a blood pressure 168/88 was satting 90% on 2 L nasal cannula. Laboratory analysis showed hyponatremia, elevated BUN, and the remainder of labs were unremarkable. She had a CT Thorasic, Lumbar, and Pelvis which showed a L1 compression fracture with retropulsion and central canal stenosis. She was admitted for pain control and orthopedic spine consultation. MRI showed L4 with slight posterior retropulsion, L1 with moderate posterior disc bulge effacing the anterior thecal sac, T11 exam compression fracture with some posterior retropulsion facing the anterior thecal sac. She developed t ahcycardia and increased O2 requirements. CTA chest negative of pulmonary embolism but does demonstrate debris in the right mainstem bronchus with collapse of the lower lobe consolidation, spiculated soft tissue thickening along the right upper lobe and left apical nodularity. On Augmentin and Lasix. Speech therapy consult was placed for possible aspiration pneumonia. She was in A. fib with RVR on 06/26. [facility] cardiology was consulted and placed her on cardizem. After electrolyte replcment and cardizem she converted to NSR. Nephro was consulted due to hyponatremia and she was continued on lasix and then given a dose a samsca. Due to her high fall risk and return to normal sinus with electrolyte replacement she was determined not to be a candidate for anticoagulation. Her sodium improved. She continued to complain of abdominal pain and some distention. She had been having daily bowel movements. Abdominal x-ray completed which did show ileus. Patient seen and examined at bedside. She denies pain, she is confused, no chest pain, no shortness of breath General: ill appearing, no distress, appears at stated age Derm: warm, dry Head: atraumatic, normocephalic, symmetric Eyes: EOMI, no lid lag, anicteric sclera Mouth: no lip lesion, mucus membranes moist Cardiovascular: S1S2 reg, no murmur, positive posterior tibial pulse bilateral, Lungs: decreased bs bilateral , no accessory muscle use Abdominal: soft, purulent drainage from midline incision, NTTP, + osteomy in place with feculent ostomy, no appreciable organomegaly Ext: no gross muscle atrophy, trace edema, no contractures Neuro: CN II-XI grossly intact, no focal neuro deficits Psych: Alert, oriented, upset and angry Colonic obstruction s/p colostomy - Post op management pre surgery - on full liquid diet -per speech improved swallow and upgraded to thin liquids - on Zosyn post op D # 6 - monitor drainage from incision - await ID recs Paroxysmal Atrial fibrillation with rapid ventricular response, now in NSR -Amio -Cardiology recommended appreciated -echocardiogram ef 55-60% no significant valvular dysfunction -Telemetry -TSH normal -not a candidate for anticoagulation secondary to falls and is currently maintaining normal sinus rhythm 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 Lau. No surgery planned at this point. TLSO brace when up and ambulating and pain control. - Patient refuses age-related cancer testing such as mammogram or colonoscopy. We discussed benefits and risks including undefined occult maligna ncy and patient accepts the risk of this. - norco Spiculated pulmonayr nodule - Check CT of the chest which was completed and shows no signs of large pulmonary embolism but does demonstrate debris in the right mainstem bronchus with collapse of the lower lobe consolidation, spiculated soft tissue thickening along the right upper lobe and left apical nodularity. - Repeat CT chest in [address] De Luna. Case discussed with Dr. De Luna who agrees to following the patient. Patient informed Hypokalemia and hypomagnesemia - replace -Recheck in a.m. COPD without acute exacerbation with hypercapnia -Symbicort, Spiriva change Atrovent due to formulary -When necessary bronchodilators Moderate protein calorie malnutrition - dietitian recs - supplements Acute hypoxic respiratory failure, extubated 07/04 Community Pneumonia with septic shock, resolved Osteoporosis DVT prophylaxis: SCDs Discussed with: Patient, nursing, case management Anticipated discharge: 3-[address]: SNF A total of 35 minutes was spent on the care of this complex patient more than 50% of the time was spent in counseling and care coordination. Objective - Vital Signs Vital signs: Vital Signs Temp 98.3 F 07/07/20 12:00 Pulse 104 H 07/07/20 19:30 Resp 10 L 07/07/20 19:30 BP 127/74 07/07/20 19:30 Pulse Ox 95 07/07/20 19:00 Intake & Output 07/07/20 07/07/20 07/08/20 06:59 18:59 06:59 Intake Total 783.333 990 20 Output Total 1645 1170 25 Balance -861.667 -180 -5 Weight 47.6 kg Intake: IV 440 940 20 Magnesium Sulfate-D5w Pmx 100 400 1 gm In Dextrose/Water 1 100ml.bag @ 100 mls/hr IVPB Q1H [facility] Rx#: [id number] Piperacillin-Tazobactam 3 100 100 .375 gm In Sodium Chloride 0.9% 100 ml @ 25 mls/hr IVPB Q8HR [facility] Rx# :[id number] Potassium Chloride 20 meq 200 In Water For Injection 1 100ml.bag @ 50 mls/hr IVPB Q2H [facility] Rx#: [id number] Sodium Chloride 0.9% 1, 240 240 20 000 ml @ 20 mls/hr IV . Q24H [facility] Rx#:[id number] Intake, IV Titration 243.333 Amount Amiodarone 300 mg In 243.333 Dextrose 5% in Water 250 ml @ 0.5 MG/MIN 25 mls/hr IV .Q10H [facility] Rx#: [id number] Oral 100 50 Output: Urine 1495 1070 25 Stool 150 100 Other: Voiding Method Indwelling Catheter Indwelling Catheter ABP, PAP, CO, CI - Last Documented Arterial Blood Pressure 95/49 - Labs CBC & Chem 7: 07/07/20 03:06 07/07/20 03:06 Labs: Abnormal Lab Results - Last 24 Hours (Table) 07/07/20 07/07/20 07/07/20 Range/Units 03:06 07:48 13:05 Sodium 130 L (137-145) mmol/L Potassium 3.1 L (3.5-5.1) mmol/L Chloride 84 L (98-107) mmol/L Carbon Dioxide 40 H (22-30) mmol/L Creatinine 0.45 L (0.52-1.04) mg/dL Glucose 102 H (74-99) mg/dL POC Glucose (mg/dL) 117 H 119 H (75-99) mg/dL Magnesium 0.9 L* (1.6-2.3) mg/dL Total Protein 5.2 L (6.3-8.2) g/dL Albumin 2.6 L (3.5-5.0) g/dL Microbiology - Last 24 Hours (Table) 07/07/20 10:28 Anaerobic Culture - Preliminary Abdomen 07/07/20 10:28 Wound Culture - Preliminary Abdomen
[2020-07-07] MEDS ORDERED: MIRTAZAPINE 15 MG TAB PO SCH (21:15)
[2020-07-07] MEDS: APIXABAN 5 MG TAB PO SCH (21:29)
[2020-07-07] MEDS: LATANOPROST 0.005% OPHTH DROPS 2.5 ML BTL BOTH EYES SCH (21:29)
[2020-07-07] MEDS: FORMOTEROL FUMARATE 20 MCG/2 ML NEBU INHALATION SCH (21:37)
[2020-07-08] MEDS: PIPERACILLIN-TAZOBACTAM 3.375 GM in SODIUM CHLORIDE 0.9% 100 ML IVPB SCH ×2 (00:30→08:13)
[2020-07-08] MEDS: SODIUM CHLORIDE 0.9% 250 ML IV SCH ×3 (01:15→04:28)
[2020-07-08] MEDS: NOREPINEPHRINE 32 MG in SODIUM CHLORIDE 0.9% 218 ML IV SCH (02:36)
[2020-07-08] MEDS: SODIUM CHLORIDE 0.9% 1,000 ML IV SCH (03:34)
[2020-07-08 04:18] LABS: HCT 41.5 % (34.0-46.0); HGB 13.5 gm/dL (11.4-16.0); MCH 30.6 pg (25.0-35.0); MCHC 32.6 g/dL (31.0-37.0); MCV 93.8 fL (80.0-100.0); Mean Platelet Volume 8.3; Platelet Count 267 k/uL (150-450); RBC 4.42 m/uL (3.80-5.40); WBC 6.8 k/uL (3.8-10.6)
[2020-07-08 04:46] LABS: ALT 16 U/L (4-34); AST 36 U/L (14-36); African American GFR (CKD) >90 (>60 ml/min/1.73 sqM); Albumin 2.6 g/dL (3.5-5.0); Alkaline Phosphatase 83 U/L (38-126); Anion Gap 9 mmol/L; Blood Urea Nitrogen 12 mg/dL (7-17); Calcium 8.5 mg/dL (8.4-10.2); Carbon Dioxide 32 mmol/L (22-30); Chloride 91 mmol/L (98-107); Glucose 79 mg/dL (74-99); Non-African American GFR(CKD) >90 (>60 ml/min/1.73 sqM); Potassium 3.4 mmol/L (3.5-5.1); Sodium 132 mmol/L (137-145); Total Bilirubin 0.6 mg/dL (0.2-1.3); Total Protein 5.3 g/dL (6.3-8.2)
[2020-07-08] MEDS: POTASSIUM CHLORIDE 10 MEQ in WATER FOR INJECTION 1 100ML.BAG IVPB SCH ×4 (05:57→10:03)
[2020-07-08] MEDS: HYDROmorphone 1 MG/ML 1 ML SYRINGE IVP PRN ×4 (07:09→16:35)
[2020-07-08] MEDS ORDERED: PANTOPRAZOLE 40 MG TABLET PO SCH (07:30)
[2020-07-08] MEDS: VITAMIN E (DL,TOCOPHERYL ACET) 400 UNIT CAP PO SCH (08:15)
[2020-07-08] MEDS: AMIODARONE 200 MG TAB PO SCH (08:15)
[2020-07-08] MEDS: APIXABAN 5 MG TAB PO SCH (08:15)
[2020-07-08] MEDS: CHOLECALCIFEROL 1,000 UNIT TAB PO SCH (08:15)
[2020-07-08] MEDS: guaiFENesin 600 MG TABLET.ER PO SCH (08:15)
[2020-07-08] MEDS: MAGNESIUM OXIDE 400 MG TAB PO SCH (08:15)
[2020-07-08] MEDS: IPRATROPIUM-ALBUTEROL 3 ML NEB INHALATION SCH ×3 (08:56→15:45)
[2020-07-08] MEDS: FORMOTEROL FUMARATE 20 MCG/2 ML NEBU INHALATION SCH (08:56)
[2020-07-08] MEDS ORDERED: FUROSEMIDE 10 MG/ML 4 ML VIAL IV SCH (09:00)
--- NOTE | 2020-07-08 09:18 | P.PN ---
Subjective Progress Note Date: 07/08/20 CHIEF COMPLAINT: Abdominal pain HISTORY OF PRESENT ILLNESS: Patient is status post diverting loop transverse colostomy for Colonic obstruction. Patient in the ICU. She has been extubated over the weekend. Her ostomy is functioning. She's currently on a full liquid diet. Patient did pass her swallow evaluation. Patient had purulent drainage at the bottom of her incision. Nursing has collected culture. Infectious disease on consult. Afebrile. WBC 6.8. Potassium 3.4 PHYSICAL EXAM: VITAL SIGNS: Reviewed. GENERAL: Well-developed in no acute distress. HEENT: No sclera icterus. Extraocular movements grossly intact. Moist buccal mucosa. Head is atraumatic, normocephalic. ABDOMEN: Soft. Purulent drainage at the distal aspect of incision. Colostomy with brown liquidy stool present. Stoma beefy red NEUROLOGIC: Patient is awake and alert and answering questions ASSESSMENT: 1. Colonic obstruction status post Diverting loop transverse colostomy 2. Acute hypoxic respiratory failure 3. Incisional drainage last 3 marla removed from incision PLAN: -Consult infectious disease regarding incisional drainage. Culture results pending -Continue supportive care -Continue full liquid diet and advance as tolerated -Continue antibiotics -Potassium replacement per protocol -Continue GI and DVT prophylaxis Physician Superintendent [employer] note has been reviewed by physician. Signing provider agrees with the documented findings, assessment, and plan of care. Objective - Vital Signs Vital signs: Vital Signs Temp 97.7 F 07/08/20 08:00 Pulse 88 07/08/20 09:09 Resp 14 07/08/20 09:00 BP 152/77 07/08/20 09:00 Pulse Ox 92 L 07/08/20 09:00 Intake & Output 07/07/20 07/08/20 07/08/20 18:59 06:59 18:59 Intake Total 990 715 450 Output Total 1170 335 395 Balance -180 380 55 Weight 45.9 kg Intake: IV 940 590 360 0.9% 250 mL Bolus 250 Magnesium Sulfate-D5w Pmx 400 1 gm In Dextrose/Water 1 100ml.bag @ 100 mls/hr IVPB Q1H [facility] Rx#: [id number] Piperacillin-Tazobactam 3 100 .375 gm In Sodium Chloride 0.9% 100 ml @ 25 mls/hr IVPB Q8HR [facility] Rx# :[id number] Potassium Chloride 10 meq 100 300 In Water For Injection 1 100ml.bag @ 100 mls/hr IVPB Q1HR [facility] Rx#: [id number] Potassium Chloride 20 meq 200 In Water For Injection 1 100ml.bag @ 50 mls/hr IVPB Q2H [facility] Rx#: [id number] Sodium Chloride 0.9% 1, 240 240 60 000 ml @ 20 mls/hr IV . Q24H [facility] Rx#:[id number] Intake, IV Titration 50 Amount Piperacillin-Tazobactam 3 50 .375 gm In Sodium Chloride 0.9% 100 ml @ 25 mls/hr IVPB Q8HR [facility] Rx# :[id number] Oral 50 125 Tube Feeding 40 Output: Urine 1070 235 395 Stool 100 100 Other: Voiding Method Indwelling Catheter Indwelling Catheter Indwelling Catheter ABP, PAP, CO, CI - Last Documented Arterial Blood Pressure 95/49 - Labs CBC & Chem 7: 07/08/20 03:17 07/08/20 03:17 Labs: Abnormal Lab Results - Last 24 Hours (Table) 07/07/20 07/08/20 Range/Units 13:05 03:17 Sodium 132 L (137-145) mmol/L Potassium 3.4 L (3.5-5.1) mmol/L Chloride 91 L (98-107) mmol/L Carbon Dioxide 32 H (22-30) mmol/L Creatinine 0.51 L (0.52-1.04) mg/dL POC Glucose (mg/dL) 119 H (75-99) mg/dL Total Protein 5.3 L (6.3-8.2) g/dL Albumin 2.6 L (3.5-5.0) g/dL Microbiology - Last 24 Hours (Table) 07/07/20 10:28 Gram Stain - Preliminary Abdomen Wound Culture - Preliminary 07/07/20 10:28 Anaerobic Culture - Preliminary Abdomen
--- NOTE | 2020-07-08 10:26 | CONS ---
CONSULTATION DATE OF SERVICE: 07/07/2020. REASON FOR CONSULTATION: Abdominal infection. HISTORY OF PRESENT ILLNESS: Patient is a 79-year-old female who presented to the hospital about 2 weeks ago on June 23, 2020 preliminarily for low back pain. The patient did have x-rays followed by an MRI of the lumbosacral spine with evidence of compression fracture of L4 and the patient has been evaluated by Orthopedic Surgery here in this hospital. The patient developed abdominal pain on 06/29/2020. The patient did have a CT of abdomen and pelvis with evidence of small bowel obstruction. The patient was taken to the OR on 07/01/2020, and this patient who is status post diverting loop transverse colostomy. The patient has been in the ICU since then, recovering and this patient has been afebrile for the last 3-4 days. Patient also has a normal white count on the last 3 days. She did have previously elevated white count and creatinine. The patient was noticed to have some purulent drainage from her abdominal incision today for which the patient did have both aerobic and anaerobic cultures obtained. Patient is currently on Zosyn. Infectious Disease was consulted for further management of antibiotic therapy. Most information has been obtained from review of the chart, talking to nursing staff as the patient herself is unable to provide a reliable history. REVIEW OF SYSTEMS: Positive points has been mentioned in HPI. Complete review of systems could not be obtained because of her condition. PAST MEDICAL HISTORY: Significant for asthma, COPD, ankle fracture: PAST SURGICAL HISTORY: Surgery for ankle fracture. SOCIAL HISTORY: Current everyday smoker. No drinking or drug use. FAMILY HISTORY: Both parents history of CVA, TIA. ALLERGIES: To MORPHINE and LATEX. MEDICATIONS: Include the patient is currently on albuterol, amiodarone, Eliquis, Lasix, Mucinex, Dilaudid, ibuprofen, mag oxide, Lopressor, Remeron, Zosyn: PHYSICAL EXAMINATION: Blood pressure is 127/72 with a pulse of 104, temperature of 98, she is 95% on high- flow oxygen. General description is an elderly female, lying in bed in no distress. No tachypnea or accessory muscle for respiration use. HEENT: Examination shows no pallor or scleral icterus. Oral mucosa membrane is dry, no pharyngeal erythema or thrush. NECK: Trachea central. LUNGS: Unlabored breathing, decreased intensity of breath sounds. No wheeze. HEART: S1, S2. Regular rate and rhythm. ABDOMEN: Soft, mildly distended. Midline incision did have some purulent drainage. EXTREMITIES: No edema of the feet. SKIN: Examination no rash or mass palpable. NEUROLOGIC: The patient awake, but lethargic. Orientation could not be determined. LABS: Hemoglobin is 12.1, white count of 9.1. BUN of 13, creatinine 0.45. Abdominal cultures currently pending. No blood culture this admission. DIAGNOSTIC IMPRESSION: Patient with drainage from her abdominal incision in this patient with recent diagnosis of colon obstruction, status post laparotomy and diverting loop transverse colostomy with evidence of purulent drainage. This patient currently with no fever or elevated white count. Concern for possible superficial surgical site infection with underlying deep infection less likely, but not entirely excluded and will need to cover for the enteric gram-negative both aerobes and anaerobes. PLAN: 1. Zosyn 3.37 g q.8 hours. 2. If the patient spikes any fever or any worsening white count, may recommend CT of abdomen and pelvis to rule out any deep collection. 3. Will follow on clinical condition and culture to further adjust medication if needed. Thank you for this consultation. Will follow this patient along with you MMODL / IJN: [id number] /
--- NOTE | 2020-07-08 10:50 | P.PN ---
Subjective Progress Note Date: 07/08/20 Principal diagnosis: Colonic obstruction, acute hypoxic respiratory failure 79-year-old white female patient with multiple medical problems who was transferred from [facility] on 06/23/2020 with severe back pain and workup revealed multiple compression fractures with retropulsion of L1, into the spinal column. In the course of her stay patient has developed abdominal pain, and workup showed evidence of colonic obstruction. Nephrology was following in regards to hyponatremia, orthopedic surgery in regards to the multiple compression fractures of the spine. Patient has developed a worsening hypoxic respiratory failure, at the same time she was scheduled for surgery for severe colonic obstruction versus ileus, patient was considered a high surgical risk, she had her surgery on 07/01/2020, that is post bifurcating colostomy, patient was found to have a megacolon and bowel obstruction. She required a few of ventilator days following her surgery, however she was successfully weaned and extubated on 07/04/2020. This morning she is awake and alert, she is sitting up in bed, she is on high flow oxygen at 15 L, her pulse ox is 88-91% on 15 L, appears to be in no acute distress, although she does report some dyspnea with exertion, anginal low-grade fever, for the most part she is been afebrile, hemodynamically she stable, she is on 0.9 normal saline at a rate of 20 ML per hour, today chest x-ray has been reviewed and basilar infiltrates and atelecta sis with effusions although there is been improved aeration of the right lung base. Her colostomy is producing liquid stool, her mid abdominal incision is clean dry and intact, covered with a surgical dressing, abdomen is soft, patient is awake and alert, she is oriented 2, she is cooperative, and she is having evaluation done for swallowing. On 07/07/2020 patient seen in follow-up in the intensive care unit. She is down to 9 L per high flow nasal cannula, and her pulse ox is 94-97%, dyspneic with exertion, but otherwise seems to be in no acute distress, 0.9 normal saline at a rate of 20 ML per hour, and amiodarone at 0.5 mg/m, she remains in A. fib, with the relatively controlled rate at 100 BPM. Lung sounds reveal diminished breath sounds, with some scattered wheezes, patient remains on breathing treatments, as had no complaints of chest pain or hemoptysis, however she is having some lower abdominal discomfort, and the distal incision of her mid abdominal incision is draining some thin purulent drainage, marla are intact, surgeries following, we'll culture the wound drainage, patient remains on antibiotics Zosyn. Patient is having very poor appetite, she did pass a swallow evaluation however she has no appetite, her oral mucous membranes are extremely dry, she remains on IV Lasix at 40 mg every 12 hours, she has produced 2.5 L in the urine output over last 24 hours and she is in -823 mL over the last 24 hours, his labs have been reviewed, white blood cell count is 9.1, hemoglobin is 12.8, serum sodium is 1:30, potassium is 3.1, chloride is 84, CO2 is up to 40, BUN is 13 creatinine is 0.49, magnesium is 0.9. On 07/08/2020 patient seen in follow-up in the intensive care unit, she is on 10 L high flow oxygen, with a pulse ox at around 99%, she is a bit more lethargic today, she is moaning, she is having a lot of lower abdominal discomfort, her association of her abdominal incision is still draining serosanguineous, possibly with some purulence drainage, moderate amount. Marla are intact, abdomen is extremely tender, patient is guarding her abdomen. No nausea or vomiting, her oral intake has been extremely poor, she has point and was seen and infusing at a rate of 10 ML per hour, she's been afebrile, her colostomy is producing liquid brown stool. Lung sounds are diminished, with some basilar crackles. Yesterday chest x-ray showing persistent but improving basilar pleural effusions. We cut back the Lasix yesterday, repeat chest x-rays pending today. She is on Zosyn for empiric antibiotic coverage, aerobic cultures of the distal abdominal wound drainage was collected yesterday, cultures pending. Patient is unable to her incentive spirometer. Today's labs have been reviewed, CBC is within normal limits, sodium is 132, potassium is 3.4, chloride is 91, CO2 is 32, BUN is 12, and creatinine is 0.51. Surgical services and nephrology are following. The ID service is following. Objective - Vital Signs Vital signs: Vital Signs Temp 97.7 F 07/08/20 08:00 Pulse 90 07/08/20 09:15 Resp 14 07/08/20 09:00 BP 152/77 07/08/20 09:00 Pulse Ox 92 L 07/08/20 09:00 Intake & Output 07/07/20 07/08/20 07/08/20 18:59 06:59 18:59 Intake Total 990 715 450 Output Total 1170 335 395 Balance -180 380 55 Weight 45.9 kg Intake: IV 940 590 360 0.9% 250 mL Bolus 250 Magnesium Sulfate-D5w Pmx 400 1 gm In Dextrose/Water 1 100ml.bag @ 100 mls/hr IVPB Q1H [facility] Rx#: [id number] Piperacillin-Tazobactam 3 100 .375 gm In Sodium Chloride 0.9% 100 ml @ 25 mls/hr IVPB Q8HR [facility] Rx# :[id number] Potassium Chloride 10 meq 100 300 In Water For Injection 1 100ml.bag @ 100 mls/hr IVPB Q1HR [facility] Rx#: [id number] Potassium Chloride 20 meq 200 In Water For Injection 1 100ml.bag @ 50 mls/hr IVPB Q2H [facility] Rx#: [id number] Sodium Chloride 0.9% 1, 240 240 60 000 ml @ 20 mls/hr IV . Q24H [facility] Rx#:[id number] Intake, IV Titration 50 Amount Piperacillin-Tazobactam 3 50 .375 gm In Sodium Chloride 0.9% 100 ml @ 25 mls/hr IVPB Q8HR [facility] Rx# :[id number] Oral 50 125 Tube Feeding 40 Output: Urine 1070 235 395 Stool 100 100 Other: Voiding Method Indwelling Catheter Indwelling Catheter Indwelling Catheter ABP, PAP, CO, CI - Last Documented Arterial Blood Pressure 95/49 - Exam GENERAL EXAM: Drowsy, but arousable, 79-year-old white female, on 10 L of oxygen with a pulse ox between 97% comfortable in no apparent distress. HEAD: Normocephalic/atraumatic. EYES: Normal reaction of pupils, equal size. Conjunctiva pink, sclera white. NOSE: Clear with pink turbinates. THROAT: No erythema or exudates. NECK: No masses, no JVD, no thyroid enlargement, no adenopathy. CHEST: No chest wall deformity. Symmetrical expansion. LUNGS: Equal air entry with minimal basilar crackles, wheeze, rhonchi or dullness. CVS: Regular rate and rhythm, normal S1 and S2, no gallops, no murmurs, no rubs ABDOMEN: Soft, very tender following surgery. No hepatosplenomegaly, normal bowel sounds, no guarding or rigidity. Midabdominal incision distal portion is draining a moderate amount of serosanguineous output with some purulence, 3 lower marla were removed by surgery, dressing is on, left lower quadrant colostomy producing liquid stool EXTREMITIES: No clubbing, no edema, no cyanosis, 2+ pulses and upper and lower extremities. MUSCULOSKELETAL: Muscle strength and tone normal. SPINE: No scoliosis or deformity SKIN: No rashes CENTRAL NERVOUS SYSTEM: Drowsy but arousable. No focal deficits, tone is normal in all 4 extremities. - Labs CBC & Chem 7: 07/08/20 03:17 07/08/20 03:17 Labs: Abnormal Lab Results - Last 24 Hours (Table) 07/07/20 07/08/20 Range/Units 13:05 03:17 Sodium 132 L (137-145) mmol/L Potassium 3.4 L (3.5-5.1) mmol/L Chloride 91 L (98-107) mmol/L Carbon Dioxide 32 H (22-30) mmol/L Creatinine 0.51 L (0.52-1.04) mg/dL POC Glucose (mg/dL) 119 H (75-99) mg/dL Total Protein 5.3 L (6.3-8.2) g/dL Albumin 2.6 L (3.5-5.0) g/dL Microbiology - Last 24 Hours (Table) 07/07/20 10:28 Gram Stain - Preliminary Abdomen Wound Culture - Preliminary 07/07/20 10:28 Anaerobic Culture - Preliminary Abdomen Assessment and Plan Plan: Assessment: #1. Acute hypoxic respiratory failure multifactorial related to intra-abdominal distention secondary to colonic obstruction, pulmonary embolism was ruled out, chest x-ray and CTA chest showed bibasilar atelectasis and small pleural effusions, related to acute exacerbation of diastolic CHF and acute exacerbation of COPD #2. Colonic obstruction with secondary colonic gaseous dilatation, and abdominal pain, status post diverging colostomy, post-operative day 6 #3. Left apical pulmonary nodularity noted on the CTA chest will need outpatient follow-up with repeat CT chest #4. 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 Chronic history of smoking #6. Intractable back pain with multiple compression fractures seen on the CT tomography scan of the thoracic, lumbar spine #7. Hyponatremia, possibility of SIADH, and possibility of hypervolemia #8. A. fib with RVR #9. Chronic diastolic congestive heart failure and bilateral pleural effusions #10. SVT #11. Metabolic alkalosis, likely related to IV diuretics, and hypokalemia Plan: Continue with current dose of Lasix, we'll obtain follow-up chest x-ray today, FiO2 is relatively stable at 10 L, however patient is having increased abdominal discomfort, her distal portion of abdominal incision is still draining drainage, which was sent for cultures, cultures pending, ID service is following, patient remains on Zosyn, patient has had no fever or chills, she has not been able to take in much in the way of oral intake, may have to increase her IV fluids were stopped the Lasix altogether depending on the chest x-ray findings. She has made statements to the nursing staff that she wants to go home and she wants to , her CODE STATUS is DO NOT RESUSCITATE, she was high risk of going into surgery, she has a multiple comorbidities, she is very frail, with poor lung function, she is very slow to progress after surgery, having lots of discomfort postsurgery in her abdomen. Her prognosis is extremely guarded, based on overall condition, would recommend hospice consultation to evaluate the patient, and discuss care options with the patient under the hospice care. Continue with supportive treatment for now. I performed a history & physical examination of the patient and discussed their management with my nurse practitioner, Veronica Luis. I reviewed the nurse practitioner's note and agree with the documented findings and plan of care. Lung sounds are positive for diminished breath sounds. The findings and the impression was discussed with the patient. I attest to the documentation by the nurse practitioner. Time with Patient: Greater than 30
--- NOTE | 2020-07-08 11:42 | P.PN ---
Subjective Progress Note Date: 07/08/20 Principal diagnosis: back pain Patient is a 79-year-old female with known COPD, tobacco abuse, and hypertension who presented as a transfer from [facility] secondary to low back pain with abnormal computed tomography scan findings. On arrival she was tachycardic at 110 with a blood pressure 168/88 was satting 90% on 2 L nasal cannula. Laboratory analysis showed hyponatremia, elevated BUN, and the remainder of labs were unremarkable. She had a CT Thorasic, Lumbar, and Pelvis which showed a L1 compression fracture with retropulsion and central canal stenosis. She was admitted for pain control and orthopedic spine consultation. MRI showed L4 with slight posterior retropulsion, L1 with moderate posterior disc bulge effacing the anterior thecal sac, T11 exam compression fracture with some posterior retropulsion facing the anterior thecal sac. She developed t ahcycardia and increased O2 requirements. CTA chest negative of pulmonary embolism but does demonstrate debris in the right mainstem bronchus with collapse of the lower lobe consolidation, spiculated soft tissue thickening along the right upper lobe and left apical nodularity. On Augmentin and Lasix. Speech therapy consult was placed for possible aspiration pneumonia. She was in A. fib with RVR on 06/26. She underwent an echocardiogram [facility] showed an EF 55-60%, cardiology was consulted and placed her on cardizem. After electrolyte replcment and cardizem she converted to NSR. Nephro was consulted due to hyponatremia and she was continued on lasix and then given a dose a samsca. Due to her high fall risk and return to normal sinus with electrolyte replacement she was determined not to be a candidate for anticoagulation. Her sodium improved. She continued to complain of abdominal pain and some distention. She had been having daily bowel movements. Abdominal x-ray completed which did show ileus. Patient refused NGT. She was seen by surgery on 06/30 and was found to have colonic obstruction on CT abdomen and pelvis. She ultimately required diverting colostomy on 07/01 where she was found to have megacolon and bowel obstruction. She required ICU care post operatively and was on the ventilator but successfully extubated on 07/04. She has had good output through her ostomy. However she has continued to require large amounts of oxygen. On 07/07 she was noticed to have drainage from her midline abdominal incision. Patient seen and examined at bedside. She is having some back pain. She is confused in no she is at a hospital that she's at [facility]. She denies any nausea or vomiting. General: ill appearing, no distress, appears at stated age Derm: warm, dry Head: atraumatic, normocephalic, symmetric Eyes: EOMI, no lid lag, anicteric sclera Mouth: no lip lesion, mucus membranes moist Cardiovascular: S1S2 reg, no murmur, positive posterior tibial pulse bilateral, Lungs: decreased bs bilateral , no accessory muscle use Abdominal: soft, purulent drainage from midline incision, NTTP, + osteomy in place with fecal matter in pouch, no appreciable organomegaly Ext: no gross muscle atrophy, trace edema, no contractures Neuro: CN II-XI grossly intact, no focal neuro deficits Psych: Alert to self and being in the hospital Colonic obstruction s/p colostomy - Post op management per surgery - on full liquid diet per surgery - per speech improved swallow and upgraded to thin liquids - on Zosyn post op D # 7 - monitor drainage from incision, await cultures, ID following - await ID recs Paroxysmal Atrial fibrillation with rapid ventricular response, now in NSR -Amio -Cardiology recommended appreciated -echocardiogram ef 55-60% no significant valvular dysfunction -Telemetry -TSH normal -not a candidate for anticoagulation secondary to falls and is currently maintaining normal sinus rhythm Hyponatremia with probable SIADH -nephrology recommendations, fluid status improved, samsca X 2 -Improving - follow levels Acute metabolic encephalopathy - supportive care Intractable back pain secondary to multiple compression fractures: L4 with sligh t posterior retropulsion, L1 with moderate posterior disc bulge effacing the anterior thecal sac, T11 exam compression fracture with some posterior retropulsion facing the anterior thecal sac -Orthopedic spine recommendations-discussed with Dr. Lau. No surgery planned at this point. TLSO brace when up and ambulating and pain control. - Patient refuses age-related cancer testing such as mammogram or colonoscopy. We discussed benefits and risks including undefined occult malignancy and patient accepts the risk of this. - norco Spiculated pulmonary nodule - Check CT of the chest which was completed and shows no signs of large pulmonary embolism but does demonstrate debris in the right mainstem bronchus with collapse of the lower lobe consolidation, spiculated soft tissue thickening along the right upper lobe and left apical nodularity. - Repeat CT chest in [address] De Luna. Case discussed with Dr. De Luna who agrees to following the patient. Patient informed Hypokalemia - replace -Recheck in a.m. COPD without acute exacerbation with hypercapnia -Symbicort, Spiriva change Atrovent due to formulary -When necessary bronchodilators Moderate protein calorie malnutrition, failure to thrive - dietitian recs - supplements - Remeron Acute hypoxic respiratory failure, extubated 07/04, likely worsening due to right sided pleural effusion - supportive care Community Pneumonia with septic shock, resolved hypomagnesemia, resolved Osteoporosis DVT prophylaxis: SCDs Discussed with: Patient, nursing, case management Anticipated discharge: 3-[address]: SNF A total of 35 minutes was spent on the care of this complex patient more than 50% of the time was spent in counseling and care coordination. Objective - Vital Signs Vital signs: Vital Signs Temp 97.7 F 07/08/20 08:00 Pulse 90 07/08/20 09:15 Resp 14 07/08/20 09:00 BP 152/77 07/08/20 09:00 Pulse Ox 92 L 07/08/20 09:00 Intake & Output 07/07/20 07/08/20 07/08/20 18:59 06:59 18:59 Intake Total 990 715 450 Output Total 1170 335 395 Balance -180 380 55 Weight 45.9 kg Intake: IV 940 590 360 0.9% 250 mL Bolus 250 Magnesium Sulfate-D5w Pmx 400 1 gm In Dextrose/Water 1 100ml.bag @ 100 mls/hr IVPB Q1H [facility] Rx#: [id number] Piperacillin-Tazobactam 3 100 .375 gm In Sodium Chloride 0.9% 100 ml @ 25 mls/hr IVPB Q8HR [facility] Rx# :[id number] Potassium Chloride 10 meq 100 300 In Water For Injection 1 100ml.bag @ 100 mls/hr IVPB Q1HR [facility] Rx#: [id number] Potassium Chloride 20 meq 200 In Water For Injection 1 100ml.bag @ 50 mls/hr IVPB Q2H [facility] Rx#: [id number] Sodium Chloride 0.9% 1, 240 240 60 000 ml @ 20 mls/hr IV . Q24H [facility] Rx#:[id number] Intake, IV Titration 50 Amount Piperacillin-Tazobactam 3 50 .375 gm In Sodium Chloride 0.9% 100 ml @ 25 mls/hr IVPB Q8HR [facility] Rx# :[id number] Oral 50 125 Tube Feeding 40 Output: Urine 1070 235 395 Stool 100 100 Other: Voiding Method Indwelling Catheter Indwelling Catheter Indwelling Catheter ABP, PAP, CO, CI - Last Documented Arterial Blood Pressure 95/49 - Labs CBC & Chem 7: 07/08/20 03:17 07/08/20 03:17 Labs: Abnormal Lab Results - Last 24 Hours (Table) 07/07/20 07/08/20 Range/Units 13:05 03:17 Sodium 132 L (137-145) mmol/L Potassium 3.4 L (3.5-5.1) mmol/L Chloride 91 L (98-107) mmol/L Carbon Dioxide 32 H (22-30) mmol/L Creatinine 0.51 L (0.52-1.04) mg/dL POC Glucose (mg/dL) 119 H (75-99) mg/dL Total Protein 5.3 L (6.3-8.2) g/dL Albumin 2.6 L (3.5-5.0) g/dL Microbiology - Last 24 Hours (Table) 07/07/20 10:28 Gram Stain - Preliminary Abdomen Wound Culture - Preliminary 07/07/20 10:28 Anaerobic Culture - Preliminary Abdomen
--- NOTE | 2020-07-08 11:51 | P.PN ---
Subjective Progress Note Date: 07/08/20 HISTORY OF PRESENT ILLNESS: Patient examined this morning at the bedside. She denies chest pain or pressure. She denies shortness of breath. She reports back pain and abdominal pain this morning. Her lasix was decreased to once daily yesterday per pulmonary. Vital signs stable. Creatinine 0.51 today. Fluid balance over the last 24 hours is +200 mL. PHYSICAL EXAM: VITAL SIGNS: Reviewed. GENERAL: Well-developed in no acute distress. NECK: Supple. No JVD or thyromegaly LUNGS: Respirations even and unlabored. Lungs diminished. HEART: Regular rate and rhythm. S1 and S2 heard. EXTREMITIES: Normal range of motion. No clubbing or cyanosis. Peripheral puls es intact. No lower extremity edema ASSESSMENT: Colonic obstruction, status post diverting colostomy Acute hypoxic respiratory failure Paroxysmal atrial fibrillation with RVR Acute exacerbation of chronic diastolic congestive heart failure PLAN: Continue Eliquis Continue Amio Continue telemetry monitoring Continue IV lasix per pulmonary Repeat CXR this AM Obtain BNP Continue to monitor intake and output Daily weights Monitor kidney function Nurse practitioner note has been reviewed by physician. Signing provider agrees with the documented findings, assessment, and plan of care. Objective - Vital Signs Vital signs: Vital Signs Temp 97.7 F 07/08/20 08:00 Pulse 90 07/08/20 09:15 Resp 14 07/08/20 09:00 BP 152/77 07/08/20 09:00 Pulse Ox 92 L 07/08/20 09:00 Intake & Output 07/07/20 07/08/20 07/08/20 18:59 06:59 18:59 Intake Total 990 715 450 Output Total 1170 335 395 Balance -180 380 55 Weight 45.9 kg Intake: IV 940 590 360 0.9% 250 mL Bolus 250 Magnesium Sulfate-D5w Pmx 400 1 gm In Dextrose/Water 1 100ml.bag @ 100 mls/hr IVPB Q1H [facility] Rx#: [id number] Piperacillin-Tazobactam 3 100 .375 gm In Sodium Chloride 0.9% 100 ml @ 25 mls/hr IVPB Q8HR [facility] Rx# :[id number] Potassium Chloride 10 meq 100 300 In Water For Injection 1 100ml.bag @ 100 mls/hr IVPB Q1HR [facility] Rx#: [id number] Potassium Chloride 20 meq 200 In Water For Injection 1 100ml.bag @ 50 mls/hr IVPB Q2H [facility] Rx#: [id number] Sodium Chloride 0.9% 1, 240 240 60 000 ml @ 20 mls/hr IV . Q24H [facility] Rx#:[id number] Intake, IV Titration 50 Amount Piperacillin-Tazobactam 3 50 .375 gm In Sodium Chloride 0.9% 100 ml @ 25 mls/hr IVPB Q8HR [facility] Rx# :[id number] Oral 50 125 Tube Feeding 40 Output: Urine 1070 235 395 Stool 100 100 Other: Voiding Method Indwelling Catheter Indwelling Catheter Indwelling Catheter ABP, PAP, CO, CI - Last Documented Arterial Blood Pressure 95/49 - Labs CBC & Chem 7: 07/08/20 03:17 07/08/20 03:17 Labs: Abnormal Lab Results - Last 24 Hours (Table) 07/07/20 07/08/20 Range/Units 13:05 03:17 Sodium 132 L (137-145) mmol/L Potassium 3.4 L (3.5-5.1) mmol/L Chloride 91 L (98-107) mmol/L Carbon Dioxide 32 H (22-30) mmol/L Creatinine 0.51 L (0.52-1.04) mg/dL POC Glucose (mg/dL) 119 H (75-99) mg/dL Total Protein 5.3 L (6.3-8.2) g/dL Albumin 2.6 L (3.5-5.0) g/dL Microbiology - Last 24 Hours (Table) 07/07/20 10:28 Gram Stain - Preliminary Abdomen Wound Culture - Preliminary 07/07/20 10:28 Anaerobic Culture - Preliminary Abdomen
--- NOTE | 2020-07-08 12:02 | XR ---
EXAMINATION TYPE: XR chest 1V portable DATE OF EXAM: 07/08/2020 Comparison: 07/07/2020 Clinical History: 79-year-old female follow up Findings: Suboptimal oblique positioning of the patient. The right bases. The right heart margin is obscured by adjacent pleural parenchymal opacity. Dense opacity has increased at the right base. Persistent smal l layering left pleural effusion. Impression: Increasing density at the right base, probable moderate pleural effusion with adjacent atelectasis an d/or consolidation. Continued small left pleural effusion. Suboptimal patient positioning.
[2020-07-08 15:28] VITALS: BP 147/44; RESP 18; TEMP 98.4
--- NOTE | 2020-07-08 15:38 | PN ---
PROGRESS NOTE Patient is seen for followup for acute kidney injury. Her renal function has been very stable, with creatinine at about 0.5 mg/dL. Yesterday we were called, as patient's urine output had dropped. Over the last few days patient has been diuresed for volume overload. Her Lasix was decreased yesterday. Last night her blood pressure was slightly on the lower side. Patient received a fluid bolus and her urine output has picked up. She did get another dose of Lasix this morning and now she has her urine output at about 60 to 80 mL/hour. PHYSICAL EXAMINATION: On examination today, blood pressure was 152/77, heart rate 90 per minute. Patient is afebrile. EXAMINATION OF THE HEART: S1 and S2. EXAMINATION OF LUNGS: Bilateral breath sounds are heard. ABDOMEN: Soft, non-tender. Examination of lower extremities shows no evidence of edema. [employer] exam is grossly intact. LABS: Labs show sodium 132, potassium 3.4, chloride 91, CO2 32, BUN 12, creatinine 0.5, hemoglobin 13.5 g/dL. ASSESSMENT: 1. Oliguria, currently improved. Patient received a fluid bolus last night and she did get another dose of IV Lasix this morning. Urine output is well maintained. 2. Volume overload, status post diuresis. May continue gentle diuresis with current dose of Lasix. 3. Hypokalemia secondary to diuresis, currently improved. 4. Metabolic alkalosis secondary to diuresis, now improved. 5. Status post vent-dependent respiratory failure. PLAN: Continue with current dose of Lasix. Encourage increased oral intake. MMODL / IJN: [id number] /
[2020-07-08 15:47] VITALS: PULSE 85
--- NOTE | 2020-07-08 16:58 | P.DS ---
Providers Date of admission: 06/25/20 13:39 Expected date of discharge: 07/08/20 Attending physician: Mary Torres MD Consults: 06/23/20 19:58 Consult Physician Urgent Consulting Provider: Asaf Lau Consult Reason/Comments: l1 compression fracture with retropulsion Do you want consulting provider notified?: Yes 06/26/20 08:40 Consult Physician Routine Consulting Provider: Nasima Sharpe Consult Reason/Comments: hyponatremia Do you want consulting provider notified?: Yes 06/26/20 09:46 Consult Physician Routine Consulting Provider: Holli Agarwal Consult Reason/Comments: new onset a fib Do you want consulting provider notified?: Yes 06/29/20 15:07 Consult Physician Routine Consulting Provider: Primitivo Vázquez Consult Reason/Comments: ? colon obstruction Do you want consulting provider notified?: Yes 06/30/20 07:44 Consult Physician Routine Consulting Provider: El Retana Consult Reason/Comments: hypoxia/pleural effusion Do you want consulting provider notified?: Yes 07/05/20 18:59 Consult Physician Routine Consulting Provider: Holli Agrawal Consult Reason/Comments: afib Do you want consulting provider notified?: Yes 07/07/20 10:07 Consult Physician Urgent Consulting Provider: Gabe Gonzalez Consult Reason/Comments: bowel resection with colostomy, purulent drainage from incision Do you want consulting provider notified?: Yes Primary care physician: Leonardo Mays MD Hospital Course: Discharge Diagnosis: Discharged to hospice Colonic Obstruction s/p Colostomy P. A fib with rapid ventricular response Acute encephalopathy, metabolic Failure to Thrive Hyponatremia, probable SIADH Intractable back pain secondary to multiple compression fractures: L4 with slight posterior retropulsion, L1 with moderate posterior disc bulge effacing the anterior thecal sac, T11 exam compression fracture with some posterior retropulsion facing the anterior thecal sac Spiculated pulmonary nodule Hypokalemia COPD without acute exacerbation with hypercapnia Moderate protein calorie malnutrition Acute hypoxic respiratory failure, extubated 07/04, still requiring high flow nasal canula Right pleural effusion Community Pneumonia with septic shock, resolved hypomagnesemia, resolved Osteoporosis Hospital Course: Patient is a 79-year-old female with known COPD, tobacco abuse, and hypertension who presented as a transfer from [facility] secondary to low back pain with abnormal computed tomography scan findings. On arrival she was tachycardic at 110 with a blood pressure of 168/88 and was satting 90% on 2 L nasal cannula. Laboratory analysis showed hyponatremia, elevated BUN, and the remainder of labs were unremarkable. She had a CT Thorasic, Lumbar, and Pelvis which showed a L1 compression fracture with retropulsion and central canal stenosis. She was admitted for pain control and orthopedic spine consultation. MRI showed L4 with slight posterior retropulsion, L1 with moderate posterior disc bulge effacing the anterior thecal sac, T11 compression fracture with some posterior retropulsion facing the anterior thecal sac. She developed tahcycardia and increased O2 requirements. CTA chest negative of pulmonary embolism but does demonstrate debris in the right mainstem bronchus with collapse of the lower lobe consolidation, spiculated soft tissue thickening along the right upper lobe and left apical nodularity. She was started on Augmentin and Lasix. Speech therapy consult was placed for possible aspiration pneumonia. She was in A. fib with RVR on 06/26. She underwent an echocardiogram whh showed an EF 55-60%, cardiology was consulted and placed her on cardizem. After electrolyte replcment and cardizem she converted to NSR. Nephro was consulted due to hyponatremia and she was continued on lasix and then given a dose a samsca. Due to her high fall risk and return to normal sinus with electrolyte replacement she was determined not to be a candidate for anticoagulation. Her sodium improved. She continued to complain of abdominal pain and some distention. She had been having daily bowel movements. Abdominal x-ray completed which did show ileus. Patient refused NGT. She was seen by surgery on 06/30 and was found to have colonic obstruction on CT abdomen and pelvis. She ultimately required diverting colostomy on 07/01 where she was found to have megacolon and bowel obstruction. She required ICU care post operatively and was on the ventilator but successfully extubated on 07/04. She has had good output through her ostomy. However she has continued to require large amounts of oxygen. On 07/07 she was noticed to have drainage from her midline abdominal incision and her zosyn was continued. She was asking to . She had not shown significant improvement in her status and she continued to only eat a few bites a day. Hospice was consulted and family agreed to sign on to hospice. For physical exam see progress note same date, A total of 35 minutes of time were spent preparing this complex discharge summary . Patient Condition at Discharge: Stable Plan - Discharge Summary Discharge Rx Participant: No New Discharge Prescriptions: New Apixaban [Eliquis] 5 mg PO BID #60 tab No Action Cholecalciferol [Vitamin D3 (25 Mcg = 1000 Iu)] 3,000 unit PO DAILY amLODIPine [Norvasc] 10 mg PO DAILY #30 tab Vitamin C(Unknown Dose) 1 tab PO DAILY Albuterol Inhaler [Ventolin Hfa Inhaler] 2 puff INHALATION RT-Q4H PRN PRN Reason: Shortness Of Breath Cyclobenzaprine [Flexeril] 10 mg PO Q8H PRN PRN Reason: Muscle Spasm Latanoprost/Pf [Latanoprost 0.005% Eye Drop] 1 drop BOTH EYES HS Magnesium Oxide 400 mg PO DAILY Multivitamins, Thera [Multivitamin (formulary)] 1 tab PO DAILY Vitamin E 400 unit PO DAILY Fluticasone Propion/Salmeterol [Wixela 250-50 Inhub] 1 puff INHALATION RT- DAILY Ipratropium-Albuterol Nebulize [Duoneb 0.5 mg-3 mg/3 ml Soln] 3 ml INHALATION RT-QID PRN PRN Reason: Shortness Of Breath Potassium Chloride ER [K-Dur 20] 20 meq PO DAILY Tiotropium [place] [Spiriva] 1 cap INHALATION RT-HS Discharge Medication List Cholecalciferol [Vitamin D3 (25 Mcg = 1000 Iu)] 3,000 unit PO DAILY 09/20/19 [History] amLODIPine [Norvasc] 10 mg PO DAILY #30 tab 09/24/19 [Rx] Albuterol Inhaler [Ventolin Hfa Inhaler] 2 puff INHALATION RT-Q4H PRN 06/23/20 [History] Cyclobenzaprine [Flexeril] 10 mg PO Q8H PRN 06/23/20 [History] Fluticasone Propion/Salmeterol [Wixela 250-50 Inhub] 1 puff INHALATION RT-DAILY 06/23/20 [History] Ipratropium-Albuterol Nebulize [Duoneb 0.5 mg-3 mg/3 ml Soln] 3 ml INHALATION R T-QID PRN 06/23/20 [History] Latanoprost/Pf [Latanoprost 0.005% Eye Drop] 1 drop BOTH EYES HS 06/23/20 [History] Magnesium Oxide 400 mg PO DAILY 06/23/20 [History] Multivitamins, Thera [Multivitamin (formulary)] 1 tab PO DAILY 06/23/20 [History] Potassium Chloride ER [K-Dur 20] 20 meq PO DAILY 06/23/20 [History] Tiotropium [place] [Spiriva] 1 cap INHALATION RT-HS 06/23/20 [History] Vitamin C(Unknown Dose) 1 tab PO DAILY 06/23/20 [History] Vitamin E 400 unit PO DAILY 06/23/20 [History] Apixaban [Eliquis] 5 mg PO BID #60 tab 07/07/20 [Rx] Follow up Appointment(s)/Referral(s): Leonardo Mays MD [Primary Care Provider] - 1-2 days Mikel De Luna MD [STAFF PHYSICIAN] - As Needed (in 2 months ) Patient Instructions/Handouts: Chest Pain (GEN) Activity/Diet/Wound Care/Special Instructions: BMP in 2 days DX: hyponatremia
--- NOTE | 2020-07-09 16:26 | CDI ---
Documentation Clarification Form Date: 07/09/20 From: Dejah Keller Phone: If you have a question about this query, please contact Eva Medrano Sanitizer at [phone] between 8am and 5pm. Admit Date: 06/23/20 Discharge Date:07/08/20 Patient Name: Lyndsey Card Visit Number: [id number] ATTENTION: The Clinical Documentation Specialists (CDI) and [facility] Coding Staff appreciate your assistance in clarifying documentation. Please respond to the clarification below the line at the bottom and electronically sign. The CDI & [facility] Coding staff will review the response and follow-up if needed. Please note: Queries are made part of the Legal Health Record. If you have any questions, please contact the author of this message via ITS. Dear Dr. Zaidi Conflicting documentation has been found in the medical record: Dr. Retana documented stage 3 sacral decubitus ulcer. Documentation in the nursing documentation stated pressure injury hospital acquired stage I History/Risk Factors: Malnutrition, pneumonia, cachectic, frail, compression fractures of lumbar spine, acute respiratory failure Clinical Indicators: Erythema Location: sacrum Treatment: Patient turned every 2 hours In your opinion, what is the most clinically appropriate diagnosis for this patient? Stage 1 Pressure/Decubitus Ulcer (intact skin, non-blanching redness of local area) Stage 2 Pressure/Decubitus Ulcer (Partial thickness, loss of dermis, pink wound bed) Stage 3 Pressure/Decubitus Ulcer (Full thickness tissue loss) Stage 4 Pressure/Decubitus Ulcer (Full thickness tissue loss with exposed bone, tendon, or muscle. May have slough or eschar present) Unstageable Other explanation of clinical findings Unable to determine (no explanation for clinical findings) Stage 2 Pressure/Decubitus Ulcer (Partial thickness, loss of dermis, pink wound bed) MTDD
--- NOTE | 2020-07-10 13:52 | CDI ---
Documentation Clarification Form Date: 07/10/20 From: Dejah Keller Phone: If you have a question about this query, please contact Eva Medrano, Plastics Nurse at [phone] between 8am and 5pm. Admit Date: 06/25/20 Discharge Date:07/08/20 Patient Name: Lyndsey Card Visit Number: [id number] ATTENTION: The Clinical Documentation Specialists (CDI) and [facility] Coding Staff appreciate your assistance in clarifying documentation. Please respond to the clarification below the line at the bottom and electronically sign. The CDI & [facility] Coding staff will review the response and follow-up if needed. Please note: Queries are made part of the Legal Health Record. If you have any questions, please contact the author of this message via ITS. Dear Dr. Sherman The patient is being treated for Sepsis with Septic Shock Community Acquired Pneumonia and Acute Bowel Obstruction requiring diverting Colostomy. Per the 06/25 Attending Physician: Acute Hypoxic Respiratory Failure, Aspiration Pneumonia - possible gram negative & Nodular thickening. On 06/30 the patient was noted to have a SBO, refused NGT. On 07/01 the patient had a diverting loop transverse colostomy for bowel obstruction, returned to ICU postop on vent. History/Risk Factors: COPD, Asthma, Hypertension, O2 dep, Smoker. Falls. Left Hip Fracture with repair. Clinical Indicators: Presented to the ED on 06/23 via EMS as a transfer from [facility] with back pain & possible pneumonia. Diagnosed with a compression fracture per XR per PCP. Follow up CT: L1 compression fracture with retropulsion. Transferred for Orthopedic/Spine evaluation. Admitted to Observation Status with Compression Fractures: T3, T9, T11, L1 & L4; Severe Osteoporosis, Hyponatremia & Alkalosis. Per Ortho/Spine: Poor surgical candidate, consider Kyphoplasy if acute fracture. VS 06/25: T 97.5*, P 103^ (cough, SOB), BP 163/65, PO 95 5Lnc. 06/26: HR up to 112^, PO 92 2Lnc. VS: 07/01: T 100^, R 22, BP 124/76, PO 92 on vent. LAB 06/25: WBC 16.9^, ABG: pCO2 53^, pO2 49, HCO3 37^, Total CO2 38^, O2 Sat 86.5^; Na 130*, BUN 21^, Cr 0.39*. LAB 07/01: WBC 14.3^, Neut 13.2^, Na 127*, BUN 26^. Treatment 06/25: IV Lasix, IV Amoxicillin. 06/26: IV Kcl, IV Mag Sulf, IV Heparin, IV Lasix. 06/29: IV Mag Sulf. 06/30: IV Ms, INH Albuterol, IV Lasix, IV Mag Sulf, IV Dilaudid, IV fluid 1,000 mls @ 10 mls/hr. 07/01: Heparin sq, IV Lactated Ringers, IV Dilaudid, IV Propofol, Return to ICU from surgery on vent. Definition of Present on Admission (POA): A diagnosis present at the time the order for admission to inpatient status was written. For each diagnosis, documentation must be clear to determine if the condition was present at the time of the patients inpatient admission or developed during the hospital stay. Please clarify if Sepsis was POA: ____Y = Yes, the condition was present at the time of the order for inpatient admission. ____N = No, the condition was not present at the time of the order for inpatient admission. ____W = Clinically undetermined if the condition was present at the time of the order for inpatient admission. yes present on admission MTDD
== END 2020-07-08 16:59 | disposition hospice, inpatient (51) | DRG 853 ==
LOC: EC 19:35 → 1SOBS 20:00 → 3NCARDOBS 23:03 → OBSVTOIN 06-25 13:39 → 3SCARD 06-28 09:57 → 2SICU 07-01 17:01
PROVIDERS: ADMIT Internal Medicine; ATTEND Internal Medicine
PROC: 0BH17EZ Insertion of Endotracheal Airway into Trachea, Via Natural or Artificial Opening (ICD-10-PCS; 2020-07-01)
PROC: 5A1945Z Respiratory Ventilation, 24-96 Consecutive Hours (ICD-10-PCS; 2020-07-01)
PROC: 0D1L0Z4 Bypass Transverse Colon to Cutaneous, Open Approach (ICD-10-PCS; principal; 2020-07-01 13:05)
PROC: 06HM33Z Insertion of Infusion Device into Right Femoral Vein, Percutaneous Approach (ICD-10-PCS; 2020-07-02)
PROC: 03H733Z Insertion of Infusion Device into Right Brachial Artery, Percutaneous Approach (ICD-10-PCS; 2020-07-02)
PROC: 0D9670Z Drainage of Stomach with Drainage Device, Via Natural or Artificial Opening (ICD-10-PCS; 2020-07-02)
PROC: 5A09357 Assistance with Respiratory Ventilation, Less than 24 Consecutive Hours, Continuous Positive Airway Pressure (ICD-10-PCS; 2020-07-04)
PROC: 3E033XZ Introduction of Vasopressor into Peripheral Vein, Percutaneous Approach (ICD-10-PCS; 2020-07-08)
DX: A41.9 Sepsis, unspecified organism (principal); J69.0 Pneumonitis due to inhalation of food and vomit; G93.41 Metabolic encephalopathy; I50.33 Acute on chronic diastolic (congestive) heart failure; J96.21 Acute and chronic respiratory failure with hypoxia; J96.22 Acute and chronic respiratory failure with hypercapnia; R65.21 Severe sepsis with septic shock; J15.6 Pneumonia due to other Gram-negative bacteria; E22.2 Syndrome of inappropriate secretion of antidiuretic hormone; E44.0 Moderate protein-calorie malnutrition; E87.3 Alkalosis; I47.1 Supraventricular tachycardia; J98.11 Atelectasis; K56.601 Complete intestinal obstruction, unspecified as to cause; K56.7 Ileus, unspecified; K59.39 Other megacolon; M80.08XA Age-related osteoporosis with current pathological fracture, vertebra(e), initial encounter for fracture; L89.152 Pressure ulcer of sacral region, stage 2; F44.4 Conversion disorder with motor symptom or deficit; R62.7 Adult failure to thrive; J43.9 Emphysema, unspecified; I11.0 Hypertensive heart disease with heart failure; I48.0 Paroxysmal atrial fibrillation; E83.42 Hypomagnesemia; E87.6 Hypokalemia; F17.200 Nicotine dependence, unspecified, uncomplicated; K57.30 Diverticulosis of large intestine without perforation or abscess without bleeding; G89.29 Other chronic pain; R91.1 Solitary pulmonary nodule; Z20.828 Contact with and (suspected) exposure to other viral communicable diseases; T50.2X5A Adverse effect of carbonic-anhydrase inhibitors, benzothiadiazides and other diuretics, initial encounter; M48.061 Spinal stenosis, lumbar region without neurogenic claudication; M40.204 Unspecified kyphosis, thoracic region; M47.814 Spondylosis without myelopathy or radiculopathy, thoracic region; Z68.21 Body mass index [BMI] 21.0-21.9, adult; R29.6 Repeated falls; Z91.81 History of falling; Z66 Do not resuscitate; Z88.5 Allergy status to narcotic agent; Z91.040 Latex allergy status; Z79.899 Other long term (current) drug therapy; Z87.81 Personal history of (healed) traumatic fracture; Z98.890 Other specified postprocedural states; Z82.3 Family history of stroke; Y92.239 Unspecified place in hospital as the place of occurrence of the external cause
CPT/HCPCS: 36410; 36415; 36600; 71045; 71275; 72128; 72157; 72158; 74019; 74022; 74177; 76604; 76937; 80048; 80053; 82272; 82805; 83036; 83735; 83880; 83930; 83935; 84100; 84132; 84295; 84300; 84443; 85025; 85027; 85610; 85730; 87070; 87075; 87205; 93306; 94002; 94003; 94640; 94660; 94760; 99284

== ENCOUNTER 2020-07-08 16:37 | Inpatient (IN) | payer MEDICAID, MEDICARE ==
[2020-07-08] MEDS ORDERED: LORazepam 2 MG/ML INJ IV PRN (16:46)
[2020-07-08] MEDS ORDERED: ATROPINE OPHTH SOLN 1% 5ML BTL SUBLINGUAL PRN (16:46)
[2020-07-08] MEDS ORDERED: ACETAMINOPHEN SUPPOSITORY 650 MG SUPP RECTAL PRN (16:46)
[2020-07-08] MEDS ORDERED: ONDANSETRON 4 MG/2 ML VIAL IVP PRN (16:50)
[2020-07-08] MEDS ORDERED: HYDROmorphone 1 MG/ML 1 ML SYRINGE IVP PRN ×3 (16:52→17:08)
--- NOTE | 2020-07-08 17:11 | P.HPIM ---
History of Present Illness H&P Date: 07/08/20 Chief Complaint: intractable pain Patient is a 79-year-old female with known COPD, tobacco abuse, and hypertension who presented as a transfer from [facility] secondary to low back pain with abnormal computed tomography scan findings. On arrival she was tachycardic at 110 with a blood pressure of 168/88 and was satting 90% on 2 L nasal cannula. Laboratory analysis showed hyponatremia, elevated BUN, and the remainder of labs were unremarkable. She had a CT Thorasic, Lumbar, and Pelvis which showed a L1 compression fracture with retropulsion and central canal stenosis. She was admitted for pain control and orthopedic spine consultation. MRI showed L4 with slight posterior retropulsion, L1 with moderate posterior disc bulge effacing the anterior thecal sac, T11 compression fracture with some posterior retropulsion facing the anterior thecal sac. She developed tahcycardia and increased O2 requirements. CTA chest negative of pulmonary embolism but does demonstrate debris in the right mainstem bronchus with collapse of the lower lobe consolidation, spiculated soft tissue thickening along the right upper lobe and left apical nodularity. She was started on Augmentin and Lasix. Speech therapy consult was placed for possible aspiration pneumonia. She was in A. fib with RVR on 06/26. She underwent an echocardiogram whh showed an EF 55-60%, cardiology was consulted and placed her on cardizem. After electrolyte replcment and cardizem she converted to NSR. Nephro was consulted due to hyponatremia and she was continued on lasix and then given a dose a samsca. Due to her high fall risk and return to normal sinus with electrolyte replacement she was determined not to be a candidate for anticoagulation. Her sodium improved. She continued to complain of abdominal pain and some distention. She had been having daily bowel movements. Abdominal x-ray completed which did show ileus. Patient refused NGT. She was seen by surgery on 06/30 and was found to have colonic obstruction on CT abdomen and pelvis. She ultimately required diverting colostomy on 07/01 where she was found to have megacolon and bowel obstruction. She required ICU care post operatively and was on the ventilator but successfully extubated on 07/04. She has had good output through her ostomy. However she has continued to require large amounts of oxygen. On 07/07 she was noticed to have drainage from her midline abdominal incision and her zosyn was continued. She was asking to . She had not shown significant improvement in her status and she continued to only eat a few bites a day. Hospice was consulted and family agreed to sign on to hospice. She is admitted to hospice. Patient seen and examined at bedside. She complains of abdominal pain, not being hungry, + thirsty, no shortness of breath, no nausea. Unable to obtain full review of systems due to confusion. Patient is aware that she is in the hospital but thinks she is in [place]. Unable to tell me what year it is. Review of Systems Confused unable to complete full review of systems due to confusion ROS unobtainable: due to mental status Past Medical History Past Medical History: Asthma, COPD Additional Past Medical History / Comment(s): both ankles fractured History of Any Multi-Drug Resistant Organisms: None Reported Past Surgical History: Orthopedic Surgery Past Anesthesia/Blood Transfusion Reactions: No Reported Reaction Past Psychological History: No Psychological Hx Reported Smoking Status: Current every day smoker Past Alcohol Use History: None Reported Past Drug Use History: None Reported - Past Family History Mother Family Medical History: CVA/TIA Father Family Medical History: CVA/TIA Medications and Allergies Home Medications Medication Instructions Recorded Confirmed Type Cholecalciferol [Vitamin D3 (25 3,000 unit PO DAILY 09/20/19 06/23/20 History Mcg = 1000 Iu)] amLODIPine [Norvasc] 10 mg PO DAILY #30 tab 09/24/19 06/23/20 Rx Albuterol Inhaler [Ventolin Hfa 2 puff INHALATION RT-Q4H PRN 06/23/20 06/23/20 History Inhaler] Cyclobenzaprine [Flexeril] 10 mg PO Q8H PRN 06/23/20 06/23/20 History Fluticasone Propion/Salmeterol 1 puff INHALATION RT-DAILY 06/23/20 06/23/20 History [Wixela 250-50 Inhub] Ipratropium-Albuterol Nebulize 3 ml INHALATION RT-QID PRN 06/23/20 06/23/20 History [Duoneb 0.5 mg-3 mg/3 ml Soln] Latanoprost/Pf [Latanoprost 0.005% 1 drop BOTH EYES HS 06/23/20 06/23/20 History Eye Drop] Magnesium Oxide 400 mg PO DAILY 06/23/20 06/23/20 History Multivitamins, Thera [Multivitamin 1 tab PO DAILY 06/23/20 06/23/20 History (formulary)] Potassium Chloride ER [K-Dur ] 20 meq PO DAILY 06/23/20 06/23/20 History Tiotropium [place] [Spiriva] 1 cap INHALATION RT-HS 06/23/20 06/23/20 History Vitamin C(Unknown Dose) 1 tab PO DAILY 06/23/20 06/23/20 History Vitamin E 400 unit PO DAILY 06/23/20 06/23/20 History Apixaban [Eliquis] 5 mg PO BID #60 tab 07/07/20 Rx Allergies Allergy/AdvReac Type Severity Reaction Status Date / Time latex Allergy Rash/Hives Verified 06/23/20 20:36 morphine Allergy Rash/Hives Verified 06/23/20 20:36 Physical Exam Osteopathic Statement: *. No significant issues noted on an osteopathic structural exam other than those noted in the History and Physical/Consult. Vitals: Intake and Output 07/08/20 07/08/20 07/08/20 06:59 14:59 22:59 Other: Weight 45.9 kg General: ill appearing, mild distress due to pain, appears at stated age Derm: warm, dry Head: atraumatic, normocephalic, symmetric Eyes: EOMI, no lid lag, anicteric sclera Mouth: no lip lesion, mucus membranes moist Cardiovascular: S1S2 reg, no murmur, positive posterior tibial pulse bilateral, Lungs: decreased bs bilateral , no accessory muscle use Abdominal: soft, purulent drainage from midline incision, NTTP, + osteomy in place with fecal matter in pouch, no appreciable organomegaly Ext: no gross muscle atrophy, trace edema, no contractures Neuro: CN II-XI grossly intact, no focal neuro deficits Psych: Alert to self and being in the hospital Assessment and Plan Assessment: Acute hypoxic respiratory due to end stage COPD, Pneumonia, and right sided pleural effusion Colonic Obstruction s/p Colostomy P. A fib with rapid ventricular response Acute encephalopathy, metabolic Failure to Thrive Hyponatremia, probable SIADH Intractable back pain secondary to multiple compression fractures: L4 with slight posterior retropulsion, L1 with moderate posterior disc bulge effacing th e anterior thecal sac, T11 exam compression fracture with some posterior retropulsion facing the anterior thecal sac Spiculated pulmonary nodule Hypokalemia COPD without acute exacerbation with hypercapnia Moderate protein calorie malnutrition septic shock hypomagnesemia, resolved Osteoporosis D/W hospice. Fentanyl patch increased, Dilaudid prn due to morphine allergy, ativan prn, atropin prn, continue remeron, supportive care, continue full liquid diet due to recent surgery.
[2020-07-08] MEDS ORDERED: MIRTAZAPINE 15 MG TAB PO SCH (21:00)
[2020-07-08 22:42] VITALS: BP 100/71; PULSE 120; RESP 22
--- NOTE | 2020-07-09 18:06 | P.DS ---
Providers Date of admission: 07/08/20 17:03 Expected date of discharge: 07/09/20 Attending physician: Radha Zaidi DO Primary care physician: Leonardo Mays MD Hospital Course: Discharge Diagnosis: Colonic Obstruction s/p Colostomy P. A fib with rapid ventricular response Acute encephalopathy, metabolic Failure to Thrive Hyponatremia, probable SIADH Intractable back pain secondary to multiple compression fractures: L4 with slight posterior retropulsion, L1 with moderate posterior disc bulge effacing the anterior thecal sac, T11 exam compression fracture with some posterior ret ropulsion facing the anterior thecal sac Spiculated pulmonary nodule Hypokalemia COPD without acute exacerbation with hypercapnia Moderate protein calorie malnutrition Acute hypoxic respiratory failure, extubated 07/04, still requiring high flow nasal canula Right pleural effusion Community Pneumonia with septic shock, resolved hypomagnesemia, resolved Osteoporosis Hospital Course: Patient is a 79-year-old female with known COPD, tobacco abuse, and hypertension who presented as a transfer from [facility] secondary to low back pain with abnormal computed tomography scan findings. On arrival she was tachycardic at 110 with a blood pressure of 168/88 and was satting 90% on 2 L nasal cannula. Laboratory analysis showed hyponatremia, elevated BUN, and the remainder of labs were unremarkable. She had a CT Thorasic, Lumbar, and Pelvis which showed a L1 compression fracture with retropulsion and central canal stenosis. She was admitted for pain control and orthopedic spine consultation. MRI showed L4 with slight posterior retropulsion, L1 with moderate posterior disc bulge effacing the anterior thecal sac, T11 compression fracture with some posterior retropulsion facing the anterior thecal sac. She developed tahcycardia and increased O2 requirements. CTA chest negative of pulmonary embolism but does demonstrate debris in the right mainstem bronchus with collapse of the lower lobe consolidation, spiculated soft tissue thickening along the right upper lobe and left apical nodularity. She was started on Augmentin and Lasix. Speech therapy consult was placed for possible aspiration pneumonia. She was in A. fib with RVR on 06/26. She underwent an echocardiogram [facility] showed an EF 55-60%, cardiology was consulted and placed her on cardizem. After electrolyte replcment and cardizem she converted to NSR. Nephro was consulted due to hyponatremia and she was continued on lasix and then given a dose a samsca. Due to her high fall risk and return to normal sinus with electrolyte replacement she was determined not to be a candidate for anticoagulation. Her sodium improved. She continued to complain of abdominal pain and some distention. She had been having daily bowel movements. Abdominal x-ray completed which did show ileus. Patient refused NGT. She was seen by surgery on 06/30 and was found to have colonic obstruction on CT abdomen and pelvis. She ultimately required diverting colostomy on 07/01 where she was found to have megacolon and bowel obstruction. She required ICU care post operatively and was on the ventilator but successfully extubated on 07/04. She has had good output through her ostomy. However she has continued to require large amounts of oxygen. On 07/07 she was noticed to have drainage from her midline abdominal incision and her zosyn was continued. She was asking to . She had not shown significant improvement in her status and she continued to only eat a few bites a day. Hospice was consulted and family agreed to sign on to hospice. She was subsequently admitted [facility]. She was started on comfort care orders. She passed peacefully on the morning of 07/09/2020 A total of 15 minutes of time were spent preparing this complex discharge summary . Plan - Discharge Summary New Discharge Prescriptions: No Action Cholecalciferol [Vitamin D3 (25 Mcg = 1000 Iu)] 3,000 unit PO DAILY amLODIPine [Norvasc] 10 mg PO DAILY #30 tab Vitamin C(Unknown Dose) 1 tab PO DAILY Albuterol Inhaler [Ventolin Hfa Inhaler] 2 puff INHALATION RT-Q4H PRN PRN Reason: Shortness Of Breath Cyclobenzaprine [Flexeril] 10 mg PO Q8H PRN PRN Reason: Muscle Spasm Latanoprost/Pf [Latanoprost 0.005% Eye Drop] 1 drop BOTH EYES HS Magnesium Oxide 400 mg PO DAILY Multivitamins, Thera [Multivitamin (formulary)] 1 tab PO DAILY Vitamin E 400 unit PO DAILY Fluticasone Propion/Salmeterol [Wixela 250-50 Inhub] 1 puff INHALATION RT- DAILY Ipratropium-Albuterol Nebulize [Duoneb 0.5 mg-3 mg/3 ml Soln] 3 ml INHALATION RT-QID PRN PRN Reason: Shortness Of Breath Potassium Chloride ER [K-Dur 20] 20 meq PO DAILY Tiotropium [place] [Spiriva] 1 cap INHALATION RT-HS Apixaban [Eliquis] 5 mg PO BID #60 tab Discharge Medication List Cholecalciferol [Vitamin D3 (25 Mcg = 1000 Iu)] 3,000 unit PO DAILY 09/20/19 [History] amLODIPine [Norvasc] 10 mg PO DAILY #30 tab 09/24/19 [Rx] Albuterol Inhaler [Ventolin Hfa Inhaler] 2 puff INHALATION RT-Q4H PRN 06/23/20 [History] Cyclobenzaprine [Flexeril] 10 mg PO Q8H PRN 06/23/20 [History] Fluticasone Propion/Salmeterol [Wixela 250-50 Inhub] 1 puff INHALATION RT-DAILY 06/23/20 [History] Ipratropium-Albuterol Nebulize [Duoneb 0.5 mg-3 mg/3 ml Soln] 3 ml INHALATION RT-QID PRN 06/23/20 [History] Latanoprost/Pf [Latanoprost 0.005% Eye Drop] 1 drop BOTH EYES HS 06/23/20 [History] Magnesium Oxide 400 mg PO DAILY 06/23/20 [History] Multivitamins, Thera [Multivitamin (formulary)] 1 tab PO DAILY 06/23/20 [History] Potassium Chloride ER [K-Dur 20] 20 meq PO DAILY 06/23/20 [History] Tiotropium [place] [Spiriva] 1 cap INHALATION RT-HS 06/23/20 [History] Vitamin C(Unknown Dose) 1 tab PO DAILY 06/23/20 [History] Vitamin E 400 unit PO DAILY 06/23/20 [History] Apixaban [Eliquis] 5 mg PO BID #60 tab 07/07/20 [Rx] Discharge Disposition: - Preliminary Cause of Preliminary Cause of : Sepsis
== END 2020-07-09 08:33 | disposition expired | DRG 951 ==
LOC: 2SICU 17:03
PROVIDERS: ADMIT Internal Medicine; ATTEND Internal Medicine
DX: Z51.5 Encounter for palliative care (principal); A41.9 Sepsis, unspecified organism; G93.41 Metabolic encephalopathy; J96.01 Acute respiratory failure with hypoxia; J18.9 Pneumonia, unspecified organism; R65.21 Severe sepsis with septic shock; S32.019A Unspecified fracture of first lumbar vertebra, initial encounter for closed fracture; S32.049A Unspecified fracture of fourth lumbar vertebra, initial encounter for closed fracture; S22.089A Unspecified fracture of T11-T12 vertebra, initial encounter for closed fracture; E22.2 Syndrome of inappropriate secretion of antidiuretic hormone; E44.0 Moderate protein-calorie malnutrition; J90 Pleural effusion, not elsewhere classified; J44.0 Chronic obstructive pulmonary disease with (acute) lower respiratory infection; K59.39 Other megacolon; R62.7 Adult failure to thrive; Z66 Do not resuscitate; I48.0 Paroxysmal atrial fibrillation; Z93.3 Colostomy status; E87.6 Hypokalemia; F17.200 Nicotine dependence, unspecified, uncomplicated; I10 Essential (primary) hypertension; R91.1 Solitary pulmonary nodule; Z68.21 Body mass index [BMI] 21.0-21.9, adult; M81.0 Age-related osteoporosis without current pathological fracture; Z79.01 Long term (current) use of anticoagulants; Z79.899 Other long term (current) drug therapy; Z88.5 Allergy status to narcotic agent; Z91.040 Latex allergy status; Z91.81 History of falling; Z87.81 Personal history of (healed) traumatic fracture; Z87.19 Personal history of other diseases of the digestive system; Z82.3 Family history of stroke